=== PATIENT | male | born 1935 | race Caucasian/White ===

== ENCOUNTER → 2018-01-22 14:32 | Outpatient (CLI) | payer MEDICARE, SELFPAY ==
[2018-01-22 16:08] LABS: PSA,Total- Diagnostic 1.51 ng/mL (0.0-4.0)
== END ==
PROVIDERS: Family Provider Family Medicine; PCP Family Medicine; Visit Provider Nurse Practitioner Adult Health
DX: C61 Malignant neoplasm of prostate (principal)
CPT/HCPCS: 36415; 84153

== ENCOUNTER 2018-05-15 13:34 | Emergency (ER) | payer MEDICARE, SELFPAY ==
[2018-05-15 13:34] VITALS: BP 154/84; PULSE 71; RESP 16; TEMP 36.9; O2SAT 97; BMI 26.4
--- NOTE | 2018-05-15 14:04 | EKG12_ITS ---
Test Reason : CP Blood Pressure : / mmHG Vent. Rate : 072 BPM Atrial Rate : 072 BPM P-R Int : 178 ms QRS Dur : 094 ms QT Int : 394 ms P-R-T Axes : 067 037 067 degrees QTc Int : 431 ms Sinus rhythm with Premature supraventricular complexes Otherwise normal ECG Confirmed by OTIS OCCHRAN, SHELBY ([id number]), managing editor MERISSA ARRINGTON ([id number]) on 05/19/2018 5:03:09 PM Referred By: MAGALIS Confirmed By:SHELBY BERG MD
--- NOTE | 2018-05-15 14:15 | RAD_ITS ---
STUDY: X-RAY CHEST REASON FOR EXAM: Male, 83 years old. Chest pain. TECHNIQUE: PA and lateral views of the chest. COMPARISON: None. FINDINGS: EKG electrodes are seen. Hyperinflation. Mild increased markings in the anterior lingular segment of the left upper lobe. This may represent either an area of scarring and/or infiltrate. Follow-up is recommended. There is no demonstrated pleural abnormality. Normal size heart. Normal mediastinum and mackenzie. Normal visualized pulmonary arteries. There is atherosclerotic calcification of the aortic arch with tortuosity. There is demineralization of the osseous structures. Normal visualized ribs, clavicles, and shoulders. There is no demonstrated abnormality of the visualized soft tissue structures of the upper abdomen. RAD/Chest PA and Lateral IMPRESSION: Hyperinflation. Increased density in the anterior aspect of the lingular segment of the left upper lobe as described. This may represent either infiltrate or scarring. Electronically Signed: Greg Bagley MD at 15:03 EST Tel [phone], Service support ,
[2018-05-15 14:20] LABS: Absolute Lymphocyte Count 2.19 X10^3/ul (0.83-4.51); Absolute Neutrophil Count 3.4 X10^3/uL (2.0-7.7); Basophil# 0.04 X10^3/uL; Basophil% 0.6 % (0-1); Eosinophil# 0.13 X10^3/uL; Eosinophils% 2.1 % (0-5); Hematocrit 45.4 % (40-54); Hemoglobin 15.8 g/dl (13.0-16.5); Lymphocyte # 2.19 X10^3/ul (4.0); Mean Corp Hgb Conc 34.8 g/gl (32-36); Mean Corpuscular Hgb 36.1 pg (27.0-32.0); Mean Corpuscular Volume 103.7 fL (80-94); Mean Platelet Vol. 9.6 fl (6.2-12.0); Monocyte# 0.47 X10^3/uL; Monocyte% 7.5 % (0-10); Neutrophil # 3.42 X10^3/uL (2.7-7.7); Neutrophil % 54.6 % (47-70); POSITIVE COUNT NO; POSITIVE DIFFERENTIAL NO; POSITIVE MORPHOLOGY NO; Platelet Count 280 K/mm3 (150-450); RBC Distribution Width CV 12.1 % (11.6-14.6); RBC Distribution Width SD 45.2 fl (35.1-43.9); Red Blood Count 4.38 M/mm3 (4.6-6.2); White Blood Count 6.3 K/mm3 (4.4-11.0)
[2018-05-15 14:31] LABS: AST(SGOT) 8 U/L (15-37); Alanine Aminotransfer ALT/SGPT 17 U/L (16-61); Albumin, Serum 3.6 g/dL (3.2-5.0); Alkaline Phosphatase 82 U/L (45-117); Anion Gap 9 (5-15); BUN 13 mg/dL (7-18); BUN/Creat Ratio 11.3 RATIO (10-20); Calcium,Total 8.7 mg/dL (8.5-10.1); Chloride 99 mmol/L (98-107); Creatinine, Serum 1.15 mg/dL (0.70-1.30); EST Glomerular Filtration Rate 65 mL/min (>60); Est Glom Filt Rate - Afr Amer 78 mL/min (>60); Estimated Creatinine Clearance 50.25 ml/min; Globulin 3.6 g/dL (2.2-4.2); Glucose 171 mg/dL (74-106); Lipase 50 U/L (73-393); Potassium 4.7 mmol/L (3.5-5.1); Protein, Total 7.2 g/dL (6.4-8.2); Sodium Level 136 mmol/L (136-145)
[2018-05-15] MEDS: oxyCODONE 5 MG Tablet PO (16:22)
[2018-05-15 16:23] VITALS: BP 141/85; PULSE 85; RESP 22; O2SAT 95
--- NOTE | 2018-05-15 16:42 | ED.VISSUMM ---
- ER Visit Summary Date of Service: 05/15/18 Chief Complaint: Right-sided chest wall pain. History of Present Illness: The patient is a 83 M with right chest wall pain. Chief complaint is abdominal pain by patient pain towards his right lower ribs and back region. He denies any abdominal pain nausea vomiting or relation to food. No fever chills no recent weight loss. No hemoptysis. Physical Examination: Not appear in acute distress. Moist mucous membranes, no obvious facial deformity No C-spine tenderness supple neck. Regular rate and rhythm without any obvious murmurs Clear lungs bilaterally speaking in full sentences without any obvious respiratory distress. He has right-sided chest wall pain radiating into his back it is quite reproducible on palpation. No rash is seen on the skin. Abdomen soft and nontender no guarding or rebound Moves all extremities without any difficulty or pain. Skin does not show any obvious rashes or lesions, no trauma. Alert oriented ?3 with no gross focal deficit Emergency Department Course and Treatment: X-ray and blood work is unremarkable, his pain is reproducible in the chest wall region. It is nonpleuritic. He has no PE risk factors. He appears well. I will discharge him with reassurance he does not require analgesia at home he has opiate analgesics at home. He will follow-up with PCP. He was told to quit smoking. Disposition: Discharge stable condition Impression: Chest wall pain This note was generated with [employer] dictation software. It may contain incorrect words, spelling, and punctuation that were not noted in review of the chart prior to signing ED Disposition - Plan for ED Patient: Chief Complaint: Abd Pain Referrals: Pradeep Franklin MD [Primary Care Provider] -
--- NOTE | 2018-05-15 16:46 | ED.VISSUMM ---
- ER Visit Summary Date of Service: 05/15/18 Chief Complaint: [] History of Present Illness: The patient is a 83 M [] Physical Examination: [] Test Results: [] Emergency Department Course and Treatment: [] Treatment Plan: [] Disposition: [] Impression: [] This note was generated with [employer] dictation software. It may contain incorrect words, spelling, and punctuation that were not noted in review of the chart prior to signing ED Disposition - Plan for ED Patient: Disposition: Home or Assisted Living Chief Complaint: Abd Pain Instructions: ED Strain Chest Wall Referrals: Pradeep Franklin MD [Primary Care Provider] - 3-5 Days
== END 2018-05-15 16:54 | disposition home or self-care (01) ==
PROVIDERS: Emergency Provider Emergency Medicine; Family Provider Family Medicine; PCP Family Medicine
DX: R07.89 Other chest pain (principal); I10 Essential (primary) hypertension; E78.00 Pure hypercholesterolemia, unspecified; Z72.0 Tobacco use; Z79.4 Long term (current) use of insulin; Z79.82 Long term (current) use of aspirin; Z79.899 Other long term (current) drug therapy
CPT/HCPCS: 71046; 80053; 83690; 85025; 93005; 99284; A4216

== ENCOUNTER 2019-02-27 10:45 | Emergency (ER) | payer MEDICARE, SELFPAY ==
[2019-02-27 10:46] VITALS: BP 143/87; PULSE 80; RESP 18; TEMP 36.9; O2SAT 95; BMI 25.8
--- NOTE | 2019-02-27 11:29 | ED.DCSUM_ITS ---
History of Present Illness Chief Complaint: Abscess Informant: Patient Onset: Weeks - 2-3 Context: Gradual Onset Timing: Continuous Quality: sore Location: left perianal area Current Severity: Moderate Maximum Severity: Moderate Worsened by: sitting, palpation Relieved by: standing Associated Symptoms: no fevers or systemic sx. no discharge/bleeding. Narrative: Patient states for the last couple weeks he has had a tender swollen area in his rectal area, indicating his perianal area. It has not drained anything. He had this about 2 years ago when he saw Dr. Sullivan, who did incision and drainage in the office, and it gradually got better. However, the patient states he has felt something there for the past 2 years ever since, and then start seeing how that doctor never did follow up with him or get it to go away, he made phone calls and never got a call back and feels like he was not treated well and wants to see someone else but since it is Friday and he feels worse this morning presents to the emergency department for evaluation. He denies any discharge, problems with bowel movements which have been normal and not constipated or diarrhea or bloody at all. No fevers or systemic symptoms. He has history of diabetes but no history of inflammatory bowel disease that he knows of Prior similar symptoms: Yes - had drained once - Past Medical History (1) Benign hypertension Status: Chronic (2) Diabetic neuropathy Status: Chronic (3) Diverticulosis of colon without diverticulitis Status: Chronic (4) HLD (hyperlipidemia) Status: Chronic (5) History of GI bleed Status: Chronic (6) Type II diabetes mellitus Status: Chronic Past Medical History - Allergies and Home Meds Allergies/Adverse Reactions: Allergies Iodinated Contrast Media [Iodinated Contrast Media - IV Dye] Allergy (Verified 02/27/19 10:48) Shortness of breath Primary Care Physician: Pradeep Franklin MD [Primary Care Provider] - Smoking Status: Current every day smoker Drugs: None Review of Systems General: Denies: Chills, Fever Gastrointestinal: Reports: - - Perianal discomfort, see HPI. Denies: Abdominal pain, Nausea, Vomiting, Diarrhea, Constipation, Melena, Hematochezia Skin: Reports: Abscess - Possibly, see HPI. Denies: Rash, Wounds Physical Exam Vital Signs/Narrative: Vital Signs Temp Pulse Resp BP Pulse Ox 02/27/19 10:46 98.4 F 80 18 143/87 H 95 Inital Vital Signs reviewed: Yes General: Well nourished, Well developed, No Acute Distress - Well-appearing, conversive, ambulatory Head: Normocephalic, Atraumatic ENT: Moist mucous membranes, No rhinorrhea Neck: Supple, Nontender Abdomen: Soft, Nontender, Nondistended, Normal bowel sounds Rectal: Tenderness - Mild tenderness at 9 o'clock position, with there is a very small nonerythematous swollen area without expressed will discharge. There is no induration, or fluctuance. It is right at the anal verge. On digital rectal exam, I palpate no masses or areas of tenderness further up. There is no palpable mass. Skin: Normal color, No rash, No Trauma Neurological: Alert, Oriented x3, Cranial nerves II-XII grossly intact, Normal Strength, Normal Sensation, Normal Gait Psychological: Normal affect, Normal Mood Diagnostic/Tx/Re-eval - Medical Decision Making At this time I do not think there is any indication for incision and drainage this is a very small area of tenderness. In fact it may not even be an abscess but I am going to treat him as a possible early perianal abscess just in case. He states he wants to be referred to a different colorectal surgeon. Given i nformation for Dr. Dykes and advised to follow-up after the weekend, to take the antibiotic Keflex as I am at a low patient for MRSA given the appearance of this fairly benign area, and given reasons to return. He is comfortable with that plan. ED Disposition - Plan for ED Patient: Disposition: Home or Assisted Living Diagnosis: Perianal abscess Instructions: ABSCESS, Antiobiotic Treatment Only Prescriptions: Cephalexin [Keflex] 500 mg PO Q8H #30 cap Prescription Printed Referrals: Pradeep Franklin MD [Primary Care Provider] - Charissa Dykes MD [STAFF PHYSICIAN] - As soon as possible (call for appt)
[2019-02-27 11:37] VITALS: RESP 18
== END 2019-02-27 11:41 | disposition home or self-care (01) ==
PROVIDERS: Emergency Provider Emergency Medicine; Family Provider Family Medicine; PCP Family Medicine
DX: K61.0 Anal abscess (principal); I10 Essential (primary) hypertension; E11.40 Type 2 diabetes mellitus with diabetic neuropathy, unspecified; F17.200 Nicotine dependence, unspecified, uncomplicated
CPT/HCPCS: 99282

== ENCOUNTER 2019-05-26 16:42 | Emergency (ER) | payer MEDICARE, SELFPAY ==
[2019-05-26 16:43] VITALS: BP 154/75; PULSE 89; RESP 17; TEMP 36.7; O2SAT 95; BMI 25.3
--- NOTE | 2019-05-26 17:47 | ED.DCSUM_ITS ---
- ER Visit Summary Date of Service: 05/26/19 Chief Complaint: Rectal abscess History of Present Illness: The patient is a 84 M with a rectal cyst or abscess. This has been going on intermittently for years. He previously saw Dr. Wang and it was drained. He never followed up for biopsy results. He has been placed on antibiotics by his PCP and by the emergency department. He was referred to surgery for follow-up, but has not followed up with a new surgeon. He continues to have symptoms. This episode has been going on for a couple months, worse over the last 3 days. He reports pain to his rectal area. Denies any other associated symptoms like GI symptoms or fevers. He is not currently on antibiotics. Physical Examination: Afebrile and vital signs unremarkable. He has some induration and swelling to his perineal area. The overlying skin appears normal. Anus otherwise unremarkable. Test Results: None performed Emergency Department Course and Treatment: Patient presents with a chronic abscess or cyst. This has been going on for years. He was referred to surgery. There is no indication for emergent I&D or surgery. He has had this on and off for years and this episode has been going on for several months. He is not septic or toxic. The overlying skin appears normal. This can be managed as an outpatient. He was started on Bactrim and Keflex and will be referred to surgery for follow-up. Treatment Plan: Bactrim and Keflex. Outpatient referral to surgery. Disposition: Discharge Impression: Chronic perineal swelling This note was generated with [employer] dictation software. It may contain incorrect words, spelling, and punctuation that were not noted in review of the chart prior to signing ED Disposition - Plan for ED Patient: Referrals: Pradeep Franklin MD [Primary Care Provider] -
--- NOTE | 2019-05-26 17:51 | ED.DEP ---
ED Disposition - Plan for ED Patient: Instructions: ABSCESS, Antiobiotic Treatment Only Prescriptions: Smz/Tmp Ds [Bactrim Ds] 1 tab PO BID #14 tab Prescription Printed Cephalexin [Keflex] 500 mg PO Q6 #28 cap Prescription Printed Referrals: Maury Alejo MD [STAFF PHYSICIAN] - Charissa Dykes MD [STAFF PHYSICIAN] -
[2019-05-26 18:21] VITALS: BP 138/67; PULSE 52; RESP 16; O2SAT 98
[2019-05-26] MEDS: Smz/Tmp Ds Tablet 1 TABLET PO (18:22)
[2019-05-26] MEDS: Cephalexin 250 MG Capsule 500 MG PO (18:22)
== END 2019-05-26 18:25 | disposition home or self-care (01) ==
PROVIDERS: Emergency Provider Emergency Medicine; PCP Family Medicine
DX: R22.2 Localized swelling, mass and lump, trunk (principal); E11.9 Type 2 diabetes mellitus without complications; I10 Essential (primary) hypertension; Z87.891 Personal history of nicotine dependence; Z79.4 Long term (current) use of insulin; Z79.899 Other long term (current) drug therapy
CPT/HCPCS: 99283

== ENCOUNTER 2019-05-28 08:36 | Day surgery (SDC) | payer MEDICARE, SELFPAY ==
--- NOTE | 2019-05-28 07:41 | HP.PCM_ITS ---
History and Physical Date of Admission: 05/28/19 HISTORY AND PHYSICAL ? Bebeto Staples 1935 ? ? REFERRING PHYSICIAN: MD Kayden ? CHIEF COMPLAINT: No chief complaint on file. ? HPI: The patient is a 84 year old male presents with perineal abscess. He states that he has noted intermittent swelling/tenderness/drainage for the past several years. He underwent incision and drainage of abscess in the same area by Dr. Sullivan October 05, 2013. He states that he has had problems in the area. He has had radiation to the area for prostate cancer. He is a diabetic without optimum control of his disease. 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 He denies fevers. He was seen at [facility] ED on 05/26/2019 for which he was placed on Bactrim and Keflex and told to follow up in this clinic. ? ? PAST MEDICAL HISTORY ? 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 ? Anxiety ? ? 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 Chronic kidney disease (CKD), stage III (moderate) (HCC) ? ? Colon polyp ? ? CVA (cerebral vascular accident) (HCC) 2006 ? Diverticulosis of colon (without mention of hemorrhage) ? ? Hypertension ? ? Involuntary movements ? ? dykinesia 2006 ? Lower GI bleed ? ? 03/2009, transfused 8 units PRBC's ? PMH - PAST MEDICAL HISTORY OF ? ? diabetes ? PMH - PAST MEDICAL HISTORY OF ? ? hypercholesterolemia ? PMH - PAST MEDICAL HISTORY OF ? ? dykinesia ? PMH - PAST MEDICAL HISTORY OF ? ? abnormal blood work on Prostrate ? Prostate cancer (HCC) 2011 ? s/p radiation, previously seeing Dr. Williamson ? Psoriasis ? ? Tobacco use ? ? PAST SURGICAL HISTORY ? COLONOSCOP W/ OR W/O BRSH SPEC ? 10/24/03 ? Colonoscopy ? COLONOSCOP W/ OR W/O BRSH SPEC ? 08/17/2008 ? Colonoscopy ? COLONOSCOP W/ OR W/O BRSH SPEC ? 12-18-12 ? EGD W/O OR W/BRUSH/WASH ? 10/24/03 ? EGD ? LAPAROSCOPIC CHOLEYCYSTECTOMY ? 12-23-12 ? PAST SURGICAL HISTORY OF ? 2003 ? boil and cyst removed from buttock ? PAST SURGICAL HISTORY OF ? 1969 ? hernia ? PAST SURGICAL HISTORY OF ? 1995 ? pelonidal cyst removed ? PAST SURGICAL HISTORY OF ? ? ? bone spur removed frmo nose ? PAST SURGICAL HISTORY OF ? 08/25/2003 ? surgery left hand 3rd and 4th fingers, trigger finger ? REMV CATARACT EXTRACAP,INSERT LENS Bilateral 06/2015 ? Cataract Extraction with PC IOL ? ? Current Outpatient Medications ? blood sugar diagnostic (BLOOD GLUCOSE TEST) test strip Test blood sugar(s) 3-4 times daily. Dx: Type 2 DM - Controlled E11.9 Insulin: Yes ? Omeprazole (PRILOSEC) 40 mg capsule Take 1 capsule by mouth once daily. ? gabapentin (NEURONTIN) 300 mg capsule Take 1 capsule by mouth daily at bedtime for 90 days. As needed for restless leg symptoms ? insulin glargine (LANTUS SOLOSTAR U-100 INSULIN) 100 unit/mL (3 mL) inpn Inject 20 Units subcutaneously daily at bedtime. ? valACYclovir (VALTREX) 1 gram tab Take 1 tablet by mouth once daily. ? insulin lispro (HUMALOG KWIKPEN INSULIN) 100 unit/mL inpn Inject subcutaneously 10-14 units with meals only ? insulin needles, DISPOSABLE, (PEN NEEDLE) 31 gauge x 5/16 ndle Use one needle per dose once daily DM: yes Insulin: Yes DX code:11.65 ? blood sugar diagnostic ([employer] SalesTOUCH ULTRA TEST) test strip Use to test blood sugar 3 to 4 times daily. DM: yes Insulin: yes DX: E11.9 ? triamcinolone acetonide (KENALOG) 0.1 % cream Apply 1 application to affected area twice daily. Apply sparingly to area for rash/itching. Use on back, buttock, and thigh ? hydrocortisone 2.5 % cream Apply 1 application to affected area twice daily. Location: groin ? simvastatin (ZOCOR) 20 mg tablet Take one(1) tablet daily at bedtime. ? lisinopril (ZESTRIL, PRINIVIL) 5 mg tablet TAKE 1 TABLET ONCE DAILY, HOLD IF SYSTOLIC BLOOD PRESSURE IS LESS THAN 100 ? aspirin 81 mg chewable tablet Take 81 mg by mouth once daily. ? ? ALLERGIES: Iodine Dye [Contrast Dye]; Metformin ? PERSONAL HISTORY: ? Smoking status: Current Every Day Smoker ? ? Packs/day: 1.00 ? ? Years: 60.00 ? ? Pack years: 60.00 ? ? Types: Cigarettes ? Smokeless tobacco: Former User ? ? Types: Chew ? ? Quit date: 02/04/1978 Substance Use Topics ? Alcohol use: No ? ? Comment: 15-18 drinks per nite until 2005 ? Drug use: No ? FAMILY HISTORY ? Stroke Mother ? ? Diabetes Mother ? ? Heart Brother ? ? Hypertension Brother 70 ? CABGx3 ? Diabetes Brother ? ? Lipids Brother ? ? Cancer Other ? ? Nephew ? Cancer Brother ? ? Lymph nodes (younger) ? Kidney Disease Sister ? ? ? REVIEW OF SYSTEMS: General - denies fevers, denies anorexia Cardiovascular - denies chest pain Pulmonary - denies coughing up blood Gastrointestinal - denies abdominal pain Neurological - denies seizures Genitourinary - denies blood in urine Hematological - denies spontaneous/prolonged bleeding Skin - see HPI Musculoskeletal - has back and hip pain intermittently Endocrine - has diabetes Psychological ? denies hallucinations ? PHYSICAL EXAMINATION: General: The patient is 84 year old male, well nourished, well hydrated in no acute distress. The patient is oriented to time, place, and person. VITALS: Blood pressure 102/56, pulse 80, temperature 36.6 ?C (97.9 ?F), temperature source Temporal, resp. rate 22, weight 80.7 kg (178 lb), SpO2 92 %. Body mass index is 25.72 kg/m?. Head ? Normocephalic. EOM intact with sclera clear and no icterus noted. Mouth with mucus membranes moist. Neck - supple with no jugular venous distention noted. Trachea is midline. No carotid bruits noted. No thyroid enlargement or thyroid nodules detected. No masses noted. Lungs ? clear to auscultation. Normal breath sounds No rales/rhonchi/wheezing noted. No labored breathing noted, such as retractions. No cough heard. Heart ? normal S1 and S2 auscultated. No rubs/clicks/murmurs noted. Regular rate. Abdomen ? soft and benign. Normal bowel sounds. Extremities ? no calf tenderness noted. No pitting edema noted Rectal ? normal perianal skin, fluctuant swelling of perineum between anus and base of scrotum Skin ? no rashes noted. Normal skin integrity. Neurological ? cranial nerves II-XII intact. Normal motor strength in arms and legs. No localized numbness detected. Psych ? calm and appropriate ? ? IMPRESSION: perineal abscess ? PLAN: I have discussed the above with the patient and a friend who is present with him. I have offered incision and drainage of this lesion, because I do not know its extent, will have to explore the area. This is best achieved in the OR. I have explained the procedure to the patient. I have counseled the patient as to the risks of the procedure, including but not limited to: infection, bleeding, injury to any blood vessels/nerves, scar tissue, continued wound infections, complications of anesthesia, etc. ? the patient understands. The patient wishes to proceed. ? I have answered all questions to the patient?s satisfaction and the patient has no further questions. ? . Diagnoses: (L02.215) Perineal abscess (primary encounter diagnosis) (E11.65) Uncontrolled type 2 diabetes mellitus with hyperglycemia (HCC) (Z72.0) Tobacco use Return to Clinic: The patient is instructed to follow-up with me after the procedure
[2019-05-28 09:19] VITALS: BP 108/69; PULSE 88; RESP 16; TEMP 37.1; O2SAT 94; BMI 25.0
[2019-05-28] MEDS: Lactated Ringers 1,000 ML 75 ML IV (09:37)
[2019-05-28 09:46] LABS: Bedside Glucose 214 mg/dL (70-110)
--- NOTE | 2019-05-28 11:09 | PCM.DC.GS ---
Discharge Diet: No Restrictions Discharge Activity: Return to Normal Activity, May not drive while taking narcotic pain medications. Call your doctor if you observe: Fever of 101 or Higher Additional Dressing/Incision Instructions:: Leave dressings in place. Sponge bathe only Allergies/Adverse Reactions: Allergies Iodinated Contrast Media [Iodinated Contrast Media - IV Dye] Allergy (Verified 05/28/19 09:13) Shortness of breath Medications to take at Discharge Aspirin [Aspirin, Baby] 81 mg PO DAILY 10/05/13 Gabapentin 300 mg PO QHS 10/05/13 Lisinopril [Zestril] 5 mg PO DAILY 10/05/13 Lorazepam 0.5 mg PO QHS PRN 10/05/13 Simvastatin [Zocor] 20 mg PO QHS 10/05/13 Insulin Glargine [Lantus SoloStar Pen] 20 unit SC 1800 05/15/18 Insulin Lispro [Humalog KwikPen] 10 unit SC TID 05/15/18 Cephalexin [Keflex] 500 mg PO Q6 #28 cap 05/26/19 Smz/Tmp Ds [Bactrim Ds] 1 tab PO BID #14 tab 05/26/19 Omeprazole 40 mg PO PRN PRN 05/27/19 Valacyclovir HCl [Valtrex] 1,000 mg PO DAILY 05/27/19 Hydrocodone Bitart/Apap 5-325 [[place] 5MG-325MG] 1 tablet PO Q8H PRN PRN 5 Days #15 tablet 05/28/19 The following prescriptions were given: Hydrocodone Bitart/Apap 5-325 [[place] 5MG-325MG] 1 tablet PO Q8H PRN PRN 5 Days #15 tablet PRN Reason: Pain Transmission Status: Sent to [employer] #30 Primary Care Physician: Pradeep Franklin MD [Primary Care Provider] - Test Results: Test results from this visit will be discussed in further detail at your follow-up appointment, if applicable. Please Follow Up With: Charissa Dykes MD - call for changes When: to be seen on Friday, at 9:30 in the clinic
[2019-05-28] MEDS: Bupiv/Epi 0.5% Mpf 30 ML Vial (11:30)
--- NOTE | 2019-05-28 11:34 | PCM.OPRPT ---
Report of Operation Date of Procedure: 05/28/19 Pre-Operative Diagnosis: perineal abscess Post-Operative Diagnosis: same Surgery/Procedure Performed:: incision and drainage of perineal abscess Description of Surgical Findings:: perineal abscess - 6 x 4 cm with depth of 4 cm Type of Anesthesia:: General Anesthesiologist: Emma Ovalle Specimen's removed: aerobic and anaerobic cultures of perineal abscess Estimated Blood Loss (mL): < 10 ml Fluids Replaced: 300 ml RL Description of Procedure: After informed consent was obtained, patient was brought to the Operating Room. Appropriate time out protocol was followed. He was then placed under anesthesia by the anesthesia providers. The patient was placed in modified lithotomy position. The perineum was prepped with a sterile surgical preparation and appropriate surgical drapes were placed. The pointing aspect of the abscess cavity which was near the anal opening was then incised. Copious amount of foul odored purulent fluid emanated and was completely drained, at least 60 ml was obtained. Samples of the fluid were sent for aerobic and anaerobic cultures. The cavity was then palpated out. There were loculations that were bluntly opened to allow adequate drainage. The cavity was 6 x 4 cm with a depth of 4 cm. The incision was extended along the raphe of the perineum to open the abscess cavity in its entirety - extending from the edge of the anus to the base of the scrotum. Hemostasis was achieved with electrocautery. The cavity was vigorously irrigated with hydrogen peroxide diluted. No further undrained or purulent areas were noted. The cavity was densely packed with gauze and sterile dressing was applied over this. Patient was then extubated and brought to Recovery Room in stable condition. - Complications none noted - Admit VTE Documentation VTE Present on Admission: Yes VTE Mechan Device Prophylaxis: SCD's
[2019-05-28 11:47] VITALS: BP 108/69; BP 120/60; PULSE 90; RESP 20; TEMP 36.7; O2SAT 92
[2019-05-28 12:00] VITALS: BP 107/95; BP 108/69; PULSE 82; RESP 18; O2SAT 95
[2019-05-28 12:15] VITALS: BP 108/69; BP 115/67; PULSE 84; RESP 18; O2SAT 99
[2019-05-28 12:26] VITALS: BP 105/66; BP 108/69; PULSE 76; RESP 16; TEMP 37; O2SAT 98
[2019-05-28 12:26] LABS: Bedside Glucose 227 mg/dL (70-110)
[2019-05-28 13:37] VITALS: BP 102/67; BP 108/69; PULSE 96; RESP 20; TEMP 36.7; O2SAT 96
== END 2019-05-28 13:42 | disposition home or self-care (01) ==
LOC: SDC 08:37 → AC 09:05
PROVIDERS: PCP Family Medicine; Referring Provider Surgery; Visit Provider Surgery
PROC: (CPT 10060; principal; 2019-05-28 10:35)
DX: L02.215 Cutaneous abscess of perineum (principal); E11.22 Type 2 diabetes mellitus with diabetic chronic kidney disease; E11.36 Type 2 diabetes mellitus with diabetic cataract; F41.9 Anxiety disorder, unspecified; N18.3 Chronic kidney disease, stage 3 (moderate); I12.9 Hypertensive chronic kidney disease with stage 1 through stage 4 chronic kidney disease, or unspecified chronic kidney disease; E78.00 Pure hypercholesterolemia, unspecified; K21.9 Gastro-esophageal reflux disease without esophagitis; F17.210 Nicotine dependence, cigarettes, uncomplicated; Z86.73 Personal history of transient ischemic attack (TIA), and cerebral infarction without residual deficits; Z85.46 Personal history of malignant neoplasm of prostate; Z92.3 Personal history of irradiation; Z79.2 Long term (current) use of antibiotics; Z79.4 Long term (current) use of insulin; Z79.82 Long term (current) use of aspirin; Z79.899 Other long term (current) drug therapy
CPT/HCPCS: 00400; 10060; 82962; 87015; 87070; 87075; 87077; 87102; 87116; 87205; 87206; J7050; J7120; J2405

== ENCOUNTER 2019-10-02 16:25 | Emergency (ER) | payer MEDICARE, SELFPAY ==
[2019-10-02 16:26] VITALS: BP 120/59; PULSE 93; RESP 16; TEMP 36.8; O2SAT 94; BMI 27.1
--- NOTE | 2019-10-02 16:45 | ED.DCSUM_ITS ---
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 He cut his thumb in a table saw. He is right-hand dominant. He is unsure of his last tetanus update. - Past Medical History (1) High cholesterol Status: Chronic (2) GERD (gastroesophageal reflux disease) Status: Chronic (3) Prostate cancer Status: Chronic (4) Benign hypertension Status: Chronic (5) Diabetic neuropathy Status: Chronic (6) HLD (hyperlipidemia) Status: Chronic (7) Type II diabetes mellitus Status: Chronic Past Medical History - Allergies and Home Meds Allergies/Adverse Reactions: Allergies Iodinated Contrast Media [Iodinated Contrast Media - IV Dye] Allergy (Verified 10/02/19 16:37) Shortness of breath Primary Care Physician: Pradeep Franklin MD [Primary Care Provider] - Prior records reviewed: Yes Smoking Status: Current every day smoker Review of Systems General: Denies: Chills, Fever Eyes: Denies: Visual changes - bilaterally ENT: Denies: Bilateral ear pain Cardiovascular: Denies: Chest pain Respiratory: Denies: Dyspnea, Cough Gastrointestinal: Denies: Abdominal pain Musculoskeletal: Reports: Extremity Pain Skin: Reports: Wounds Neurological: Denies: Headache Hematologic: Denies: Easy bruising, Easy bleeding Allergy: Denies: Uticaria Physical Exam Vital Signs/Narrative: Vital Signs Temp Pulse Resp BP Pulse Ox 10/02/19 16:26 98.3 F 93 16 120/59 L 94 Inital Vital Signs reviewed: Yes General: Well nourished, Well developed Head: Normocephalic ENT: Moist mucous membranes Neck: Supple Cardiovascular: Regular rate, Regular rhythm Respiratory: No distress Abdomen: Soft, Nontender Extremities: - - Amputation of the distal half of the distal phalanx left thumb. Mild bleeding noted. Neurological: Alert, Oriented x3 Psychological: Normal affect Diagnostic/Tx/Re-eval Impressions Finger X-Ray 10/02/19 16:55 IMPRESSION: 1. The distal tip and surrounding soft tissues of the distal phalanx of the thumb have been completely amputated Electronically Signed: Yrn Saucedo MD at 17:24 EDT , Service support , 10/02/19 16:55 Finger(s) Min 2 Views [RAD] Stat - Medical Decision Making Tetanus update is provided. Patient is given p.o. [place] for pain. Digital block is performed with a 50-50 mix of lidocaine and bupivacaine. 3 cc were used in a digital block. Wound is cleansed. Thumbnail is removed. 4 sutures of 4-0 Vicryl were placed in the deeper tissues. Top layer is closed with 5 sutures of 4-0 nylon. Nail was notably replaced back in the nail bed. Bulky dressing to be placed. Patient be started on Bactrim and Keflex and will follow up with orthopedics. He is referred to Dr. De La Garza, on-call. ED Disposition - Plan for ED Patient: Disposition: Home or Assisted Living Diagnosis: Amputation, thumb, traumatic Instructions: ED Finger Tip Amputation Open Treatment Prescriptions: Smz/Tmp Ds [Bactrim Ds] 1 tab PO BID #20 tab Transmission Status: Pending to [facility] Cephalexin [Keflex] 500 mg PO Q6 #40 cap Transmission Status: Pending to [facility] Hydrocodone Bitart/Apap 5-325 [[place] 5MG-325MG] 1 tablet PO Q6H PRN PRN 3 Days #10 tablet PRN Reason: Pain Transmission Status: Sent to [facility] Referrals: Abimael De La Garza DO [STAFF PHYSICIAN] - Michael Ames MD [STAFF PHYSICIAN] - Additional Instructions: Follow-up with either Dr De La Garza or Dr Ames within one week.
[2019-10-02] MEDS: Bupivacaine Mpf 0.5% 30 ML VIAL INFILT (16:49)
[2019-10-02] MEDS: HYDROcodone Bitartrate/Apap 5/325 Tablet PO (16:50)
[2019-10-02] MEDS: Diphth,Pertuss(Acell),Tet Vac 0.5 ML Vial IM (16:50)
--- NOTE | 2019-10-02 16:55 | RAD_ITS ---
STUDY: X-RAY - LEFT HAND, ATTENTION FIRST FINGER REASON FOR EXAM: Male, 84 years old. TABLE SAW INJURY TECHNIQUE: 3 view(s) of the finger were obtained. COMPARISON: None. FINDINGS: 3 views of the thumb were obtained The distal tip and surrounding soft tissues of the distal phalanx of the thumb have been completely amputated. Multiple tiny bony fragments are present at the site of injury including subcutaneous gas swelling. Mild degenerative changes are seen in the joints of the thumb. RAD/Finger(s) Min 2 Views IMPRESSION: 1. The distal tip and surrounding soft tissues of the distal phalanx of the thumb have been completely amputated Electronically Signed: Yrn Saucedo MD at 17:24 EDT , Service support ,
[2019-10-02] MEDS: Smz/Tmp Ds Tablet 1 TABLET PO (17:58)
[2019-10-02] MEDS: Cephalexin 250 MG Capsule 500 MG PO (17:58)
[2019-10-02 18:00] VITALS: BP 114/71; PULSE 78; RESP 18; O2SAT 99
== END 2019-10-02 18:01 | disposition home or self-care (01) ==
LOC: ED 17:55
PROVIDERS: Emergency Provider Emergency Medicine; PCP Family Medicine
DX: S68.522A Partial traumatic transphalangeal amputation of left thumb, initial encounter (principal); E78.00 Pure hypercholesterolemia, unspecified; K21.9 Gastro-esophageal reflux disease without esophagitis; Z85.46 Personal history of malignant neoplasm of prostate; I10 Essential (primary) hypertension; E11.40 Type 2 diabetes mellitus with diabetic neuropathy, unspecified; F17.200 Nicotine dependence, unspecified, uncomplicated; Z23 Encounter for immunization; Z79.82 Long term (current) use of aspirin; Z79.4 Long term (current) use of insulin; Z79.899 Other long term (current) drug therapy; W29.3XXA Contact with powered garden and outdoor hand tools and machinery, initial encounter; Y93.89 Activity, other specified; Y92.009 Unspecified place in unspecified non-institutional (private) residence as the place of occurrence of the external cause; Y99.8 Other external cause status
CPT/HCPCS: 11760; 12001; 73140; 90471; 90715; 99284

== ENCOUNTER 2019-10-08 10:20 | Day surgery (SDC) | payer MEDICARE, SELFPAY ==
[2019-10-07 15:20] LABS: Probe Check PASS; Specimen Processing Control PASS
--- NOTE | 2019-10-07 17:43 | PCM.HP.BLA ---
History and Physical Date of Admission: 10/07/19 Bebeto Staples 1935 ? ? REFERRING PHYSICIAN: Self ? CHIEF COMPLAINT: Post Op ? HPI: The patient is a 84 year old male presents with draining perineal wound. He had previous I&D of this lesion at [facility] on 05/28/2019. It was difficult for patient to care for the wound by himself. He began noting increased cloudy yellow drainage and tenderness in the area in the past 2-3 weeks. He is a poorly controlled diabetic with consistently elevated HgA1Cs ? ? PAST MEDICAL HISTORY ? 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 ? Anxiety ? ? 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 Chronic kidney disease (CKD), stage III (moderate) (HCC) ? ? Colon polyp ? ? CVA (cerebral vascular accident) (HCC) 2006 ? Diabetes mellitus type II (HCC) ? ? Diverticulosis of colon (without mention of hemorrhage) ? ? Genital herpes ? ? Hyperlipidemia ? ? Hypertension ? ? Involuntary movements ? ? dykinesia 2006 ? Lower GI bleed ? ? 03/2009, transfused 8 units PRBC's ? [facility] - PAST MEDICAL HISTORY OF ? ? dykinesia ? Prostate cancer (HCC) 2011 ? s/p radiation, previously seeing Dr. Williamson ? Psoriasis ? ? Tobacco use ? ? PAST SURGICAL HISTORY ? COLONOSCOP W/ OR W/O BRS SPEC ? 10/24/03 ? Colonoscopy ? COLONOSCOP W/ OR W/O BRSH SPEC ? 08/17/2008 ? Colonoscopy ? COLONOSCOP W/ OR W/O BRS SPEC ? 12-18-12 ? EGD W/O OR W/BRUSH/WASH ? 10/24/03 ? EGD ? LAPAROSCOPIC CHOLEYCYSTECTOMY ? 12-23-12 ? PAST SURGICAL HISTORY OF ? 2003 ? boil and cyst removed from buttock ? PAST SURGICAL HISTORY OF ? 1969 ? hernia ? PAST SURGICAL HISTORY OF ? 1995 ? pelonidal cyst removed ? PAST SURGICAL HISTORY OF ? ? ? bone spur removed frmo nose ? PAST SURGICAL HISTORY OF ? 08/25/2003 ? surgery left hand 3rd and 4th fingers, trigger finger ? PAST SURGICAL HISTORY OF ? 2019 ? perirectal abscess drainage ? REMV CATARACT EXTRACAP,INSERT LENS Bilateral 06/2015 ? Cataract Extraction with PC IOL ? ? Current Outpatient Medications ? insulin lispro (HUMALOG KWIKPEN INSULIN) 100 unit/mL Inject subcutaneously 10-14 units with meals only ? valACYclovir (VALTREX) 1 gram Take 1 tablet by mouth once daily. ? simvastatin (ZOCOR) 20 mg tablet Take one(1) tablet daily at bedtime. ? lisinopril (ZESTRIL, PRINIVIL) 5 mg tablet TAKE 1 TABLET ONCE DAILY, HOLD IF SYSTOLIC BLOOD PRESSURE IS LESS THAN 100 ? gabapentin (NEURONTIN) 300 mg capsule Take 1 capsule by mouth daily at bedtime for 90 days. As needed for restless leg symptoms ? insulin glargine (LANTUS SOLOSTAR U-100 INSULIN) 100 unit/mL (3 mL) inpn Inject 24 Units subcutaneously daily at bedtime. ? triamcinolone acetonide (KENALOG) 0.1 % cream Apply 1 application to affected area twice daily. Apply sparingly to area for rash/itching. Use on back, buttock, and thigh ? blood sugar diagnostic (BLOOD GLUCOSE TEST) test strip Test blood sugar(s) 3-4 times daily. Dx: Type 2 DM - Controlled E11.9 Insulin: Yes ? Omeprazole (PRILOSEC) 40 mg capsule Take 1 capsule by mouth once daily. ? insulin needles, DISPOSABLE, (PEN NEEDLE) 31 gauge x 5/16 ndle Use one needle per dose once daily DM: yes Insulin: Yes DX code:11.65 ? blood sugar diagnostic (NanomixUCH ULTRA TEST) test strip Use to test blood sugar 3 to 4 times daily. DM: yes Insulin: yes DX: E11.9 ? hydrocortisone 2.5 % cream Apply 1 application to affected area twice daily. Location: groin ? aspirin 81 mg chewable tablet Take 81 mg by mouth once daily. ? ? ALLERGIES: Iodine Dye [Contrast Dye]; Metformin ? PERSONAL HISTORY: Tobacco Use ? Smoking status: Current Every Day Smoker ? ? Packs/day: 1.00 ? ? Years: 60.00 ? ? Pack years: 60.00 ? ? Types: Cigarettes ? Smokeless tobacco: Former User ? ? Types: Chew ? ? Quit date: 02/04/1978 Substance Use Topics ? Alcohol use: No ? ? Comment: 15-18 drinks per nite until 2005 ? Drug use: No ? FAMILY HISTORY ? Stroke Mother ? ? Diabetes Mother ? ? Heart Brother ? ? Hypertension Brother 70 ? CABGx3 ? Diabetes Brother ? ? Lipids Brother ? ? Cancer Other ? ? Nephew ? Cancer Brother ? ? Lymph nodes (younger) ? Kidney Disease Sister ? ? ? REVIEW OF SYSTEMS: General - denies fevers Cardiovascular - denies chest pain Pulmonary - denies coughing up blood Gastrointestinal - denies abdominal pain Neurological - denies seizures Genitourinary - denies blood in urine Hematological - denies spontaneous/prolonged bleeding Skin - see HPI Endocrine - poorly controlled diabetes Psychological ? denies hallucinations ? PHYSICAL EXAMINATION: General: The patient is 84 year old male, well nourished, well hydrated in no acute distress. The patient is oriented to time, place, and person. VITALS: Pulse 92, temperature 36.2 ?C (97.2 ?F), temperature source Temporal, resp. rate 20, weight 81.6 kg (180 lb), SpO2 93 %. Body mass index is 26.01 kg/m?. Head ? Normocephalic. EOM intact with sclera clear and no icterus noted. Mouth with mucus membranes moist. Neck - supple with no jugular venous distention noted. Trachea is midline. Lungs ? clear to auscultation. Normal breath sounds. No rales/rhonchi/wheezing noted. No labored breathing noted, such as retractions. No cough heard. Heart ? normal S1 and S2 auscultated. No rubs/clicks/murmurs noted. Regular rate. Abdomen ? soft and benign. Normal bowel sounds. No abdominal bruits noted. Difficult to determine if any masses or organomegaly due to body habitus. Extremities ? no calf tenderness noted. No pitting edema noted. Skin ? normal skin integrity. Neurological ? gait normal, no focal deficits noted. Psych ? calm and appropriate ? ? IMPRESSION: perineal draining wound ? PLAN: I have discussed the above with the patient. I have offered formal incision and drainage of the area. The patient states that he does not want just local anesthesia, will therefore plan for MAC/local. I have explained the procedure to the patient. I have counseled the patient as to the risks of the procedure, including but not limited to: infection, bleeding, injury to any blood vessels/nerves, scar tissue, continued infections, complications of anesthesia, etc. ? the patient understands. The patient wishes to proceed, but wants his surgery at [facility] as he has poor transportation arrangements. He will follow up in the [place] wound healing clinic after the procedure, given his inability to care for the wound himself. ? I have answered all questions to the patient?s satisfaction and the patient has no further questions. The patient was offered a surgery/procedure . The provider and patient have discussed in detail the risk of exposure to and/or potential harm posed by the COVID-19 virus with having a surgery/procedure at this time versus the risk of??delaying the surgery/procedure. It is not possible to know either the risk of delaying the surgery or procedure or chance of getting an infection with perfect accuracy, but a joint decision was made between the patient and the provider ?to proceed at this time with the scheduled surgery/procedure. . Diagnoses: (T14.8XXA) Open wound (primary encounter diagnosis) (E11.65) Poorly controlled diabetes mellitus (HCC) Return to Clinic: The patient is instructed to follow-up with me after the procedure. ? Charissa Dykes MD
[2019-10-08 10:49] VITALS: BP 139/77; PULSE 73; RESP 16; TEMP 37.1; O2SAT 97; BMI 25.7
[2019-10-08] MEDS: Lactated Ringers 1,000 ML 75 ML IV (11:11)
[2019-10-08 11:20] LABS: Bedside Glucose 165 mg/dL (70-110)
--- NOTE | 2019-10-08 12:32 | DCINST_ITS ---
Discharge Diet: No Restrictions Discharge Activity: Return to Normal Activity, May not drive while taking narcotic pain medications. Additional Activity Instructions:: Sponge bathe only until dressing is completely removed - after Friday Call your doctor if your incision/area has: Continuous Slow Oozing, Sudden Increased Bleeding, Foul Smelling Discharge Additional Dressing/Incision Instructions:: Leave dressing in place. Reinforce if necessary. Follow up on Friday in clinic or follow up in [place] [facility] - whichever is first Allergies/Adverse Reactions: Allergies Iodinated Contrast Media [Iodinated Contrast Media - IV Dye] Allergy (Verified 10/05/19 09:33) Shortness of breath Medications to take at Discharge Aspirin [Aspirin, Baby] 81 mg PO DAILY 10/05/13 Gabapentin 300 mg PO QHS 10/05/13 Lisinopril [Zestril] 5 mg PO DAILY 10/05/13 Simvastatin [Zocor] 20 mg PO QHS 10/05/13 Insulin Glargine [Lantus SoloStar Pen] 24 unit SC 1800 05/15/18 Insulin Lispro [Humalog KwikPen] 10 unit SC TID 05/15/18 Omeprazole 40 mg PO PRN PRN 05/27/19 Valacyclovir HCl [Valtrex] 1,000 mg PO DAILY 05/27/19 Cephalexin [Keflex] 500 mg PO Q6 #40 cap 10/02/19 Smz/Tmp Ds [Bactrim Ds] 1 tab PO BID #20 tab 10/02/19 Hydrocodone/Acetaminophen [[place] 5-325 Tablet] 1 ea PO Q6H PRN 10/05/19 Ibuprofen 200 mg PO PRN PRN 10/05/19 Hydrocodone Bitart/Apap 5-325 [[place] 5MG-325MG] 1 tab PO Q12H PRN PRN 2 Days #4 tab 10/08/19 The following prescriptions were given: Hydrocodone Bitart/Apap 5-325 [[place] 5MG-325MG] 1 tab PO Q12H PRN PRN 2 Days #4 tab PRN Reason: Pain Transmission Status: Received by [facility] Primary Care Physician: Pradeep Franklin MD [Primary Care Provider] - Test Results: Test results from this visit will be discussed in further detail at your follow- up appointment, if applicable. Please Follow Up With: Charissa Dykes MD - When: Follow up on Friday in clinic
--- NOTE | 2019-10-08 12:35 | PCM.OPRPT ---
Report of Operation Date of Procedure: 10/08/19 Pre-Operative Diagnosis: open draining perineal wound Post-Operative Diagnosis: same Surgery/Procedure Performed:: incision and drainage and debridement of perineal wound Description of Surgical Findings:: old chronic wound of perineal area with senescent granulation tissue to fascia and skin bridges and loculations that were broken down and opened for adequate drainage Type of Anesthesia:: General Anesthesiologist: Briana Thakur Estimated Blood Loss (mL): < 5 ml Fluids Replaced: see anesthesia noted Description of Procedure: After informed consent was given, the patient was brought to the Operating Room. Appropriate time out protocol was followed. The patient was then placed under anesthesia by the anesthesia provider. He was placed in the modified lithotomy position. The patient's perineum was then prepped with a surgical skin preparation and sterile surgical drapes were placed. The skin and subcutaneous tissues in and around the lesion were then infiltrated with 1% xylocaine with epinephrine. The patient had an old chronic wound in the perineum that was draining, there were two small openings with a cavity deep in the subcutaneous tissues. A skin incision was then made with a 15 blade scalpel to widely open the chronically abscessed area. The incision was carried down through to the subcutaneous tissues. Any hemorrhage was controlled with electrocautery. There was chronic senscent granulation tissue and fibrous scarring in this area that was sharply debrided down to fascia of the perineum. The entire cavity was unroofed at the skin to allow for completely opening of the cavity. Hemostasis was controlled with electrocautery. The wound cavity was densely packed with saline soaked gauze. Sterile gauze and an Opsite was placed to secure the dressing in place. The patient was brought to the Recovery Room in stable condition. - Complications none noted - Admit VTE Documentation VTE Present on Admission: Yes VTE Mechan Device Prophylaxis: SCD's
[2019-10-08] MEDS: Bupivacaine Mpf 0.5% 30 ML VIAL (12:45)
[2019-10-08 13:06] VITALS: BP 115/77; BP 139/77; PULSE 65; RESP 16; TEMP 36.2; O2SAT 97
[2019-10-08 13:16] LABS: Bedside Glucose 165 mg/dL (70-110)
[2019-10-08 13:20] VITALS: BP 122/72; BP 139/77; PULSE 62; RESP 14; O2SAT 93
[2019-10-08 13:34] VITALS: BP 133/69; BP 139/77; PULSE 64; RESP 14; O2SAT 94
[2019-10-08 13:35] VITALS: BP 133/69; BP 139/77; PULSE 74; RESP 16; TEMP 35.8; O2SAT 93
[2019-10-08 14:08] VITALS: BP 139/77
== END 2019-10-08 14:10 | disposition home or self-care (01) ==
LOC: SDC 10:22 → AC 10:23
PROVIDERS: Anesthesiology; PCP Family Medicine; Referring Provider Surgery; Visit Provider Surgery
PROC: (CPT 10061; principal; 2019-10-08 12:20)
DX: S31.501D Unspecified open wound of unspecified external genital organs, male, subsequent encounter (principal); I12.9 Hypertensive chronic kidney disease with stage 1 through stage 4 chronic kidney disease, or unspecified chronic kidney disease; E11.65 Type 2 diabetes mellitus with hyperglycemia; E11.22 Type 2 diabetes mellitus with diabetic chronic kidney disease; E11.36 Type 2 diabetes mellitus with diabetic cataract; N18.3 Chronic kidney disease, stage 3 (moderate); F41.9 Anxiety disorder, unspecified; E78.5 Hyperlipidemia, unspecified; K21.9 Gastro-esophageal reflux disease without esophagitis; F32.9 Major depressive disorder, single episode, unspecified; F17.210 Nicotine dependence, cigarettes, uncomplicated; Z11.59 Encounter for screening for other viral diseases; Z86.73 Personal history of transient ischemic attack (TIA), and cerebral infarction without residual deficits; Z79.4 Long term (current) use of insulin; Z79.82 Long term (current) use of aspirin; Z79.899 Other long term (current) drug therapy; X58.XXXD Exposure to other specified factors, subsequent encounter
CPT/HCPCS: 00400; 10061; 82962; 87635; G2023; J7050; J7120; J2405; U0003

== ENCOUNTER 2019-10-27 11:00 | Outpatient (RCR) | payer MEDICARE, SELFPAY ==
[2019-10-20 10:08] VITALS: BP 160/82; PULSE 83; RESP 16; TEMP 36.6; BMI 25.9
--- NOTE | 2019-10-20 11:10 | PCM.WC.HP ---
(1) S/P paola-rectal abscess repair, follow-up exam Status: Acute Current Visit: Yes Code(s): Z09 - Encounter for follow-up examination after completed treatment for conditions other than malignant neoplasm (2) Diabetic neuropathy Status: Chronic Current Visit: No Code(s): E11.40 - Type 2 diabetes mellitus with diabetic neuropathy, unspecified (3) Type II diabetes mellitus Status: Chronic Current Visit: No Qualifiers: Diabetes mellitus prison insulin use: without prison use Code(s): E11.9 - Type 2 diabetes mellitus without complications (4) Surgical wound, non healing Status: Acute Current Visit: Yes Qualifiers: Encounter type: initial encounter Qualified Code(s): T81.89XA - Other complications of procedures, not elsewhere classified, initial encounter Code(s): T81.89XA - Other complications of procedures, not elsewhere classified, initial encounter (5) Infected wound Status: Acute Current Visit: Yes Code(s): T14.8XXA - Other injury of unspecified body region, initial encounter; L08.9 - Local infection of the skin and subcutaneous tissue, unspecified History of Present Illness Date of Service: 10/20/19 Chief Complaint: Follow-up perirectal abscess surgery follow-up History of Wound: 84-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 Has developed a perirectal abscess that was first incised in May and re-incised in October 07 of this year. Surgeon then referred to the wound center for follow-up. Patient has a rather large incised wound between the rectum and the perineum with a depth of about 0.5. She is reluctant to pack but we discussed that is the only way to get it to heal. Patient does not qualify for home health care because he is not homebound. Past Medical History Past Medical History: Chronic Problems High cholesterol (Chronic) GERD (gastroesophageal reflux disease) (Chronic) Prostate cancer (Chronic) Tobacco abuse (Chronic) History of GI bleed (Chronic) Diabetic neuropathy (Chronic) HLD (hyperlipidemia) (Chronic) Diverticulosis of colon without diverticulitis (Chronic) Type II diabetes mellitus (Chronic) Benign hypertension (Chronic) Past Medical History: Perirectal abscess infection post surgery Allergies/Adverse Reactions: Allergies Iodinated Contrast Media [Iodinated Contrast Media - IV Dye] Allergy (Verified 10/20/19 10:28) Shortness of breath Home Medications: Ambulatory Orders Medication Instructions Recorded Gabapentin 300 mg PO QHS 10/05/13 Insulin Glargine [Lantus SoloStar 24 unit SC 1800 05/15/18 Pen] Insulin Lispro [Humalog KwikPen] 10 unit SC TID 05/15/18 Omeprazole 40 mg PO PRN PRN 05/27/19 Valacyclovir HCl [Valtrex] 1,000 mg PO DAILY 05/27/19 Ibuprofen 200 mg PO PRN PRN 10/05/19 Smoking Status: Current every day smoker Review of Systems Constitutional: Denies: Chills, Fever Eyes: Denies: Blurred vision, Drainage, Pain HEENT: Denies: Difficulty Hearing, Difficulty Swallowing, Sore Throat, Visual Changes Cardiovascular: Denies: Chest Pain, Palpitations, Syncope Respiratory: Reports: - - Postnasal drip. Denies: Cough, Shortness of Breath Gastrointestinal: Denies: Abdominal Pain, Nausea, Vomiting Genitourinary: Denies: Dysuria, Frequency Musculoskeletal: Denies: Joint Pain, Muscle pain Skin: Reports: Wounds - Perirectal wound from surgery. Denies: Jaundice, Rash Neurological: Denies: Balance problems, Change in Speech, Difficulty swallowing, Focal weakness Psychiatric: Denies: Anxiety, Depression Endocrine: Denies: Change in Body Habitus Hematologic/ Lymphatic: Denies: Adenopathy - Physical Exam Vital Signs Temp Pulse Resp BP 97.9 F 83 16 160/82 H 10/20/19 10:08 10/20/19 10:08 10/20/19 10:08 10/20/19 10:08 General: Oriented x3, Cooperative, Well developed HEENT: Atraumatic, PERRLA Oral: Moist Mucosa Neck: Supple, No JVD Lungs: Clear to auscultation, Normal air movement Cardiovascular: Regular rate, Regular Rhythm Abdomen: Bowel Sounds Present, Soft, Non Tender, No Hepato-splenomegaly Extremities: No clubbing, No edema Skin: Ulcer/ Wound - Perirectal wound with depth no sign of infection actually looks clean from a surgical removal October 07 Wound Measurements and Assessment WC - Nurse 1 - General Ulcer Measurement Start: 10/20/19 10:08 Freq: Status: Active Protocol: Activity Type Activity Date Activity User E-Sign Co-Sign Detail Recorded Client Recorded Date Recorded By Document 10/20/19 10:08 [facility] [id number] 10/20/19 10:26 [facility] 10/20/19 10:08 Wound Center Nurse 1 [Ulcer Assessment] #2- PERINEAL WOUND (POST OP) -Combined with other wound No -Current Size (cm) - Length 2.6 -Current Size (cm) - Width 0.4 -Current Size (cm) - Depth 0.5 -Total Square Cm 1.04 -Date of Last Picture (Recall this 10/20/19 field) -Photo Taken Yes -Epithelialization None Present -Tunneling No -Undermining/Tunneling No -Circular Undermining No -Exudate Amt None Present -Wound Margin Distinct, Outline Attached -Granulation Amt Large (67-100%) -Granulation Quality Red -Slough/Fibrin Yes -Necrosis Amt Small (1-33%) -Necrotic Tissue Type Adherent Slough -Texture (Paola-wound Skin Appearance) Assessed -Moisture (Paola-wound Skin Appearance Assessed ) -Color (Paola-wound Skin Appearance) Assessed -Temperature (Paola-wound Skin No Abnormality Appearance) (Pt Warm) -Tenderness on Palpation (Paola-wound No Skin Appearance) -Ulcer Cleansing SOAPY WATER -Foul Odor after Cleansing No -Anesthetic Used 4% Lidocaine Solution #1- L THUMB (TABLE SAW INJURY) -Combined with other wound No -Current Size (cm) - Length 0.5 -Current Size (cm) - Width 2.7 -Current Size (cm) - Depth 0.1 -Total Square Cm 1.35 -Date of Last Picture (Recall this 10/20/19 field) -Photo Taken Yes -Epithelialization None Present -Tunneling No -Undermining/Tunneling No -Circular Undermining No -Exudate Amt None Present -Wound Margin Distinct, Outline Attached -Granulation Amt None Present (0 %) -Slough/Fibrin Yes -Necrosis Amt Large (67-100%) -Necrotic Tissue Type Eschar -Texture (Paola-wound Skin Appearance) Assessed, Scarring -Moisture (Paola-wound Skin Appearance Assessed,Dry/ ) Scaly -Color (Paola-wound Skin Appearance) Assessed -Temperature (Paola-wound Skin No Abnormality Appearance) (Pt Warm) -Tenderness on Palpation (Paola-wound No Skin Appearance) -Ulcer Cleansing SOAPY WATER -Foul Odor after Cleansing No -Anesthetic Used 5% Lidocaine Gel WC - Nurse 2 - General Ulcer CM Notes Start: 10/20/19 10:08 Freq: Status: Active Protocol: Activity Type Activity Date Activity User E-Sign Co-Sign Detail Recorded Client Recorded Date Recorded By Document 10/20/19 10:43 MW [id number] 10/20/19 10:54 MW 10/20/19 10:43 Wound Center Nurse 2 [Procedure/Treatment] #2- PERINEAL WOUND (POST OP) -Time 10:43 -Correct Patient Yes -Correct Side, Site, Position Yes -Correct Procedure Yes -Procedure Performed Yes -Type of Procedure Debridement -Clinical Debridement Subcutaneous -Post Debridement Size (cm) - Length 3.0 -Post Debridement Size (cm) - Width 0.2 -Post Debridement Size (cm) - Depth 0.5 -Total Square Cm 0.60 -Wound/Ulcer Outcome Not Healed -Ulcer Cleansing Rinsed/ Irrigated with Saline -Foul Odor after Cleansing No -Bioengineered Tissue No -Bleeding Controlled with Pressure -Offloading No -Treatment Response Procedure Tolerated Well #1- L THUMB (TABLE SAW INJURY) -Time 10:44 [See Physician Procedure note for Specifics] Pain Scale: 0-10 Numeric [Pain] -Is Patient Pain Free? Yes Musculoskeletal: No Tenderness to Palpation of Joints or Extremities Lymphatic: No Cervical, Supraclavicular, or Inguinal Adenopathy Neurological: Cranial nerves II-XII grossly intact, Neuro grossly intact Psych/Mental Status: Normal Affect, Appropriate Debridement Note Post-Debridement Measurements/Treatment WC - Nurse 2 - General Ulcer CM Notes Start: 10/20/19 10:08 Freq: Status: Active Protocol: Activity Type Activity Date Activity User E-Sign Co-Sign Detail Recorded Client Recorded Date Recorded By Document 10/20/19 10:43 MW [id number] 10/20/19 10:54 MW 10/20/19 10:43 Wound Center Nurse 2 #2- PERINEAL WOUND (POST OP) -Time 10:43 -Correct Patient Yes -Correct Side, Site, Position Yes -Correct Procedure Yes -Procedure Performed Yes -Type of Procedure Debridement -Clinical Debridement Subcutaneous -Post Debridement Size (cm) - Length 3.0 -Post Debridement Size (cm) - Width 0.2 -Post Debridement Size (cm) - Depth 0.5 -Total Square Cm 0.60 -Wound/Ulcer Outcome Not Healed -Ulcer Cleansing Rinsed/ Irrigated with Saline -Foul Odor after Cleansing No -Bioengineered Tissue No -Bleeding Controlled with Pressure -Offloading No -Treatment Response Procedure Tolerated Well #1- L THUMB (TABLE SAW INJURY) -Time 10:44 Pain Scale: 0-10 Numeric Is Patient Pain Free? Yes Wound debrided: Perirectal incision Type of Debridement: Excisional debridement Anesthesia Used: 4% Lidocaine Solution Depth: Down to and including healthy tissue, in the subcutaneous layer Percentage of wound debrided: 100 Instrument Used: 5mm curette Tissue Removed: Fibrin Severity: Limited To Skin Breakdown Amount of bleeding with debridement: Mild Bleeding Controlled with: Compression and gauze Patient tolerated procedure well Assessment/Plan Aerobic and anaerobic cultures obtained Active Problems S/P paola-rectal abscess repair, follow-up exam (Acute) Surgical wound, non healing (Acute) Infected wound (Acute) Assessment: Perirectal wound nonhealing from surgical repair. Smoking abuse. Diabetes not controlled Plan: Wash area with soap and water. Pack with Aquacel cover with 2 x 2 gauze and tape. Follow-up in 1 week. We will call with the results of the cultures
[2019-10-27 10:45] VITALS: BP 163/86; PULSE 72; RESP 16; TEMP 36.7; BMI 25.9
--- NOTE | 2019-10-27 12:22 | PN.PCM_ITS ---
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 Code(s): E11.9 - Type 2 diabetes mellitus without complications (4) Surgical wound, non healing Status: Acute Current Visit: Yes Qualifiers: Encounter type: subsequent encounter Qualified Code(s): T81.89XD - Other complications of procedures, not elsewhere classified, subsequent encounter Code(s): T81.89XA - Other complications of procedures, not elsewhere classified, initial encounter (5) Infected wound Status: Acute Current Visit: Yes Code(s): T14.8XXA - Other injury of unspecified body region, initial encounter; L08.9 - Local infection of the skin and subcutaneous tissue, unspecified Type of Wound Date of Service: 10/27/19 Chief Complaint: Follow-up perirectal abscess surgery follow-up History of Wound: 84-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 Has developed a perirectal abscess that was first incised in May and re-incised in October 07 of this year. Surgeon then referred to the wound center for follow- up. Patient has a rather large incised wound between the rectum and the perineum with a depth of about 0.5. She is reluctant to pack but we discussed that is the only way to get it to heal. Patient does not qualify for home health care because he is not homebound. Progress of Wound: Today the wound is improving the patient is having difficulty getting the packing in. Cultures came back rare - Physical Exam Vital Signs Temp Pulse Resp BP 98.1 F 72 16 163/86 H 10/27/19 10:45 10/27/19 10:45 10/27/19 10:45 10/27/19 10:45 General: Oriented x3, Cooperative, Well developed HEENT: Atraumatic, PERRLA Oral: Moist Mucosa Neck: Supple, No JVD Lungs: Clear to auscultation, Normal air movement Cardiovascular: Regular rate, Regular Rhythm Abdomen: Bowel Sounds Present, Soft, Non Tender, No Hepato-splenomegaly Extremities: No clubbing, No edema Skin: Ulcer/ Wound - Perirectal abscess surgery Wound Measurements and Assessment WC - Nurse 1 - General Ulcer Measurement Start: 10/20/19 10:08 Freq: Status: Active Protocol: Activity Type Activity Date Activity User E-Sign Co-Sign Detail Recorded Client Recorded Date Recorded By Document 10/27/19 10:45 BM [id number] 10/27/19 10:52 BMF 10/27/19 10:45 Wound Center Nurse 1 [Ulcer Assessment] #2- PERINEAL WOUND (POST OP) -Combined with other wound No -Current Size (cm) - Length 2.3 -Current Size (cm) - Width 0.4 -Current Size (cm) - Depth 0.3 -Total Square Cm 0.92 -Photo Taken No -Epithelialization None Present -Tunneling No -Undermining/Tunneling No -Circular Undermining No -Exudate Amt None Present -Wound Margin Distinct, Outline Attached -Granulation Amt Large (67-100%) -Granulation Quality Red -Slough/Fibrin No -Necrosis Amt None Present (0 %) -Texture (Paola-wound Skin Appearance) Assessed, Scarring -Moisture (Paola-wound Skin Appearance Assessed ) -Color (Paola-wound Skin Appearance) Assessed -Temperature (Paola-wound Skin No Abnormality Appearance) (Pt Warm) -Tenderness on Palpation (Paola-wound No Skin Appearance) -Ulcer Cleansing Rinsed/ Irrigated with Saline -Foul Odor after Cleansing No -Anesthetic Used 5% Lidocaine Gel Musculoskeletal: No Tenderness to Palpation of Joints or Extremities Lymphatic: No Cervical, Supraclavicular, or Inguinal Adenopathy Neurological: Cranial nerves II-XII grossly intact, Neuro grossly intact Psych/Mental Status: Normal Affect, Appropriate Debridement Note Post-Debridement Measurements/Treatment WC - Nurse 2 - General Ulcer CM Notes Start: 10/20/19 10:08 Freq: Status: Active Protocol: Activity Type Activity Date Activity User E-Sign Co-Sign Detail Recorded Client Recorded Date Recorded By Document 10/20/19 10:43 MW [id number] 10/20/19 10:54 MW 10/20/19 10:43 Wound Center Nurse 2 #2- PERINEAL WOUND (POST OP) -Time 10:43 -Correct Patient Yes -Correct Side, Site, Position Yes -Correct Procedure Yes -Procedure Performed Yes -Type of Procedure Debridement -Clinical Debridement Subcutaneous -Post Debridement Size (cm) - Length 3.0 -Post Debridement Size (cm) - Width 0.2 -Post Debridement Size (cm) - Depth 0.5 -Total Square Cm 0.60 -Wound/Ulcer Outcome Not Healed -Ulcer Cleansing Rinsed/ Irrigated with Saline -Foul Odor after Cleansing No -Bioengineered Tissue No -Bleeding Controlled with Pressure -Offloading No -Treatment Response Procedure Tolerated Well #1- L THUMB (TABLE SAW INJURY) -Time 10:44 Pain Scale: 0-10 Numeric Is Patient Pain Free? Yes Wound debrided: Perirectal abscess Type of Debridement: Excisional debridement Anesthesia Used: 5% Lidocaine Gel Depth: Down to and including healthy tissue, in the subcutaneous layer Percentage of wound debrided: 100 Instrument Used: 5mm curette Tissue Removed: Fibrin Severity: Limited To Skin Breakdown Amount of bleeding with debridement: Mild Bleeding Controlled with: Compression and gauze Patient tolerated procedure well Assessment/Plan Active Problems S/P paola-rectal abscess repair, follow-up exam (Acute) Surgical wound, non healing (Acute) Infected wound (Acute) Diabetic neuropathy (Chronic) Type II diabetes mellitus (Chronic) Assessment: Perirectal wound nonhealing from surgical repair. Smoking abuse. Diabetes not controlled Plan: Wash area with soap and water. Pack with Aquacel cover with 2 x 2 gauze and tape. Follow-up in 1 week
== END 2019-11-02 23:59 ==
LOC: WC 11:00
PROVIDERS: PCP Family Medicine; Referring Provider Nurse Practitioner; Visit Provider Nurse Practitioner
DX: T81.89XA Other complications of procedures, not elsewhere classified, initial encounter (principal); Y83.8 Other surgical procedures as the cause of abnormal reaction of the patient, or of later complication, without mention of misadventure at the time of the procedure; E11.40 Type 2 diabetes mellitus with diabetic neuropathy, unspecified; K21.9 Gastro-esophageal reflux disease without esophagitis; I10 Essential (primary) hypertension; E78.5 Hyperlipidemia, unspecified; Z79.899 Other long term (current) drug therapy; Z79.4 Long term (current) use of insulin; Z72.0 Tobacco use
CPT/HCPCS: 11042; 87070; 87075; 87077; 87186; 87205; 99213; G0463

== ENCOUNTER 2019-11-03 08:17 | Outpatient (RCR) | payer MEDICARE, SELFPAY ==
[2019-11-03 00:37] VITALS: BP 163/86; PULSE 72; RESP 16; TEMP 36.7
[2019-11-03 10:57] VITALS: BP 166/80; PULSE 77; RESP 18; TEMP 36.2; BMI 25.9
--- NOTE | 2019-11-03 11:19 | PN.PCM_ITS ---
(1) Infected wound Status: Acute Current Visit: No Code(s): T14.8XXA - Other injury of unspecif ied body region, initial encounter; L08.9 - Local infection of the skin and subcutaneous tissue, unspecified (2) S/P paola-rectal abscess repair, follow-up exam Status: Acute Current Visit: Yes Code(s): Z09 - Encounter for follow-up examination after completed treatment for conditions other than malignant neoplasm (3) Surgical wound, non healing Status: Acute Current Visit: Yes Qualifiers: Encounter type: subsequent encounter Code(s): T81.89XA - Other complications of procedures, not elsewhere classified, initial encounter (4) Diabetic neuropathy Status: Chronic Current Visit: Yes Qualifiers: Diabetes mellitus type: type 2 Code(s): E11.40 - Type 2 diabetes mellitus with diabetic neuropathy, unspecified Type of Wound Date of Service: 11/03/19 Chief Complaint: Follow-up perirectal abscess surgery follow-up History of Wound: 84-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 Has developed a perirectal abscess that was first incised in May and re-incised in October 07 of this year. Surgeon then referred to the wound center for follow- up. Patient has a rather large incised wound between the rectum and the perineum with a depth of about 0.5. She is reluctant to pack but we discussed that is the only way to get it to heal. Patient does not qualify for home health care because he is not homebound. Progress of Wound: Today the wound is healed and patient will be discharged from the wound center. - Physical Exam Vital Signs Temp Pulse Resp BP 97.2 F L 77 18 166/80 H 11/03/19 10:57 11/03/19 10:57 11/03/19 10:57 11/03/19 10:57 General: Oriented x3, Cooperative, Well developed HEENT: Atraumatic, PERRLA Oral: Moist Mucosa Neck: Supple, No JVD Lungs: Clear to auscultation, Normal air movement Cardiovascular: Regular rate, Regular Rhythm Abdomen: Bowel Sounds Present, Soft, Non Tender, No Hepato-splenomegaly Extremities: No clubbing, No edema Skin: Ulcer/ Wound - Perirectal surgery nonhealing surgical wound Wound Measurements and Assessment WC - Nurse 1 - General Ulcer Measurement Start: 11/03/19 10:57 Freq: Status: Active Protocol: Activity Type Activity Date Activity User E-Sign Co-Sign Detail Recorded Client Recorded Date Recorded By Document 11/03/19 10:57 PL [id number] 11/03/19 11:06 PL 11/03/19 10:57 Wound Center Nurse 1 [Ulcer Assessment] #2- PERINEAL WOUND (POST OP) -Combined with other wound No -Current Size (cm) - Length 0.3 -Current Size (cm) - Width 0.2 -Current Size (cm) - Depth 0.2 -Total Square Cm 0.06 -Photo Taken No -Epithelialization None Present -Tunneling No -Undermining/Tunneling No -Exudate Amt Small -Exudate Type Serosanguineous -Granulation Amt Medium (34-66%) -Granulation Quality Pale -Slough/Fibrin Yes -Necrosis Amt Small (1-33%) -Texture (Paola-wound Skin Appearance) No Abnormality -Moisture (Paola-wound Skin Appearance No Abnormality ) -Temperature (Paola-wound Skin No Abnormality Appearance) (Pt Warm) -Ulcer Cleansing Rinsed/ Irrigated with Saline -Foul Odor after Cleansing No -Anesthetic Used 4% Lidocaine Solution WC - Nurse 2 - General Ulcer CM Notes Start: 11/03/19 10:57 Freq: Status: Active Protocol: Activity Type Activity Date Activity User E-Sign Co-Sign Detail Recorded Client Recorded Date Recorded By Document 11/03/19 11:15 MW [id number] 11/03/19 11:17 MW 11/03/19 11:15 Wound Center Nurse 2 [Procedure/Treatment] -Time 11:16 -Correct Patient Yes -Correct Side, Site, Position Yes -Correct Procedure Yes -Procedure Performed No -Post Debridement Size (cm) - Length 0 -Post Debridement Size (cm) - Width 0 -Post Debridement Size (cm) - Depth 0 -Total Square Cm 0 -Wound/Ulcer Outcome Healed- Epithelialized [See Physician Procedure note for Specifics] Pain Scale: 0-10 Numeric [Pain] -Is Patient Pain Free? Yes Musculoskeletal: No Tenderness to Palpation of Joints or Extremities Lymphatic: No Cervical, Supraclavicular, or Inguinal Adenopathy Neurological: Cranial nerves II-XII grossly intact, Neuro grossly intact Psych/Mental Status: Normal Affect, Appropriate Debridement Note Post-Debridement Measurements/Treatment WC - Nurse 2 - General Ulcer CM Notes Start: 11/03/19 10:57 Freq: Status: Active Protocol: Activity Type Activity Date Activity User E-Sign Co-Sign Detail Recorded Client Recorded Date Recorded By Document 11/03/19 11:15 MW [id number] 11/03/19 11:17 MW 11/03/19 11:15 Wound Center Nurse 2 #2- PERINEAL WOUND (POST OP) -Time 11:16 -Correct Patient Yes -Correct Side, Site, Position Yes -Correct Procedure Yes -Procedure Performed No -Post Debridement Size (cm) - Length 0 -Post Debridement Size (cm) - Width 0 -Post Debridement Size (cm) - Depth 0 -Total Square Cm 0 -Wound/Ulcer Outcome Healed- Epithelialized Pain Scale: 0-10 Numeric Is Patient Pain Free? Yes No debridement was completed today Assessment/Plan Active Problems S/P paola-rectal abscess repair, follow-up exam (Acute) Surgical wound, non healing (Acute) Diabetic neuropathy (Chronic) Assessment: Perirectal wound nonhealing from surgical repair resolved. Smoking abuse. Diabetes not controlled Plan: Keep area clean and dry discharge from the wound center follow-up as needed wash area with soap and water
== END 2019-12-03 23:59 ==
LOC: WC 08:17
PROVIDERS: PCP Family Medicine; Referring Provider Nurse Practitioner; Visit Provider Nurse Practitioner
DX: T81.89XA Other complications of procedures, not elsewhere classified, initial encounter (principal); L08.9 Local infection of the skin and subcutaneous tissue, unspecified; T14.8XXA Other injury of unspecified body region, initial encounter; E11.40 Type 2 diabetes mellitus with diabetic neuropathy, unspecified
CPT/HCPCS: 99212; G0463

== ENCOUNTER → 2020-11-10 | Outpatient (CLI) | payer MEDICARE, SELFPAY ==
--- NOTE | 2020-11-10 | IMM_PTH ---
PATIENT: LEONOR MIJARES LOC: [facility] U#:[id number] AGE/SX: 85/M ROOM: RE11/10/[address]: Dr. Charissa Dykes MD : [id number] BED: DIS: 11/10/2020 SPEC #: [id number] RECD: 11/14/20 12:13 STATUS: ANA REQ #: [id number] LIZ: 11/10/20 00:[address]: Charissa Dykes DEPT: IMMUNOHISTOCHEMISTRY RECD BY: Audelia Means ENTERED: 11/14/20 12:15 SP TYPE: IMMUNO OTHR DR: Dr. Pradeep Franklin MD Tissues: C - Right colon Procedures: MSH2 (add) MLH-1 (add) MSH6 (add) Anti-PMS2 (add) BANERJEE-2 (add) HER2 BETO (add) KI-67 (add) P53 (add) Pankeratin (initial) PHYSICIAN & INSTITUTION [place] [id number] SPECIMEN INFORMATION: Tissue Source: C ? Right colon mass biopsy Clinical Info: History of polyps, diarrhea Specimen Number: [id number] C CPT code: 53170, 17104 x8 METHODOLOGY: Deparaffinized sections of prefer/formalin-fixed tissue or PAP/DQ stained slides are incubated with monoclonal/polyclonal antibodies/oligonucleotide probes. Localization is made via biotin free immunoperoxidase method. Appropriate controls are performed and reacted as expected. Results on target cell population are indicated in the following table: RESULTS: ANTIBODY / CLONE RESULT Block C Ki-67 (30-9) positive, 80% P53 (DO-7) positive, 2% BANERJEE-2 (SP21) positive MLH-1 (M1) positive MSH2 (25D12) positive MSH6 (44) positive PMS2 (BBF4451) positive Her-2neu (CB11) negative AE1-3 (AE1/AE3/PCK26) positive These tests were developed and their performance characteristics determined by [facility]. They may not have been cleared or approved by the U.S. Food and Drug Administration. The FDA has determined that such clearance or approval is not necessary. The above immunohistochemical/dualISH markers are ordered and reviewed by the Pathologist. INTERPRETATION: C. Right colon mass, biopsy: Invasive adenocarcinoma. Result of Microsatellite Instability Study: Negative (no loss of mismatch protein; no microsatellite instability detected). AM:sharifa 11/15/2020
--- NOTE | 2020-11-10 08:06 | COLBX_PTH ---
PATIENT: LEONOR MIJARES LOC: [facility] U#:[id number] AGE/SX: 85/M ROOM: RE11/10/[address]: Dr. Charissa Dykes MD : [id number] BED: DIS: 11/10/2020 SPEC #: [id number] RECD: 11/10/20 15:03 STATUS: ANA DEANKaylen #: [id number] LIZ: 11/10/20 08:[address]: Charissa Dykes DEPT: SURGICAL PATHOLOGY RECD BY: Jimmy Singh ENTERED: 11/12/20 17:18 SP TYPE: COLON BX MACEY DR: Dr. Pradeep Franklin MD Tissues: A - Sigmoid colon biopsy B - COLON BIOPSY C - Right colon Procedures: Surgery Specimen Level IV HEADER OPERATION: Colonoscopy PRE-OP DIAGNOSIS: History of polyps, diarrhea TISSUE SUBMITTED: A - Sigmoid colon polyp, B - Random colon biopsies, C - Right colon mass biopsy MICROSCOPIC DIAGNOSIS A. Sigmoid colon polyp, biopsy: Tubular adenoma. B. Colon, random biopsy: No pathologic change. C. Right colon mass, biopsy: Invasive moderately differentiated adenocarcinoma. See comment. AM:sharifa 11/14/2020 COMMENT C. Immunohistochemistry ([id number]) supports the above diagnosis. MICROSCOPIC DESCRIPTION Slides are reviewed. GROSS DESCRIPTION A - Received in fixative is one container labeled with the patient's name and designated sigmoid colon polyp. The specimen consists of multiple irregular fragments of light silvestre soft tissue that in aggregate measure 0.4 x 0.4 x 0.1 cm. The specimen is totally submitted in one cassette. B - Received in fixative is one container labeled with the patient's name and designated random colon biopsy. The specimen consists of multiple irregular fragments of light silvestre soft tissue that in aggregate measure 1 x 1 x 0.1 cm. The specimen is totally submitted in one cassette. C - Received in fixative is one container labeled with the patient's name and designated right colon mass biopsy. The specimen consists of multiple irregular fragments of light silvestre soft tissue that in aggregate measure 0.6 x 0.4 x 0.1 cm. The specimen is totally submitted in one cassette. / RADHA:sharifa 11/13/20 TC:0 CPT: 94186 x3
== END | disposition home or self-care (01) ==
LOC: LABSPEC 15:37
PROVIDERS: PCP Family Medicine; Referring Provider Surgery; Visit Provider Surgery
DX: R19.7 Diarrhea, unspecified (principal); Z86.010 Personal history of colon polyps
CPT/HCPCS: 88305; 88341; 88342

== ENCOUNTER 2021-02-06 12:06 | Emergency (ER) | payer MEDICARE, SELFPAY ==
[2021-02-06 12:07] VITALS: BP 92/81; PULSE 63; RESP 14; TEMP 36; O2SAT 97; BMI 25.5
[2021-02-06 12:33] VITALS: BP 92/81; PULSE 63; RESP 14; TEMP 36; O2SAT 97
[2021-02-06] MEDS: 0.9% Normal Saline 1,000 ML 1000 ML IV (12:46)
--- NOTE | 2021-02-06 12:50 | ED.VIS.GI ---
HPI HPI - GI History of Present Illness Chief Complaint: Diarrhea Narrative Narrative: 85-year-old male presenting with diarrhea. He states he has diarrhea about every other day to every 18 hours. He has 1 episode in this timeframe. Patient states that he has been diagnosed with C. difficile over a month ago in hospital when he had a partial colectomy due to what he reports is a malignancy. The surgery went well and he is recovering. The surgery was done by Dr. Smith however he followed up with Dr. Disla because he did not like Dr. Smith. At that point the patient said that he was still having some diarrhea and was low on oral vancomycin which she had been on since his hospitalization. Dr. Disla refilled his prescription and he has been taking this. He still has the diarrhea once every 24 hours or so. He states he is eating and drinking well. He is not vomiting. He is passing flatus. He is not had a fever or chills. He states his surgical site looks good. He has not followed up with a primary care or any other specialty since his discharge besides the surgeon. [facility] Medical History C. difficile diarrhea Home Medications gabapentin 300 mg PO QHS 10/05/13 [History Last Taken 05/14/18] insulin glargine [Lantus Solostar U-100 Insulin] 24 unit SUBCUT 1800 05/15/18 [History Last Taken 05/14/18] insulin lispro [Humalog KwikPen Insulin] 10 unit SUBCUT TID 05/15/18 [History Last Taken 05/15/18] omeprazole 40 mg PO PRN PRN 05/27/19 [History Last Taken Unknown] valacyclovir 1,000 mg PO DAILY 05/27/19 [History Last Taken Unknown] ibuprofen 200 mg PO PRN PRN 10/05/19 [History Last Taken Unknown] Allergy/AdvReac Type Severity Reaction Status Date / Time Iodinated Contrast Media Allergy Shortness Verified 02/06/21 12:07 [Iodinated Contrast Media - of breath IV Dye] Surgical History History of partial colectomy Social History Smoking Status: Current every day smoker tobacco type: cigarettes ROS ROS ED Constitutional Constitutional ED: Denies chills or fever(s) ENT ENT ED: Denies rhinorrhea or sore throat Cardiovascular Cardiovascular: Denies chest pain or palpitations Respiratory/Chest Respiratory/Chest: Denies cough or dyspnea Gastrointestinal Gastrointestinal: Reports diarrhea; Denies abdominal pain, nausea or vomiting Genitourinary Genitourinary ED: Denies dysuria or hematuria Musculoskeletal Musculoskeletal: Denies arthralgias or myalgias Integumentary Denies Abrasions or rash Neurologic Neurologic: Denies headache(s) or paresthesias EXAM Physical Exam Const Vital Signs: 02/06/21 12:07 02/06/21 12:33 02/06/21 13:57 Temperature 96.8 F L 96.8 F L 97.6 F L Temperature Source Temporal Temporal Oral Pulse Rate 63 63 84 Respiratory Rate 14 14 16 Blood Pressure 92/81 H 92/81 H 142/67 H Blood Pressure Mean 84 84 92 Pulse Ox 97 97 95 Oxygen Delivery Method Nasal Cannula Nasal Cannula Nasal Cannula Oxygen Flow Rate (L/min) 3 3 3 Positive well nourished General Appearance ED: NAD; Negative for pallor HEENT Reports moist mucous membranes normocephalic and atraumatic Eyes PERRL and EOMs intact bilaterally General Eye ED: Negative for pale conjunctiva or scleral icterus Resp normal respiratory effort and clear to auscultation bilaterally Cardio regular rate and regular rhythm GI non-tender and non-distended Palpation: soft Neuro CN's II-XII intact bilaterally Sensorium / Orientation: alert, oriented to person, oriented to place and oriented to time Psych mental status grossly normal and thought process normal Skin General Skin Exam: Negative for jaundice or pallor MDM MDM MDM Narrative Medical decision making narrative: Patient presenting with concern for C. difficile. He does not have any abdominal pain, fever, nausea or vomiting. He actually states he is eating and drinking normally. He states he only has one episode of diarrhea daily and this may be 18 hours apart. He has no black or bloody stools. Patient has been on vancomycin for over a month. I did obtain blood work today which shows that his white blood cell count is 9.3. Hemoglobin is 11.0 and this was tested last at outside facility on 01/19/2021 and his hemoglobin was 10.1 so this is actually improving. Hematocrit then was 29.7 and is now 35.5. Again he has no rectal bleeding or black stools. His electrolytes are normal however his creatinine is slightly elevated at 1.4. This was tested previously on 01/19/2021 and at that time it was 0.80. Patient did present slightly hypotensive and was given IV fluids. His blood pressure did improve significantly to 142/67. His other vital signs are normal. LFTs and lipase are normal. I did attempt to obtain a stool sample from him however he is unable to give me a sample in the ED. He will be provided with a home specimen cup and he will return with a sample when he can be provided. I do not believe the patient likely has an active C. difficile infection if he is only having one episode of diarrhea every day or every 18 hours and is not have any systemic signs or symptoms. This could be likely due to his recent surgery or the fact that he has been antibiotics for a month. He is eating and drinking normally and feels otherwise well. He is safe to be discharged home at this time. He is given return precautions. Impression: 1. Diarrhea 2. History of C. difficile 3. Acute kidney injury 4. Anemia improving Lab Data Labs: Laboratory Results - last 24 hr 02/06/21 02/06/21 12:32 12:32 WBC 9.3 RBC 3.10 L Hgb 11.0 L Hct 34.1 L MCV 110.0 H MCH 35.5 H MCHC 32.3 RDW Std Deviation 53.1 H RDW Coeff of Angel 13.2 Plt Count 405 MPV 9.7 Neut % (Auto) Not Reportable Absolute Neuts (auto) Not Reportable Nucleated RBC % 0 Sodium 136 Potassium 4.3 Chloride 99 Carbon Dioxide 29.0 Anion Gap 8 BUN 23 H Creatinine 1.40 H Estim Creat Clear Calc 39.83 Est GFR (MDRD) Af Amer 62 Est GFR (MDRD) Non-Af 51 L BUN/Creatinine Ratio 16.4 Glucose 83 Calcium 9.0 Total Bilirubin 0.30 AST 18 ALT 25 Alkaline Phosphatase 78 Total Protein 7.2 Albumin 2.9 L Globulin 4.3 H Albumin/Globulin Ratio 0.7 L Lipase 36 L Discharge Plan Triage Chief Complaint: Diarrhea ED Provider: Stefano Rios Dx/Rx/DC Orders Instructions: ED Diarrhea, Unknown Cause Prescriptions: No Action gabapentin 300 MG capsule 300 mg PO QHS RF: 0 insulin lispro [Humalog KwikPen Insulin] 100/ML Insuln.Pen 10 unit subcut TID RF: 0 insulin glargine [Lantus Solostar U-100 Insulin] 100/ML Pen 24 unit subcut 1800 RF: 0 valacyclovir 1,000 MG tablet 1,000 mg PO DAILY RF: 0 omeprazole 40 MG capsule,delayed release(DR/EC) 40 mg PO PRN PRN (Reason: GERD) RF: 0 ibuprofen 200 MG capsule 200 mg PO PRN PRN (Reason: Pain Or Fever) RF: 0 Primary Care Provider: Pradeep Franklin Referrals: Pradeep Franklin MD [Primary Care Provider] - Disposition Disposition: Home, Self Care
[2021-02-06 12:51] LABS: Hematocrit 34.1 % (40-54); Mean Corp Hgb Conc 32.3 g/dL (32-36); Mean Corpuscular Hgb 35.5 pg (27.0-32.0); Mean Platelet Vol. 9.7 fl (6.2-12.0); NRBC Flagged by Analyzer 0 % (0-5); Platelet Count 405 K/mm3 (150-450); RBC Distribution Width CV 13.2 % (11.6-14.6); RBC Distribution Width SD 53.1 fl (35.1-43.9); White Blood Count 9.3 K/mm3 (4.4-11.0)
[2021-02-06 13:03] LABS: ALB/GLOB Ratio 0.7 RATIO (0.9-2.4); AST(SGOT) 18 U/L (15-37); Alanine Aminotransfer ALT/SGPT 25 U/L (16-61); Albumin, Serum 2.9 g/dL (3.2-5.0); Alkaline Phosphatase 78 U/L (45-117); Anion Gap 8 (5-15); BUN 23 mg/dL (7-18); BUN/Creat Ratio 16.4 RATIO (10-20); Chloride 99 mmol/L (98-107); EST Glomerular Filtration Rate 51 mL/min (>60); Est Glom Filt Rate - Afr Amer 62 mL/min (>60); Estimated Creatinine Clearance 39.83 ml/min; Globulin 4.3 g/dL (2.2-4.2); Glucose 83 mg/dL (74-106); Lipase 36 U/L (73-393); Potassium 4.3 mmol/L (3.5-5.1); Protein, Total 7.2 g/dL (6.4-8.2); Sodium Level 136 mmol/L (136-145)
[2021-02-06 13:57] VITALS: BP 142/67; PULSE 84; RESP 16; TEMP 36.4; O2SAT 95
[2021-02-06 15:15] VITALS: RESP 16
== END 2021-02-06 16:56 | disposition home or self-care (01) ==
PROVIDERS: Emergency Provider Student in an Organized Health Care Education/Training Program; PCP Family Medicine
DX: R19.7 Diarrhea, unspecified (principal); N17.9 Acute kidney failure, unspecified; D64.9 Anemia, unspecified; F17.210 Nicotine dependence, cigarettes, uncomplicated; Z90.49 Acquired absence of other specified parts of digestive tract
CPT/HCPCS: 80053; 83690; 85025; 99284; J7030; A4216

== ENCOUNTER → 2021-02-07 | Outpatient (CLI) | payer MEDICARE, SELFPAY | END | disposition home or self-care (01) | LOC: LABSPEC 11:19 | PROVIDERS: PCP Family Medicine; Referring Provider Student in an Organized Health Care Education/Training Program; Visit Provider Family Medicine | DX: R19.7 Diarrhea, unspecified (principal) | CPT/HCPCS: 87493; 87506 ==

== ENCOUNTER 2021-09-12 18:56 | Inpatient (IN) | payer MEDICARE, SELFPAY ==
[2021-09-12 18:57] VITALS: BP 118/62; PULSE 76; RESP 18; TEMP 36.1; O2SAT 97; BMI 30.7
--- NOTE | 2021-09-12 19:14 | EDS_ITS ---
HPI History of Present Illness Chief Complaint: GI Bleed Informant: patient Narrative Narrative: 86-year-old male presenting to the emergency room with GI bleed. Patient states that last week he was at [facility] for a open hernia repair. He was hospitalized there until yesterday when he was discharged home. This morning he noted that he had diarrhea with a large bloody clot on it. This happened again this afternoon. He called his doctor at the clinic and they told him to go to emergency. He previously had a partial colon resection due to cancer with Dr. Sullivan in [place]. [facility] Medical History Anxiety Benign hypertension C. difficile diarrhea Personal history of colon cancer Psoriasis Type II diabetes mellitus Home Medications gabapentin 300 mg PO QHS 10/05/13 [History Last Taken 05/14/18] insulin glargine [Lantus Solostar U-100 Insulin] 24 unit SUBCUT 1800 05/15/18 [History Last Taken 05/14/18] insulin lispro [Humalog KwikPen Insulin] 10 unit SUBCUT TID 05/15/18 [History Last Taken 05/15/18] omeprazole 40 mg PO PRN PRN 05/27/19 [History Last Taken Unknown] valacyclovir 1,000 mg PO DAILY 05/27/19 [History Last Taken Unknown] ibuprofen 200 mg PO PRN PRN 10/05/19 [History Last Taken Unknown] Allergy/AdvReac Type Severity Reaction Status Date / Time Iodinated Contrast Media Allergy Shortness Verified 09/12/21 18:59 [Iodinated Contrast Media - of breath IV Dye] Surgical History History of cholecystectomy History of colonoscopy History of hernia repair History of partial colectomy Social History (Updated 09/12/21 @ 19:[address] Rito Ramirez DO) current gender identity: male Smoking Status: Current every day smoker tobacco type: cigarettes ROS ROS ED Constitutional Constitutional ED: Denies chills, fever(s) or weight loss Eyes Eyes: Denies change in vision or diplopia ENT ENT ED: Denies ear pain, rhinorrhea or sore throat Cardiovascular Cardiovascular: Denies chest pain, orthopnea, palpitations or racing heartbeat Respiratory/Chest Respiratory/Chest: Denies cough, dyspnea or orthopnea Gastrointestinal Gastrointestinal: Reports abdominal pain, constipation and melena; Denies diarrhea, nausea or vomiting Genitourinary Genitourinary ED: Denies dysuria, hematuria or urinary frequency Musculoskeletal Musculoskeletal: Denies arthralgias or myalgias Integumentary Denies abscess or rash Neurologic Neurologic: Denies headache(s) or weakness Psychiatric Psychiatric: Denies anxiety, depression, suicidal ideation or suicidal thoughts Endocrine Endocrinology: Denies polydipsia, polyphagia or polyuria Allergic/Immunologic Allergic/Immunologic ED: Denies mouth swelling, tongue swelling or urticaria EXAM Physical Exam Const Vital Signs: 09/12/21 18:57 Temperature 97 F L Temperature Source Temporal Pulse Rate 76 Respiratory Rate 18 Blood Pressure 118/62 Blood Pressure Mean 80 Pulse Ox 97 Oxygen Delivery Method Room Air Positive well nourished and well developed General Appearance ED: well developed HEENT Reports normocephalic, head/scalp atraumatic, TM's clear and moist mucous membranes Negative for trauma Tympanic Membrane ED: Yes TM's clear Eyes PERRL and EOMs intact bilaterally Neck no lymphadenopathy, supple and no JVD Resp normal respiratory effort and clear to auscultation bilaterally Cardio regular rate, regular rhythm and no murmurs GI normal to inspection, nondistended, normoactive bowel sounds and non-tender Palpation: soft Back/Spine no CVA tenderness and normal ROM Extremity normal to inspection General Extremety ED: Negative for edema General Extremity: Negative for edema Neuro oriented x3 and CN's II-XII intact bilaterally Sensorium / Orientation: alert Motor Exam: strength 5/5 throughout Psych mental status grossly normal Mood & Affect: Negative for depressed or tearful Skin no rashes or lesions noted and no wounds MDM MDM MDM Narrative Medical decision making narrative: Patient remains hemodynamically stable here in the department. Current hemoglobin is 10.1. I do not have any recent hemoglobins to compare to. BUN of 28 with a creatinine 1.22. Coags obtained showed an INR 1.2 and a PTT of 39.2. Case was discussed with hospitalist here who agrees that it is in the patient's best interest to be transferred to [place] where his surgeons and his most recent care has been. We will be working towards this goal of transferring him Lab Data Attestation: I reviewed the patient's lab results. Labs: Laboratory Results - last 24 hr 09/12/21 09/12/21 09/12/21 19:23 19:23 19:23 WBC 9.2 RBC 2.85 L Hgb 10.1 L Hct 30.4 L MCV 106.7 H MCH 35.4 H MCHC 33.2 RDW Std Deviation 50.6 H RDW Coeff of Angel 12.9 Plt Count 342 MPV 9.9 Immature Gran % (Auto) 0.800 Neut % (Auto) 63.9 Lymph % (Auto) 24.9 [place] % (Auto) 8.4 Eos % (Auto) 1.5 Baso % (Auto) 0.5 Absolute Neuts (auto) 5.9 Absolute Lymphs (auto) 2.28 Nucleated RBC % 0 PT 15.0 H INR 1.2 APTT 39.2 H Sodium 136 Potassium 3.7 Chloride 100 Carbon Dioxide 28.0 Anion Gap 8 BUN 28 H Creatinine 1.22 Estim Creat Clear Calc 42.05 Est GFR (MDRD) Af Amer 72 Est GFR (MDRD) Non-Af 60 BUN/Creatinine Ratio 23.0 H Glucose 216 H Calcium 8.3 L Total Bilirubin 0.30 AST 11 L ALT 15 L Alkaline Phosphatase 62 Total Protein 6.0 L Albumin 2.7 L Globulin 3.3 Albumin/Globulin Ratio 0.8 L Discharge Plan Triage Chief Complaint: GI Bleed ED Provider: Rito Ramirez Dx/Rx/DC Orders Clinical Impression: Acute GI bleeding Prescriptions: No Action gabapentin 300 MG capsule 300 mg PO QHS RF: 0 insulin lispro [Humalog KwikPen Insulin] 100/ML Insuln.Pen 10 unit subcut TID RF: 0 insulin glargine [Lantus Solostar U-100 Insulin] 100/ML Pen 24 unit subcut 1800 RF: 0 valacyclovir 1,000 MG tablet 1,000 mg PO DAILY RF: 0 omeprazole 40 MG capsule,delayed release(DR/EC) 40 mg PO PRN PRN (Reason: GERD) RF: 0 ibuprofen 200 MG capsule 200 mg PO PRN PRN (Reason: Pain Or Fever) RF: 0 Primary Care Provider: Pradeep Franklin Referrals: Pradeep Franklin MD [Primary Care Provider] - Disposition Disposition: Acute Care Hospital Discharge Location: [facility]
[2021-09-12 19:28] LABS: Absolute Lymphocyte Count 2.28 X10^3/uL (0.83-4.51); Absolute Neutrophil Count 5.9 X10^3/uL (2.0-7.7); Basophil# 0.05 X10^3/uL; Basophil% 0.5 % (0-1); Eosinophil# 0.14 X10^3/uL; Eosinophils% 1.5 % (0-5); Hematocrit 30.4 % (40-54); Hemoglobin 10.1 g/dL (13.0-16.5); Lymphocyte # 2.28 X10^3/ul (0.83-4.51); Lymphocyte % 24.9 % (19-41); Mean Corp Hgb Conc 33.2 g/dL (32-36); Mean Corpuscular Hgb 35.4 pg (27.0-32.0); Mean Corpuscular Volume 106.7 fL (80-94); Mean Platelet Vol. 9.9 fl (6.2-12.0); Monocyte# 0.77 X10^3/uL; Monocyte% 8.4 % (0-10); NRBC Flagged by Analyzer 0 % (0-5); Neutrophil # 5.85 X10^3/uL (2.7-7.7); Neutrophil % 63.9 % (47-70); Platelet Count 342 K/mm3 (150-450); RBC Distribution Width CV 12.9 % (11.6-14.6); RBC Distribution Width SD 50.6 fl (35.1-43.9); Red Blood Count 2.85 M/mm3 (4.6-6.2); White Blood Count 9.2 K/mm3 (4.4-11.0)
[2021-09-12 19:36] LABS: International Normalized Ratio 1.2
[2021-09-12 19:37] LABS: Partial Thromboplast Time 39.2 Seconds (24.1-36.2)
[2021-09-12 19:44] LABS: ALB/GLOB Ratio 0.8 RATIO (0.9-2.4); AST(SGOT) 11 U/L (15-37); Alanine Aminotransfer ALT/SGPT 15 U/L (16-61); Albumin, Serum 2.7 g/dL (3.2-5.0); Alkaline Phosphatase 62 U/L (45-117); Anion Gap 8 (5-15); BUN 28 mg/dL (7-18); Calcium,Total 8.3 mg/dL (8.5-10.1); Chloride 100 mmol/L (98-107); Creatinine, Serum 1.22 mg/dL (0.70-1.30); EST Glomerular Filtration Rate 60 mL/min (>60); Est Glom Filt Rate - Afr Amer 72 mL/min (>60); Estimated Creatinine Clearance 42.05 ml/min; Globulin 3.3 g/dL (2.2-4.2); Glucose 216 mg/dL (74-106); Potassium 3.7 mmol/L (3.5-5.1); Sodium Level 136 mmol/L (136-145)
[2021-09-12 21:19] VITALS: BP 132/69; PULSE 76; RESP 18; O2SAT 99
[2021-09-12 23:12] VITALS: BP 130/77; PULSE 79; RESP 18; O2SAT 98
--- NOTE | 2021-09-12 23:13 | ED.RN ---
Yajaira Friday would like to be notified when/if patient is transferred to [facility].
[2021-09-13] VITALS (15 sets, daily range): BP systolic 124–161; BP diastolic 62–110; PULSE 69–84; RESP 16–20; TEMP 36.4–36.8; O2SAT 88–98; BMI 28.1
--- NOTE | 2021-09-13 04:30 | ED.RN ---
spoke with [facility] at this time for update on bed status.They are not able to give a status on bed. Patient remains on waiting list
--- NOTE | 2021-09-13 07:30 | ED.RN ---
PT UP TO BATHROOM WITH NO ASSIST. HAD LARGE BLOODY STOOL WITH MULTIPLE CLOTS NOTED. PT BACK TO ROOM. THIS RN REORIENTED PT TO [facility] AND REQUESTED PT CALL FOR ASSISTANCE WHEN GETTING UP. PT AGREES. PT GIVEN CUP OF WATER, AWARE CLEAR LIQUID BREAKFAST IS ORDERED. UPDATED VITAL SIGNS OBTAINED
--- NOTE | 2021-09-13 08:19 | NURSING ---
CALLED [facility], TALKED TO LILY. NO BED YET.
--- NOTE | 2021-09-13 09:09 | ED.RN ---
PT AND FAMILY MEMBER FRUSTRATED WITH CURRENT SITUATION. PT STATES WHY CAN'T I JUST GO HOME. THIS RN ENCOURAGES PT TO NOT LEAVE AMA. PT FAMILY MEMBER ALSO FRUSTRATED AND REQUESTING TO TALK TO PHYSICIAN
--- NOTE | 2021-09-13 09:52 | NURSING ---
900 CALLED [facility], TALKED TO RORY, SHE WILL [facility] CLERK SURGEON
--- NOTE | 2021-09-13 09:54 | NURSING ---
CALLED [facility], TALKED TO BERTIN. RORY IS WORKING ON SURGEON
--- NOTE | 2021-09-13 09:54 | NURSING ---
[id number]ENEFITS MANAGER FOR [address] MCKENZIE
[2021-09-13 10:15] LABS: Hematocrit 25.9 % (40-54); Hemoglobin 8.7 g/dL (13.0-16.5)
--- NOTE | 2021-09-13 10:18 | NURSING ---
DR RODRIGUEZ FOR DR MCKENZIE
--- NOTE | 2021-09-13 10:36 | NURSING ---
MED SURG MICHAEL LGIB
--- NOTE | 2021-09-13 10:49 | HP.PCM.HOS_ITS ---
HPI - General General Date of Admission: 09/13/21 Date of Service: 09/13/21 Chief Complaint: black stools HPI Narrative LEONOR MIJARES, is a 86 M who presents with a 1 day history of black tarry stools. Symptoms began yesterday. Associated with some abdominal cramping but no overt abdominal pain. On September 04, patient had an open hernia repair from a hernia sustained after having a partial colectomy back in December. He spoke with his surgeon who advised him come to the emergency room. Patient came to the emergency room here [facility]. Given his recent surgery at [facility], initial plan was for patient to go to [facility] and patient was accepted but did not have any readily available beds. The hospital service was contacted this morning about admission as patient is now open to being admitted here to be evaluated. Patient states that he has had similar events approximately 20 to 30 years ago to different events where he had a similar situation and had been evaluated without definitive explanation according to the patient. Patient has been taking ibuprofen since the surgery he does not know t he quantity or frequency. Patient is unaware of having any prior history of peptic ulcer disease. [facility] Medical History Anxiety Benign hypertension C. difficile diarrhea Personal history of colon cancer Psoriasis Type II diabetes mellitus Home Medications gabapentin 300 mg PO QHS 10/05/13 [History Last Taken 05/14/18] Lantus Solostar U-100 Insulin 24 unit SUBCUT 1800 05/15/18 [History Last Taken 05/14/18] insulin lispro [Humalog KwikPen Insulin] 10 unit SUBCUT TID 05/15/18 [History Last Taken 05/15/18] lisinopril 5 mg PO DAILY 09/12/21 [History Last Taken Unknown] potassium chloride 10 meq PO DAILY 09/12/21 [History Last Taken Unknown] propranolol 80 mg PO DAILY 09/12/21 [History Last Taken Unknown] simvastatin 20 mg PO PCHS 09/12/21 [History Last Taken Unknown] Allergy/AdvReac Type Severity Reaction Status Date / Time Iodinated Contrast Media Allergy Shortness Verified 09/12/21 18:59 [Iodinated Contrast Media - of breath IV Dye] Surgical History History of cholecystectomy History of colonoscopy History of hernia repair History of partial colectomy Social History current gender identity: male Smoking Status: Current every day smoker tobacco type: cigarettes ROS ROS Narrative All review of systems were negative except as mentioned above in the history of present illness and the other review of systems. Vital Signs Vital Signs Vital Signs: 09/12/21 18:57 09/12/21 21:19 09/12/21 23:12 Temperature 36.1 C L Temperature Source Temporal Pulse Rate 76 76 79 Respiratory Rate 18 18 18 Blood Pressure 118/62 132/69 H 130/77 H Blood Pressure Mean 80 90 94 Pulse Ox 97 99 98 Oxygen Delivery Method Room Air Room Air Room Air Oxygen Flow Rate (L/min) 09/13/21 01:11 09/13/21 03:39 09/13/21 04:56 Temperature Temperature Source Pulse Rate 75 Respiratory Rate 16 16 18 Blood Pressure 135/63 H Blood Pressure Mean 87 Pulse Ox 90 Oxygen Delivery Method Room Air Room Air Room Air Oxygen Flow Rate (L/min) 09/13/21 06:06 09/13/21 07:32 09/13/21 07:44 Temperature Temperature Source Pulse Rate 83 84 Respiratory Rate 16 20 H 20 H Blood Pressure 161/110 H 129/64 H Blood Pressure Mean 127 85 Pulse Ox 96 88 Oxygen Delivery Method Room Air Room Air Room Air Oxygen Flow Rate (L/min) 09/13/21 09:12 09/13/21 10:30 Temperature 36.6 C Temperature Source Temporal Pulse Rate 80 80 Respiratory Rate 20 H 18 Blood Pressure 133/62 H 124/64 H Blood Pressure Mean 85 84 Pulse Ox 96 96 Oxygen Delivery Method Nasal Cannula Nasal Cannula Oxygen Flow Rate (L/min) 2.5 Weight Weight: 91.626 kg Body Mass Index (BMI) 30.7 Physical Exam Const alert and no apparent distress General Appearance: cooperative HEENT normocephalic and head/scalp atraumatic Eyes Eyes Narrative: No icterus. Glasses Neck no lymphadenopathy Neck Narrative: No thyromegaly Resp normal respiratory effort, no retractions, no use of accessory muscles and clear to auscultation bilaterally Cardio regular rate, regular rhythm, S1 normal heart sound and S2 normal heart sound GI GI Narrative: Well approximated long midline incision. Does have some slight tenderness to the right of the incision. No evidence of any dehiscence. Extremity full ROM Extremity Narrative: Bilateral 2+ lower extremity edema Skin no rashes or lesions noted and no wounds Neuro Sensorium / Orientation: awake and alert Psych affect normal Mood & Affect: depressed Results Lab / Micro Data Attestation: I reviewed the patient's lab results. Result Diagrams: 09/13/21 10:05 09/12/21 19:23 Labs: Laboratory Results - last 24 hr 09/12/21 19:23: WBC 9.2, RBC 2.85 L, Hgb 10.1 L, Hct 30.4 L, MCV 106.7 H, MCH 35.4 H, MCHC 33.2, RDW Std Deviation 50.6 H, RDW Coeff of Angel 12.9, Plt Count 342, MPV 9.9, Immature Gran % (Auto) 0.800, Neut % (Auto) 63.9, Lymph % (Auto) 24.9, Andrew % (Auto) 8.4, Eos % (Auto) 1.5, Baso % (Auto) 0.5, Absolute Neuts (auto) 5.9, Absolute Lymphs (auto) 2.28, Nucleated RBC % 0 09/12/21 19:23: PT 15.0 H, INR 1.2, APTT 39.2 H 09/12/21 19:23: Sodium 136, Potassium 3.7, Chloride 100, Carbon Dioxide 28.0, A nion Gap 8, BUN 28 H, Creatinine 1.22, Estim Creat Clear Calc 42.05, Est GFR (MDRD) Af Amer 72, Est GFR (MDRD) Non-Af 60, BUN/Creatinine Ratio 23.0 H, Glucose 216 H, Calcium 8.3 L, Total Bilirubin 0.30, AST 11 L, ALT 15 L, Alkaline Phosphatase 62, Total Protein 6.0 L, Albumin 2.7 L, Globulin 3.3, Albumi n/Globulin Ratio 0.8 L 09/13/21 10:05: Hgb 8.7 L, Hct 25.9 L Micro: Microbiology 09/12/21 20:05 Nasal Secretion SARS-CoV-2 Antigen (Rapid) - Final Assessment & Plan Assessment/Plan (1) Acute blood loss anemia: (2) Acute GI bleeding: PLAN: 1. Acute GI bleed * Patient is having melena which is concerning for peptic ulcer disease. Patient stated that he has similar episode 20-30 years ago * Start IV pantoprazole * Consult gastroenterology * N.p.o. 2. Acute blood loss anemia * Hemoglobin went from 10.1-8.7 * Secondary to GI bleed * Monitor * no indication to transfuse at this time 3. Recent open hernia repair * I do not suspect that the patient's bleeding is due to the patient's recent hernia repair least directly. * Patient was initially accepted to the [facility] upon transfer but will hold off on that for now unless it becomes concerning that the hernia repair is directly causing this GI bleed 4. Diabetes mellitus type 2 * Insulin-dependent * Hold Lantus * Sliding scale insulin 5. Vaccinated for COVID-19 * Patient has had his 2 shots and his booster shot. Patient is due for his second booster. Advised patient to hold off on the second booster until this current issue is resolved. * He denies any recent COVID-19 contacts 6. VTE prophylaxis: SCDs. Chemical prophylaxis contraindicated in light of the acute hemorrhage. 7. CODE STATUS: Addressed with the patient. Patient wishes to be full code. Charges/Coding Visit Charges Inpatient E&M: 59124 Init Hosp L3
--- NOTE | 2021-09-13 10:54 | NURSING ---
[facility] [address]
[2021-09-13 13:41] LABS: Bedside Glucose 354 mg/dL (74-106)
[2021-09-13] MEDS: 0.9% Normal Saline 1,000 ML 150 ML IV ×2 (13:48→20:25)
[2021-09-13] MEDS: Insulin Lispro 100 UNIT/ML INSULN.PEN SC ×3 (13:48→23:21)
[2021-09-13 16:39] LABS: Absolute Lymphocyte Count 2.07 X10^3/uL (0.83-4.51); Absolute Neutrophil Count 5.2 X10^3/uL (2.0-7.7); Basophil# 0.05 X10^3/uL; Basophil% 0.6 % (0-1); Eosinophil# 0.27 X10^3/uL; Eosinophils% 3.2 % (0-5); Hematocrit 25.6 % (40-54); Hemoglobin 8.5 g/dL (13.0-16.5); Lymphocyte # 2.07 X10^3/ul (0.83-4.51); Lymphocyte % 24.6 % (19-41); Mean Corp Hgb Conc 33.2 g/dL (32-36); Mean Corpuscular Hgb 35.4 pg (27.0-32.0); Mean Corpuscular Volume 106.7 fL (80-94); Mean Platelet Vol. 10.3 fl (6.2-12.0); Monocyte# 0.68 X10^3/uL; Monocyte% 8.1 % (0-10); NRBC Flagged by Analyzer 0 % (0-5); Neutrophil # 5.22 X10^3/uL (2.7-7.7); Platelet Count 371 K/mm3 (150-450); RBC Distribution Width CV 13.1 % (11.6-14.6); White Blood Count 8.4 K/mm3 (4.4-11.0)
[2021-09-13 18:11] LABS: Bedside Glucose 317 mg/dL (74-106)
[2021-09-13 23:35] LABS: Bedside Glucose 255 mg/dL (74-106)
[2021-09-14] VITALS (17 sets, daily range): BP systolic 114–156; BP diastolic 50–99; PULSE 51–97; RESP 16–20; TEMP 36.4–37.3; O2SAT 92–99; BMI 28.1
--- NOTE | 2021-09-14 | ESO_PTH ---
PATIENT: LEONOR MIJARES LOC: [facility] U#:[id number] AGE/SX: 86/M ROOM: [facility] RE09/13/[address]: Dr. José Luis Walsh DO : 1935 BED: 1 DIS: 09/15/2021 SPEC #: [id number] RECD: 09/14/21 17:24 STATUS: ANA REKaylen #: [id number] LIZ: 09/14/21 00:[address]: Abebe Jarvis DEPT: SURGICAL PATHOLOGY RECD BY: Abundio Milner ENTERED: 09/17/21 08:13 SP TYPE: ESOPH BX OTHR DR: MD Dr. José Luis Foley DO Tissues: Esophagus, NOS Procedures: Special Stain Group II Surgery Specimen Level IV Alcian Blue/PAS (control) Comments: @ Ordering doctor for SUIV edited from to @ janny COREAS at 09/17/21 1352 @ Submitting doctor edited from to @ by LYUDMILA at 09/17/21 1358 HEADER OPERATION: EGD ([facility]) PRE-OP DIAGNOSIS: Acute blood loss anemia, acute GI bleeding TISSUE SUBMITTED: Distal esophagus MICROSCOPIC DIAGNOSIS Distal esophagus, biopsy: Gastroesophageal junctional mucosa with mild chronic inflammation. No evidence of goblet cell metaplasia. See comment. AM:sharifa 09/18/2021 COMMENT Alcian blue/PAS stain with matched control supports the above diagnosis. MICROSCOPIC DESCRIPTION Slides are reviewed. GROSS DESCRIPTION Received in fixative is one container labeled with the patient's name and designated distal esophagus. The specimen consists of multiple irregular fragments of light silvestre soft tissue that in aggregate measure 0.6 x 0.6 x 0.1 cm. The specimen is totally submitted in one cassette. / SJ:sharifa 09/17/2021 TC:3 CPT: 06308, 86896
[2021-09-14] MEDS: 0.9% Normal Saline 1,000 ML 150 ML IV ×3 (03:35→17:48)
[2021-09-14] MEDS: Insulin Lispro 100 UNIT/ML INSULN.PEN SC ×2 (06:24→13:26)
[2021-09-14 06:33] LABS: Absolute Lymphocyte Count 2.72 X10^3/uL (0.83-4.51); Absolute Neutrophil Count 4.8 X10^3/uL (2.0-7.7); Basophil# 0.06 X10^3/uL; Basophil% 0.7 % (0-1); Eosinophil# 0.42 X10^3/uL; Eosinophils% 4.7 % (0-5); Hematocrit 22.8 % (40-54); Hemoglobin 7.6 g/dL (13.0-16.5); Lymphocyte # 2.72 X10^3/ul (0.83-4.51); Lymphocyte % 30.5 % (19-41); Mean Corp Hgb Conc 33.3 g/dL (32-36); Mean Corpuscular Hgb 35.8 pg (27.0-32.0); Mean Corpuscular Volume 107.5 fL (80-94); Mean Platelet Vol. 10.3 fl (6.2-12.0); Monocyte# 0.78 X10^3/uL; Monocyte% 8.7 % (0-10); NRBC Flagged by Analyzer 0 % (0-5); Neutrophil # 4.81 X10^3/uL (2.7-7.7); Neutrophil % 53.9 % (47-70); Platelet Count 382 K/mm3 (150-450); RBC Distribution Width CV 13.3 % (11.6-14.6); RBC Distribution Width SD 51.9 fl (35.1-43.9); Red Blood Count 2.12 M/mm3 (4.6-6.2); White Blood Count 8.9 K/mm3 (4.4-11.0)
[2021-09-14 06:59] LABS: Anion Gap 6 (5-15); BUN 16 mg/dL (7-18); BUN/Creat Ratio 16.8 RATIO (10-20); Calcium,Total 7.7 mg/dL (8.5-10.1); Chloride 103 mmol/L (98-107); Creatinine, Serum 0.96 mg/dL (0.70-1.30); EST Glomerular Filtration Rate 79 mL/min (>60); Est Glom Filt Rate - Afr Amer 96 mL/min (>60); Estimated Creatinine Clearance 57.03 ml/min; Glucose 255 mg/dL (74-106); Potassium 3.8 mmol/L (3.5-5.1); Sodium Level 135 mmol/L (136-145)
[2021-09-14 07:05] LABS: Bedside Glucose 225 mg/dL (74-106)
--- NOTE | 2021-09-14 08:00 | CON.PCM_ITS ---
Assessment & Plan Assessment/Plan (1) Macrocytic anemia: PLAN: Differential diagnosis for macrocytic anemia does include hypothyroidism, hypothyroidism, B12 deficiency, folic acid deficiency, reticulocytosis, alcoholic liver disease. (2) Acute GI bleeding: PLAN: His lower GI bleeding does sound as if it is coming from the colon and not at upper GI bleed with rapid transit. However patient insisted he is having melanotic stools. So he should undergo upper endoscopy and he says that he may consider colonoscopy if the upper endoscopy was normal. He was explained alternatives, risk, benefits including not withstanding bleeding, infection, sepsis, perforation, need for emergent urgent . He will have an ASA of 3. HPI Consult Data Date of Consult: 09/14/21 HPI Narrative HPI Narrative: LEONOR MIJARES, is a 86 M who presents to the ED with lower GI bleeding. it appears that on February 06, 2021 he was seen in the emergency room with a complaint of diarrhea. The patient states that he had C. difficile the prior month when he was hospitalized for partial colectomy due to malignancy. That procedure was performed by Dr. Jose Ramon Sullivan. This included his being on oral vancomycin. A repeat C. difficile obtained through the emergency room was negative. No additional stool pathogens identified at that time. 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 He still continues to have diarrhea since the procedure. He presented here to the hospital ED after having 2 episodes of lower GI bleeding. He had never had low GI last. In the ED his hemoglobin was discovered to be 7.2. The repeat hemoglobin is 7.6. His hemoglobin as of April 2021 was normal at 15.6. He does not take any blood thinners. [facility] Medical History (Updated 09/14/21 @ 17:[address] Lomas Friend, DO) Anxiety Benign hypertension C. difficile diarrhea Depression Diabetes Former smoker GI bleed Hypertension Personal history of colon cancer Psoriasis Sleep apnea Stroke/cerebrovascular accident Type II diabetes mellitus Home Medications gabapentin 300 mg PO QHS 10/05/13 [History Last Taken 05/14/18] Lantus Solostar U-100 Insulin 20 unit SUBCUT 1800 05/15/18 [History Last Taken 05/14/18] insulin lispro [Humalog KwikPen Insulin] 10 unit SUBCUT TID 05/15/18 [History Last Taken 05/15/18] lisinopril 5 mg PO DAILY 09/12/21 [History Last Taken Unknown] potassium chloride 10 meq PO DAILY 09/12/21 [History Last Taken Unknown] propranolol 80 mg PO DAILY 09/12/21 [History Last Taken Unknown] simvastatin 20 mg PO PCHS 09/12/21 [History Last Taken Unknown] aspirin 81 mg PO DAILY 09/13/21 [History Last Taken Unknown] docusate sodium 100 mg PO BID 09/13/21 [History Last Taken Unknown] insulin glargine [Lantus U-100 Insulin] 20 unit SUBCUT QPM 09/13/21 [History Last Taken Unknown] ondansetron 4 mg PO Q8H PRN 09/13/21 [History Last Taken Unknown] sertraline 50 mg PO DAILY 09/13/21 [History Last Taken Unknown] valacyclovir [Valtrex] 1,000 mg PO DAILY 09/13/21 [History Last Taken Unknown] Allergy/AdvReac Type Severity Reaction Status Date / Time Iodinated Contrast Media Allergy Shortness Verified 09/12/21 18:59 [Iodinated Contrast Media - of breath IV Dye] Surgical History History of cholecystectomy History of colonoscopy History of hernia repair History of partial colectomy Social History Smoking Status: Former smoker ROS Gastrointestinal Gastrointestinal: Reports rectal bleeding Physical Exam Const alert General Appearance: cooperative Orientation / Consciousness: oriented to person HEENT hearing grossly normal bilaterally Head and Scalp: normal to inspection Face and Sinus: face symmetric Nose: external nose normal Mouth: oral and palatal mucosa normal Eyes conjunctivae normal General Eye: normal appearance of both eyes Neck full ROM General: normal visual inspection Lymph Lymphatic: no lymphadenopathy noted Chest inspection of chest normal and palpation of chest normal Chest: symmetrical chest wall rise Resp normal respiratory effort Effort and Inspection: able to speak in complete sentences Cardio regular rate GI non-distended Percussion: normal to percussion Rectal Exam: deferred Neuro Speech: speech normal Gait (Neuro): normal gait Lab / Micro Data Result Diagrams: 09/14/21 05:50 09/14/21 05:50 Labs: Laboratory Results - last 24 hr 09/13/21 18:03: POC Glucose 317 H 09/13/21 23:14: POC Glucose 255 H 09/14/21 05:50: WBC 8.9, RBC 2.12 L, Hgb 7.6 L, Hct 22.8 L, MCV 107.5 H, MCH 35.8 H, MCHC 33.3, RDW Std Deviation 51.9 H, RDW Coeff of Angel 13.3, Plt Count 382, MPV 10.3, Immature Gran % (Auto) 1.500 H, Neut % (Auto) 53.9, Lymph % (Auto) 30.5, [place] % (Auto) 8.7, Eos % (Auto) 4.7, Baso % (Auto) 0.7, Absolute Neuts (auto) 4.8, Absolute Lymphs (auto) 2.72, Nucleated RBC % 0 09/14/21 05:50: Sodium 135 L, Potassium 3.8, Chloride 103, Carbon Dioxide 26.0, Anion Gap 6, BUN 16, Creatinine 0.96, Estim Creat Clear Calc 57.03, Est GFR (MDRD) Af Amer 96, Est GFR (MDRD) Non-Af 79, BUN/Creatinine Ratio 16.8, Glucose 255 H, Calcium 7.7 L 09/14/21 06:24: POC Glucose 225 H 09/14/21 13:24: POC Glucose 246 H Charges/Coding Visit Charges Inpatient E&M: 53788 Init Hosp L2
--- NOTE | 2021-09-14 08:04 | PN.HOSP_ITS ---
Subjective Subjective Had further melena last and this AM Objective Data Objective Data Vital Signs: Vital Signs Temp Pulse Resp BP Pulse Ox 37.3 C 77 20 H 156/99 H 98 09/14/21 06:30 09/14/21 07:00 09/14/21 06:30 09/14/21 06:30 09/14/21 06:30 Oxygen Flow Rate (L/min) 2 Oxygen Delivery Method Room Air Weight: 89.1 kg Body Mass Index (BMI) 28.1 Intake & Output: Intake and Output for Last 24 Hours 09/12/21 09/13/21 09/14/21 23:59 23:59 23:59 Intake Total 1332.5 / 1332.5 1240 / 1240 Output Total 250 / 250 300 / 300 Balance 1082.5 / 1082.5 940 / 940 Lab / Micro Data Result Diagrams: 09/14/21 05:50 09/14/21 05:50 Labs: Laboratory Results - last 24 hr 09/13/21 10:05: Hgb 8.7 L, Hct 25.9 L 09/13/21 13:36: POC Glucose 354 H 09/13/21 16:05: WBC 8.4, RBC 2.40 L, Hgb 8.5 L, Hct 25.6 L, MCV 106.7 H, MCH 35.4 H, MCHC 33.2, RDW Std Deviation 51.0 H, RDW Coeff of Angel 13.1, Plt Count 371, MPV 10.3, Immature Gran % (Auto) 1.500 H, Neut % (Auto) 62.0, Lymph % (Auto) 24.6, [place] % (Auto) 8.1, Eos % (Auto) 3.2, Baso % (Auto) 0.6, Absolute Neuts (auto) 5.2, Absolute Lymphs (auto) 2.07, Nucleated RBC % 0 09/13/21 18:03: POC Glucose 317 H 09/13/21 23:14: POC Glucose 255 H 09/14/21 05:50: WBC 8.9, RBC 2.12 L, Hgb 7.6 L, Hct 22.8 L, MCV 107.5 H, MCH 35.8 H, MCHC 33.3, RDW Std Deviation 51.9 H, RDW Coeff of Angel 13.3, Plt Count 382, MPV 10.3, Immature Gran % (Auto) 1.500 H, Neut % (Auto) 53.9, Lymph % (Auto) 30.5, [place] % (Auto) 8.7, Eos % (Auto) 4.7, Baso % (Auto) 0.7, Absolute Neuts (auto) 4.8, Absolute Lymphs (auto) 2.72, Nucleated RBC % 0 09/14/21 05:50: Sodium 135 L, Potassium 3.8, Chloride 103, Carbon Dioxide 26.0, Anion Gap 6, BUN 16, Creatinine 0.96, Estim Creat Clear Calc 57.03, Est GFR (MDRD) Af Amer 96, Est GFR (MDRD) Non-Af 79, BUN/Creatinine Ratio 16.8, Glucose 255 H, Calcium 7.7 L 09/14/21 06:24: POC Glucose 225 H Micro: Microbiology 09/12/21 20:05 Nasal Secretion SARS-CoV-2 Antigen (Rapid) - Final Physical Exam Const alert and no apparent distress Resp normal respiratory effort, no retractions, no use of accessory muscles and clear to auscultation bilaterally Cardio regular rate, regular rhythm, S1 normal heart sound and S2 normal heart sound GI normal to inspection, nondistended, normoactive bowel sounds, soft to palpation, non-tender and non-distended Extremity normal to inspection Neuro Sensorium / Orientation: awake and alert Assessment & Plan Assessment/Plan (1) Acute blood loss anemia: (2) Acute GI bleeding: PLAN: 1. Acute GI bleed * Patient is having melena which is concerning for peptic ulcer disease. Patient stated that he has similar episode 20-30 years ago * Start IV pantoprazole * Consult gastroenterology * N.p.o. 2. Acute blood loss anemia * Hemoglobin went from 10.1-7.6 * Secondary to GI bleed * Monitor * no indication to transfuse at this time 3. Recent open hernia repair * I do not suspect that the patient's bleeding is due to the patient's recent hernia repair least directly. * Patient was initially accepted to the [facility] upon transfer but will hold off on that for now unless it becomes concerning that the hernia repair is directly causing this GI bleed 4. Diabetes mellitus type 2 * Insulin-dependent * Hold Lantus * Sliding scale insulin 5. Vaccinated for COVID-19 * Patient has had his 2 shots and his booster shot. Patient is due for his second booster. Advised patient to hold off on the second booster until this current issue is resolved. * He denies any recent COVID-19 contacts 6. VTE prophylaxis: SCDs. Chemical prophylaxis contraindicated in light of the acute hemorrhage. 7. CODE STATUS: Addressed with the patient. Patient wishes to be full code. Charges/Coding Visit Charges Inpatient E&M: 57635 Subs Hosp L2
[2021-09-14] MEDS: Morphine 2 MG/ML Syringe IV (08:12)
[2021-09-14] MEDS: Ondansetron 4 MG/2 ML Vial IV (08:18)
--- NOTE | 2021-09-14 10:40 | CASEMGMT ---
ALICIA GEORGE assessment: Face to Face with patient for initial transition planning/care coordination assessment. ALICIA GEORGE introduced self and role at [facility], pt voices understanding and consents to assessment. Pt is sitting up in bed in no distress on room air. Pt is A/Ox4 and answers all questions appropriately. Care providers, pharmacy, and demographics verified. Presentation: Pt c/o black stool starting today, d/c'd from [facility] yesterday Admitting dx: GI bleed PCP: Rigoberto Specialists: None Preferred Pharmacy: [facility]Mail order Insurance: [employer] Prescription Benefit: [employer] Living Will/HPOA: Pt has LW/HPOA and is aware that they are on file at [facility]. Pt's friend, Yajaira Friday, is HPOA. LNOK: Yajaira Friday, friend/HPOA Living Arrangements: Pt lives alone in 1 story home with 1-3 steps in and states no concerns at home. Pt is independent with ADL's. Transportation: Pt drives self and states no transportation concerns. DME/HHC: Pt has a cane and walker and state no need for any further DME. Pt states no hx of HHC or SNF in the past. Pt states no concerns with going home at time of discharge. Pt is retired. Pt does not smoke cigarettes or drink ETOH. Pt voices no further concerns/needs. CM to follow for any further discharge planning/needs. Advised pt to ask for CM if any further questions/concerns/needs arise, voices understanding. Pt Goal: Home Plan[place] ALICIA GEORGE
[2021-09-14 13:36] LABS: Bedside Glucose 246 mg/dL (74-106)
--- NOTE | 2021-09-14 17:16 | OP.EGD_ITS ---
Patient Name: Bebeto Staples Procedure Date: 09/14/2021 4:48 PM Date of : 1935 Age: 86 Procedure: Upper GI endoscopy Indications: Active gastrointestinal bleeding Providers: Abebe Jarvis DO Medicines: Monitored Anesthesia Care Patient Profile: This is an 86 year old male. Refer to note in patient chart for documentation of history and physical. Patient has symptoms. Complications: No immediate complications. Procedure: Pre-Anesthesia Assessment: - Prior to the procedure, a History and Physical was performed, and patient medications and allergies were reviewed. The risks and benefits of the procedure and the sedation options and risks were discussed with the patient. All questions were answered and informed consent was obtained. Patient identification and proposed procedure were verified by the physician in the pre-procedure area. Mental Status Examination: alert and oriented. Airway Examination: normal oropharyngeal airway and neck mobility. Respiratory Examination: clear to auscultation. CV Examination: normal. Prophylactic Antibiotics: The patient does not require prophylactic antibiotics. Prior Anticoagulants: The patient has taken no previous anticoagulant or antiplatelet agents. ASA Grade Assessment: II - A patient with mild systemic disease. After reviewing the risks and benefits, the patient was deemed in satisfactory condition to undergo the procedure. The anesthesia plan was to use moderate sedation / analgesia (conscious sedation). Immediately prior to administration of medications, the patient was re-assessed for adequacy to receive sedatives. The heart rate, respiratory rate, oxygen saturations, blood pressure, adequacy of pulmonary ventilation, and response to care were monitored throughout the procedure. The physical status of the patient was re-assessed after the procedure. After obtaining informed consent, the endoscope was passed under direct vision. Throughout the procedure, the patient's blood pressure, pulse, and oxygen saturations were monitored continuously. The gastroscope was introduced through the mouth, and advanced to the second part of duodenum. The upper GI endoscopy was accomplished without difficulty. The patient tolerated the procedure well. Scope In: 4:57:19 PM Scope Out: 5:04:41 PM Total Procedure Duration Time 0 hours 7 minutes 22 seconds Findings: LA Grade C (one or more mucosal breaks continuous between tops of 2 or more mucosal folds, less than 75% circumference) esophagitis with no bleeding was found 37 to 40 cm from the incisors. Biopsies were taken with a cold forceps for histology. Verification of patient identification for the specimen was done. Estimated blood loss was minimal. A mild Schatzki ring was found in the lower third of the esophagus. Patchy mild inflammation characterized by erosions and erythema was found in the gastric body and on the lesser curvature of the stomach. A few erosions without bleeding were found in the first portion of the duodenum. Impression: - LA Grade C reflux esophagitis. Rule out Cowan's esophagus. Biopsied. - Mild Schatzki ring. - Gastritis. - Duodenal erosions without bleeding. Recommendation: - The signs and symptoms of potential delayed complications were discussed with the patient. - Patient has a contact number available for emergencies. - Return to normal activities tomorrow. - Resume previous diet. - Continue present medications. - Await pathology results. Procedure Code(s): --- Professional --- 03376, Esophagogastroduodenoscopy, flexible, transoral; with biopsy, single or multiple CPT copyright 2017 [employer]. All rights reserved. The codes documented in this report are preliminary and upon gas jockey review may be revised to meet current compliance requirements. Abebe Jarvis DO 09/14/2021 5:16:13 PM This report has been signed electronically. Number of Addenda: 1 Note Initiated On: 09/14/2021 4:48 PM Addendum Number: 1 Addendum Date: 02/01/2022 6:22:38 AM MAC was used as sedation for this procedure. Abebe Jarvis DO 02/01/2022 6:22:45 AM This report has been signed electronically.
--- NOTE | 2021-09-14 17:17 | OP.CCLET_ITS ---
02/01/2022 Pradeep Franklin Re : Upper GI endoscopy procedure for Bebeto Byersr Rigoberto This procedure was performed on Tuesday, September 14, 2021. My impressions and recommendations are as follows: Impressions : - LA Grade C reflux esophagitis. Rule out Cowan's esophagus. Biopsied. - Mild Schatzki ring. - Gastritis. - Duodenal erosions without bleeding. Recommendations : - The signs and symptoms of potential delayed complications were discussed with the patient. - Patient has a contact number available for emergencies. - Return to normal activities tomorrow. - Resume previous diet. - Continue present medications. - Await pathology results. My findings are described in the full procedure note, which is enclosed. If I can be of further assistance, please feel free to contact me at . Sincerely, Abebe Jarvis, 09/14/2021 5:16:13 PM This report has been signed electronically.
--- NOTE | 2021-09-14 17:48 | NURSING ---
Pt returned to room from EGD procedure.
[2021-09-14 18:00] LABS: Bedside Glucose 265 mg/dL (74-106)
[2021-09-14] MEDS: Insulin Lispro 100 UNIT/ML INSULN.PEN 10 UNIT SC (18:43)
[2021-09-14] MEDS: Insulin Glargine-YFGN 100 UNIT/ML Pen 20 UNIT SC (21:17)
[2021-09-14 21:41] LABS: Bedside Glucose 354 mg/dL (74-106)
[2021-09-15] VITALS (7 sets, daily range): BP systolic 139–159; BP diastolic 53–80; PULSE 75–82; RESP 16–18; TEMP 36.4–36.7; O2SAT 88–94
[2021-09-15] MEDS: 0.9% Normal Saline 1,000 ML 150 ML IV ×3 (00:16→12:26)
[2021-09-15 05:01] LABS: Absolute Neutrophil Count 5.4 X10^3/uL (2.0-7.7); Basophil# 0.05 X10^3/uL; Basophil% 0.5 % (0-1); Eosinophils% 4.4 % (0-5); Hematocrit 23.4 % (40-54); Hemoglobin 7.4 g/dL (13.0-16.5); Lymphocyte % 25.3 % (19-41); Mean Corp Hgb Conc 31.6 g/dL (32-36); Mean Corpuscular Hgb 34.7 pg (27.0-32.0); Mean Corpuscular Volume 109.9 fL (80-94); Mean Platelet Vol. 9.8 fl (6.2-12.0); Monocyte# 0.78 X10^3/uL; Monocyte% 8.6 % (0-10); NRBC Flagged by Analyzer 0.2 % (0-5); Neutrophil # 5.37 X10^3/uL (2.7-7.7); Platelet Count 452 K/mm3 (150-450); RBC Distribution Width CV 13.4 % (11.6-14.6); RBC Distribution Width SD 53.3 fl (35.1-43.9); Red Blood Count 2.13 M/mm3 (4.6-6.2); White Blood Count 9.1 K/mm3 (4.4-11.0)
[2021-09-15 05:41] LABS: Anion Gap 6 (5-15); BUN 9 mg/dL (7-18); BUN/Creat Ratio 9.8 RATIO (10-20); Calcium,Total 7.6 mg/dL (8.5-10.1); Chloride 103 mmol/L (98-107); Creatinine, Serum 0.92 mg/dL (0.70-1.30); EST Glomerular Filtration Rate 83 mL/min (>60); Est Glom Filt Rate - Afr Amer 100 mL/min (>60); Estimated Creatinine Clearance 59.51 ml/min; Glucose 257 mg/dL (74-106); Potassium 3.8 mmol/L (3.5-5.1); Sodium Level 135 mmol/L (136-145)
[2021-09-15] MEDS: Insulin Lispro 100 UNIT/ML INSULN.PEN 10 UNIT SC ×2 (08:45→12:27)
--- NOTE | 2021-09-15 08:49 | PN.HOSP_ITS ---
Subjective Subjective No further melena. Patient states that he has been having diarrhea for weeks. Objective Data Objective Data Vital Signs: Vital Signs Temp Pulse Resp BP Pulse Ox 36.4 C L 79 18 152/80 H 94 09/15/21 03:28 09/15/21 08:11 09/15/21 03:28 09/15/21 03:28 09/15/21 03:28 Oxygen Flow Rate (L/min) 2 Oxygen Delivery Method Nasal Cannula Weight: 89.1 kg Body Mass Index (BMI) 28.1 Intake & Output: Intake and Output for Last 24 Hours 09/13/21 09/14/21 09/15/21 23:59 23:59 23:59 Intake Total 1332.5 / 1332.5 3425 / 3665 2410 / 2410 Output Total 250 / 250 300 / 300 Balance 1082.5 / 1082.5 3125 / 3365 2410 / 2410 Lab / Micro Data Result Diagrams: 09/15/21 04:35 09/15/21 04:35 Labs: Laboratory Results - last 24 hr 09/14/21 13:24: POC Glucose 246 H 09/14/21 17:55: POC Glucose 265 H 09/14/21 21:16: POC Glucose 354 H 09/15/21 04:35: WBC 9.1, RBC 2.13 L, Hgb 7.4 L, Hct 23.4 L, MCV 109.9 H, MCH 34.7 H, MCHC 31.6 L D, RDW Std Deviation 53.3 H, RDW Coeff of Angel 13.4, Plt Count 452 H, MPV 9.8, Immature Gran % (Auto) 2.200 H, Neut % (Auto) 59.0, Lymph % (Auto) 25.3, [place] % (Auto) 8.6, Eos % (Auto) 4.4, Baso % (Auto) 0.5, Absolute Neuts (auto) 5.4, Absolute Lymphs (auto) 2.30, Nucleated RBC % 0.2 09/15/21 04:35: Sodium 135 L, Potassium 3.8, Chloride 103, Carbon Dioxide 26.0, Anion Gap 6, BUN 9, Creatinine 0.92, Estim Creat Clear Calc 59.51, Est GFR (MDRD) Af Amer 100, Est GFR (MDRD) Non-Af 83, BUN/Creatinine Ratio 9.8 L, Glucose 257 H, Calcium 7.6 L Micro: Microbiology 09/12/21 20:05 Nasal Secretion SARS-CoV-2 Antigen (Rapid) - Final Physical Exam Const alert and no apparent distress Resp normal respiratory effort, no retractions, no use of accessory muscles and clear to auscultation bilaterally Cardio regular rate, regular rhythm, S1 normal heart sound and S2 normal heart sound GI normal to inspection, nondistended, normoactive bowel sounds, soft to palpation and non-tender Extremity normal to inspection Assessment & Plan Assessment/Plan (1) Acute blood loss anemia: (2) Acute GI bleeding: PLAN: 1. Acute GI bleed * Patient is having melena. Patient stated that he has similar episode 20-30 years ago * EGD on the showed Grade C reflux esophagitis with mild Schatzki ring, gastritis, duodenal erosions. Biopsies performed on esophagitis. * Follow up with GI for Bx results. 2. Acute blood loss anemia * Hemoglobin went from 10.1-7.4 * Secondary to GI bleed * Monitor * no indication to transfuse at this time * add FeSO4 QOD 3. Recent open hernia repair * I do not suspect that the patient's bleeding is due to the patient's recent hernia repair least directly. * Patient was initially accepted to the [facility] upon transfer but will hold off on that for now unless it becomes concerning that the hernia repair is directly causing this GI bleed 4. Diabetes mellitus type 2 * Insulin-dependent * Uncontrolled. * continue Basal, pradnial and SSI 5. Diarrhea * Has been going on for weeks if not longer. Patient previously was treated for C. difficile shortly after his colectomy back in December and has been having diarrhea since. Is taking Imodium at home which helps at times but is recurrent if he is not on top of the Imodium. C. difficile has been ordered and is currently pending. 6. Vaccinated for COVID-19 * Patient has had his 2 shots and his booster shot. Patient is due for his second booster. Advised patient to hold off on the second booster until this current issue is resolved. * He denies any recent COVID-19 contacts 7. VTE prophylaxis: SCDs. Chemical prophylaxis contraindicated in light of the acute hemorrhage. 8. CODE STATUS: Addressed with the patient. Patient wishes to be full code. Charges/Coding Visit Charges Inpatient E&M: 87927 Subs Hosp L2
[2021-09-15 09:26] LABS: Bedside Glucose 201 mg/dL (74-106)
[2021-09-15 11:41] LABS: Bedside Glucose 178 mg/dL (74-106)
--- NOTE | 2021-09-15 14:52 | PCM.DC ---
Discharge Instructions Diet Discharge Diet: 2000 Calorie Control Diet Activity Discharge Activity: Return to Normal Activity Dressing / Incision Call your doctor if you observe: - (rectal bleeding. dark tarry stools. ) Follow Up Care Test Results: Test results from this visit will be discussed in further detail at your follow-up appointment, if applicable. Discharge Plan Admission Admit Date/Time: 09/13/21 10:41 Primary Reason for Your Visit: Gi bleed. cdiff Attending Provider: José Luis Walsh Primary Care Provider: Pradeep Franklin Discharge Orders/Prescriptions Prescriptions: New vancomycin 125 mg capsule 125 mg PO Q6H Qty: 40 RF: 0 pantoprazole [Protonix] 40 mg tablet,delayed release (DR/EC) 40 mg PO BID Qty: 60 RF: 0 ferrous sulfate 325 mg (65 mg iron) tablet 325 mg PO QODAY Qty: 30 RF: 0 Continued gabapentin 300 MG capsule 300 mg PO QHS RF: 0 insulin lispro [Humalog KwikPen Insulin] 100/ML insulin pen 10 unit subcut TID RF: 0 Lantus Solostar U-100 Insulin 100/ML insulin pen 20 unit subcut 1800 RF: 0 potassium chloride 10 mEq tablet extended release 10 meq PO DAILY RF: 0 simvastatin 20 mg tablet 20 mg PO PCHS RF: 0 propranolol 80 mg capsule,extended release 24 hr 80 mg PO DAILY RF: 0 lisinopril 5 mg tablet 5 mg PO DAILY RF: 0 aspirin 81 mg Tablet 81 mg PO DAILY RF: 0 ondansetron 4 mg Tablet,Disintegrating 4 mg PO Q8H PRN (Reason: Nausea) RF: 0 sertraline 50 mg Tablet 50 mg PO DAILY RF: 0 Discontinued docusate sodium 100 mg Capsule 100 mg PO BID RF: 0 valacyclovir [Valtrex] 1 gram Tablet 1,000 mg PO DAILY RF: 0 Lantus U-100 Insulin 100 unit/mL Cartridge 20 unit SUBCUT QPM RF: 0 Referrals / Follow Up: Pradeep Franklin MD [Primary Care Provider] - Within 2 Weeks Abebe Jarvis DO [STAFF PHYSICIAN] - Within 2 Weeks Disposition Disposition (needs filled in before D/C Order can be placed): Home, Self Care
--- NOTE | 2021-09-15 14:57 | PCM.DC.SUM ---
Providers Date of Admission: 09/13/21 Primary Care Physician: Dr. Pradeep Franklin MD Consultations 09/13/21 12:28 Consult: Gastroenterology Routine Consulting Provider: Jose Ramon Katz Reason for Consult: GI bleed EMERGENT Consult: No MD Notified: Yes Date Notified: 09/13/21 Time Notified: 10:47 Method of Notification: ED Physician Initiated Reason For Visit: GI BLEED Diagnosis Discharge Diagnosis (1) Acute blood loss anemia: Status: Acute Code(s): D62 - Acute posthemorrhagic anemia (2) Acute GI bleeding: Status: Acute Code(s): K92.2 - Gastrointestinal hemorrhage, unspecified Medications at Discharge Home Medications gabapentin 300 mg PO QHS 10/05/13 Lantus Solostar U-100 Insulin 20 unit SUBCUT 1800 05/15/18 insulin lispro [Humalog KwikPen Insulin] 10 unit SUBCUT TID 05/15/18 lisinopril 5 mg PO DAILY 09/12/21 potassium chloride 10 meq PO DAILY 09/12/21 propranolol 80 mg PO DAILY 09/12/21 simvastatin 20 mg PO PCHS 09/12/21 aspirin 81 mg PO DAILY 09/13/21 ondansetron 4 mg PO Q8H PRN 09/13/21 sertraline 50 mg PO DAILY 09/13/21 ferrous sulfate 325 mg PO QODAY #30 tab 09/15/21 pantoprazole [Protonix] 40 mg PO BID #60 tab 09/15/21 vancomycin 125 mg PO Q6H #40 cap 09/15/21 Hospital Course Operations None Procedures EGD Summary of Care Provided Minutes Spent on Discharge: 40 Hospital Course: This is an 86-year-old male who presents with melena. Patient was found to have a GI bleed with acute blood loss anemia. Patient's hemoglobin dropped down to 7.4 but melena did discontinue. Patient did have an EGD that showed esophagitis, gastritis and duodenal erosions no active bleeding was noted. Patient did have biopsies of his esophagitis to evaluate for Cowan's esophagus. Patient follow-up with gastroenterology in regards to that. Patient complained of diarrhea that he has been dealing with for months. States has been ongoing since his partial colectomy back in December. He brought that up to my attention today and is also noted that the patient had a history of C. difficile that was treated. Patient stated for his diarrhea he was taking Imodium to help with that but it kept on being persistent. By DrYing The patient that we would need to check out and rule out C. difficile given his history. Patient C. difficile came back positive. Patient will be initiated on vancomycin. This was several months after he previously had C. difficile so do not feel that he needs a taper and that would benefit from a 10-day course of 125 mg of oral vancomycin. For the patient's GI bleed, he will continue with pantoprazole 40 mg twice daily as well as taking ferrous sulfate 305 mg every other day for his anemia. 1. Acute GI bleed Patient is having melena. Patient stated that he has similar episode 20-30 years ago EGD on the showed Grade C reflux esophagitis with mild Schatzki ring, gastritis, duodenal erosions. Biopsies performed on esophagitis. Follow up with GI for Bx results. 2. Acute blood loss anemia Hemoglobin went from 10.1-7.4 Secondary to GI bleed Monitor no indication to transfuse at this time add FeSO4 QOD 3. Recent open hernia repair I do not suspect that the patient's bleeding is due to the patient's recent hernia repair least directly. Patient was initially accepted to the [facility] upon transfer but will hold off on that for now unless it becomes concerning that the hernia repair is directly causing this GI bleed 4. Diabetes mellitus type 2 Insulin-dependent Uncontrolled. continue Basal, pradnial and SSI 5. C. difficile 125 mg of oral vancomycin 4 times daily for 10 days. Physical Exam Const alert Resp normal respiratory effort, no retractions, no use of accessory muscles and clear to auscultation bilaterally Cardio regular rate, regular rhythm, S1 normal heart sound and S2 normal heart sound GI normal to inspection, nondistended, normoactive bowel sounds, soft to palpation and non-tender Extremity normal to inspection Weight / BMI Weight Weight: 89.1 kg Body Mass Index (BMI) 28.1 ABG / Lab / Microbiology Data Result Diagrams: 09/15/21 04:35 09/15/21 04:35 Laboratory: Laboratory Results - last 24 hr 09/14/21 17:55: POC Glucose 265 H 09/14/21 21:16: POC Glucose 354 H 09/15/21 04:35: WBC 9.1, RBC 2.13 L, Hgb 7.4 L, Hct 23.4 L, MCV 109.9 H, MCH 34.7 H, MCHC 31.6 L D, RDW Std Deviation 53.3 H, RDW Coeff of Angel 13.4, Plt Count 452 H, MPV 9.8, Immature Gran % (Auto) 2.200 H, Neut % (Auto) 59.0, Lymph % (Auto) 25.3, [place] % (Auto) 8.6, Eos % (Auto) 4.4, Baso % (Auto) 0.5, Absolute Neuts (auto) 5.4, Absolute Lymphs (auto) 2.30, Nucleated RBC % 0.2 09/15/21 04:35: Sodium 135 L, Potassium 3.8, Chloride 103, Carbon Dioxide 26.0, Anion Gap 6, BUN 9, Creatinine 0.92, Estim Creat Clear Calc 59.51, Est GFR (MDRD) Af Amer 100, Est GFR (MDRD) Non-Af 83, BUN/Creatinine Ratio 9.8 L, Glucose 257 H, Calcium 7.6 L 09/15/21 08:41: POC Glucose 201 H 09/15/21 11:25: POC Glucose 178 H Microbiology: Microbiology 09/14/21 05:31 Stool C. difficile GDH Antigen & Toxins - Final Toxigenic C. difficile 09/14/21 05:31 Stool C. difficile DNA Amplification - Final 09/12/21 20:05 Nasal Secretion SARS-CoV-2 Antigen (Rapid) - Final D/C Instructions Discharge Diet: 2000 Calorie Control Diet Call your doctor if you observe: - (rectal bleeding. dark tarry stools. ) Meaningful Use Info Meaningful Use Diagnoses (Choose all that apply): None applicable Discharge Plan Admission Admit Date/Time: 09/13/21 10:41 Primary Reason for Your Visit: Gi bleed. cdiff Attending Provider: José Luis Walsh Primary Care Provider: Pradeep Franklin Discharge Orders/Prescriptions Prescriptions: New vancomycin 125 mg capsule 125 mg PO Q6H Qty: 40 RF: 0 pantoprazole [Protonix] 40 mg tablet,delayed release (DR/EC) 40 mg PO BID Qty: 60 RF: 0 ferrous sulfate 325 mg (65 mg iron) tablet 325 mg PO QODAY Qty: 30 RF: 0 Continued gabapentin 300 MG capsule 300 mg PO QHS RF: 0 insulin lispro [Humalog KwikPen Insulin] 100/ML insulin pen 10 unit subcut TID RF: 0 Lantus Solostar U-100 Insulin 100/ML insulin pen 20 unit subcut 1800 RF: 0 potassium chloride 10 mEq tablet extended release 10 meq PO DAILY RF: 0 simvastatin 20 mg tablet 20 mg PO PCHS RF: 0 propranolol 80 mg capsule,extended release 24 hr 80 mg PO DAILY RF: 0 lisinopril 5 mg tablet 5 mg PO DAILY RF: 0 aspirin 81 mg Tablet 81 mg PO DAILY RF: 0 ondansetron 4 mg Tablet,Disintegrating 4 mg PO Q8H PRN (Reason: Nausea) RF: 0 sertraline 50 mg Tablet 50 mg PO DAILY RF: 0 Discontinued docusate sodium 100 mg Capsule 100 mg PO BID RF: 0 valacyclovir [Valtrex] 1 gram Tablet 1,000 mg PO DAILY RF: 0 Lantus U-100 Insulin 100 unit/mL Cartridge 20 unit SUBCUT QPM RF: 0 Referrals / Follow Up: Pradeep Franklin MD [Primary Care Provider] - Within 2 Weeks Abebe Jarvis DO [STAFF PHYSICIAN] - Within 2 Weeks Disposition Disposition (needs filled in before D/C Order can be placed): Home, Self Care Charges/Coding Visit Charges Inpatient E&M: 32695 Disch Hosp
--- NOTE | 2021-09-15 16:10 | CASEMGMT ---
Patietnt discharging on PO vancomycin. RN ARIEL called [facility] to inquire if PA needed. No PA required, cost is $100. RN ARIEL updated patient and states he can afford medication. Hospitalist updated.
== END 2021-09-15 17:10 | disposition home or self-care (01) | DRG 378 ==
LOC: ED 09-13 10:32 → MS3 09-13 11:06 → PCU 09-13 11:13
PROVIDERS: Emergency Medicine; Internal Medicine Gastroenterology; Emergency Provider Emergency Medicine; PCP Family Medicine
PROC: 0DJ08ZZ Inspection of Upper Intestinal Tract, Via Natural or Artificial Opening Endoscopic (ICD-10-PCS; CPT 43235; principal; 2021-09-14 16:40)
DX: K92.1 Melena (principal); C18.2 Malignant neoplasm of ascending colon; D62 Acute posthemorrhagic anemia; E11.9 Type 2 diabetes mellitus without complications; D53.9 Nutritional anemia, unspecified; F17.210 Nicotine dependence, cigarettes, uncomplicated; Z79.4 Long term (current) use of insulin; I10 Essential (primary) hypertension; K22.70 Barrett's esophagus without dysplasia; R19.7 Diarrhea, unspecified; F41.9 Anxiety disorder, unspecified; G47.30 Sleep apnea, unspecified; K21.00 Gastro-esophageal reflux disease with esophagitis, without bleeding; K29.71 Gastritis, unspecified, with bleeding; Z79.82 Long term (current) use of aspirin; Z79.899 Other long term (current) drug therapy; F32.A Depression, unspecified; Z98.890 Other specified postprocedural states
CPT/HCPCS: 36415; 80048; 80053; 82962; 85014; 85018; 85025; 85610; 85730; 87493; 87811; 88305; 88313; 97802; 99284; J7030; A4216; J2405

== ENCOUNTER 2021-09-16 12:34 | Emergency (ER) | payer MEDICARE, SELFPAY ==
[2021-09-16 12:35] VITALS: BP 116/55; PULSE 78; RESP 18; TEMP 36.1; O2SAT 91; BMI 27.5
--- NOTE | 2021-09-16 12:49 | EKG12_ITS ---
Test Reason : SOB Blood Pressure : / mmHG Vent. Rate : 068 BPM Atrial Rate : 068 BPM P-R Int : 180 ms QRS Dur : 090 ms QT Int : 452 ms P-R-T Axes : 046 -03 052 degrees QTc Int : 480 ms Sinus rhythm with marked sinus arrhythmia Low voltage QRS Prolonged QT Abnormal ECG Confirmed by OTIS COCHRAN, SHELBY ([id number]), videotape editor JONE ELIZABETH ([id number]) on 09/19/2021 11:16:34 AM Referred By: KRISTEL Confirmed By:SHELBY BERG MD
--- NOTE | 2021-09-16 12:49 | RAD_ITS ---
STUDY: X-RAY CHEST REASON FOR EXAM: Male, 86 years old. Shortness of breath TECHNIQUE: Single AP portable view of the chest. COMPARISON: 05/15/2018 FINDINGS: Poor inspiration with some bibasilar atelectasis. Elevated right hemidiaphragm which is unchanged. Normal size heart. Normal mediastinum and mackenzie. Normal visualized pulmonary arteries. Normal visualized aortic arch and descending thoracic aorta. Normal visualized thoracic spine. Normal visualized ribs, clavicles, and shoulders. There is no demonstrated abnormality of the visualized soft tissue structures of the upper abdomen. RAD/Chest 1 View (Portable) IMPRESSION: Poor inspiration with some bibasilar atelectasis per Electronically Signed: Jose Ramon Reddy MD at 13:58 EDT ,
--- NOTE | 2021-09-16 13:10 | EX.ED.DYSGE1 ---
HPI History of Present Illness Chief Complaint: Shortness of Breath Narrative Narrative: Shortness of breath low oxygen at home. The patient and his family report that basically he was discharged in the hospital this facility yesterday, he was doing okay until this morning when his oxygen level home pulse ox read in the 80s persistently he was brought to the hospital by family. He has chronic shortness of breath, related to possible COPD that is not an established diagnosis, he has chronic leg edema that is not new, he has a history in 2020 of requiring surgery for colon cancer he did not require chemo or radiation therapy he separately developed an abdominal hernia that was repaired at [facility] September 2021 subsequent to that repair he developed blood per rectum and he was admitted to the hospital at [facility] for a few days discharged yesterday. He indicates he still has some bloody stool that is baseline and stable unchanged and the daughter indicates he was diagnosed with C. difficile and is taking oral tablet for that Per the family on discharge from almost every hospitalization, colon resection, recent repair of abdominal hernia, recent admission to [facility] it was recommended the patient be discharged with home oxygen but the patient refused stating he did not wish to deal with oxygen tubes and carrying oxygen containers around with him So the patient does not have an established history of COPD IA PE DVT or CHF, however he has chronic shortness of breath leg edema [facility] Medical History (Updated 09/16/21 @ 14:[address] Sahara Faith MD) Anxiety Benign hypertension C. difficile diarrhea Depression Diabetes Former smoker GI bleed Hypertension Personal history of colon cancer Psoriasis Sleep apnea Stroke/cerebrovascular accident Type II diabetes mellitus Home Medications gabapentin 300 mg PO QHS 10/05/13 [History Last Taken 05/14/18] Lantus Solostar U-100 Insulin 20 unit SUBCUT 1800 05/15/18 [History Last Taken 05/14/18] insulin lispro [Humalog KwikPen Insulin] 10 unit SUBCUT TID 05/15/18 [History Last Taken 05/15/18] lisinopril 5 mg PO DAILY 09/12/21 [History Last Taken Unknown] potassium chloride 10 meq PO DAILY 09/12/21 [History Last Taken Unknown] propranolol 80 mg PO DAILY 09/12/21 [History Last Taken Unknown] simvastatin 20 mg PO PCHS 09/12/21 [History Last Taken Unknown] aspirin 81 mg PO DAILY 09/13/21 [History Last Taken Unknown] ondansetron 4 mg PO Q8H PRN 09/13/21 [History Last Taken Unknown] sertraline 50 mg PO DAILY 09/13/21 [History Last Taken Unknown] ferrous sulfate 325 mg PO QODAY #30 tab 09/15/21 [Rx Last Taken Unknown] pantoprazole [Protonix] 40 mg PO BID #60 tab 09/15/21 [Rx Last Taken Unknown] vancomycin 125 mg PO Q6H #40 cap 09/15/21 [Rx Last Taken Unknown] budesonide-formoterol [Symbicort] 2 puff INHALATION BID #10.2 g 09/16/21 [Rx Last Taken Unknown] Allergy/AdvReac Type Severity Reaction Status Date / Time Iodinated Contrast Media Allergy Shortness Verified 09/16/21 12:37 [Iodinated Contrast Media - of breath IV Dye] Surgical History History of cholecystectomy History of colonoscopy History of hernia repair History of partial colectomy Social History Smoking Status: Former smoker ROS ROS ED ROS Narrative The patient's room air pulse ox is 88% not known to require oxygen, on 2 L his pulse ox is 96% he has no specific complaints right now and was a quite reluctant historian Constitutional Constitutional ED: Reports subjective, sweats and other; Denies chills, fever(s) or weight loss Eyes Eyes: Denies blurry vision or change in vision ENT ENT ED: Denies ear pain Cardiovascular Cardiovascular: Denies chest pain or palpitations Respiratory/Chest Respiratory/Chest: Denies dyspnea Gastrointestinal Gastrointestinal: Denies abdominal pain, nausea or vomiting Genitourinary Genitourinary ED: Denies dysuria or hematuria Musculoskeletal Musculoskeletal: Denies arthralgias or myalgias Integumentary Reports rash; Denies abscess Neurologic Neurologic: Denies weakness Psychiatric Psychiatric: Denies anxiety or depression Endocrine Endocrinology: Denies polydipsia or polyuria Allergic/Immunologic Allergic/Immunologic ED: Denies urticaria EXAM Physical Exam Const Vital Signs: 09/16/21 12:35 09/16/21 13:13 Temperature 97 F L 97 F L Temperature Source Temporal Temporal Pulse Rate 78 70 Respiratory Rate 18 19 H Blood Pressure 116/55 L 102/58 L Blood Pressure Mean 75 72 Pulse Ox 91 93 Oxygen Delivery Method Room Air Nasal Cannula Oxygen Flow Rate (L/min) 3 Positive well developed General Appearance ED: well developed HEENT Reports normocephalic Negative for trauma Eyes EOMs intact bilaterally Neck supple Chest Wall inspection of chest normal Resp normal respiratory effort Auscultation: diminished lung sounds Cardio regular rate GI non-tender and non-distended GI Narrative: He has a Velcro hernia belt around his abdomen in the midline incision is intact he has no abdominal pain Back/Spine Back/Spine Narrative: unremarkable Extremity normal to inspection Extremity Narrative: He has 2+ edema bilaterally that he insists is normal and not changed from baseline General Extremety ED: Yes edema General Extremity: edema Neuro oriented x3 and CN's II-XII intact bilaterally Sensorium / Orientation: alert Psych mental status grossly normal Skin no rashes or lesions noted MDM MDM MDM Narrative Medical decision making narrative: Patient is resting comfortably in the bed he indicates that he feels the family overreacted though daughter and son-in-law insists his pulse ox was persistently in the 80s he was discharged yesterday. He has no history of IA PE or DVT recent hospitalizations as documented, ED screening evaluation pursued Patient is resting comfortably in the bed no distress his lab studies are all generally unremarkable his hemoglobin stable at 8 baseline 7, his chest x-ray 1 view to my review shows nothing acute radiology generally concurs reports poor inspiration reevaluation He insists he feels fine did consider the possibility of CTA given his shortness of breath however he has an allergy of some type II iodine contrast media does not wish to pursue that study in addition he confirms as is the family that the chronic shortness of breath is longstanding that discharged from the hospital he was told he would need home oxygen he refused at this time he is willing to use home oxygen and feels back to baseline wants no further work-up from the emergency department and wants to go home family is in room with him they concur We are unable to provide him home oxygen through providers as it is Friday however he reports his daughter has an oxygen portable unit that creates its own oxygen from air that he will be able to use we will provide the tubing, he will be discharged on Symbicort for the possibility of underlying COPD or bronchospasm he will follow-up with his providers tomorrow and return for change in symptoms Home stable Final impression Dyspnea resolved, history of recent colon cancer surgery, abdominal hernia repair, history of C. difficile, COPD unspecified Lab Data Labs: Laboratory Results - last 24 hr 09/16/21 09/16/21 09/16/21 12:54 12:54 12:54 WBC 13.6 H RBC 2.22 L Hgb 8.2 L Hct 24.8 L MCV 111.7 H MCH 36.9 H MCHC 33.1 RDW Std Deviation 56.6 H RDW Coeff of Angel 14.3 Plt Count 549 H MPV 9.8 Immature Gran % (Auto) 1.000 H Neut % (Auto) 69.0 Lymph % (Auto) 16.5 L [place] % (Auto) 8.6 Eos % (Auto) 4.3 Baso % (Auto) 0.6 Absolute Neuts (auto) 9.4 H Absolute Lymphs (auto) 2.25 Nucleated RBC % 0.2 Sodium 138 Potassium 3.3 L Chloride 105 Carbon Dioxide 27.0 Anion Gap 6 BUN 7 Creatinine 1.25 Estim Creat Clear Calc 43.80 Est GFR (MDRD) Af Amer 70 Est GFR (MDRD) Non-Af 58 L BUN/Creatinine Ratio 5.6 L Glucose 56 L Calcium 7.8 L Troponin I High Sens 17 B-Natriuretic Peptide 292.1 H Radiography Diagnostic Testing: Clinical Impression(s) from Imaging Studies Chest X-Ray 09/16/21 12:49 IMPRESSION: Poor inspiration with some bibasilar atelectasis per Electronically Signed: Jose Ramon Reddy MD at 13:58 EDT , Discharge Plan Triage Chief Complaint: Shortness of Breath ED Provider: Sahara Faith Dx/Rx/DC Orders Clinical Impression: Chronic shortness of breath, History of GI bleed, C. difficile colitis Instructions: ED Bronchitis with Wheezing (Adult), ED COPD Flare Prescriptions: New budesonide-formoterol [Symbicort] 160-4.5 mcg/actuation HFA aerosol inhaler 2 puff inhalation BID Qty: 10.2 RF: 0 No Action gabapentin 300 MG capsule 300 mg PO QHS RF: 0 insulin lispro [Humalog KwikPen Insulin] 100/ML insulin pen 10 unit subcut TID RF: 0 Lantus Solostar U-100 Insulin 100/ML insulin pen 20 unit subcut 1800 RF: 0 potassium chloride 10 mEq tablet extended release 10 meq PO DAILY RF: 0 simvastatin 20 mg tablet 20 mg PO PCHS RF: 0 propranolol 80 mg capsule,extended release 24 hr 80 mg PO DAILY RF: 0 lisinopril 5 mg tablet 5 mg PO DAILY RF: 0 aspirin 81 mg Tablet 81 mg PO DAILY RF: 0 ondansetron 4 mg Tablet,Disintegrating 4 mg PO Q8H PRN (Reason: Nausea) RF: 0 sertraline 50 mg Tablet 50 mg PO DAILY RF: 0 vancomycin 125 mg capsule 125 mg PO Q6H Qty: 40 RF: 0 pantoprazole [Protonix] 40 mg tablet,delayed release (DR/EC) 40 mg PO BID Qty: 60 RF: 0 ferrous sulfate 325 mg (65 mg iron) tablet 325 mg PO QODAY Qty: 30 RF: 0 Primary Care Provider: Pradeep Franklin Referrals: Pradeep Franklin MD [Primary Care Provider] - Activity Restrictions/Additional Instructions: Use your daughter's oxygen machine until your primary care physician can arrange for you to have home oxygen, follow-up with your doctors tomorrow, return for change in symptoms
[2021-09-16 13:13] VITALS: BP 102/58; PULSE 70; RESP 19; TEMP 36.1; O2SAT 93
[2021-09-16 13:13] LABS: Absolute Lymphocyte Count 2.25 X10^3/uL (0.83-4.51); Absolute Neutrophil Count 9.4 X10^3/uL (2.0-7.7); Basophil# 0.08 X10^3/uL; Basophil% 0.6 % (0-1); Eosinophil# 0.58 X10^3/uL; Eosinophils% 4.3 % (0-5); Hematocrit 24.8 % (40-54); Hemoglobin 8.2 g/dL (13.0-16.5); Lymphocyte # 2.25 X10^3/ul (0.83-4.51); Lymphocyte % 16.5 % (19-41); Mean Corp Hgb Conc 33.1 g/dL (32-36); Mean Corpuscular Hgb 36.9 pg (27.0-32.0); Mean Corpuscular Volume 111.7 fL (80-94); Mean Platelet Vol. 9.8 fl (6.2-12.0); Monocyte# 1.17 X10^3/uL; Monocyte% 8.6 % (0-10); NRBC Flagged by Analyzer 0.2 % (0-5); Neutrophil # 9.41 X10^3/uL (2.7-7.7); Platelet Count 549 K/mm3 (150-450); RBC Distribution Width CV 14.3 % (11.6-14.6); RBC Distribution Width SD 56.6 fl (35.1-43.9); Red Blood Count 2.22 M/mm3 (4.6-6.2); White Blood Count 13.6 K/mm3 (4.4-11.0)
[2021-09-16 13:32] LABS: BNP,B-Type NATRIURETIC PEPTIDE 292.1 pg/mL (0-100)
[2021-09-16 13:39] LABS: BUN 7 mg/dL (7-18); Creatinine, Serum 1.25 mg/dL (0.70-1.30); EST Glomerular Filtration Rate 58 mL/min (>60); Glucose 56 mg/dL (74-106)
[2021-09-16 13:40] LABS: Anion Gap 6 (5-15); BUN/Creat Ratio 5.6 RATIO (10-20); Calcium,Total 7.8 mg/dL (8.5-10.1); Chloride 105 mmol/L (98-107); Est Glom Filt Rate - Afr Amer 70 mL/min (>60); Potassium 3.3 mmol/L (3.5-5.1); Sodium Level 138 mmol/L (136-145); Troponin-I HS 17 pg/mL (3.0-78.0)
[2021-09-16 14:24] VITALS: BP 144/79; PULSE 72; RESP 19; O2SAT 93
== END 2021-09-16 14:26 | disposition home or self-care (01) ==
LOC: ED 13:18
PROVIDERS: Emergency Provider Emergency Medicine; PCP Family Medicine; Visit Provider Emergency Medicine
DX: R06.02 Shortness of breath (principal); J44.9 Chronic obstructive pulmonary disease, unspecified; E11.9 Type 2 diabetes mellitus without complications; Z79.4 Long term (current) use of insulin; A04.71 Enterocolitis due to Clostridium difficile, recurrent; I10 Essential (primary) hypertension; Z87.891 Personal history of nicotine dependence; Z79.899 Other long term (current) drug therapy; Z79.82 Long term (current) use of aspirin; G47.30 Sleep apnea, unspecified; Z79.51 Long term (current) use of inhaled steroids
CPT/HCPCS: 71045; 80048; 83880; 84484; 85025; 93005; 99285

== ENCOUNTER → 2021-09-18 | Outpatient (CLI) | payer MEDICARE, SELFPAY ==
[2021-09-18 17:47] LABS: BNP,B-Type NATRIURETIC PEPTIDE 624.7 pg/mL (0-100)
== END | disposition home or self-care (01) ==
PROVIDERS: PCP Family Medicine; Referring Provider Family Medicine; Visit Provider Family Medicine
DX: R60.0 Localized edema (principal)
CPT/HCPCS: 83880

== ENCOUNTER 2021-09-20 21:18 | Emergency (ER) | payer MEDICARE, SELFPAY ==
[2021-09-20 21:19] VITALS: BP 144/60; PULSE 70; RESP 16; TEMP 36.7; O2SAT 98; BMI 30.1
--- NOTE | 2021-09-20 22:08 | EKG12_ITS ---
Test Reason : DYSRHYTHMIA Blood Pressure : / mmHG Vent. Rate : 069 BPM Atrial Rate : 069 BPM P-R Int : 174 ms QRS Dur : 090 ms QT Int : 450 ms P-R-T Axes : 051 013 042 degrees QTc Int : 482 ms Sinus rhythm with Premature atrial complexes Otherwise normal ECG Confirmed by BRINA COCHRAN, LATRELL ([id number]), web editor JONE ELIZABETH ([id number]) on 09/24/2021 9:54:52 AM Referred By: BEVERLY Confirmed By:KYLER GONSALVES MD
--- NOTE | 2021-09-20 22:08 | US_ITS ---
EXAM: US SCROTUM CLINICAL INDICATION: scrotal swelling TECHNIQUE: Realtime ultrasound of the testicles was performed with grayscale and Color Doppler analysis. This report was created using [employer] report generation technology. COMPARISON: None. FINDINGS: RIGHT TESTICLE: Right testicle echotexture is mildly heterogeneous. No focal lesion. Normal blood flow is present. The right testicle measures 3.7 x 2.6 x 2.3 cm. LEFT TESTICLE: Left testicle echotexture is mildly heterogeneous. No focal lesion. Normal blood flow is present. The left testicle measures 3.9 x 2.8 x 1.6 cm. EPIDIDYMIDES: Right epididymal head is mildly enlarged. Normal color Doppler flow pattern in the epididymis. SCROTUM: Moderate right hydrocele. Diffuse scrotal wall edema. No varicocele. US/Testicular with Arterial Flow IMPRESSION: 1. Mildly heterogeneous echotexture of the testicles with normal vascularity. 2. Mildly enlarged right epididymal head. Normal right epididymal vascularity. 3. Moderate right hydrocele. 4. Diffuse scrotal wall edema. Electronically Signed: Abimael Lyons MD at 23:25 EDT ,
--- NOTE | 2021-09-20 22:09 | EDS_ITS ---
HPI History of Present Illness Chief Complaint: Edema Informant: patient Onset/Context/Timing Onset: Days Context: Gradual Onset Current Severity: Moderate Maximum Severity: Moderate Narrative Narrative: Patient presents secondary to swelling in his legs and scrotum. He reports symptoms for the past 3 days. He was seen by his PCP 2 days ago and mention the swelling in his legs at that time but did not tell his doctor about the scrotal swelling. He was started on Lasix. Patient states he has not noted any difference in the swelling. He denies history of CHF. He was recently in the hospital for a GI bleed. He states his last stool was black in color. Does appear that he is on iron supplements. [facility] Medical History Anxiety Benign hypertension C. difficile diarrhea Depression Diabetes Former smoker GI bleed Hypertension Personal history of colon cancer Psoriasis Sleep apnea Stroke/cerebrovascular accident Type II diabetes mellitus Home Medications gabapentin 300 mg PO QHS 10/05/13 [History Last Taken 05/14/18] Lantus Solostar U-100 Insulin 20 unit SUBCUT 1800 05/15/18 [History Last Taken 05/14/18] insulin lispro [Humalog KwikPen Insulin] 10 unit SUBCUT TID 05/15/18 [History Last Taken 05/15/18] lisinopril 5 mg PO DAILY 09/12/21 [History Last Taken Unknown] potassium chloride 10 meq PO DAILY 09/12/21 [History Last Taken Unknown] propranolol 80 mg PO DAILY 09/12/21 [History Last Taken Unknown] simvastatin 20 mg PO PCHS 09/12/21 [History Last Taken Unknown] aspirin 81 mg PO DAILY 09/13/21 [History Last Taken Unknown] ondansetron 4 mg PO Q8H PRN 09/13/21 [History Last Taken Unknown] sertraline 50 mg PO DAILY 09/13/21 [History Last Taken Unknown] ferrous sulfate 325 mg PO QODAY #30 tab 09/15/21 [Rx Last Taken Unknown] pantoprazole [Protonix] 40 mg PO BID #60 tab 09/15/21 [Rx Last Taken Unknown] vancomycin 125 mg PO Q6H #40 cap 09/15/21 [Rx Last Taken Unknown] budesonide-formoterol [Symbicort] 2 puff INHALATION BID #10.2 g 09/16/21 [Rx Last Taken Unknown] Allergy/AdvReac Type Severity Reaction Status Date / Time Iodinated Contrast Media Allergy Shortness Verified 09/20/21 21:21 [Iodinated Contrast Media - of breath IV Dye] Surgical History History of cholecystectomy History of colonoscopy History of hernia repair History of partial colectomy Social History Smoking Status: Former smoker ROS ROS ED Constitutional Constitutional ED: Denies chills or fever(s) Eyes Eyes: Denies change in vision ENT ENT ED: Denies sore throat Cardiovascular Cardiovascular: Denies chest pain Respiratory/Chest Respiratory/Chest: Reports dyspnea; Denies cough Gastrointestinal Gastrointestinal: Denies abdominal pain, nausea or vomiting Genitourinary Genitourinary ED: Denies dysuria Musculoskeletal Musculoskeletal: Denies back pain Integumentary Denies rash Neurologic Neurologic: Denies headache(s) or weakness Psychiatric Psychiatric: Denies anxiety or depression Allergic/Immunologic Allergic/Immunologic ED: Denies urticaria EXAM Physical Exam Const Vital Signs: 09/20/21 21:19 09/20/21 23:19 Temperature 98.0 F Temperature Source Temporal Pulse Rate 70 65 Respiratory Rate 16 18 Blood Pressure 144/60 H Blood Pressure Mean 88 Pulse Ox 98 96 Oxygen Delivery Method Room Air Nasal Cannula Oxygen Flow Rate (L/min) 3 Positive well nourished and well developed General Appearance ED: well developed HEENT Reports moist mucous membranes Eyes PERRL and EOMs intact bilaterally Neck supple Chest Wall inspection of chest normal and palpation of chest normal Resp normal respiratory effort and clear to auscultation bilaterally Cardio regular rate and regular rhythm GI non-tender Palpation: soft Extremity Extremity Narrative: 3-4+ pitting edema in the bilateral lower extremities. Neuro oriented x3 Sensorium / Orientation: alert Psych mental status grossly normal Skin no rashes or lesions noted MDM MDM MDM Narrative Medical decision making narrative: EKG, chest x-ray, lab work obtained. Testicular ultrasound performed. Lab Data Attestation: I reviewed the patient's lab results. Labs: Laboratory Results - last 24 hr 09/20/21 09/20/21 09/20/21 22:19 22:19 22:19 WBC 8.9 RBC 2.20 L Hgb 7.7 L Hct 23.9 L MCV 108.6 H MCH 35.0 H MCHC 32.2 RDW Std Deviation 57.7 H RDW Coeff of Angel 14.5 Plt Count 525 H MPV 9.5 Immature Gran % (Auto) 0.300 Neut % (Auto) 61.4 Lymph % (Auto) 24.6 [place] % (Auto) 9.0 Eos % (Auto) 3.9 Baso % (Auto) 0.8 Absolute Neuts (auto) 5.5 Absolute Lymphs (auto) 2.19 Nucleated RBC % 0 Sodium 135 L Potassium 4.0 Chloride 100 Carbon Dioxide 29.0 Anion Gap 6 BUN 14 Creatinine 1.35 H Estim Creat Clear Calc 40.56 Est GFR (MDRD) Af Amer 64 Est GFR (MDRD) Non-Af 53 L BUN/Creatinine Ratio 10.4 Glucose 264 H Calcium 7.9 L Troponin I High Sens 7 B-Natriuretic Peptide 414.9 H Radiography Chest X-Ray - ED: 1 View, Read by ED Physician and Chronic Changes Diagnostic Testing: Clinical Impression(s) from Imaging Studies Testicular Ultrasound 09/20/21 22:08 IMPRESSION: 1. Mildly heterogeneous echotexture of the testicles with normal vascularity. 2. Mildly enlarged right epididymal head. Normal right epididymal vascularity. 3. Moderate right hydrocele. 4. Diffuse scrotal wall edema. Electronically Signed: Abimael Lyons MD at 23:25 EDT , Chest X-Ray 09/20/21 22:45 IMPRESSION: Atelectasis in the bases. Possible consolidation/pneumonia left lung base. Electronically Signed: Abimael Lyons MD at 23:11 EDT , EKG Initial EKG: Attestation: I personally reviewed and interpreted this EKG as follows: Interpretation: Sinus Rhythm (Sinus at 69 with PACs. No acute ischemia.) Treatment and Re-Evaluation Narrative: On repeat evaluation patient resting comfortably. Lab work reveals stable hemoglobin from recent admission. I believe his dark stools are likely secondary to the iron supplements he is taking. Renal function is stable. Troponin is normal at 7. BNP is 414. 2 days ago when he was started on Lasix it was 624. Chest x-ray per my interpretation shows chronic changes with mild cephalization. Radiologist interpretation is reviewed. EKG reveals no ischemia. I discussed with the patient that I do believe his Lasix is working. He is currently taking 40 mg once a day. I did ask him to take 2 doses tomorrow to help get some extra fluid off and then resume once a day dosing. He is supposed to update his PCP on Friday with his results. I did encourage him to get up and walk as I believe the lower extremity and scrotal edema is from more sedentary activity since discharge. Return instructions are provided. Discharge Plan Triage Chief Complaint: Edema ED Provider: Teresa Crandall Dx/Rx/DC Orders Clinical Impression: Edema, CHF (congestive heart failure) Instructions: ED Heart Failure, Congestive (CHF), ED Peripheral Edema, Bilateral Prescriptions: No Action gabapentin 300 MG capsule 300 mg PO QHS RF: 0 insulin lispro [Humalog KwikPen Insulin] 100/ML insulin pen 10 unit subcut TID RF: 0 Lantus Solostar U-100 Insulin 100/ML insulin pen 20 unit subcut 1800 RF: 0 potassium chloride 10 mEq tablet extended release 10 meq PO DAILY RF: 0 simvastatin 20 mg tablet 20 mg PO PCHS RF: 0 propranolol 80 mg capsule,extended release 24 hr 80 mg PO DAILY RF: 0 lisinopril 5 mg tablet 5 mg PO DAILY RF: 0 aspirin 81 mg Tablet 81 mg PO DAILY RF: 0 ondansetron 4 mg Tablet,Disintegrating 4 mg PO Q8H PRN (Reason: Nausea) RF: 0 sertraline 50 mg Tablet 50 mg PO DAILY RF: 0 vancomycin 125 mg capsule 125 mg PO Q6H Qty: 40 RF: 0 pantoprazole [Protonix] 40 mg tablet,delayed release (DR/EC) 40 mg PO BID Qty: 60 RF: 0 ferrous sulfate 325 mg (65 mg iron) tablet 325 mg PO QODAY Qty: 30 RF: 0 budesonide-formoterol [Symbicort] 160-4.5 mcg/actuation HFA aerosol inhaler 2 puff inhalation BID Qty: 10.2 RF: 0 Primary Care Provider: Pradeep Franklin Referrals: Pradeep Franklin MD [Primary Care Provider] - 3-5 Days Disposition Disposition: Home, Self Care
[2021-09-20 22:34] LABS: Absolute Lymphocyte Count 2.19 X10^3/uL (0.83-4.51); Absolute Neutrophil Count 5.5 X10^3/uL (2.0-7.7); Basophil# 0.07 X10^3/uL; Basophil% 0.8 % (0-1); Eosinophil# 0.35 X10^3/uL; Eosinophils% 3.9 % (0-5); Hematocrit 23.9 % (40-54); Hemoglobin 7.7 g/dL (13.0-16.5); Lymphocyte # 2.19 X10^3/ul (0.83-4.51); Lymphocyte % 24.6 % (19-41); Mean Corp Hgb Conc 32.2 g/dL (32-36); Mean Corpuscular Volume 108.6 fL (80-94); Mean Platelet Vol. 9.5 fl (6.2-12.0); NRBC Flagged by Analyzer 0 % (0-5); Neutrophil # 5.46 X10^3/uL (2.7-7.7); Neutrophil % 61.4 % (47-70); Platelet Count 525 K/mm3 (150-450); RBC Distribution Width CV 14.5 % (11.6-14.6); RBC Distribution Width SD 57.7 fl (35.1-43.9); White Blood Count 8.9 K/mm3 (4.4-11.0)
--- NOTE | 2021-09-20 22:45 | RAD_ITS ---
EXAM: XR CHEST, 1 VIEW CLINICAL INDICATION: sob TECHNIQUE: Frontal view of the chest. This report was created using [employer] report generation technology. COMPARISON: 09/16/2021. FINDINGS: LUNGS AND PLEURAL SPACES: Opacities in the lung bases bilaterally likely represent atelectasis. It has increased on the left and I cannot exclude consolidation in the left base. No pneumothorax. No effusion. HEART: Unremarkable. Cardiac silhouette not enlarged. MEDIASTINUM: Central airways and mediastinal contour are unremarkable. BONES/JOINTS: Unremarkable. SOFT TISSUES: Unremarkable. RAD/Chest 1 View (Portable) IMPRESSION: Atelectasis in the bases. Possible consolidation/pneumonia left lung base. Electronically Signed: Abimael Lyons MD at 23:11 EDT ,
[2021-09-20 22:52] LABS: Anion Gap 6 (5-15); BUN 14 mg/dL (7-18); BUN/Creat Ratio 10.4 RATIO (10-20); Calcium,Total 7.9 mg/dL (8.5-10.1); Chloride 100 mmol/L (98-107); Creatinine, Serum 1.35 mg/dL (0.70-1.30); EST Glomerular Filtration Rate 53 mL/min (>60); Est Glom Filt Rate - Afr Amer 64 mL/min (>60); Estimated Creatinine Clearance 40.56 ml/min; Glucose 264 mg/dL (74-106); Sodium Level 135 mmol/L (136-145); Troponin-I HS 7 pg/mL (3.0-78.0)
[2021-09-20 23:02] LABS: BNP,B-Type NATRIURETIC PEPTIDE 414.9 pg/mL (0-100)
[2021-09-20 23:19] VITALS: PULSE 65; RESP 18; O2SAT 96
== END 2021-09-21 00:19 | disposition home or self-care (01) ==
PROVIDERS: Emergency Provider Emergency Medicine; PCP Family Medicine; Visit Provider Emergency Medicine
DX: N50.89 Other specified disorders of the male genital organs (principal); I11.0 Hypertensive heart disease with heart failure; I50.9 Heart failure, unspecified; E11.9 Type 2 diabetes mellitus without complications; Z79.4 Long term (current) use of insulin; Z87.891 Personal history of nicotine dependence; F41.9 Anxiety disorder, unspecified; Z87.19 Personal history of other diseases of the digestive system; F32.A Depression, unspecified; Z85.038 Personal history of other malignant neoplasm of large intestine; Z86.73 Personal history of transient ischemic attack (TIA), and cerebral infarction without residual deficits; G47.30 Sleep apnea, unspecified; L40.9 Psoriasis, unspecified; Z79.899 Other long term (current) drug therapy; Z90.49 Acquired absence of other specified parts of digestive tract; I49.1 Atrial premature depolarization; Z79.82 Long term (current) use of aspirin
CPT/HCPCS: 71045; 76870; 80048; 83880; 84484; 85025; 93005; 93976; 99284; A4216

== ENCOUNTER → 2021-10-30 | Outpatient (CLI) | payer MEDICARE, SELFPAY ==
[2021-10-30 15:44] LABS: Absolute Lymphocyte Count 2.18 X10^3/uL (0.83-4.51); Absolute Neutrophil Count 6.4 X10^3/uL (2.0-7.7); Basophil# 0.07 X10^3/uL; Basophil% 0.7 % (0-1); Eosinophil# 0.26 X10^3/uL; Eosinophils% 2.7 % (0-5); Hematocrit 36.7 % (40-54); Lymphocyte # 2.18 X10^3/ul (0.83-4.51); Lymphocyte % 22.5 % (19-41); Mean Corp Hgb Conc 32.7 g/dL (32-36); Mean Corpuscular Hgb 32.6 pg (27.0-32.0); Mean Corpuscular Volume 99.7 fL (80-94); Mean Platelet Vol. 10.4 fl (6.2-12.0); Monocyte# 0.74 X10^3/uL; Monocyte% 7.7 % (0-10); NRBC Flagged by Analyzer 0 % (0-5); Neutrophil # 6.39 X10^3/uL (2.7-7.7); Neutrophil % 66.1 % (47-70); Platelet Count 333 K/mm3 (150-450); RBC Distribution Width CV 13.6 % (11.6-14.6); RBC Distribution Width SD 50.4 fl (35.1-43.9); Red Blood Count 3.68 M/mm3 (4.6-6.2); White Blood Count 9.7 K/mm3 (4.4-11.0)
[2021-10-30 15:59] LABS: Erythrocyte Sedimentation Rate 14 mm/hr (0-20)
[2021-10-30 16:16] LABS: CRP < 2.90 mg/L (0.0-3.0); Ferritin 20 ng/mL (26-388); Iron 48 ug/dL (65-175); Iron Binding Capacity,Total 388 ug/dL (250-450)
== END | disposition home or self-care (01) ==
LOC: LAB 14:52
PROVIDERS: PCP Family Medicine; Visit Provider Nurse Practitioner Adult Health
DX: D53.9 Nutritional anemia, unspecified (principal); K52.9 Noninfective gastroenteritis and colitis, unspecified
CPT/HCPCS: 36415; 82728; 83540; 83550; 85025; 85652; 86140

== ENCOUNTER → 2021-11-02 | Outpatient (CLI) | payer MEDICARE, SELFPAY ==
[2021-11-13 13:53] LABS: Calprotectin, Stool 32 ug/g (0-120)
== END | disposition home or self-care (01) ==
LOC: LAB 15:44
PROVIDERS: PCP Family Medicine; Visit Provider Nurse Practitioner Adult Health
DX: A04.72 Enterocolitis due to Clostridium difficile, not specified as recurrent (principal); K52.9 Noninfective gastroenteritis and colitis, unspecified
CPT/HCPCS: 83630; 83993; 87493

== ENCOUNTER → 2021-11-30 | Outpatient (CLI) | payer MEDICARE, SELFPAY ==
--- NOTE | 2021-11-30 08:05 | US_ITS ---
STUDY: ABDOMINAL ULTRASOUND - RIGHT UPPER QUADRANT REASON FOR VISIT: Male, 86 years old RUQ Pain x 1 year since having colon surgery -- hx of cholecystectomy 2014 TECHNIQUE: Ultrasound evaluation of the right upper quadrant was performed with real-time and static sandhu-scale imaging. TECHNICAL QUALITY: Adequate. COMPARISON: Comparison is made with prior study dated 12/13/2012. FINDINGS: Liver: The liver measures 16.9 cm. There is increased echogenicity consistent with fatty infiltration. The bile ducts are within normal limits. There is hepatic color flow. The direction of portal flow is hepatopetal. There is no demonstrated mass lesion. Gallbladder: The patient is status post cholecystectomy. Common Bile Duct (C.B.D.): The common bile duct measures 4.5 mm. Pancreas: Normal size of the head, body and tail of the pancreas. There is normal echogenicity of the pancreas. There is no demonstrated pancreatic mass or cyst. Right Kidney: Normal size of the right kidney. The right kidney measures 10.8 cm x 4.8 cm x 5.8 cm. Normal renal cortex. The right cortex measures 1.6 cm. There is no demonstrated renal mass or cyst. There is no right hydronephrosis. US/Abdomen Limited IMPRESSION: Fatty infiltration of the liver. Status post cholecystectomy. Electronically Signed: Greg Bagley MD at 9:46 EDT ,
== END | disposition home or self-care (01) ==
LOC: US 08:03
PROVIDERS: PCP Family Medicine; Referring Provider Nurse Practitioner Adult Health; Visit Provider Nurse Practitioner Adult Health
DX: R10.11 Right upper quadrant pain (principal); K76.0 Fatty (change of) liver, not elsewhere classified; Z90.49 Acquired absence of other specified parts of digestive tract
CPT/HCPCS: 76705

== ENCOUNTER → 2021-12-12 | Outpatient (CLI) | payer MEDICARE, SELFPAY ==
[2021-12-12 15:36] LABS: Absolute Lymphocyte Count 2.45 X10^3/uL (0.83-4.51); Absolute Neutrophil Count 4.1 X10^3/uL (2.0-7.7); Basophil# 0.06 X10^3/uL; Basophil% 0.8 % (0-1); Eosinophil# 0.28 X10^3/uL; Eosinophils% 3.7 % (0-5); Hematocrit 34.8 % (40-54); Hemoglobin 11.2 g/dL (13.0-16.5); Lymphocyte # 2.45 X10^3/ul (0.83-4.51); Lymphocyte % 32.7 % (19-41); Mean Corp Hgb Conc 32.2 g/dL (32-36); Mean Corpuscular Hgb 32.3 pg (27.0-32.0); Mean Corpuscular Volume 100.3 fL (80-94); Mean Platelet Vol. 9.6 fl (6.2-12.0); Monocyte# 0.62 X10^3/uL; Monocyte% 8.3 % (0-10); NRBC Flagged by Analyzer 0 % (0-5); Neutrophil # 4.05 X10^3/uL (2.7-7.7); Platelet Count 329 K/mm3 (150-450); RBC Distribution Width CV 13.5 % (11.6-14.6); RBC Distribution Width SD 49.6 fl (35.1-43.9); Red Blood Count 3.47 M/mm3 (4.6-6.2); White Blood Count 7.5 K/mm3 (4.4-11.0)
[2021-12-12 16:06] LABS: ALB/GLOB Ratio 0.8 RATIO (0.9-2.4); AST(SGOT) 20 U/L (15-37); Alanine Aminotransfer ALT/SGPT 25 U/L (16-61); Albumin, Serum 3.3 g/dL (3.2-5.0); Alkaline Phosphatase 89 U/L (45-117); Amylase 19 U/L (25-115); Anion Gap 4 (5-15); BUN 24 mg/dL (7-18); BUN/Creat Ratio 15.6 RATIO (10-20); Calcium,Total 8.8 mg/dL (8.5-10.1); Chloride 100 mmol/L (98-107); Creatinine, Serum 1.54 mg/dL (0.70-1.30); EST Glomerular Filtration Rate 46 mL/min (>60); Est Glom Filt Rate - Afr Amer 55 mL/min (>60); Globulin 3.9 g/dL (2.2-4.2); Glucose 243 mg/dL (74-106); Lipase 28 U/L (73-393); Protein, Total 7.2 g/dL (6.4-8.2); Sodium Level 132 mmol/L (136-145)
== END | disposition home or self-care (01) ==
LOC: LAB 15:07
PROVIDERS: PCP Family Medicine; Visit Provider Nurse Practitioner Adult Health
DX: R10.13 Epigastric pain (principal); A04.72 Enterocolitis due to Clostridium difficile, not specified as recurrent
CPT/HCPCS: 36415; 80053; 82150; 83690; 85025

== ENCOUNTER → 2021-12-17 | Outpatient (CLI) | payer MEDICARE, SELFPAY ==
[2021-12-22 14:22] LABS: Pancreatic Elastase, Fecal 63 (>200)
[2021-12-23 15:25] LABS: Fats, Neutral Normal (.); Fats, Total Normal (.)
== END | disposition home or self-care (01) ==
LOC: LABSPEC 12:31
PROVIDERS: PCP Family Medicine; Referring Provider Nurse Practitioner Adult Health; Visit Provider Nurse Practitioner Adult Health
DX: R10.13 Epigastric pain (principal)
CPT/HCPCS: 82653; 82705

== ENCOUNTER 2022-03-26 11:21 | Day surgery (SDC) | payer MEDICARE, SELFPAY ==
[2022-03-26] VITALS (7 sets, daily range): BP systolic 93–137; BP diastolic 55–88; PULSE 57–81; RESP 16; TEMP 36.3–36.7; O2SAT 93–97; BMI 27.7
--- NOTE | 2022-03-26 11:50 | HP.PCM_ITS ---
History and Physical Date of Admission: 03/26/22 LEONOR MIJARES, is a 86 M who presents to the office today for 2 month f/u diarrhea. He thinks colestipol worked better than Imodium and Lomotil. He recently declined capsule endoscopy.? He declined colonoscopy was when he was hospitalized in spring 2021 for anemia, he did allow EGD at that time. Today he requests colonoscopy. 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 PERT is too expensive, we tried to help him with application to [employer] for pt assistance, he thinks his ex- has the form. He has started a daily probiotic because of hx of c diff. We considered budesonide but too expensive. No nocturnal diarrhea. No accidents. No nausea or vomiting. No c/o today of the intermittent epigastric pain that radiated to the back. He had partial colectomy in 12/[address] Sullivan at [facility] for colon cancer.? 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 It was complicated by ileus and C. difficile colitis.? He did test negative for C. difficile after that, but then had a new infection when hospitalized earlier this year.? Most recent CT abdomen pelvis without contrast was 07/16/2021: Fat-containing right paramedian supraumbilical ventral abdominal wall hernia. He was admitted 09/13/2021 to 09/15/2021 for GI bleed; he presented with melena and had acute blood loss anemia.? Hemoglobin dropped to 7.4.? He had EGD that showed esophagitis, gastritis and duodenal erosions but no active bleeding.? Biopsy negative for Cowan's esophagus. C diff positive, so treated with 10-day course of vancomycin. Comorbidities include insulin-dependent diabetes, anxiety, hypertension, depression, diverticulosis, hyperlipidemia, prostate cancer history, psoriasis, sleep apnea, stroke history Past surgical history includes cholecystectomy, hernia repair, partial colectomy, perirectal abscess repair . ROS Const Constitutional: No fatigue ENT ENT: No difficulty swallowing Cardio Cardiology: Positive for leg pain with exertion Gastro GI: Positive for change in bowel habits and diarrhea; No abdominal pain, belching, bloating, change in stool character, coffee ground emesis, constipation, cramping, heartburn, difficulty swallowing, feeling full early, excessive flatus, incontinent of stools, Vomiting blood/hematemesis, Blood in stool, loose stools, Black,tarry stools, nausea/dyspepsia, pain with swallowing, vomiting or other Musc Musculoskeletal: Positive for stiffness, restless legs and leg pain with e xertion; No joint pain Skin Skin: No yellowing of the eye or itchy eyes Neuro Neurology: Positive for restless legs Psych Psychiatric: Positive for anxiety and Positive for depression Endo Endocrine: No fatigue Aller/Imm Allergy/Immunologic: No itchy eyes David/Lymp Hematologic/Lymphatic: No easy bleeding or easy bruising Exam Const General: cooperative, comfortable and no acute distress Orientation: alert, awake and oriented x3 Resp Effort & Inspection: normal respiratory effort GI Inspection: obesity Palpation: soft, no masses and nontender Quality Reporting Tobacco Screening ([facility] 138) Smoking Status: Former smoker Assessment and Plan Assessment and Plan (1) Chronic diarrhea: ?Status:?Chronic ?Plan: Rx cholestyramine light bid Samples Zencorrigan, start with 1 capsule per snack and 2 capsules per meal, we may need to increase that dose. Can continue Imodium and Lomotil prn He will be scheduled for colonoscopy to further evaluate the chronic diarrhea in the setting of history of colon cancer status post partial colectomy ? ? ? Medications: New cholestyramine-aspartame 4 gram ?? administer w/meal; avoid other meds within 1hr before or 4-6hr after dose 4 grams? PO BID 60 ea 2RF ? ? I have examined the patient and the H&P has been reviewed. There are no clinical changes since date of exam.
[2022-03-26] MEDS: Lactated Ringers 1,000 ML 15 ML IV (12:19)
--- NOTE | 2022-03-26 12:30 | COLBX_PTH ---
PATIENT: LEONOR MIJARES LOC: EN U#:[id number] AGE/SX: 87/M ROOM: RE03/26/[address]: Dr. Abebe Jarvis DO : 1935 BED: DIS: 03/26/2022 SPEC #: [id number] RECD: 03/26/22 15:47 STATUS: ANA REQ #: [id number] LIZ: 03/26/22 12:[address]: Abebe Jarvis DEPT: SURGICAL PATHOLOGY RECD BY: Mckenna Mendez ENTERED: 03/27/22 08:59 SP TYPE: COLON BX MACEY DR: Dr. Pradeep Franklin MD Tissues: A - Ileum, NOS B - COLON BIOPSY C - COLON BIOPSY D - Transverse colon Procedures: Surgery Specimen Level IV HEADER OPERATION: Colonoscopy with biopsy and hot snare (MAC) PRE-OP DIAGNOSIS: Chronic diarrhea TISSUE SUBMITTED: A - Terminal ileum biopsy, B - Anastomotic ulcer biopsy, C - Random colon biopsy, D - Transverse colon polyp biopsy MICROSCOPIC DIAGNOSIS A. Terminal ileum, biopsy: Fragments of small intestinal mucosa, no pathologic diagnosis. B. Anastomotic ulcer, biopsy: Fragments of colonic mucosa with mild nonspecific chronic inflammation. C. Colon, random biopsy: Fragments of colonic mucosa, no pathologic diagnosis. D. Transverse colon polyp, biopsy: Hyperplastic polyp. SJ:sharifa 03/29/2022 MICROSCOPIC DESCRIPTION Slides are reviewed. GROSS DESCRIPTION A - Received in fixative is one container labeled with the patient's name and designated terminal ileum biopsy. The specimen consists of two irregular fragments of light silvestre soft tissue that in aggregate measure 0.6 x 0.3 x 0.1 cm. The specimen is totally submitted in one cassette. B - Received in fixative is one container labeled with the patient's name and designated anastomotic ulcer biopsy. The specimen consists of two irregular fragments of light silvestre soft tissue that in aggregate measure 0.5 x 0.3 x 0.1 cm. The specimen is totally submitted in one cassette. C - Received in fixative is one container labeled with the patient's name and designated random colon biopsy. The specimen consists of multiple irregular fragments of light silvestre soft tissue that in aggregate measure 1 x 0.3 x 0.1 cm. The specimen is totally submitted in one cassette. D - Received in fixative is one container labeled with the patient's name and designated transverse colon polyp biopsy. The specimen consists of one irregular fragment of light silvestre soft tissue that measures 0.4 x 0.3 x 0.1 cm. The specimen is totally submitted in one cassette. / RADHA:sharifa 03/27/2022 TC:3 CPT: 71145 x4
[2022-03-26 12:35] LABS: Bedside Glucose 125 mg/dL (74-106)
--- NOTE | 2022-03-26 13:06 | OP.CCLET_ITS ---
03/26/2022 Pradeep Franklin Re : Colonoscopy procedure for Bebeto Byersr Rigoberto This procedure was performed on Saturday, March 26, 2022. My impressions and recommendations are as follows: Impressions : - Preparation of the colon was fair. - One 5 mm polyp in the transverse colon, removed with a hot snare. Resected and retrieved. - Diverticulosis in the entire examined colon. - Congested mucosa in the recto-sigmoid colon, in the descending colon, at the splenic flexure, in the transverse colon and at the hepatic flexure. Biopsied. - Congested mucosa in the distal ileum. Biopsied. - Patent end-to-side ileo-colonic anastomosis, characterized by congestion. Dilated. Biopsied. Recommendations : - Discharge patient to home. - Resume previous diet. - Continue present medications. - Await pathology results. - Repeat colonoscopy for surveillance based on pathology results. - Return to GI office. - Use Questran at 1 packet (4 grams) PO BID for 8 weeks. My findings are described in the full procedure note, which is enclosed. If I can be of further assistance, please feel free to contact me at . Sincerely, Abebe Jarvis, 03/26/2022 1:05:50 PM This report has been signed electronically.
--- NOTE | 2022-03-26 13:06 | OP.COLON_ITS ---
Patient Name: Bebeto Staples Procedure Date: 03/26/2022 12:27 PM Date of : 1935 Age: 87 Procedure: Colonoscopy Indications: Clinically significant diarrhea of unexplained origin Providers: Abebe Jarvis DO Referring MD: Pradeep Franklin Medicines: Monitored Anesthesia Care Patient Profile: This is an 87 year old male. Refer to note in patient chart for documentation of history and physical. Last Colonoscopy: date unknown. Unable to locate last colonoscopy report. Complications: No immediate complications. Procedure: Pre-Anesthesia Assessment: - Prior to the procedure, a History and Physical was performed, and patient medications and allergies were reviewed. The patient is competent. The risks and benefits of the procedure and the sedation options and risks were discussed with the patient. All questions were answered and informed consent was obtained. Patient identification and proposed procedure were verified by the physician in the pre-procedure area. Mental Status Examination: alert and oriented. Airway Examination: normal oropharyngeal airway and neck mobility. Respiratory Examination: clear to auscultation. CV Examination: normal. Prophylactic Antibiotics: The patient does not require prophylactic antibiotics. Prior Anticoagulants: The patient has taken no previous anticoagulant or antiplatelet agents. ASA Grade Assessment: II - A patient with mild systemic disease. After reviewing the risks and benefits, the patient was deemed in satisfactory condition to undergo the procedure. The anesthesia plan was to use moderate sedation / analgesia (conscious sedation). Immediately prior to administration of medications, the patient was re-assessed for adequacy to receive sedatives. The heart rate, respiratory rate, oxygen saturations, blood pressure, adequacy of pulmonary ventilation, and response to care were monitored throughout the procedure. The physical status of the patient was re-assessed after the procedure. After I obtained informed consent, the scope was passed under direct vision. Throughout the procedure, the patient's blood pressure, pulse, and oxygen saturations were monitored continuously. The pediatric colonoscope was introduced through the anus and advanced to the cecum, identified by appendiceal orifice and ileocecal valve. The colonoscopy was performed without difficulty. The patient tolerated the procedure well. The quality of the bowel preparation was fair. Scope In: 12:37:10 PM Scope Withdrawal Time 0 hours 14 minutes 17 seconds Scope Out: 12:55:48 PM Total Procedure Duration Time 0 hours 18 minutes 38 seconds Findings: The perianal and digital rectal examinations were normal. A 5 mm polyp was found in the transverse colon. The polyp was sessile. The polyp was removed with a hot snare. Resection and retrieval were complete. Verification of patient identification for the specimen was done. Estimated blood loss was minimal. Multiple small and large-mouthed diverticula were found in the entire colon. An area of mildly congested mucosa was found in the recto-sigmoid colon, in the descending colon, at the splenic flexure, in the transverse colon and at the hepatic flexure. Biopsies were taken with a cold forceps for histology. Verification of patient identification for the specimen was done. Estimated blood loss was minimal. A patchy area of the distal ileum was congested. Biopsies were taken with a cold forceps for histology. Verification of patient identification for the specimen was done. Estimated blood loss was minimal. There was evidence of a prior end-to-side ileo-colonic anastomosis in the ascending colon. This was patent and was characterized by congestion. The anastomosis was traversed after dilation. A TTS dilator was passed through the scope. Dilation with a 15 mm colonic balloon dilator was performed. The dilation site was examined and showed moderate improvement in luminal narrowing. Estimated blood loss was minimal. Biopsies were taken with a cold forceps for histology. Verification of patient identification for the specimen was done. Estimated blood loss was minimal. Impression: - Preparation of the colon was fair. - One 5 mm polyp in the transverse colon, removed with a hot snare. Resected and retrieved. - Diverticulosis in the entire examined colon. - Congested mucosa in the recto-sigmoid colon, in the descending colon, at the splenic flexure, in the transverse colon and at the hepatic flexure. Biopsied. - Congested mucosa in the distal ileum. Biopsied. - Patent end-to-side ileo-colonic anastomosis, characterized by congestion. Dilated. Biopsied. Recommendation: - Discharge patient to home. - Resume previous diet. - Continue present medications. - Await pathology results. - Repeat colonoscopy for surveillance based on pathology results. - Return to GI office. - Use Questran at 1 packet (4 grams) PO BID for 8 weeks. Procedure Code(s): --- Professional --- 68514, Colonoscopy, flexible; with removal of tumor(s), polyp(s), or other lesion(s) by snare technique 69910, Colonoscopy, flexible; with transendoscopic balloon dilation 34386, 59, Colonoscopy, flexible; with biopsy, single or multiple CPT copyright 2017 [employer]. All rights reserved. The codes documented in this report are preliminary and upon household appliance installer review may be revised to meet current compliance requirements. Abebe Jarvis DO 03/26/2022 1:05:50 PM This report has been signed electronically. Number of Addenda: 0 Note Initiated On: 03/26/2022 12:27 PM
== END 2022-03-26 13:54 | disposition home or self-care (01) ==
LOC: EN 11:31 → AC 11:32
PROVIDERS: PCP Family Medicine; Referring Provider Family Medicine; Visit Provider Internal Medicine Gastroenterology
PROC: 0DJD8ZZ Inspection of Lower Intestinal Tract, Via Natural or Artificial Opening Endoscopic (ICD-10-PCS; CPT 45378; principal; 2022-03-26 12:25)
DX: K63.3 Ulcer of intestine (principal); E11.40 Type 2 diabetes mellitus with diabetic neuropathy, unspecified; Z79.4 Long term (current) use of insulin; K57.30 Diverticulosis of large intestine without perforation or abscess without bleeding; K63.5 Polyp of colon; G47.30 Sleep apnea, unspecified; F32.A Depression, unspecified; F41.9 Anxiety disorder, unspecified; I10 Essential (primary) hypertension; E78.00 Pure hypercholesterolemia, unspecified; Z86.73 Personal history of transient ischemic attack (TIA), and cerebral infarction without residual deficits; Z79.82 Long term (current) use of aspirin; Z79.899 Other long term (current) drug therapy; Z87.891 Personal history of nicotine dependence
CPT/HCPCS: 45385; 45380; 45386; 82962; 88305; J7120; J2405

== ENCOUNTER 2023-01-05 20:39 | Inpatient (IN) | payer MEDICARE, SELFPAY ==
[2023-01-05] VITALS (8 sets, daily range): BP systolic 130–183; BP diastolic 84–94; PULSE 84–98; RESP 16–18; TEMP 36.6–36.8; O2SAT 92–96; BMI 26.5; BMI 27.1
--- NOTE | 2023-01-05 20:43 | EKG12_ITS ---
Test Reason : CONFUSED Blood Pressure : / mmHG Vent. Rate : 091 BPM Atrial Rate : 091 BPM P-R Int : 184 ms QRS Dur : 082 ms QT Int : 386 ms P-R-T Axes : 035 -35 056 degrees QTc Int : 474 ms Undetermined rhythm Left axis deviation Low voltage QRS Cannot rule out Inferior infarct , age undetermined Cannot rule out Anterior infarct , age undetermined Abnormal ECG Normal sinus rhythm Confirmed by OTIS COCHRAN, SHELBY ([id number]), sound editor ZAIRE BOWLES ([id number]) on 01/08/2023 10:51:46 AM Referred By: Confirmed By:SHELBY BERG MD
--- NOTE | 2023-01-05 20:43 | CT_ITS ---
We are attempting to reach an attending provider to discuss findings. An addendum with communication details will be sent when the communication is complete. EXAM: CT HEAD WITHOUT INTRAVENOUS CONTRAST CLINICAL INDICATION: Neuro deficit, acute, stroke suspected TECHNIQUE: Multiple axial images were obtained of the head without intravenous contrast. CTDIvol = ( 45 ) mGy, DLP = ( 796 ) mGycm This CT exam was performed using one or more of the following dose reduction techniques: automated exposure control, adjustment of the mA and/or kV according to patient size, and/or use of iterative reconstruction technique. COMPARISON: No relevant prior studies available. FINDINGS: BRAIN AND EXTRA-AXIAL SPACES: Hypodensity at the right parieto-occipital region is concerning for acute or subacute infarct. Diffuse parenchymal atrophy. Chronic ischemic small vessel matter disease. No intra- or extra-axial hemorrhage. Posterior fossa structures are unremarkable. Basal cisterns are patent. No midline shift or hydrocephalus. BONES/JOINTS: Unremarkable. No discrete lytic or blastic abnormalities. VASCULATURE: Carotid siphon and vertebrobasilar atherosclerotic calcifications. SINUSES: Unremarkable as visualized. Clear. MASTOID AIR CELLS: Unremarkable. Clear. ORBITS: Visualized globes, extraocular muscles, optic nerves and retrobulbar fat appear unremarkable. CT/STROKE Brain/Head without Cont IMPRESSION: 1. Hypodensity at the right parieto-occipital region is concerning for acute or subacute infarct. Stroke ASPECTS score 9. AIDOC was utilized to assist in identifying pertinent positive findings. Electronically Signed: Shahzad Kwok MD at 21:13 EDT ,
--- NOTE | 2023-01-05 20:45 | EX.ED.DYSGE1 ---
HPI History of Present Illness Chief Complaint: Neuro S/Sx Narrative Narrative: 87-year-old male presents with his family because of confusion, and reported strokelike symptoms. They state that his symptoms began yesterday where he was more confused. Today, he had gone to the grocery store, and at 2:00 found that he left his groceries in the car and is not taking them into the house. Additionally, they noticed that his speech was slurred. They checked his blood sugar and it was in the 120's. They thought maybe he had a right-sided facial droop as well. Patient denies any symptoms, no fevers or chills, no nausea or vomiting, no headache. They are unsure when his last known well time was, but did state that his symptoms started yesterday. [facility] Medical History Anxiety Back pain Benign hypertension C. difficile diarrhea Cancer Chest pain Chronic diarrhea Depression Diabetes Diabetic neuropathy Diverticulosis of colon without diverticulitis Former smoker GERD (gastroesophageal reflux disease) GI bleed High cholesterol History of echocardiogram History of edema History of GI bleed History of irregular heartbeat History of stress test HLD (hyperlipidemia) Hypertension Insulin dependent diabetes mellitus Leg cramps Parkinson's disease Personal history of colon cancer Prostate cancer Psoriasis Sleep apnea Stroke/cerebrovascular accident Tobacco abuse Type II diabetes mellitus Wears dentures Wears glasses Home Medications gabapentin 300 mg capsule 300 mg PO QHS nerve pain 10/05/13 [History Last Taken 05/14/18] insulin glargine 100 unit/mL (3 mL) subcutaneous pen (Lantus Solostar U-100 Insulin) 30 unit subcut 1800 diabetes 05/15/18 [History Last Taken 05/14/18] insulin lispro 100 unit/mL subcutaneous pen (Humalog KwikPen (U-100) Insulin) 12 unit subcut TID 05/15/18 [History Last Taken 05/15/18] lisinopril 5 mg tablet 5 mg PO DAILY 09/12/21 [History Last Taken Unknown] potassium chloride 10 mEq tablet,extended release 10 meq PO DAILY supplement 09/12/21 [History Last Taken Unknown] propranolol 80 mg capsule,24 hr,extended release 80 mg PO DAILY blood pressure 09/12/21 [History Last Taken Unknown] simvastatin 20 mg tablet 20 mg PO QHS cholesterol 09/12/21 [History Last Taken Unknown] aspirin 81 mg tablet 81 mg PO DAILY heart health 09/13/21 [History Last Taken Unknown] ondansetron 4 mg disintegrating tablet 4 mg PO Q8H PRN Nausea 09/13/21 [History Last Taken Unknown] sertraline 50 mg tablet 50 mg PO DAILY mental health 09/13/21 [History Last Taken Unknown] diphenoxylate-atropine 2.5 mg-0.025 mg tablet (Lomotil) 1 tab PO BID PRN diarrhea #60 tabs 03/11/22 [Rx Last Taken Unknown] Lactobacillus acidophilus 10 billion cell capsule (Probiotic) 10,000 mmu cells PO DAILY 03/22/22 [History Last Taken Unknown] ferrous sulfate 325 mg (65 mg iron) tablet 325 mg PO DAILY 03/22/22 [History Last Taken Unknown] primidone 50 mg tablet 25 mg PO DAILY TREMORS 03/22/22 [History Last Taken Unknown] valacyclovir 1 gram tablet 1,000 mg PO DAILY 03/22/22 [History Last Taken Unknown] cholestyramine-aspartame 4 gram oral powder for susp in a packet 4 g PO BID #60 ea 07/19/22 [Rx Last Taken Unknown] Allergy/AdvReac Type Severity Reaction Status Date / Time Iodinated Contrast Media Allergy Shortness Verified 07/19/22 13:51 [Iodinated Contrast Media - of breath IV Dye] Surgical History History of cholecystectomy History of colonoscopy History of hernia repair History of partial colectomy Hx of hernia repair S/P paola-rectal abscess repair, follow-up exam Social History Smoking Status: Former smoker ROS ROS ED ROS Narrative Constitutional: No fever, no chills. Confusion that began yesterday. HEENT: No sore throat. No neck pain. No loss of vision. No rhinorrhea. Cardiovascular: No chest pain. No palpitations. No pedal edema. Respiratory: No cough, no shortness of breath. Abdominal: No abdominal pain. No nausea. No vomiting. Genitourinary: No dysuria. No hematuria. Musculoskeletal: No myalgias. No arthralgias. Neurologic: No headaches. No dizziness. No lightheadedness. Slurring of speech noticed today. Confusion noted yesterday. Skin: No rash. No change in color. Psychiatric: No depression. No anxiety. EXAM Physical Exam Narrative Exam Narrative: Afebrile. Vital signs noted. HEENT: Normocephalic. Atraumatic. PERRL, EOMI. Neck soft and supple. No point tenderness or step off. Cardiovascular: Regular rate and rhythm. No murmurs, rubs, or gallops appreciated. Respiratory: No tachypnea. Lungs clear to auscultation bilaterally. Gastrointestinal: Abdomen soft, nontender, with normoactive bowel sounds. No rebound or guarding. Neurological: Awake. Alert. Oriented to person and place as well as time. Nonfocal, nonlateralizing. NIH stroke scale is 2 for mild dysarthria and expressive aphasia. He could not name the watch and has slight slurring of his speech. No appreciable facial droop. Skin: No rash. Normal color. No pallor. Musculoskeletal: No pedal edema. Full range of motion extremities. Const Vital Signs: 01/05/23 20:41 01/05/23 20:52 01/05/23 20:57 Temperature 98.3 F 98.3 F Temperature Source Temporal Temporal Pulse Rate 98 Respiratory Rate 18 Blood Pressure 130/84 H Blood Pressure Mean 99 Pulse Ox 94 Oxygen Delivery Method Room Air MDM MDM MDM Narrative Medical decision making narrative: Although stroke order set was used, patient is outside the tPA window and his last known well time was yesterday. They are unsure of his slurring of his speech, but it may have been sometime yesterday as well. Patient has an allergy to iodine so CTA was not performed immediately. This is not a stroke team because he is outside the window. EKG was obtained and interpreted by myself which appears to be normal sinus rhythm with PVCs at 91 bpm without ectopy or acute ST changes. No STEMI. I reviewed his laboratory work and he has normal white count of 10.6, hemoglobin normal at 15.2, hematocrit 45.1, platelet count normal at 317. Coagulation studies are normal with an INR of 1.2 and a PTT of 14.9, APTT slightly elevated at 38.3. Sodium is slightly low at 134 with potassium 3.3. While his BUN is normal at 14 he has a creatinine of 1.58, but this appears to be a chronic kidney injury. Glucose appropriately elevated at 150 with a normal anion gap of 8. High-sensitivity troponin normal at 12. Chest x-ray interpreted by myself shows no acute process. I do not feel antibiotics are indicated. In review of the radiology report of the chest x-ray in 1 view, they state that there is bibasilar atelectasis versus infiltrate. Patient has not been coughing or have an elevated white count or fever so I do not feel antibiotics are indicated for pneumonia. CT of the brain was obtained per stroke protocol, and I received a call from the radiologist and discussed this with him directly regarding the results. He states that there is a right parieto-occipital area that appears to be either acute or subacute. I do not feel that this area necessarily fits with his slurred speech or aphasia, and he does not have any left-sided weakness, but given the acute to subacute nature of this, I do feel that he requires observation for further work-up. His urinalysis is currently pending. Patient was discussed with the hospitalist, Dr. Corebtt for observation on the PCU. Patient is in stable condition. History & Record Review Discussion w/independent historian: Patient and Family Additional record(s) reviewed:: Prior ED visit and Prior labs Lab Data Attestation: I reviewed the patient's lab results. Labs: Laboratory Results - last 24 hr 01/05/23 20:43 WBC 10.6 RBC 4.32 L Hgb 15.2 Hct 45.1 MCV 104.4 H MCH 35.2 H MCHC 33.7 RDW Std Deviation 45.9 H RDW Coeff of Angel 11.8 Plt Count 317 MPV 10.1 Immature Gran % (Auto) 0.300 Neut % (Auto) 57.5 Lymph % (Auto) 29.7 Nash % (Auto) 9.8 Eos % (Auto) 1.8 Baso % (Auto) 0.9 Absolute Neuts (auto) 6.1 Absolute Lymphs (auto) 3.16 Nucleated RBC % 0 PT 14.9 INR 1.2 APTT 38.3 H Sodium 134 L Potassium 3.3 L Chloride 98 Carbon Dioxide 28.0 Anion Gap 8 BUN 14 Creatinine 1.58 H Estim Creat Clear Calc 34.01 Est GFR (MDRD) Af Amer 54 L Est GFR (MDRD) Non-Af 44 L BUN/Creatinine Ratio 8.9 L Glucose 150 H Calcium 9.1 Troponin I High Sens 12 Radiography Diagnostic Testing: Clinical Impression(s) from Imaging Studies Brain CT 01/05/23 20:43 IMPRESSION: 1. Hypodensity at the right parieto-occipital region is concerning for acute or subacute infarct. Stroke ASPECTS score 9. AIDOC was utilized to assist in identifying pertinent positive findings. Electronically Signed: Shahzad Kwok MD at 21:13 EDT , ADDENDUM: 01/05/232120 IMPRESSION: 1. Hypodensity at the right parieto-occipital region is concerning for acute or subacute infarct. Stroke ASPECTS score 9. AIDOC was utilized to assist in identifying pertinent positive findings. N.B. : The above Results were Read Back by Shahzad Kwok MD to Sd Soriano MD, and understanding confirmed on 01/05/2023 21:14:40 (ET). Electronically Signed: Shahzad Kwok MD at 21:13 EDT , ADDENDUM: 01/05/232122 IMPRESSION: undefined Chest X-Ray 01/05/23 20:55 IMPRESSION: Heterogeneous airspace disease at the left greater than right lower lobe. Consider atelectasis versus infiltrate. Electronically Signed: Shahzad Kwok MD at 21:32 EDT , Discharge Plan Triage Chief Complaint: Neuro S/Sx ED Provider: Sd Soriano Dx/Rx/DC Orders Prescriptions: No Action cholestyramine-aspartame 4 gram powder in packet 4 g PO BID Qty: 60 2RF Rx Instructions: administer w/meal; avoid other meds within 1hr before or 4-6hr after dose gabapentin 300 MG capsule 300 mg PO QHS insulin lispro [Humalog KwikPen Insulin] 100/ML insulin pen 12 unit subcut TID Rx Instructions: sliding scale insulin glargine [Lantus Solostar U-100 Insulin] 100/ML insulin pen 30 unit subcut 1800 potassium chloride 10 mEq tablet extended release 10 meq PO DAILY simvastatin 20 mg tablet 20 mg PO QHS propranolol 80 mg capsule,extended release 24 hr 80 mg PO DAILY lisinopril 5 mg tablet 5 mg PO DAILY aspirin 81 mg Tablet 81 mg PO DAILY Hold Instructions: not taking ondansetron 4 mg Tablet,Disintegrating 4 mg PO Q8H PRN (Reason: Nausea) sertraline 50 mg Tablet 50 mg PO DAILY primidone 50 mg tablet 25 mg PO DAILY Patient Comments: TAKE 1/2 (ONE-HALF) OF A TABLET BY MOUTH DAILY AT BEDTIME valacyclovir 1 gram tablet 1,000 mg PO DAILY Probiotic 10 billion cell Capsule 10,000 mmu cells PO DAILY ferrous sulfate 325 mg (65 mg iron) tablet 325 mg PO DAILY diphenoxylate-atropine [Lomotil] 2.5-0.025 mg tablet 1 tab PO BID PRN (Reason: diarrhea) Qty: 60 2RF Primary Care Provider: Pradeep Franklin Referrals: Pradeep Franklin MD [Primary Care Provider] -
[2023-01-05 20:55] LABS: Absolute Lymphocyte Count 3.16 X10^3/uL (0.83-4.51); Absolute Neutrophil Count 6.1 X10^3/uL (2.0-7.7); Basophil% 0.9 % (0-1); Eosinophil# 0.19 X10^3/uL; Eosinophils% 1.8 % (0-5); Hematocrit 45.1 % (40-54); Hemoglobin 15.2 g/dL (13.0-16.5); Lymphocyte # 3.16 X10^3/ul (0.83-4.51); Lymphocyte % 29.7 % (19-41); Mean Corp Hgb Conc 33.7 g/dL (32-36); Mean Corpuscular Hgb 35.2 pg (27.0-32.0); Mean Corpuscular Volume 104.4 fL (80-94); Mean Platelet Vol. 10.1 fl (6.2-12.0); Monocyte# 1.04 X10^3/uL; Monocyte% 9.8 % (0-10); NRBC Flagged by Analyzer 0 % (0-5); Neutrophil # 6.11 X10^3/uL (2.7-7.7); Neutrophil % 57.5 % (47-70); Platelet Count 317 K/mm3 (150-450); RBC Distribution Width CV 11.8 % (11.6-14.6); RBC Distribution Width SD 45.9 fl (35.1-43.9); Red Blood Count 4.32 M/mm3 (4.6-6.2); White Blood Count 10.6 K/mm3 (4.4-11.0)
--- NOTE | 2023-01-05 20:55 | RAD_ITS ---
EXAM: XR CHEST, 1 VIEW CLINICAL INDICATION: Neuro deficit, acute, stroke suspected TECHNIQUE: Frontal view of the chest. COMPARISON: September 20, 2021 FINDINGS: LUNGS AND PLEURAL SPACES: Heterogeneous airspace disease at the left greater than right lower lobe. Consider atelectasis versus infiltrate. Low lung volumes. No pneumothorax. No effusion. HEART: Unremarkable. Cardiac silhouette not enlarged. MEDIASTINUM: Central airways and mediastinal contour are unremarkable. BONES/JOINTS: Degenerative changes of the acromioclavicular joints and spine. SOFT TISSUES: Unremarkable. VASCULATURE: Atherosclerotic calcifications of the nonenlarged thoracic aorta. RAD/Chest 1 View IMPRESSION: Heterogeneous airspace disease at the left greater than right lower lobe. Consider atelectasis versus infiltrate. Electronically Signed: Shahzad Kwok MD at 21:32 EDT ,
[2023-01-05 21:02] LABS: International Normalized Ratio 1.2; Prothrombin Time (Protime)PT. 14.9 SECONDS (11.7-14.9)
[2023-01-05 21:03] LABS: Partial Thromboplast Time 38.3 Seconds (24.1-36.2)
[2023-01-05 21:09] LABS: Anion Gap 8 (5-15); BUN 14 mg/dL (7-18); BUN/Creat Ratio 8.9 RATIO (10-20); Calcium,Total 9.1 mg/dL (8.5-10.1); Chloride 98 mmol/L (98-107); Creatinine, Serum 1.58 mg/dL (0.70-1.30); EST Glomerular Filtration Rate 44 mL/min (>60); Est Glom Filt Rate - Afr Amer 54 mL/min (>60); Estimated Creatinine Clearance 34.01 ml/min; Glucose 150 mg/dL (74-106); Potassium 3.3 mmol/L (3.5-5.1); Sodium Level 134 mmol/L (136-145); Troponin-I HS 12 pg/mL (3.0-78.0)
--- NOTE | 2023-01-05 22:04 | PCM.HP.STD ---
HPI - General General Date of Admission: 01/05/23 Date of Service: 01/05/23 Chief Complaint: Confusion HPI Narrative LEONOR MIJARES, is a 87 M with a significant history of prostate cancer; colon cancer status post colectomy; hypertension and diabetes who presents to the emergency department with progressive worsening confusion that began the day before presentation. Associated with symptoms is dysarthria, and expressive aphasia. Also patient has been agitated. Of note patient went to grocery shopping and left the things in the car without offloading them. Also reportedly he has had some facial droop. Patient reported in the past 2 years and just after his colectomy colon cancer he has had off-and-on on right-sided chest pain that last about 2 to 3 minutes. At the emergency department he was complaining of this same chest pain. When patient got to the floor and stroke alert was called because patient's NIH had moved from 2 to a 7. [facility] Medical History Anxiety Back pain Benign hypertension C. difficile diarrhea Cancer Chest pain Chronic diarrhea Depression Diabetes Diabetic neuropathy Diverticulosis of colon without diverticulitis Former smoker GERD (gastroesophageal reflux disease) GI bleed High cholesterol History of echocardiogram History of edema History of GI bleed History of irregular heartbeat History of stress test HLD (hyperlipidemia) Hypertension Insulin dependent diabetes mellitus Leg cramps Parkinson's disease Personal history of colon cancer Prostate cancer Psoriasis Sleep apnea Stroke/cerebrovascular accident Tobacco abuse Type II diabetes mellitus Wears dentures Wears glasses Home Medications gabapentin 300 mg capsule 300 mg PO QHS nerve pain 10/05/13 [History Last Taken 05/14/18] insulin glargine 100 unit/mL (3 mL) subcutaneous pen (Lantus Solostar U-100 Insulin) 30 unit subcut 1800 diabetes 05/15/18 [History Last Taken 05/14/18] insulin lispro 100 unit/mL subcutaneous pen (Humalog KwikPen (U-100) Insulin) 12 unit subcut TID 05/15/18 [History Last Taken 05/15/18] lisinopril 5 mg tablet 5 mg PO DAILY 09/12/21 [History Last Taken Unknown] potassium chloride 10 mEq tablet,extended release 10 meq PO DAILY supplement 09/12/21 [History Last Taken Unknown] propranolol 80 mg capsule,24 hr,extended release 80 mg PO DAILY blood pressure 09/12/21 [History Last Taken Unknown] simvastatin 20 mg tablet 20 mg PO QHS cholesterol 09/12/21 [History Last Taken Unknown] aspirin 81 mg tablet 81 mg PO DAILY heart health 09/13/21 [History Last Taken Unknown] ondansetron 4 mg disintegrating tablet 4 mg PO Q8H PRN Nausea 09/13/21 [History Last Taken Unknown] sertraline 50 mg tablet 50 mg PO DAILY mental health 09/13/21 [History Last Taken Unknown] diphenoxylate-atropine 2.5 mg-0.025 mg tablet (Lomotil) 1 tab PO BID PRN diarrhea #60 tabs 03/11/22 [Rx Last Taken Unknown] Lactobacillus acidophilus 10 billion cell capsule (Probiotic) 10,000 mmu cells PO DAILY 03/22/22 [History Last Taken Unknown] ferrous sulfate 325 mg (65 mg iron) tablet 325 mg PO DAILY 03/22/22 [History Last Taken Unknown] primidone 50 mg tablet 25 mg PO DAILY TREMORS 03/22/22 [History Last Taken Unknown] valacyclovir 1 gram tablet 1,000 mg PO DAILY 03/22/22 [History Last Taken Unknown] cholestyramine-aspartame 4 gram oral powder for susp in a packet 4 g PO BID #60 ea 07/19/22 [Rx Last Taken Unknown] Allergy/AdvReac Type Severity Reaction Status Date / Time Iodinated Contrast Media Allergy Shortness Verified 07/19/22 13:51 [Iodinated Contrast Media - of breath IV Dye] Surgical History History of cholecystectomy History of colonoscopy History of hernia repair History of partial colectomy Hx of hernia repair S/P paola-rectal abscess repair, follow-up exam Social History Smoking Status: Former smoker ROS ROS Narrative Pertinent positives and pertinent negatives as noted in HPI. All other systems were reviewed and are negative Vital Signs Vital Signs Vital Signs: 01/05/23 20:41 01/05/23 20:52 01/05/23 20:57 Temperature 98.3 F 98.3 F Temperature Source Temporal Temporal Pulse Rate 98 Respiratory Rate 18 Blood Pressure 130/84 H Blood Pressure Mean 99 Pulse Ox 94 Oxygen Delivery Method Room Air Weight Weight: 85.9 kg Body Mass Index (BMI) 27.1 Physical Exam Narrative Physical exam: General: Well-nourished, well-developed. Head: Normocephalic, atraumatic, no tenderness Eyes: Vision is grossly intact. EOMI ENT, no trauma, moist mucous membranes, no rhinorrhea Neck: Nontender, No thyromegaly. CVS: Regular rate and rhythm. S1-S2 present. No murmur, gallop or rub. Respiratory : clear to auscultation bilaterally, chest wall nontender Abdomen: Soft, nontender, nondistended, normal bowel sounds, no masses : Deferred Back: Nontender, no CVA tenderness. Extremities: Nontender full range of motion, no trauma Skin: Normal color, no trauma, abrasions Neuro: Alert, oriented, mild facial droop. Can do [id number] test and [id number] test. Strength 5 out of 5 throughout. With mild expressive aphasia. Psychiatry: Normal mood. Normal affect. Not depressed. Not anxious. Results Lab / Micro Data 01/05/23 20:43 01/05/23 20:43 Labs: Laboratory Results - last 24 hr 01/05/23 20:43: WBC 10.6, RBC 4.32 L, Hgb 15.2, Hct 45.1, MCV 104.4 H, MCH 35.2 H, MCHC 33.7, RDW Std Deviation 45.9 H, RDW Coeff of Angel 11.8, Plt Count 317, MPV 10.1, Immature Gran % (Auto) 0.300, Neut % (Auto) 57.5, Lymph % (Auto) 29.7, Nye % (Auto) 9.8, Eos % (Auto) 1.8, Baso % (Auto) 0.9, Absolute Neuts (auto) 6.1, Absolute Lymphs (auto) 3.16, Nucleated RBC % 0, PT 14.9, INR 1.2, APTT 38.3 H, Sodium 134 L, Potassium 3.3 L, Chloride 98, Carbon Dioxide 28.0, Anion Gap 8, BUN 14, Creatinine 1.58 H, Estim Creat Clear Calc 34.01, Est GFR (MDRD) Af Amer 54 L, Est GFR (MDRD) Non-Af 44 L, BUN/Creatinine Ratio 8.9 L, Glucose 150 H, Calcium 9.1, Troponin I High Sens [address] 01/05/23 20:43 IMPRESSION: 1. Hypodensity at the right parieto-occipital region is concerning for acute or subacute infarct. Stroke ASPECTS score 9. AIDOC was utilized to assist in identifying pertinent positive findings. Electronically Signed: Shahzad Kwok MD at 21:13 EDT , ADDENDUM: 01/05/232120 IMPRESSION: 1. Hypodensity at the right parieto-occipital region is concerning for acute or subacute infarct. Stroke ASPECTS score 9. AIDOC was utilized to assist in identifying pertinent positive findings. N.B. : The above Results were Read Back by Shahzad Kwok MD to Sd Soriano MD, and understanding confirmed on 01/05/2023 21:14:40 (ET). Electronically Signed: Shahzad Kwok MD at 21:13 EDT , ADDENDUM: 01/05/232122 IMPRESSION: undefined Chest X-Ray 01/05/23 20:55 IMPRESSION: Heterogeneous airspace disease at the left greater than right lower lobe. Consider atelectasis versus infiltrate. Electronically Signed: Shahzad Kwok MD at 21:32 EDT , Assessment & Plan Assessment/Plan (1) Acute CVA (cerebrovascular accident): PLAN: Plan Serial NINDS NIH Scale ordered Impression of head CT by radiology: Hypodensity at the right parieto-occipital region is concerning for acute or subacute infarct. Upon my personal head CT independent interpretation: I agree with radiologist interpretation Lipid profile and A1c ordered. Physical therapy, occupational therapy and speech therapy to work with patient. N.p.o. until bedside swallow eval. Daily aspirin. High intensity statin Permissive hypertension. Control blood pressure with labetalol for systolic blood pressure of more than 220 or diastolic blood pressure of more than 120. MRI/MRAM of head; brain; and neck. Echocardiogram ordered. Alert was called because patient NIH from 2-7. Repeat CT head was ordered. Neurology discussed case with hospitalist and the consensus was that neurologist did not see patient at this time since patient's symptoms has been going on for about 3 days. Diabetes mellitus Patient with hyperglycemia on presentation Home basal insulin was adjusted. Prandial insulin held. Monitor Accu-Cheks Correction scale insulin ordered. Hypertension Blood pressure is not within goal Blood pressure medication held secondary permissive hypertension. Trend blood pressure. DVT prophylaxis SCD ordered. Time spent in the patient's overall evaluation,decision-making process, review of diagnostic data, adjustment of management, discussion with other providers, nursing nursing and ancillary staff involved in patient's care documentation, 70 minutes. Charges/Coding Visit Charges Inpatient E&M: 71568 Init Hosp L3
[2023-01-05 22:06] LABS: Bacteria 0 SEEN /hpf (None Seen); Mucous, Urine 0 SEEN /hpf (<or=2+); Squamous Epithelial Cells - UA 0 SEEN /hpf (0-5)
[2023-01-05 22:09] LABS: Color, Urine Yellow (Yellow); Glucose, Dipstick 100 mg/dl (Normal); Ketone-Dipstick 15 mg/dl (Negative); Leukocyte Esterase-Dipstick 25 /ul (Negative); Nitrite-Dipstick Negative (Negative); Occult Blood-Urine 10 /ul (Negative); Protein-Dipstick 100 mg/dl (Negative); Urine Clarity Clear (Clear); Urine Urobilinogen 1 mg/dl (Normal)
[2023-01-05 22:20] LABS: Urine Bilirubin Dipstick 1 mg/dL (Negative)
[2023-01-05 22:21] LABS: Hyaline Cast 25-50 SEEN /lpf (0-5); White Blood Cells 0-5 SEEN /hpf (0-5)
[2023-01-05 22:22] LABS: Red Blood Cells-Urine 0-5 SEEN /hpf (0-5)
--- NOTE | 2023-01-05 23:24 | ECHOD_ITS ---
Reason For Study: TIA/CVA Procedure This was a 2D Doppler, Color Flow transthoracic echocardiogram. Exam performed portable in patient room. Left Ventricle Normal left ventricle. The estimated ejection fraction is 55-60 %. Right Ventricle Normal right ventricle. Normal systolic function. Atria Normal left atrium. Normal right atrium. Bubble contrast study is negative for PFO/ASD. Mitral Valve The mitral valve is structurally normal. No prolapse or stenosis seen. Trivial mitral valve insufficiency. Tricuspid Valve Normal tricuspid valve. No tricuspid valve insufficiency. Aortic Valve The aortic valve is not well visualized. There is no aortic stenosis. No aortic valve insufficiency. Pulmonic Valve The pulmonic valve is not well visualized. Great Vessels Normal aortic root. Pericardium/Pleural No pericardial effusion. Medication Performed a rapid injection of agitated mix of 9 cc saline and 1cc air to assess for atrial septal defect. MMode/2D Measurements & Calculations LVIDd: 3.9 cm IVSd: 1.4 cm Ao root diam: 3.4 cm LVIDs: 2.1 cm LVPWd: 1.3 cm RVDd: 2.3 cm FS: 45.3 % LAV(MOD-bp): 16.6 ml LVAd ap4: 19.9 cm2 SV(MOD-sp4): 30.5 ml LAV(MOD-bp) Indexed: 8.2 ml/m2 LVLd ap4: 7.0 cm LAV(MOD-sp2): 20.2 ml EDV(MOD-sp4): 47.9 ml LAV(MOD-sp4): 12.7 ml EDV(sp4-el): 48.2 ml LVAs ap4: 11.2 cm2 LVLs ap4: 6.1 cm ESV(MOD-sp4): 17.4 ml ESV(sp4-el): 17.6 ml EF(MOD-sp4): 63.7 % EF(sp4-el): 63.5 % SV(sp4-el): 30.6 ml LA A4 area: 7.7 cm2 LA dimension(2D): 2.9 cm RA A4 area: 5.7 cm2 Time Measurements MV dec time: 0.33 sec Doppler Measurements & Calculations MV E max lebron: 57.8 cm/sec Lat Peak E' Lebron: 4.2 cm/sec Med Peak E' Lebron: 3.8 cm/sec MV A max lebron: 108.7 cm/sec E/E' lat: 13.9 E/E' med: 15.3 MV E/A: 0.53 MV dec slope: 174.9 cm/sec2 Ao V2 max: 111.4 cm/sec LV V1 max: 102.9 cm/sec Ao max P.0 mmHg LV V1 max P.2 mmHg Ao V2 mean: 86.4 cm/sec Ao mean P.2 mmHg Ao V2 VTI: 23.3 cm PA V2 max: 78.9 cm/sec TR max lebron: 240.8 cm/sec TR max P.2 mmHg ECHO/Echo Complete Interpretation Summary The estimated ejection fraction is 55-60 %. No significant valvular abnormality No prior echocardiogram to compare Ordering Physician: Catracho Corbett Referring Physician: Ruben Franklin Performed By: Jennifer Burnham RDCS, RVT
[2023-01-06] VITALS (11 sets, daily range): BP systolic 119–179; BP diastolic 69–144; PULSE 74–106; RESP 15–18; TEMP 36.3–37.1; O2SAT 91–96; BMI 26.5
--- NOTE | 2023-01-06 00:45 | CT_ITS ---
EXAM: CT HEAD WITHOUT INTRAVENOUS CONTRAST CLINICAL INDICATION: stroke alert TECHNIQUE: Multiple axial images were obtained of the head without intravenous contrast. CTDIvol = ( 44.99 ) mGy, DLP = ( 812.98 ) mGycm This CT exam was performed using one or more of the following dose reduction techniques: automated exposure control, adjustment of the mA and/or kV according to patient size, and/or use of iterative reconstruction technique. COMPARISON: No relevant prior studies available. FINDINGS: Parenchyma: Unchanged hypodensity involving the right parieto-occipital region. No new acute infarct. No acute intracranial hemorrhage in the interval. Chronic ischemic small vessel matter disease and diffuse parenchymal atrophy. Ventricles: No midline shift or hydrocephalus. Sinuses: Sinuses and mastoids are clear. Bones: No focal calvarial abnormalities. CT/STROKE Brain/Head without Cont IMPRESSION: No significant short interval change with no new hemorrhage or new or worsening infarct. Unchanged infarct-related hypodensity involving the right parieto-occipital region. Electronically Signed: Shahzad Kwok MD at 1:10 EDT ,
[2023-01-06] MEDS: Ondansetron 4 MG/2 ML Vial IV (00:50)
[2023-01-06 01:12] LABS: Bedside Glucose 211 mg/dL (74-106)
[2023-01-06] MEDS: proCHLORPERazine 10 MG/2 ML Vial IV (02:36)
[2023-01-06 02:37] LABS: Troponin-I HS 12 pg/mL (3.0-78.0)
[2023-01-06 05:04] LABS: Troponin-I HS 16 pg/mL (3.0-78.0)
[2023-01-06] MEDS: Insulin Lispro 100 UNIT/ML INSULN.PEN SC ×4 (06:31→21:13)
[2023-01-06 06:49] LABS: Bedside Glucose 252 mg/dL (74-106)
[2023-01-06 08:29] LABS: Absolute Lymphocyte Count 2.71 X10^3/uL (0.83-4.51); Absolute Neutrophil Count 5.4 X10^3/uL (2.0-7.7); Basophil# 0.07 X10^3/uL; Basophil% 0.8 % (0-1); Eosinophil# 0.12 X10^3/uL; Eosinophils% 1.3 % (0-5); Hematocrit 39.1 % (40-54); Hemoglobin 13.1 g/dL (13.0-16.5); Lymphocyte # 2.71 X10^3/ul (0.83-4.51); Mean Corp Hgb Conc 33.5 g/dL (32-36); Mean Corpuscular Hgb 35.4 pg (27.0-32.0); Mean Corpuscular Volume 105.7 fL (80-94); Mean Platelet Vol. 9.9 fl (6.2-12.0); Monocyte# 0.75 X10^3/uL; Monocyte% 8.3 % (0-10); NRBC Flagged by Analyzer 0 % (0-5); Neutrophil # 5.35 X10^3/uL (2.7-7.7); Neutrophil % 59.3 % (47-70); Platelet Count 270 K/mm3 (150-450); RBC Distribution Width CV 11.8 % (11.6-14.6); RBC Distribution Width SD 46.5 fl (35.1-43.9)
[2023-01-06 08:55] LABS: Anion Gap 8 (5-15); BUN 13 mg/dL (7-18); BUN/Creat Ratio 10.5 RATIO (10-20); Calcium,Total 7.9 mg/dL (8.5-10.1); Chloride 100 mmol/L (98-107); Cholesterol 145 mg/dL (200); Creatinine, Serum 1.24 mg/dL (0.70-1.30); EST Glomerular Filtration Rate 59 mL/min (>60); Est Glom Filt Rate - Afr Amer 71 mL/min (>60); Estimated Creatinine Clearance 43.34 ml/min; Glucose 220 mg/dL (74-106); High Density Lipoprotein 34 mg/dL; Potassium 3.3 mmol/L (3.5-5.1); Sodium Level 135 mmol/L (136-145); Triglycerides 125 mg/dL; Troponin-I HS 14 pg/mL (3.0-78.0); Very Low Density Lipoprotein 25 mg/dL (5-40)
[2023-01-06] MEDS: Primidone 50 MG Tablet 25 MG PO (09:22)
[2023-01-06] MEDS: Ferrous Sulfate 325 MG Tablet PO (09:22)
[2023-01-06] MEDS: Sertraline 50 MG Tablet PO (09:22)
[2023-01-06] MEDS: Acetaminophen 325 MG Tablet 650 MG PO (09:22)
[2023-01-06] MEDS: Aspirin 81 MG TAB.CHEW PO (09:22)
[2023-01-06] MEDS: Potassium Chloride Oral Tablet 10 MEQ PO (09:22)
[2023-01-06 10:26] LABS: Hemoglobin A1c 10.1 % (3.8-5.6)
--- NOTE | 2023-01-06 10:26 | MRI_ITS ---
EXAM: MR HEAD WITHOUT INTRAVENOUS CONTRAST CLINICAL INDICATION: CVA, confusion, slurred speech and right facial droop. TECHNIQUE: Multiplanar and multisequence MR images of the brain were obtained without intravenous contrast. COMPARISON: CT head without contrast 01/05/2023 and 01/06/2023. 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 No intra- or extra-axial hemorrhage. No intracranial mass or mass effect. Posterior fossa structures are unremarkable. No hydrocephalus. Basal cisterns are patent. No diffusion restriction to suspect acute or subacute ischemic infarct. SELLA: Unremarkable. Normal sella turcica, pituitary gland, infundibular stalk, optic chiasm and hypothalamus. AUDITORY SYSTEM: Unremarkable. The internal auditory canals are patent. BONES/JOINTS: Unremarkable. No discrete lytic or blastic abnormalities. SINUSES: Unremarkable as visualized. Clear. MASTOID AIR CELLS: Unremarkable as visualized. Clear. ORBITS: Unremarkable as visualized. Both globes, extraocular muscles, optic nerves and retrobulbar fat appear unremarkable. VASCULATURE: Unremarkable as visualized. Normal flow voids in the major intracranial circulation. MRI/Brain without Contrast IMPRESSION: 1. No MRI evidence of acute or subacute ischemic infarct. 2. Old cortical-based ischemic infarct with cystic encephalomalacia and atrophy involving the right angular gyrus but unchanged when compared to CT head without contrast of 01/06/2023 Electronically Signed: Sd Garner MD at 12:40 EDT ,
--- NOTE | 2023-01-06 10:26 | MRI_ITS ---
INDICATION: CVA, confusion, slurred speech and right facial droop EXAMINATION: MRA - MRA Head W/O Contrast TECHNIQUE: Routine [place]/brain 3D time of flight MR angiogram protocol was performed without gadolinium. 3D reconstructions were reviewed. IV Contrast Dosage and Agent: None. COMPARISON: None. FINDINGS: --Anterior Circulation: ICAs: Occluded petrous segments and cavernous segments of the right internal carotid artery. Patent right supraclinoid internal carotid artery and bifurcation due to collateral flow coming from the left carotid across patent anterior communicating artery and a patent right posterior communicating artery. Normal left internal carotid artery and left supraclinoid ICA bifurcation. ACAs: No significant stenosis at the visualized segments. ACOM: Present. MCAs: No significant stenosis at the visualized segments. --Posterior Circulation: PCOMs: Patent bilateral posterior communicating arteries. 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 BASILAR ARTERY: No significant stenosis. VERTEBRAL ARTERIES: No significant stenosis at the intradural/visualized segments. The right is dominant. No evidence of intracranial aneurysm or vascular malformation. MRI/MRA Head ONLY without Contrast IMPRESSION: 1. 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 2. No other suspicious vaso-occlusive disease of the anterior and posterior intracranial circulation. Electronically Signed: Sd Garner MD at 12:37 EDT ,
--- NOTE | 2023-01-06 10:27 | MRI_ITS ---
INDICATION: cva, confusion, slurred speech, r facial droop EXAMINATION: MRA - MRA Neck W/O Contrast TECHNIQUE: Routine non-contrast [id number] Carotid MR angiogram protocol was performed without gadolinium. 3D reconstructions were reviewed. Nascet criteria using the distal ICAs for comparison were used for evaluation of stenoses. IV Contrast Dosage and Agent: None. COMPARISON: None. FINDINGS: AORTIC ARCH AND BRANCHES: Cannot be evaluated since this was not performed. RIGHT CCA: High-grade stenosis distally. RIGHT ICA: Complete occlusion. LEFT CCA: No occlusion or significant stenosis. LEFT ICA: No occlusion or significant stenosis. RIGHT VERTEBRAL ARTERY: No occlusion or significant stenosis. LEFT VERTEBRAL ARTERY: No occlusion or significant stenosis. No evidence of acute injury of the major arterial system of the neck. MRI/MRA Neck without Contrast IMPRESSION: 1. 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 2. Normal left cervical carotid artery. 3. Normal bilateral vertebral arteries, right is more dominant. Electronically Signed: Sd Garner MD at 12:20 EDT ,
[2023-01-06 13:17] LABS: Bedside Glucose 335 mg/dL (74-106)
[2023-01-06] MEDS: Insulin Glargine-YFGN 100 UNIT/ML Pen 22 UNIT SC (16:45)
[2023-01-06 17:05] LABS: Bedside Glucose 213 mg/dL (74-106)
--- NOTE | 2023-01-06 18:32 | PCM.PN.HOSP ---
Reason for Visit Reason for Visit: Diagnoses Cerebral infarction, unspecified (01/05/23) Subjective Subjective Patient seen at bedside this morning. Patient seen shortly after his MRI. He was sleeping on my arrival to the room. He woke up for my interview but appeared quite fatigued during our conversation. He denied any acute pain or discomfort. Denied any fevers or chills. No other acute concerns. Objective Data Objective Data Vital Signs: Vital Signs Temp Pulse Resp BP Pulse Ox O2 Del Method O2 Flow Rate 97.9 F 76 18 125/69 H 94 Nasal Cannula 2 01/06/23 17:00 01/06/23 17:00 01/06/23 17:00 01/06/23 17:00 01/06/23 17:00 01/06/23 17:00 01/06/23 17:00 Oxygen Flow Rate (L/min) 2 Oxygen Delivery Method Nasal Cannula Weight: 84 kg Body Mass Index (BMI) 26.5 Intake & Output: Intake and Output for Last 24 Hours 01/04/23 01/05/23 01/06/23 23:59 23:59 23:59 Intake Total 800 / 800 Output Total 800 / 800 Balance 0 / 0 Lab / Micro Data 01/06/23 08:10 01/06/23 08:10 Labs: Laboratory Results - last 24 hr 01/05/23 20:43: WBC 10.6, RBC 4.32 L, Hgb 15.2, Hct 45.1, MCV 104.4 H, MCH 35.2 H, MCHC 33.7, RDW Std Deviation 45.9 H, RDW Coeff of Angel 11.8, Plt Count 317, MPV 10.1, Immature Gran % (Auto) 0.300, Neut % (Auto) 57.5, Lymph % (Auto) 29.7, [place] % (Auto) 9.8, Eos % (Auto) 1.8, Baso % (Auto) 0.9, Absolute Neuts (auto) 6.1, Absolute Lymphs (auto) 3.16, Nucleated RBC % 0, PT 14.9, INR 1.2, APTT 38.3 H, Sodium 134 L, Potassium 3.3 L, Chloride 98, Carbon Dioxide 28.0, Anion Gap 8, BUN 14, Creatinine 1.58 H, Estim Creat Clear Calc 34.01, Est GFR (MDRD) Af Amer 54 L, Est GFR (MDRD) Non-Af 44 L, BUN/Creatinine Ratio 8.9 L, Glucose 150 H, Calcium 9.1, Troponin I High Sens 12 01/05/23 22:00: Urine Color Yellow, Urine Clarity Clear, Urine pH 5.0, Ur Specific [place] 1.020, Urine Protein 100 H, Urine Glucose (UA) 100 H, Urine Ketones 15 H, Urine Occult Blood 10 H, Urine Nitrite Negative, Urine Bilirubin 1 H, Urine Urobilinogen 1 H, Ur Leukocyte Esterase 25 H, Urine RBC 0-5 SEEN, Urine WBC 0-5 SEEN, Ur Squamous Epith Cells 0 SEEN, Urine Bacteria 0 SEEN, Hyaline Casts 25-50 SEEN, Urine Mucus 0 SEEN 01/06/23 00:39: POC Glucose 211 H 01/06/23 02:00: Troponin I High Sens 12 01/06/23 04:00: Troponin I High Sens 16 01/06/23 06:29: POC Glucose 252 H 01/06/23 08:10: WBC 9.0, RBC 3.70 L, Hgb 13.1, Hct 39.1 L, MCV 105.7 H, MCH 35.4 H, MCHC 33.5, RDW Std Deviation 46.5 H, RDW Coeff of Angel 11.8, Plt Count 270, MPV 9.9, Immature Gran % (Auto) 0.300, Neut % (Auto) 59.3, Lymph % (Auto) 30.0, [place] % (Auto) 8.3, Eos % (Auto) 1.3, Baso % (Auto) 0.8, Absolute Neuts (auto) 5.4, Absolute Lymphs (auto) 2.71, Nucleated RBC % 0, Sodium 135 L, Potassium 3.3 L, Chloride 100, Carbon Dioxide 27.0, Anion Gap 8, BUN 13, Creatinine 1.24, Estim Creat Clear Calc 43.34, Est GFR (MDRD) Af Amer 71, Est GFR (MDRD) Non-Af 59 L, BUN/Creatinine Ratio 10.5, Glucose 220 H, Hemoglobin A1c 10.1 H, Calcium 7.9 L, Troponin I High Sens 14, Triglycerides 125, Cholesterol 145, LDL Cholesterol 86, VLDL Cholesterol 25, HDL Cholesterol 34 L 01/06/23 12:57: POC Glucose 335 H 01/06/23 16:44: POC Glucose 213 H Radiography Diagnostic Testing: Radiology Impression Brain CT 01/05/23 20:43 IMPRESSION: 1. Hypodensity at the right parieto-occipital region is concerning for acute or subacute infarct. Stroke ASPECTS score 9. AIDOC was utilized to assist in identifying pertinent positive findings. Electronically Signed: Shahzad Kwok MD at 21:13 EDT , ADDENDUM: 01/05/232120 IMPRESSION: 1. Hypodensity at the right parieto-occipital region is concerning for acute or subacute infarct. Stroke ASPECTS score 9. AIDOC was utilized to assist in identifying pertinent positive findings. N.B. : The above Results were Read Back by Shahzad Kwok MD to Sd Soriano MD, and understanding confirmed on 01/05/2023 21:14:40 (ET). Electronically Signed: Shahzad Kwok MD at 21:13 EDT , ADDENDUM: 01/05/232122 IMPRESSION: undefined ADDENDUM: 01/06/23124 IMPRESSION: undefined Chest X-Ray 01/05/23 20:55 IMPRESSION: Heterogeneous airspace disease at the left greater than right lower lobe. Consider atelectasis versus infiltrate. Electronically Signed: Shahzad Kwok MD at 21:32 EDT , Echocardiogram 01/05/23 23:24 Interpretation Summary The estimated ejection fraction is 55-60 %. No significant valvular abnormality No prior echocardiogram to compare Ordering Physician: Catracho Corbett Referring Physician: Ruben Franklin Performed By: Jennifer Burnham, LACY, T Brain CT 01/06/23 00:45 IMPRESSION: No significant short interval change with no new hemorrhage or new or worsening infarct. Unchanged infarct-related hypodensity involving the right parieto-occipital region. Electronically Signed: Shahzad Kwok MD at 1:10 EDT , ADDENDUM: 01/06/23 0124 IMPRESSION: undefined Brain MRI 01/06/23 10:26 IMPRESSION: 1. No MRI evidence of acute or subacute ischemic infarct. 2. Old cortical-based ischemic infarct with cystic encephalomalacia and atrophy involving the right angular gyrus but unchanged when compared to CT head without contrast of 01/06/2023 Electronically Signed: Sd Garner MD at 12:40 EDT , Head MRA 01/06/23 10:26 IMPRESSION: 1. 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 2. No other suspicious vaso-occlusive disease of the anterior and posterior intracranial circulation. Electronically Signed: Sd Garner MD at 12:37 EDT , Neck MRA 01/06/23 10:27 IMPRESSION: 1. 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 2. Normal left cervical carotid artery. 3. Normal bilateral vertebral arteries, right is more dominant. Electronically Signed: Sd Garner MD at 12:20 EDT , Physical Exam Const alert, no apparent distress and average body habitus Constitutional Narrative: Elderly, chronically ill-appearing, appears very fatigued, lying comfortably in bed, no acute distress. General Appearance: cooperative and comfortable HEENT normocephalic, head/scalp atraumatic, hearing grossly normal bilaterally, nasal mucous membranes and turbinates normal and moist oral mucous membranes Eyes PERRL, EOMs intact bilaterally and conjunctivae normal Neck full ROM and supple Chest inspection of chest normal Resp normal respiratory effort, normal air movement, no use of accessory muscles and clear to auscultation bilaterally Cardio regular rate, regular rhythm, no murmurs and peripheral pulses 2+ throughout GI normal to inspection, nondistended, normoactive bowel sounds, soft to palpation, non-tender and non-distended Back/Spine normal ROM Extremity normal to inspection and no pedal edema Skin no rashes or lesions noted Assessment & Plan Assessment/Plan (1) Acute CVA (cerebrovascular accident): PLAN: Plan Patient is an 87-year-old male with history of colon cancer s/p colectomy, prostate cancer, hypertension and type 2 diabetes who presented to [facility] on 01/05 with worsening confusion, dysarthria and expressive aphasia. 1. Concern for acute CVA CT head on admit showed a hypodensity at the right parieto-occipital region concerning for acute or subacute infarct. NIH score of 7 in ED. However, MRI brain shows no evidence of acute or subacute ischemic infarct, does show chronic changes. MRA head/neck shows complete occlusion of multiple segments of the right internal carotid artery but with good collateral flow. TTE shows an EF of 55 to 60%, no valve abnormalities, no atrial dilation. Lipid panel fairly benign. Hemoglobin A1c 10.1%. 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 ? Continue aspirin, statin. PT/OT/case management following. Will monitor for improvement in patient's symptoms. No further work-up at this time. 2. Uncontrolled type 2 diabetes ? Hemoglobin A1c of 10.1% on admission. Reported home regimen of Lantus 30 units at night, Humalog 12 units 3 times daily AC; unclear if patient has been taking this as prescribed, but suspect that he has not. Has been hyperglycemic since admission. Continue dose reduced basal insulin with sliding scale insulin at high dosing, adjust as needed. Will need outpatient follow-up with PCP and/or endocrinology. Chronic medical conditions: ? Hypertension: Held home propanolol and lisinopril on admission, resume as able. ? Depression: Continue home sertraline. DVT prophylaxis: Lovenox CODE STATUS: Full code, unverified Expected disposition: TBD Total clinical time spent by myself addressing the patient's medical issues, reviewing all the data, and collaborating with patient's care team: 35 minutes. Charges/Coding Visit Charges Inpatient E&M: 24812 Subs Hosp L2
[2023-01-06] MEDS: Atorvastatin Calcium 40 MG Tablet PO (21:13)
[2023-01-06] MEDS: MELATONIN 3 MG TABLET PO (21:13)
[2023-01-06 23:08] LABS: Bedside Glucose 308 mg/dL (74-106)
[2023-01-07 02:57] VITALS: BP 141/99; PULSE 70; RESP 16; TEMP 36.6; O2SAT 93
[2023-01-07] MEDS: Acetaminophen 325 MG Tablet 650 MG PO (03:04)
[2023-01-07] MEDS: Insulin Lispro 100 UNIT/ML INSULN.PEN SC ×3 (06:37→16:23)
[2023-01-07 07:01] LABS: Bedside Glucose 266 mg/dL (74-106)
[2023-01-07 07:52] VITALS: O2SAT 97
[2023-01-07] MEDS: Ferrous Sulfate 325 MG Tablet PO (08:13)
[2023-01-07] MEDS: Aspirin 81 MG TAB.CHEW PO (08:13)
[2023-01-07] MEDS: Potassium Chloride Oral Tablet 10 MEQ PO (08:13)
[2023-01-07] MEDS: Primidone 50 MG Tablet 25 MG PO (08:13)
[2023-01-07] MEDS: Sertraline 50 MG Tablet PO (08:13)
[2023-01-07] MEDS: Enoxaparin 40 MG/0.4 ML Syringe SC (08:15)
[2023-01-07 08:58] VITALS: BP 158/75; PULSE 68; RESP 16; TEMP 36.3; O2SAT 96
[2023-01-07 10:12] LABS: Anion Gap 6 (5-15); BUN 12 mg/dL (7-18); BUN/Creat Ratio 11.2 RATIO (10-20); Chloride 98 mmol/L (98-107); Creatinine, Serum 1.07 mg/dL (0.70-1.30); EST Glomerular Filtration Rate 69 mL/min (>60); Est Glom Filt Rate - Afr Amer 84 mL/min (>60); Estimated Creatinine Clearance 50.22 ml/min; Glucose 253 mg/dL (74-106); Potassium 3.5 mmol/L (3.5-5.1); Sodium Level 134 mmol/L (136-145)
[2023-01-07 11:53] VITALS: O2SAT 91
[2023-01-07 11:56] LABS: Bedside Glucose 283 mg/dL (74-106)
[2023-01-07 13:15] LABS: Magnesium 1.6 mg/dL (1.6-2.6)
[2023-01-07 15:23] VITALS: BMI 26.5
--- NOTE | 2023-01-07 15:30 | CASEMGMT ---
RN ARIEL CISCO UNIFIED COMMUNICATIONS ENGINEER CM to room to meet with patient for initial transition planning/care coordination assessment. ALICIA GEORGE introduced self and role at [facility].? Pt voices understanding and consents to assessment at this time.? Pt resting in bed in no distress at this time.? Pt is A/O at this time and answers all questions appropriately.?? Care providers, pharmacy, and demographics verified/updated at this time. PCP: Dr Franklin Specialists: none Preferred Pharmacy: [facility] Insurance: [place] [employer] Prescription Benefit:?Yes Living Will/HPOA:?Has both LW and HCPOA, who is his dtr, Viki LNOK: Dtr/POAViki. Pt also has another daughter and 4 sons. Living Arrangements: Lives alone in one story home w/one step to kitchen area and 3 steps to living room area. Pt states he is independent w/ADL's and gets his own groceries. Dtr sets up his weekly medication containers for him. Transportation: Pt states drives self and states no transportation concerns at this time.? Dtr will take him home @ discharge. DME: States has the following DME:?functioning glucometer w/supplies. Pt states he has all meds and insulin needed. Pt also has 2 canes and a walker available, if needed, but does not use any AD to ambulate @ home. Noted pt has been using a walker while @ [facility], but he states he does not feel he needs it and he does not plan on using it @ home, stating, I'll be alright @ home. Pt denies having O2 or PAP @ home. Pt states no need for further DME at this time.? HHC/SNF: No hx of SNF or HHC. Discussed options @ discharge. Pt wishes to discharge home. He states he is not homebound nor does he feel he will be homebound once he returns home. He declines wanting HHC or OP therapy. Pt made aware, if he changes his mind once he returns home, to discuss this w/his PCP. He voices understanding. Pt wishes to return home and states has no concerns with going home at time of discharge.? CM to follow for any further discharge planning/needs.? Pt voices no further concerns/needs at this time.? Advised pt to ask for CM if any further questions/concerns/needs arise.? Voices understanding. PLAN: ?Home Mirella RENDONN RN CM
[2023-01-07 16:49] LABS: Bedside Glucose 410 mg/dL (74-106)
[2023-01-07 16:51] VITALS: BP 173/94; PULSE 81; RESP 18; TEMP 37.2; O2SAT 94
--- NOTE | 2023-01-07 17:00 | PCM.PN.HOSP ---
Reason for Visit Reason for Visit: Diagnoses Cerebral infarction, unspecified (01/06/23) Subjective Subjective No acute events overnight. Patient seen at bedside this morning. Laying comfortably in bed, no acute distress. Patient's speech is somewhat slow, but suspect this is his baseline. Patient is alert and oriented x3, was able to tell me the correct date and knew the current president and previous president. Patient tells me he did fine moving around with physical therapy to help yesterday. He would like to go home soon as he can. He denies any fevers or chills. Denies any weakness or sensory changes. No other acute concerns. Objective Data Objective Data Vital Signs: Vital Signs Temp Pulse Resp BP Pulse Ox O2 Del Method O2 Flow Rate 98.9 F 81 18 173/94 H 94 Room Air 2 01/07/23 16:51 01/07/23 16:51 01/07/23 16:51 01/07/23 16:51 01/07/23 16:51 01/07/23 16:51 01/07/23 08:58 Oxygen Flow Rate (L/min) 2 Oxygen Delivery Method Room Air Weight: 84 kg Body Mass Index (BMI) 26.5 Intake & Output: Intake and Output for Last 24 Hours 01/05/23 01/06/23 01/07/23 23:59 23:59 23:59 Intake Total 800 / 800 360 / 360 Output Total 1000 / 1000 675 / 675 Balance -200 / -200 -315 / -315 Lab / Micro Data 01/06/23 08:10 01/07/23 09:34 Labs: Laboratory Results - last 24 hr 01/06/23 16:44: POC Glucose 213 H 01/06/23 21:11: POC Glucose 308 H 01/07/23 06:34: POC Glucose 266 H 01/07/23 09:34: Sodium 134 L, Potassium 3.5, Chloride 98, Carbon Dioxide 30.0, Anion Gap 6, BUN 12, Creatinine 1.07, Estim Creat Clear Calc 50.22, Est GFR (MDRD) Af Amer 84, Est GFR (MDRD) Non-Af 69, BUN/Creatinine Ratio 11.2, Glucose 253 H, Calcium 8.0 L, Magnesium 1.6 01/07/23 11:28: POC Glucose 283 H 01/07/23 16:21: POC Glucose 410 H Radiography Diagnostic Testing: Radiology Impression Echocardiogram 01/05/23 23:24 Interpretation Summary The estimated ejection fraction is 55-60 %. No significant valvular abnormality No prior echocardiogram to compare Ordering Physician: Catracho Corbett Referring Physician: Ruben Franklin Performed By: Jennifer Burnham, LACY, RVT Physical Exam Const alert, oriented x3, no apparent distress and average body habitus Constitutional Narrative: Elderly, chronically ill-appearing, lying comfortably in bed, no acute distress. More alert today than previous, alert and oriented x3. General Appearance: cooperative and comfortable HEENT normocephalic, head/scalp atraumatic, hearing grossly normal bilaterally, nasal mucous membranes and turbinates normal and moist oral mucous membranes Eyes PERRL, EOMs intact bilaterally and conjunctivae normal Neck full ROM and supple Chest inspection of chest normal Resp normal respiratory effort, normal air movement, no use of accessory muscles and clear to auscultation bilaterally Cardio regular rate, regular rhythm, no murmurs and peripheral pulses 2+ throughout GI normal to inspection, nondistended, normoactive bowel sounds, soft to palpation, non-tender and non-distended Back/Spine normal ROM Extremity normal to inspection and no pedal edema Skin no rashes or lesions noted Assessment & Plan Assessment/Plan (1) Acute CVA (cerebrovascular accident): PLAN: Plan Patient is an 87-year-old male with history of colon cancer s/p colectomy, prostate cancer, hypertension and type 2 diabetes who presented to [facility] on 01/05 with worsening confusion, dysarthria and expressive aphasia. 1. Concern for acute CVA CT head on admit showed a hypodensity at the right parieto-occipital region concerning for acute or subacute infarct. NIH score of 7 in ED. However, MRI brain shows no evidence of acute or subacute ischemic infarct, does show chronic changes. MRA head/neck shows complete occlusion of multiple segments of the right internal carotid artery but with good collateral flow. TTE shows an EF of 55 to 60%, no valve abnormalities, no atrial dilation. Lipid panel fairly benign. Hemoglobin A1c 10.1%. 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 ? Continue aspirin, statin. PT/OT/case management following, discharge planning as noted below. No further work-up needed at this time. 2. Uncontrolled type 2 diabetes ? Hemoglobin A1c of 10.1% on admission. Reported home regimen of Lantus 30 units at night, Humalog 12 units 3 times daily AC; unclear if patient has been taking this as prescribed, but suspect that he has not. Has been hyperglycemic since admission. Continue dose reduced basal insulin with sliding scale insulin at high dosing, adjust as needed. Will need outpatient follow-up with PCP and/or endocrinology. 3. Suspected cognitive impairment with chronic debility Had extensive discussion with patient's daughter Viki over the phone on 01/07. Patient lives at home alone, but Viki goes over to his house at least 2-3 times per week to help him with daily activities. She states that the patient does still drive, which makes her quite fearful. At home, he primarily goes from bed to his chair and otherwise does not do much around the house for himself. Is able to complete most ADLs for himself, albeit at a slow pace. She notes the patient has seem to be getting progressively worse over time. ? PT/OT/case management following. Patient adamantly declines SNF placement and does have capacity at this time. Unfortunately, patient is still driving and not homebound, and thus does not qualify for home health care. We will plan for likely discharge home tomorrow. Recommend outpatient evaluation by geriatric medicine. Chronic medical conditions: ? Hypertension: Held home propanolol and lisinopril on admission, restarted on 01/07. ? Depression: Continue home sertraline. DVT prophylaxis: Lovenox CODE STATUS: Full code, unverified Expected disposition: Home, likely tomorrow Total clinical time spent by myself addressing the patient's medical issues, reviewing all the data, and collaborating with patient's care team: 35 minutes. Charges/Coding Visit Charges Inpatient E&M: 78040 Subs Hosp L2
[2023-01-07] MEDS: Propranolol LA 80 MG Capsule PO (17:37)
[2023-01-07] MEDS: Insulin Glargine-YFGN 100 UNIT/ML Pen 27 UNIT SC (17:37)
[2023-01-07] MEDS: Lisinopril 5 MG Tablet PO (17:37)
[2023-01-07] MEDS: Atorvastatin Calcium 40 MG Tablet PO (20:57)
[2023-01-07] MEDS: MELATONIN 3 MG TABLET PO (20:57)
[2023-01-07] MEDS: 0.9% Saline Lock 10 ML Syringe IV (20:57)
[2023-01-07 22:00] VITALS: BP 142/68; PULSE 86; RESP 18; TEMP 36.8; O2SAT 93
[2023-01-07 23:27] VITALS: BMI 26.5
[2023-01-07 23:30] LABS: Bedside Glucose 121 mg/dL (74-106)
[2023-01-08] VITALS (7 sets, daily range): BP systolic 85–122; BP diastolic 42–58; PULSE 57–63; RESP 15–16; TEMP 36.5–36.8; O2SAT 91–98
[2023-01-08 08:43] LABS: Bedside Glucose 145 mg/dL (74-106)
[2023-01-08] MEDS: Enoxaparin 40 MG/0.4 ML Syringe SC (09:34)
[2023-01-08] MEDS: Sertraline 50 MG Tablet PO (09:35)
[2023-01-08] MEDS: Lisinopril 5 MG Tablet PO (09:35)
[2023-01-08] MEDS: Propranolol LA 80 MG Capsule PO (09:35)
[2023-01-08] MEDS: Primidone 50 MG Tablet 25 MG PO (09:36)
[2023-01-08] MEDS: Potassium Chloride Oral Tablet 10 MEQ PO (09:36)
[2023-01-08] MEDS: Aspirin 81 MG TAB.CHEW PO (09:37)
[2023-01-08] MEDS: Ferrous Sulfate 325 MG Tablet PO (09:37)
--- NOTE | 2023-01-08 09:57 | CASEMGMT ---
Addendum entered by Ofelia Headley 01/08/23 12:12: 1000: ALICIA GEORGE to room. Pt resting in bed. Dtr. Viki, @ bedside. Discussed HHC with pt and dtr again at this time. Pt insistent that he will still be getting out in the community and going to the store @ discharge and does not plan on using any AD. Pt would not qualify for HHC. Also discussed OP therapy and pt not agreeable at this time, stating, I don't want to mess with that. Discussed CCN w/pt and questions answered. Pt agreeable to referral. Original Note: ALICIA GEORGE NOTE: ALICIA GEORGE spoke w/pt's dtrViki. She was made aware ALICIA GEORGE spoke w/pt yesterday and that he states he does not feel he will need to use [facility] once he is at home and that he does not feel he will be homebound, as he likes to go out and go to the grocery store. Viki made aware of [facility]'s criteria of being homebound for HHC and that pt would not qualify at this time. Viki voices understanding. She states Yeah, he's thick-headed. Viki made aware, if once pt returns home, if he is more weak than expected and is homebound, then she can f/u with pt's PCP re: HHC. Also discussed CCN w/Viki. She states she usually goes to pt's home 2-3 x's/week to help w/his bills and some housecleaning and usually sets up his med containers, although she states she had not been doing his meds the past couple of weeks d/t pt telling her he was taking care of it. Viki states she does not think he'll be agreeable to CCN and she states she can start managing his meds for him again. She did state ALICIA GEORGE could inquire about HHC again and CCN to see if he would be agreeable, but she doesn't think he will be. She voices no other discharge concerns at this time. Mirella MONTALVO RN, CM
--- NOTE | 2023-01-08 10:28 | CASEMGMT ---
SW completed a PHQ9 with patient as he had a TIA. Patient scored a 0 which indicates no depression. Patient denies any need for counseling resources. Pilar PEDERSEN
[2023-01-08] MEDS: Insulin Lispro 100 UNIT/ML INSULN.PEN SC (11:40)
[2023-01-08 12:05] LABS: Bedside Glucose 328 mg/dL (74-106)
--- NOTE | 2023-01-08 12:15 | CASEMGMT ---
RN CM in to discuss needs at discharge. Patient was agreeable to CCN. RN CM also discussed outpatient therapy. Patient would like to think about it. Script provided with [facility] information. Patient and daughter had no further questions or concerns at this time.
--- NOTE | 2023-01-08 13:27 | DCINST_ITS ---
Discharge Instructions Diet Discharge Diet: No restrictions Activity Discharge Activity: Return to Normal Activity Weight Bearing Status: Full weight bearing Follow Up Care Please Follow Up With: Pradeep Franklin MD When: 1 to 2 weeks Test Results: Test results from this visit will be discussed in further detail at your follow- up appointment, if applicable. Pending Tests Upon Discharge: None Discharge Plan Admission Admit Date/Time: 01/06/23 13:57 Primary Reason for Your Visit: Confusion, CVA rule out Attending Provider: Lewis Philip Primary Care Provider: Pradeep Franklin Consulting Providers: Catracho Corbett Instructions Additional Instructions / Restrictions: Continue home medications as you have been taking. Recommend following up with your primary care doctor in the office in the next 1 to 2 weeks. Your diabetes unfortunately seems to be uncontrolled at this point given your hemoglobin A1c of 10.1% on admission here. Recommend discussing with your doctor on changes you can make to your insulin regimen going forward. Also recommend considering a geriatric medicine evaluation in the near future. Discharge Orders/Prescriptions Prescriptions: Continued cholestyramine-aspartame 4 gram powder in packet 4 g PO BID Qty: 60 2RF Rx Instructions: administer w/meal; avoid other meds within 1hr before or 4-6hr after dose gabapentin 300 MG capsule 300 mg PO QHS insulin lispro [Humalog KwikPen Insulin] 100/ML insulin pen 12 unit subcut TID Rx Instructions: sliding scale insulin glargine [Lantus Solostar U-100 Insulin] 100/ML insulin pen 30 unit subcut 1800 simvastatin 20 mg tablet 20 mg PO QHS propranolol 80 mg capsule,extended release 24 hr 80 mg PO DAILY lisinopril 5 mg tablet 5 mg PO DAILY aspirin 81 mg Tablet 81 mg PO DAILY Hold Instructions: not taking ondansetron 4 mg Tablet,Disintegrating 4 mg PO Q8H PRN (Reason: Nausea) sertraline 50 mg Tablet 50 mg PO DAILY primidone 50 mg tablet 25 mg PO DAILY Patient Comments: TAKE 1/2 (ONE-HALF) OF A TABLET BY MOUTH DAILY AT BEDTIME valacyclovir 1 gram tablet 1,000 mg PO DAILY Probiotic 10 billion cell Capsule 10,000 mmu cells PO DAILY ferrous sulfate 325 mg (65 mg iron) tablet 325 mg PO DAILY diphenoxylate-atropine [Lomotil] 2.5-0.025 mg tablet 1 tab PO BID PRN (Reason: diarrhea) Qty: 60 2RF Discontinued potassium chloride 10 mEq tablet extended release 10 meq PO DAILY Referrals / Follow Up: Pradeep Franklin MD [Primary Care Provider] - Disposition Disposition (needs filled in before D/C Order can be placed): Home, Self Care
--- NOTE | 2023-01-08 13:32 | PCM.DC.SUM ---
Providers Date of Admission: 01/06/23 Date of Discharge: 01/08/23 Primary Care Physician: Dr. Pradeep Franklin MD Reason For Visit: ACUTE CVA Diagnosis Discharge Diagnosis (1) Acute CVA (cerebrovascular accident): Status: Acute Code(s): I63.9 - Cerebral infarction, unspecified Medications at Discharge Home Medications gabapentin 300 mg capsule 300 mg PO QHS nerve pain 10/05/13 insulin glargine 100 unit/mL (3 mL) subcutaneous pen (Lantus Solostar U-100 Insulin) 30 unit subcut 1800 diabetes 05/15/18 insulin lispro 100 unit/mL subcutaneous pen (Humalog KwikPen (U-100) Insulin) 12 unit subcut TID 05/15/18 lisinopril 5 mg tablet 5 mg PO DAILY 09/12/21 propranolol 80 mg capsule,24 hr,extended release 80 mg PO DAILY blood pressure 09/12/21 simvastatin 20 mg tablet 20 mg PO QHS cholesterol 09/12/21 aspirin 81 mg tablet 81 mg PO DAILY heart health 09/13/21 ondansetron 4 mg disintegrating tablet 4 mg PO Q8H PRN Nausea 09/13/21 sertraline 50 mg tablet 50 mg PO DAILY mental health 09/13/21 diphenoxylate-atropine 2.5 mg-0.025 mg tablet (Lomotil) 1 tab PO BID PRN diarrhea #60 tabs 03/11/22 Lactobacillus acidophilus 10 billion cell capsule (Probiotic) 10,000 mmu cells PO DAILY 03/22/22 ferrous sulfate 325 mg (65 mg iron) tablet 325 mg PO DAILY 03/22/22 primidone 50 mg tablet 25 mg PO DAILY TREMORS 03/22/22 valacyclovir 1 gram tablet 1,000 mg PO DAILY 03/22/22 cholestyramine-aspartame 4 gram oral powder for susp in a packet 4 g PO BID #60 ea 07/19/22 Hospital Course Operations None Procedures EKG, Transthoracic echo and - (CT brain without contrast, MRI brain without contrast, MRA head/neck, chest x-ray) Summary of Care Provided Minutes Spent on Discharge: 38 Hospital Course: Patient is an 87-year-old male with history of colon cancer s/p colectomy, prostate cancer, hypertension and type 2 diabetes who presented to [facility] on 01/05 with worsening confusion, dysarthria and expressive aphasia. CT head without contrast on admit showed a hypodensity at the right parieto-occipital region concerning for an acute or subacute infarct. NIH score of 7 in the ED. However, MRI brain without contrast showed no evidence of acute or subacute ischemic infarct, only showed chronic changes. 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 TTE showed an EF of 55 to 60%, no valve abnormalities, no atrial dilation. Lipid panel is fairly benign. Hemoglobin A1c was elevated at 10.1%. Given patient's labs and imaging findings as noted above, suspected that patient may have had a TIA. No evidence of acute stroke. Patient had no residual deficits of note, no motor or sensory changes in upper or lower extremities, no changes in the face. Suspected that patient's uncontrolled type 2 diabetes could be causing chronic microvascular ischemia leading to patient's symptoms. PT/OT followed during the admission, noted the patient was able to ambulate with assistance but was fairly weak. Had extensive discussions with patient's daughter Viki and case management regarding best disposition for patient. Currently lives home alone, and daughter states that she has been going to see him at least 2-3 times per week. States that he is able to get up and move around slowly on his own, but she has noticed that his activity level is decreased progressively over time. Patient notably is still driving, albeit against friend's wishes. Unfortunately since patient was not considered homebound, we were unable to set patient up for home health care on discharge. I did recommend to patient and daughter that they follow-up closely with their PCP and consider an outpatient evaluation with geriatric medicine. Patient was discharged home in stable condition Discharge diagnoses: ? Suspected TIA ? Poorly controlled type 2 diabetes ? Chronic debility ? Hypertension ? Depression PCP follow-up: Recommend close follow-up to assist with changes to patient's insulin regimen as necessary, given his poorly controlled type 2 diabetes. Also can consider geriatric medicine evaluation as needed. Total clinical time spent by myself addressing the patient's discharge needs: 38 minutes. Physical Exam Const alert, oriented x3, no apparent distress and average body habitus Constitutional Narrative: Elderly, chronically ill-appearing, lying comfortably in bed, no acute distress. More alert today than previous, alert and oriented x3. General Appearance: cooperative and comfortable HEENT normocephalic, head/scalp atraumatic, hearing grossly normal bilaterally, nasal mucous membranes and turbinates normal and moist oral mucous membranes Eyes PERRL, EOMs intact bilaterally and conjunctivae normal Neck full ROM and supple Chest inspection of chest normal Resp normal respiratory effort, normal air movement, no use of accessory muscles and clear to auscultation bilaterally Cardio regular rate, regular rhythm, no murmurs and peripheral pulses 2+ throughout GI normal to inspection, nondistended, normoactive bowel sounds, soft to palpation, non-tender and non-distended Back/Spine normal ROM Extremity normal to inspection and no pedal edema Skin no rashes or lesions noted Weight / BMI Weight Weight: 84 kg Body Mass Index (BMI) 26.5 ABG / Lab / Microbiology Data 01/06/23 08:10 01/07/23 09:34 Laboratory: Laboratory Results - last 24 hr 01/07/23 16:21: POC Glucose 410 H 01/07/23 21:00: POC Glucose 121 H 01/08/23 06:10: POC Glucose 145 H 01/08/23 11:39: POC Glucose 328 H D/C Instructions Discharge Diet: No restrictions Weight Bearing Status: Full weight bearing Pending Tests Upon Discharge: None Please Follow Up With: Pradeep Franklin MD When: 1 to 2 weeks Meaningful Use Info Meaningful Use Diagnoses (Choose all that apply): None applicable Discharge Plan Admission Admit Date/Time: 01/06/23 13:57 Primary Reason for Your Visit: Confusion, CVA rule out Attending Provider: Lewis Philip Primary Care Provider: Pradeep Franklin Consulting Providers: Catracho Corbett Instructions Additional Instructions / Restrictions: Continue home medications as you have been taking. Recommend following up with your primary care doctor in the office in the next 1 to 2 weeks. Your diabetes unfortunately seems to be uncontrolled at this point given your hemoglobin A1c of 10.1% on admission here. Recommend discussing with your doctor on changes you can make to your insulin regimen going forward. Also recommend considering a geriatric medicine evaluation in the near future. Discharge Orders/Prescriptions Prescriptions: Continued cholestyramine-aspartame 4 gram powder in packet 4 g PO BID Qty: 60 2RF Rx Instructions: administer w/meal; avoid other meds within 1hr before or 4-6hr after dose gabapentin 300 MG capsule 300 mg PO QHS insulin lispro [Humalog KwikPen Insulin] 100/ML insulin pen 12 unit subcut TID Rx Instructions: sliding scale insulin glargine [Lantus Solostar U-100 Insulin] 100/ML insulin pen 30 unit subcut 1800 simvastatin 20 mg tablet 20 mg PO QHS propranolol 80 mg capsule,extended release 24 hr 80 mg PO DAILY lisinopril 5 mg tablet 5 mg PO DAILY aspirin 81 mg Tablet 81 mg PO DAILY Hold Instructions: not taking ondansetron 4 mg Tablet,Disintegrating 4 mg PO Q8H PRN (Reason: Nausea) sertraline 50 mg Tablet 50 mg PO DAILY primidone 50 mg tablet 25 mg PO DAILY Patient Comments: TAKE 1/2 (ONE-HALF) OF A TABLET BY MOUTH DAILY AT BEDTIME valacyclovir 1 gram tablet 1,000 mg PO DAILY Probiotic 10 billion cell Capsule 10,000 mmu cells PO DAILY ferrous sulfate 325 mg (65 mg iron) tablet 325 mg PO DAILY diphenoxylate-atropine [Lomotil] 2.5-0.025 mg tablet 1 tab PO BID PRN (Reason: diarrhea) Qty: 60 2RF Discontinued potassium chloride 10 mEq tablet extended release 10 meq PO DAILY Referrals / Follow Up: Pradeep Franklin MD [Primary Care Provider] - Disposition Disposition (needs filled in before D/C Order can be placed): Home, Self Care Charges/Coding Visit Charges Inpatient E&M: 92173 Disch Hosp >30min
--- NOTE | 2023-01-08 15:53 | CCN.REFER ---
PATIENT AGREEABLE TO CCN SERVICES.
[2023-01-09 12:55] LABS: Bedside Glucose 451 mg/dL (74-106)
== END 2023-01-08 15:01 | disposition home or self-care (01) | DRG 69 ==
LOC: ED 22:05 → PCU 22:30
PROVIDERS: Admitting Provider Hospitalist; Emergency Provider Emergency Medicine; PCP Family Medicine; Visit Provider Hospitalist
DX: I67.82 Cerebral ischemia (principal); R47.01 Aphasia; E11.40 Type 2 diabetes mellitus with diabetic neuropathy, unspecified; G20 Parkinson's disease; E11.65 Type 2 diabetes mellitus with hyperglycemia; Z79.4 Long term (current) use of insulin; I10 Essential (primary) hypertension; F32.A Depression, unspecified; I65.21 Occlusion and stenosis of right carotid artery; E78.00 Pure hypercholesterolemia, unspecified; R47.1 Dysarthria and anarthria; R29.810 Facial weakness; I49.3 Ventricular premature depolarization; Z88.8 Allergy status to other drugs, medicaments and biological substances; Z79.82 Long term (current) use of aspirin; Z79.899 Other long term (current) drug therapy; Z87.891 Personal history of nicotine dependence; R53.81 Other malaise
CPT/HCPCS: 36415; 70450; 70544; 70547; 70551; 71045; 80048; 80061; 81001; 82962; 83036; 83735; 84484; 85025; 85610; 85730; 92526; 92610; 93005; 93306; 94762; 97161; 97165; 97530; 97535; 99285; J7030; A4216; J2405

== ENCOUNTER 2023-06-13 10:35 | Emergency (ER) | payer MEDICARE, SELFPAY ==
[2023-06-13 10:36] VITALS: BP 87/51; PULSE 60; RESP 15; TEMP 36.1; O2SAT 92; BMI 27.7
--- NOTE | 2023-06-13 11:29 | EDS_ITS ---
HPI HPI - Fall History of Present Illness Chief Complaint: Fall Informant: patient Occured/Mechanism Occurred: Days (2 days ago) Mechanism/Context: Yes same level fall and Yes trip Pain/Injury Pain Location: neck Quality of Pain: Aching Worsened by: Movement Relieved by: Nothing Associated Symptoms Associated Symptoms: Negative for Parasthesias, Weakness, Loss of function, Inability to ambulate, Loss of consciousness or Amnesia Narrative Narrative: Patient presents after a fall that occurred 2 days ago. Patient states he was going to the bathroom when he fell. Patient states he was in a hurry and lost his balance. Patient hit his head. Patient states he was able to get up after the fall. Patient denies any loss of consciousness. Patient states that he was walking back to his bedroom and fell again. Patient states he hit his forehead again in the same spot. Patient denies any loss of consciousness without fall as well. Patient complains of pain in his neck. Patient states it is worse with movement. Patient denies any paresthesias or weakness. Patient denies any other injuries. PFSH COUNT INCLUDES THE [facility] Medical History Anxiety Back pain Benign hypertension C. difficile diarrhea Cancer Chest pain Chronic diarrhea Depression Diabetes Diabetic neuropathy Diverticulosis of colon without diverticulitis Former smoker GERD (gastroesophageal reflux disease) GI bleed High cholesterol History of echocardiogram History of edema History of GI bleed History of irregular heartbeat History of stress test HLD (hyperlipidemia) Hypertension Insulin dependent diabetes mellitus Leg cramps Parkinson's disease Personal history of colon cancer Prostate cancer Psoriasis Sleep apnea Stroke/cerebrovascular accident Tobacco abuse Type II diabetes mellitus Wears dentures Wears glasses Home Medications gabapentin 300 mg capsule 300 mg PO QHS nerve pain 10/05/13 [History Last Taken 05/14/18] insulin glargine 100 unit/mL (3 mL) subcutaneous pen (Lantus Solostar U-100 Insulin) 30 unit subcut 1800 diabetes 05/15/18 [History Last Taken 05/14/18] insulin lispro 100 unit/mL subcutaneous pen (Humalog KwikPen (U-100) Insulin) 12 unit subcut TID 05/15/18 [History Last Taken 05/15/18] lisinopril 5 mg tablet 5 mg PO DAILY 09/12/21 [History Last Taken Unknown] propranolol 80 mg capsule,24 hr,extended release 80 mg PO DAILY blood pressure 09/12/21 [History Last Taken Unknown] simvastatin 20 mg tablet 20 mg PO QHS cholesterol 09/12/21 [History Last Taken Unknown] aspirin 81 mg tablet 81 mg PO DAILY heart health 09/13/21 [History Last Taken Unknown] ondansetron 4 mg disintegrating tablet 4 mg PO Q8H PRN Nausea 09/13/21 [History Last Taken Unknown] sertraline 50 mg tablet 50 mg PO DAILY mental health 09/13/21 [History Last Taken Unknown] diphenoxylate-atropine 2.5 mg-0.025 mg tablet (Lomotil) 1 tab PO BID PRN eleno rrhea #60 tabs 03/11/22 [Rx Last Taken Unknown] Lactobacillus acidophilus 10 billion cell capsule (Probiotic) 10,000 mmu cells PO DAILY 03/22/22 [History Last Taken Unknown] ferrous sulfate 325 mg (65 mg iron) tablet 325 mg PO DAILY 03/22/22 [History Last Taken Unknown] primidone 50 mg tablet 25 mg PO DAILY TREMORS 03/22/22 [History Last Taken Unknown] valacyclovir 1 gram tablet 1,000 mg PO DAILY 03/22/22 [History Last Taken Unknown] cholestyramine-aspartame 4 gram oral powder for susp in a packet 4 g PO BID #60 ea 07/19/22 [Rx Last Taken Unknown] Allergy/AdvReac Type Severity Reaction Status Date / Time Iodinated Contrast Media Allergy Shortness Verified 06/13/23 10:39 [Iodinated Contrast Media - of breath IV Dye] Surgical History History of cholecystectomy History of colonoscopy History of hernia repair History of partial colectomy Hx of hernia repair S/P paola-rectal abscess repair, follow-up exam Social History Smoking Status: Former smoker ROS ROS ED Constitutional Constitutional ED: Denies chills or fever(s) Eyes Eyes: Denies blurry vision or change in vision ENT ENT ED: Denies rhinorrhea or sore throat Cardiovascular Cardiovascular: Denies chest pain or palpitations Respiratory/Chest Respiratory/Chest: Denies cough or dyspnea Gastrointestinal Gastrointestinal: Denies nausea or vomiting Genitourinary Genitourinary ED: Denies dysuria or hematuria Musculoskeletal Musculoskeletal: Reports neck pain; Denies back pain Integumentary Reports Abrasions; Denies abscess or rash Neurologic Neurologic: Denies headache(s) or weakness Allergic/Immunologic Allergic/Immunologic ED: Denies mouth swelling or urticaria EXAM Physical Exam Const Vital Signs: 06/13/23 10:36 06/13/23 11:31 Temperature 97 F L Temperature Source Temporal Pulse Rate 60 Respiratory Rate 15 Respiratory Effort Normal Respiratory Depth Normal Respiratory Pattern Normal Blood Pressure 87/51 L Blood Pressure Mean 63 Pulse Ox 92 Oxygen Delivery Method Room Air Room Air Positive well nourished and well developed General Appearance ED: well developed and NAD HEENT HEENT Narrative: There is an abrasion over the forehead. There is no active bleeding noted. There is no bony crepitus or step-off noted. There is tenderness over the cervical spine and paraspinal muscles. There is no obvious deformity noted. Range of motion was limited in all motions of the cervical spine secondary to pain. trauma Neck no lymphadenopathy General: tenderness Resp normal respiratory effort and clear to auscultation bilaterally Cardio regular rate and regular rhythm GI non-tender and non-distended Palpation: soft Neuro oriented x3, CN's II-XII intact bilaterally, moves all extremities, no focal motor deficits and no sensory deficits noted [place] Coma Scale: document GCS findings Spontaneous Obeys Commands Oriented 15 Sensorium / Orientation: alert Motor Exam: strength 5/5 throughout Psych mental status grossly normal Skin Skin Narrative: There is an abrasion across the forehead. There is no bleeding. MDM MDM MDM Narrative Medical decision making narrative: Differential diagnosis includes cervical spine fracture, degenerative arthritis, muscle strain, intracranial bleeding, and closed head injury. CT scan of the brain will be obtained to assess for intracranial bleeding. CT scan of the cervical spine will be obtained to assess for cervical spine fracture. Radiography Diagnostic Testing: Clinical Impression(s) from Imaging Studies Brain CT 06/13/23 11:37 IMPRESSION: Chronic involutional changes of the brain. Encephalomalacia in the right posterior parieto-occipital lobes. Air-fluid levels in both maxillary sinuses. Electronically Signed: Greg aBgley MD at 12:35 EST , Cervical Spine CT 06/13/23 11:37 IMPRESSION: Multilevel degenerative changes, as described above. Electronically Signed: Greg Bagley MD at 12:39 EST , CT scan of the brain was obtained. There is no acute intracranial abnormality. There are chronic changes noted. This was interpreted by the radiologist and was also independently reviewed by myself. CT scan of the cervical spine was obtained. There are multilevel degenerative changes. There is no acute fracture or spondylolisthesis. This was interpreted by the radiologist and was also independently reviewed by myself. Treatment and Re-Evaluation Narrative: Patient was advised of his findings. Patient was instructed to take Tylenol or ibuprofen as needed for pain. Patient requested a cervical collar. This was ordered. Patient will be instructed to follow-up with his primary care physician in 5 to 7 days. Patient understood and was agreeable with the plan. All questions were answered. Discharge Plan Triage Chief Complaint: Fall ED Provider: José Luis Lema Dx/Rx/DC Orders Clinical Impression: Acute cervical myofascial strain, Closed head injury, Fall Instructions: ED Head Injury (Adult), ED Neck Sprain or Strain Prescriptions: No Action cholestyramine-aspartame 4 gram powder in packet 4 g PO BID Qty: 60 2RF Rx Instructions: administer w/meal; avoid other meds within 1hr before or 4-6hr after dose gabapentin 300 MG capsule 300 mg PO QHS insulin lispro [Humalog KwikPen Insulin] 100/ML insulin pen 12 unit subcut TID Rx Instructions: sliding scale insulin glargine [Lantus Solostar U-100 Insulin] 100/ML insulin pen 30 unit subcut 1800 simvastatin 20 mg tablet 20 mg PO QHS propranolol 80 mg capsule,extended release 24 hr 80 mg PO DAILY lisinopril 5 mg tablet 5 mg PO DAILY aspirin 81 mg Tablet 81 mg PO DAILY Hold Instructions: not taking ondansetron 4 mg Tablet,Disintegrating 4 mg PO Q8H PRN (Reason: Nausea) sertraline 50 mg Tablet 50 mg PO DAILY primidone 50 mg tablet 25 mg PO DAILY Patient Comments: TAKE 1/2 (ONE-HALF) OF A TABLET BY MOUTH DAILY AT BEDTIME valacyclovir 1 gram tablet 1,000 mg PO DAILY Probiotic 10 billion cell Capsule 10,000 mmu cells PO DAILY ferrous sulfate 325 mg (65 mg iron) tablet 325 mg PO DAILY diphenoxylate-atropine [Lomotil] 2.5-0.025 mg tablet 1 tab PO BID PRN (Reason: diarrhea) Qty: 60 2RF Primary Care Provider: Pradeep Franklin Referrals: Pradeep Franklin MD [Primary Care Provider] - 5-7 Days Disposition Disposition: Home, Self Care
--- NOTE | 2023-06-13 11:37 | CT_ITS ---
STUDY: CT CERVICAL SPINE WITHOUT CONTRAST REASON FOR EXAM: Male, 88 years old. Trauma. Neck injury. RADIATION DOSAGE (If Supplied By Facility): CTDIvol = ( 26.36 ) mGy, DLP = ( 554.64 ) mGycm TECHNIQUE: High resolution transaxial imaging was performed without contrast material. Sagittal and coronal images were reconstructed. Individualized dose optimization techniques were used for this CT. COMPARISON: None FINDINGS: Normal craniovertebral junction. There are degenerative changes of the anterior atlantoaxial articulation. Normal odontoid process. Normal cervical lordosis. Normal vertebral bodies and posterior osseous elements. C2-3: Facet joint osteoarthritis and hypertrophy worse on the right side. Uncovertebral arthrosis. Mild degree of bilateral neural foraminal stenosis. C3-4: Facet joint osteoarthritis and hypertrophy. Uncovertebral arthrosis. Bilateral neural foraminal stenosis worse on the right side. C4-5: Marked degree of disc space narrowing. Spondylosis. Uncovertebral arthrosis. Mild degree of left neural foraminal stenosis. C5-6: Marked degree of disc space narrowing. Spondylosis. Uncovertebral arthrosis. Moderate degree of right neural foraminal stenosis. C6-7: Marked degree of disc space narrowing and spondylosis. No significant stenosis seen. C7-T1: Normal endplates. Normal disc height and morphology. Normal central canal and intervertebral neuroforamina. Atherosclerotic plaque formation of the carotid bifurcations bilaterally. CT/Spine Cervical without Contras IMPRESSION: Multilevel degenerative changes, as described above. Electronically Signed: Greg Bagley MD at 12:39 EST ,
--- NOTE | 2023-06-13 11:37 | CT_ITS ---
STUDY: CT BRAIN WITHOUT CONTRAST REASON FOR EXAM: Male, 88 years old. History of recent fall. Headaches and neck pain. RADIATION DOSAGE (If Supplied By Facility): CTDIvol = ( 44.99 ) mGy, DLP = ( 796.11 ) mGycm TECHNIQUE: Transaxial CT imaging of the brain was performed without administration of intravenous contrast material. Individualized dose optimization techniques were used for this CT. COMPARISON: Comparison is made with prior study dated January 06, 2023. FINDINGS: Normal soft tissue structures. Normal calvarium. There is mild cerebral atrophy with widening of the extra-axial spaces and ventricular dilatation. There are areas of decreased attenuation within the white matter tracts of the supratentorial brain, consistent with microvascular disease changes. Stable encephalomalacia in the posterior right parietal occipital lobe. Normal basal ganglia and thalami. Normal brainstem. Normal cerebellum. There is no intracranial hemorrhage. There are no findings of an acute ischemic infarction. Atherosclerotic calcification of the vertebral arteries and cavernous portions of the internal carotid arteries bilaterally. There are air-fluid levels in both maxillary sinuses. CT/Brain/Head without Contrast IMPRESSION: Chronic involutional changes of the brain. Encephalomalacia in the right posterior parieto-occipital lobes. Air-fluid levels in both maxillary sinuses. Electronically Signed: Greg Bagley MD at 12:35 EST ,
== END 2023-06-13 13:38 | disposition home or self-care (01) ==
PROVIDERS: Emergency Provider Emergency Medicine; PCP Family Medicine; Visit Provider Emergency Medicine
DX: S16.1XXA Strain of muscle, fascia and tendon at neck level, initial encounter (principal); E78.00 Pure hypercholesterolemia, unspecified; K21.9 Gastro-esophageal reflux disease without esophagitis; S09.90XA Unspecified injury of head, initial encounter; Z87.891 Personal history of nicotine dependence; W01.0XXA Fall on same level from slipping, tripping and stumbling without subsequent striking against object, initial encounter
CPT/HCPCS: 70450; 72125; 99282

== ENCOUNTER 2023-11-28 18:11 | Inpatient (IN) | payer MEDICARE, SELFPAY ==
[2023-11-28 18:14] VITALS: BP 119/70; PULSE 93; RESP 16; TEMP 35.8; O2SAT 95
[2023-11-28 18:15] VITALS: BMI 28.3
[2023-11-28 18:34] LABS: Absolute Lymphocyte Count 4.01 X10^3/uL (0.83-4.51); Absolute Neutrophil Count 4.9 X10^3/uL (2.0-7.7); Eosinophil# 0.43 X10^3/uL; Eosinophils% 4.1 % (0-5); Hematocrit 41.5 % (40-54); Lymphocyte # 4.01 X10^3/ul (0.83-4.51); Lymphocyte % 38.6 % (19-41); Mean Corp Hgb Conc 33.7 g/dL (32-36); Mean Corpuscular Hgb 34.8 pg (27.0-32.0); Mean Corpuscular Volume 103.2 fL (80-94); Mean Platelet Vol. 9.6 fl (6.2-12.0); Monocyte# 0.94 X10^3/uL; Monocyte% 9.1 % (0-10); NRBC Flagged by Analyzer 0 % (0-5); Neutrophil # 4.86 X10^3/uL (2.7-7.7); Neutrophil % 46.8 % (47-70); Platelet Count 269 K/mm3 (150-450); RBC Distribution Width CV 12.1 % (11.6-14.6); Red Blood Count 4.02 M/mm3 (4.6-6.2); White Blood Count 10.4 K/mm3 (4.4-11.0)
[2023-11-28 18:55] LABS: ALB/GLOB Ratio 0.9 RATIO (0.9-2.4); AST(SGOT) 17 U/L (15-37); Alanine Aminotransfer ALT/SGPT 28 U/L (16-61); Albumin, Serum 3.4 g/dL (3.2-5.0); Alkaline Phosphatase 93 U/L (45-117); Anion Gap 5 (5-15); BUN 30 mg/dL (7-18); BUN/Creat Ratio 19.4 RATIO (10-20); Calcium,Total 8.7 mg/dL (8.5-10.1); Chloride 100 mmol/L (98-107); Creatinine, Serum 1.55 mg/dL (0.70-1.30); EST Glomerular Filtration Rate 45 mL/min (>60); Est Glom Filt Rate - Afr Amer 55 mL/min (>60); Globulin 3.7 g/dL (2.2-4.2); Glucose 205 mg/dL (74-106); Potassium 4.4 mmol/L (3.5-5.1); Protein, Total 7.1 g/dL (6.4-8.2); Sodium Level 133 mmol/L (136-145)
--- NOTE | 2023-11-28 19:01 | EDS_ITS ---
HPI History of Present Illness Chief Complaint: GI Bleed Informant: patient and family Narrative Narrative: 88-year-old male presenting to the emergency room with bright red blood rectum. Patient states that he had 3 bowel movements at home which she states were small formed brown stool with bright red blood. He states this has happened twice in his life 1 time requiring admission with blood transfusion. He notes a history of colon cancer with partial resection. Patient denies any pain. No syncope. He takes aspirin but no blood thinners. Patient notes also history of C. difficile infections and does not been having diarrhea of that nature. He rafael duvall gets his care at the [facility]. [facility] Medical History Wears dentures Wears glasses Cancer Insulin dependent diabetes mellitus Back pain Parkinson's disease Leg cramps History of edema History of irregular heartbeat History of echocardiogram History of stress test Chest pain Chronic diarrhea Depression Diabetes GI bleed Former smoker Sleep apnea Hypertension Stroke/cerebrovascular accident Personal history of colon cancer Psoriasis Anxiety C. difficile diarrhea Prostate cancer GERD (gastroesophageal reflux disease) High cholesterol Tobacco abuse History of GI bleed Diabetic neuropathy HLD (hyperlipidemia) Diverticulosis of colon without diverticulitis Type II diabetes mellitus Benign hypertension Home Medications ?Medication ?Instructions ?Recorded ?Last Taken ?Type gabapentin 300 mg capsule 300 mg PO QHS nerve pain 10/05/13 05/14/18 History insulin glargine 100 unit/mL (3 30 unit subcut 1800 diabetes 05/15/18 05/14/18 History mL) subcutaneous pen (Lantus Solostar U-100 Insulin) insulin lispro 100 unit/mL 12 unit subcut TID 05/15/18 05/15/18 History subcutaneous pen (Humalog KwikPen (U-100) Insulin) lisinopril 5 mg tablet 5 mg PO DAILY 09/12/21 Unknown History propranolol 80 mg capsule,24 80 mg PO DAILY blood pressure 09/12/21 Unknown History hr,extended release simvastatin 20 mg tablet 20 mg PO QHS cholesterol 09/12/21 Unknown History aspirin 81 mg tablet 81 mg PO DAILY heart health 09/13/21 Unknown History ondansetron 4 mg disintegrating 4 mg PO Q8H PRN Nausea 09/13/21 Unknown History tablet sertraline 50 mg tablet 50 mg PO DAILY mental health 09/13/21 Unknown History diphenoxylate-atropine 2.5 1 tab PO BID PRN diarrhea #60 tabs 03/11/22 Unknown Rx mg-0.025 mg tablet (Lomotil) Lactobacillus acidophilus 10 10,000 mmu cells PO DAILY 03/22/22 Unknown History billion cell capsule (Probiotic) ferrous sulfate 325 mg (65 mg 325 mg PO DAILY 03/22/22 Unknown History iron) tablet primidone 50 mg tablet 25 mg PO DAILY TREMORS 03/22/22 Unknown History valacyclovir 1 gram tablet 1,000 mg PO DAILY 03/22/22 Unknown History cholestyramine-aspartame 4 gram 4 g PO BID #60 ea 07/19/22 Unknown Rx oral powder for susp in a packet Allergy/AdvReac Type Severity Reaction Status Date / Time Iodinated Contrast Media Allergy Shortness Verified 11/28/23 18:13 (Iodinated Contrast Media - of breath IV Dye) labetalol AdvReac Intermediate hypotension Verified 11/28/23 18:13 metformin AdvReac Diarrhea Verified 11/28/23 18:13 Surgical History Hx of hernia repair History of cholecystectomy History of colonoscopy History of hernia repair History of partial colectomy S/P paola-rectal abscess repair, follow-up exam Social History Smoking Status: Former smoker ROS ROS ED Constitutional Constitutional ED: Denies chills, fever(s) or weight loss Eyes Eyes: Denies change in vision or diplopia ENT ENT ED: Denies ear pain, rhinorrhea or sore throat Cardiovascular Cardiovascular: Denies chest pain, orthopnea, palpitations or racing heartbeat Respiratory/Chest Respiratory/Chest: Denies cough, dyspnea or orthopnea Gastrointestinal Gastrointestinal: Reports other Details: Bright red blood per rectum ; Denies abdominal pain, diarrhea, nausea or vomiting Genitourinary Genitourinary ED: Denies dysuria, hematuria or urinary frequency Musculoskeletal Musculoskeletal: Denies arthralgias or myalgias Integumentary Denies abscess or rash Neurologic Neurologic: Denies headache(s) or weakness Psychiatric Psychiatric: Denies anxiety, depression, suicidal ideation or suicidal thoughts Endocrine Endocrinology: Denies polydipsia, polyphagia or polyuria Allergic/Immunologic Allergic/Immunologic ED: Denies mouth swelling, tongue swelling or urticaria EXAM Physical Exam Const Vital Signs: 11/28/23 18:14 11/28/23 20:12 Temperature 96.5 F L Temperature Source Temporal Pulse Rate 93 87 Respiratory Rate 16 17 Blood Pressure 119/70 118/91 H Blood Pressure Mean 86 100 Pulse Ox 95 96 Oxygen Delivery Method Room Air Room Air Positive well nourished and well developed General Appearance ED: well developed HEENT Reports normocephalic, head/scalp atraumatic and moist mucous membranes Eyes PERRL and EOMs intact bilaterally Neck no lymphadenopathy, supple and no JVD Resp normal respiratory effort and clear to auscultation bilaterally Cardio regular rate, regular rhythm and no murmurs GI normal to inspection, nondistended, normoactive bowel sounds and non-tender Palpation: soft Back/Spine no CVA tenderness and normal ROM Extremity normal to inspection General Extremety ED: Negative for edema General Extremity: Negative for edema Neuro oriented x3 and CN's II-XII intact bilaterally Sensorium / Orientation: alert Motor Exam: strength 5/5 throughout Psych mental status grossly normal Mood & Affect: Negative for depressed or tearful Skin no rashes or lesions noted and no wounds MDM MDM MDM Narrative Medical decision making narrative: Differential diagnosis includes but not limited to colitis diverticular bleed a feeding malformation internal/external hemorrhoidal bleeding anal fissure anemia Patient's initial hemoglobin of 14 decreased to 12.8. He has had another bowel movement here with a large amount of blood per nursing. He has remained hemodynamically stable however. This is about his fourth or fifth bowel movement since it began late today. He again has had this 2 times in his life 1 time requiring transfusion of significant mount of blood in both times with no definitive etiology. Is also had a history of colon cancer with partial bowel resection at [facility]. Plan will be to admit the patient to the [facility] for further monitoring History & Record Review Discussion w/independent historian: Patient Lab Data Labs: Laboratory Results - last 24 hr 11/28/23 11/28/23 18:23 20:58 WBC 10.4 RBC 4.02 L Hgb 14.0 12.8 L Hct 41.5 38.0 L MCV 103.2 H MCH 34.8 H MCHC 33.7 RDW Std Deviation 46.0 H RDW Coeff of Angel 12.1 Plt Count 269 MPV 9.6 Immature Gran % (Auto) 0.400 Neut % (Auto) 46.8 L Lymph % (Auto) 38.6 [place] % (Auto) 9.1 Eos % (Auto) 4.1 Baso % (Auto) 1.0 Absolute Neuts (auto) 4.9 Absolute Lymphs (auto) 4.01 Nucleated RBC % 0 PT 14.4 INR 1.1 APTT 35.3 Sodium 133 L Potassium 4.4 Chloride 100 Carbon Dioxide 28.0 Anion Gap 5 BUN 30 H Creatinine 1.55 H Estim Creat Clear Calc 36.00 Est GFR (MDRD) Af Amer 55 L Est GFR (MDRD) Non-Af 45 L BUN/Creatinine Ratio 19.4 Glucose 205 H Calcium 8.7 Total Bilirubin 0.20 AST 17 ALT 28 Alkaline Phosphatase 93 Total Protein 7.1 Albumin 3.4 Globulin 3.7 Albumin/Globulin Ratio 0.9 Urine Color Yellow Urine Clarity Clear Urine pH 6.0 Ur Specific [place] 1.015 Urine Protein 15 H Urine Glucose (UA) Normal Urine Ketones Negative Urine Occult Blood Negative Urine Nitrite Negative Urine Bilirubin Negative Urine Urobilinogen Normal Ur Leukocyte Esterase Negative Urine RBC 0 SEEN Urine WBC 0 SEEN Ur Squamous Epith Cells 0 SEEN Urine Bacteria 0 SEEN Urine Mucus 0 SEEN Discharge Plan Dx/Rx/DC Orders Clinical Impression: Acute lower GI bleeding, Acute blood loss anemia, Diabetes [facility]position [facility]
[2023-11-28 19:17] LABS: International Normalized Ratio 1.1; Prothrombin Time (Protime)PT. 14.4 SECONDS (11.7-14.9)
[2023-11-28 19:18] LABS: Partial Thromboplast Time 35.3 Seconds (24.1-36.2)
[2023-11-28 19:25] LABS: Bacteria 0 SEEN /hpf (None Seen); Mucous, Urine 0 SEEN /hpf (<or=2+); Red Blood Cells-Urine 0 SEEN /hpf (0-5); Squamous Epithelial Cells - UA 0 SEEN /hpf (0-5); White Blood Cells 0 SEEN /hpf (0-5)
[2023-11-28 20:12] VITALS: BP 118/91; PULSE 87; RESP 17; O2SAT 96
[2023-11-28 21:13] LABS: Hemoglobin 12.8 g/dL (13.0-16.5)
[2023-11-28 21:14] LABS: Color, Urine Yellow (Yellow); Glucose, Dipstick Normal (Normal); Ketone-Dipstick Negative (Negative); Leukocyte Esterase-Dipstick Negative /ul (Negative); Nitrite-Dipstick Negative (Negative); Occult Blood-Urine Negative /ul (Negative); Protein-Dipstick 15 mg/dl (Negative); Specific Gravity, Urine 1.015 (1.002-1.030); Urine Bilirubin Dipstick Negative (Negative); Urine Clarity Clear (Clear); Urine Urobilinogen Normal (Normal)
--- NOTE | 2023-11-28 21:45 | PCM.HP.STD ---
HPI - General General Date of Admission: 11/28/23 Date of Service: 11/28/23 Chief Complaint: Suspected lower GI bleed HPI Narrative LEONOR MIJARES, is a 88 M who presented to [facility] ED on 11/28/2023 with concern for lower GI bleed. Saw patient at bedside in the ED, present. Patient was sitting up comfortably in bed, conversing normally, in no acute distress. Patient had 3 bowel movements at home earlier today with small formed brown stool with bright red blood in the stool. Has history of 2 prior GI bleeds with 1 severe enough to require transfusion. Also has history of colon cancer with partial resection. Patient denies any pain with these bloody bowel movements. Denies any lightheadedness or dizziness. Denies any fevers or chills. In the ED, patient had 2 more bloody bowel movements with the second being quite large, and his hemoglobin was noted to drop from 14.0 to 12.8 in only a few hours, so hospitalist was contacted for admission. Vitals in the ED were unremarkable. Aside from the mild hemoglobin drop, labs were otherwise notable for sodium 133, BUN 30, creatinine 1.55 (baseline 1.0-1.3), glucose 205, otherwise unremarkable. No imaging was obtained in the ED. [facility] Medical History Wears dentures Wears glasses Cancer Insulin dependent diabetes mellitus Back pain Parkinson's disease Leg cramps History of edema History of irregular heartbeat History of echocardiogram History of stress test Chest pain Chronic diarrhea Depression Diabetes GI bleed Former smoker Sleep apnea Hypertension Stroke/cerebrovascular accident Personal history of colon cancer Psoriasis Anxiety C. difficile diarrhea Prostate cancer GERD (gastroesophageal reflux disease) High cholesterol Tobacco abuse History of GI bleed Diabetic neuropathy HLD (hyperlipidemia) Diverticulosis of colon without diverticulitis Type II diabetes mellitus Benign hypertension Home Medications ?Medication ?Instructions ?Recorded ?Last Taken ?Type gabapentin 300 mg capsule 300 mg PO QHS nerve pain 10/05/13 05/14/18 History insulin glargine 100 unit/mL (3 32 unit subcut QHS diabetes 05/15/18 05/14/18 History mL) subcutaneous pen (Lantus Solostar U-100 Insulin) insulin lispro 100 unit/mL 14 unit subcut TID 05/15/18 05/15/18 History subcutaneous pen (Humalog KwikPen (U-100) Insulin) lisinopril 5 mg tablet 5 mg PO DAILY 09/12/21 Unknown History simvastatin 20 mg tablet 20 mg PO QHS cholesterol 09/12/21 Unknown History aspirin 81 mg tablet 81 mg PO DAILY heart health 09/13/21 Unknown History Lactobacillus acidophilus 10 10,000 mmu cells PO DAILY 03/22/22 Unknown History billion cell capsule (Probiotic) ferrous sulfate 325 mg (65 mg 325 mg PO DAILY 03/22/22 Unknown History iron) tablet primidone 50 mg tablet 25 mg PO QHS TREMORS 03/22/22 Unknown History valacyclovir 1 gram tablet 1,000 mg PO DAILY 03/22/22 Unknown History albuterol sulfate 90 mcg/actuation 2 inh inhalation Q4H PRN shortness 11/28/23 Unknown History aerosol inhaler of breath or wheezing metolazone 5 mg tablet 2.5 mg PO DAILY 11/28/23 Unknown History sertraline 100 mg tablet 200 mg PO DAILY 11/28/23 Unknown History Allergy/AdvReac Type Severity Reaction Status Date / Time Iodinated Contrast Media Allergy Shortness Verified 11/28/23 18:13 (Iodinated Contrast Media - of breath IV Dye) labetalol AdvReac Intermediate hypotension Verified 11/28/23 18:13 metformin AdvReac Diarrhea Verified 11/28/23 18:13 Surgical History Hx of hernia repair History of cholecystectomy History of colonoscopy History of hernia repair History of partial colectomy S/P paola-rectal abscess repair, follow-up exam Social History Smoking Status: Former smoker ROS Constitutional Constitutional: Denies chills, fatigue or fever(s) Eyes Eyes: Denies change in vision Cardiovascular Cardiovascular: Denies chest pain Respiratory/Chest Respiratory/Chest: Denies shortness of breath at rest Gastrointestinal Gastrointestinal: Reports hematochezia; Denies abdominal pain, coffee ground emesis, constipation, diarrhea, melena, nausea or vomiting Neurologic Neurologic: Denies dizziness, focal weakness or headache(s) Vital Signs Vital Signs Vital Signs: 11/28/23 18:14 11/28/23 20:12 Temperature 96.5 F L Temperature Source Temporal Pulse Rate 93 87 Respiratory Rate 16 17 Blood Pressure 119/70 118/91 H Blood Pressure Mean 86 100 Pulse Ox 95 96 Oxygen Delivery Method Room Air Room Air Weight Weight: 87.1 kg Body Mass Index (BMI) 28.3 Physical Exam Const alert, oriented x3, no apparent distress and average body habitus Constitutional Narrative: Elderly male, mildly fatigued appearing, otherwise sitting up comfortably in bed, conversing normally, no acute distress. General Appearance: cooperative and comfortable HEENT normocephalic, head/scalp atraumatic, hearing grossly normal bilaterally and nasal mucous membranes and turbinates normal HEENT Narrative: Dry mucous membranes. Eyes PERRL, EOMs intact bilaterally and conjunctivae normal Neck full ROM Chest inspection of chest normal Resp normal respiratory effort, normal air movement, no use of accessory muscles and clear to auscultation bilaterally Cardio regular rate, regular rhythm, no murmurs and peripheral pulses 2+ throughout GI normal to inspection, nondistended, normoactive bowel sounds, soft to palpation, non-tender and non-distended Back/Spine normal ROM Extremity normal to inspection, full ROM and no pedal edema Skin no rashes or lesions noted Neuro moves all extremities and no focal motor deficits Speech: speech normal Psych mental status grossly normal Results Lab / Micro Data 11/28/23 20:58 11/28/23 18:23 Labs: Laboratory Results - last 24 hr 11/28/23 18:23: WBC 10.4, RBC 4.02 L, Hgb 14.0, Hct 41.5, MCV 103.2 H, MCH 34.8 H, MCHC 33.7, RDW Std Deviation 46.0 H, RDW Coeff of Angel 12.1, Plt Count 269, MPV 9.6, Immature Gran % (Auto) 0.400, Neut % (Auto) 46.8 L, Lymph % (Auto) 38.6, [place] % (Auto) 9.1, Eos % (Auto) 4.1, Baso % (Auto) 1.0, Absolute Neuts (auto) 4.9, Absolute Lymphs (auto) 4.01, Nucleated RBC % 0, PT 14.4, INR 1.1, APTT 35.3, Sodium 133 L, Potassium 4.4, Chloride 100, Carbon Dioxide 28.0, Anion Gap 5, BUN 30 H, Creatinine 1.55 H, Estim Creat Clear Calc 36.00, Est GFR (MDRD) Af Amer 55 L, Est GFR (MDRD) Non-Af 45 L, BUN/Creatinine Ratio 19.4, Glucose 205 H, Calcium 8.7, Total Bilirubin 0.20, AST 17, ALT 28, Alkaline Phosphatase 93, Total Protein 7.1, Albumin 3.4, Globulin 3.7, Albumin/Globulin Ratio 0.9 11/28/23 20:58: Hgb 12.8 L, Hct 38.0 L, Urine Color Yellow, Urine Clarity Clear, Urine pH 6.0, Ur Specific [place] 1.015, Urine Protein 15 H, Urine Glucose (UA) Normal, Urine Ketones Negative, Urine Occult Blood Negative, Urine Nitrite Negative, Urine Bilirubin Negative, Urine Urobilinogen Normal, Ur Leukocyte Esterase Negative, Urine RBC 0 SEEN, Urine WBC 0 SEEN, Ur Squamous Epith Cells 0 SEEN, Urine Bacteria 0 SEEN, Urine Mucus 0 SEEN Assessment & Plan Assessment/Plan (1) Acute lower GI bleeding: (2) Acute blood loss anemia: PLAN: Plan Patient is an 88-year-old male who presented [facility] ED on 11/28/2023 with suspected lower GI bleed. 1. Bright red blood per rectum suspected due to lower GI bleed, mild acute blood loss anemia ? Admit under observation status to PCU. GI consulted. On chart review, patient had colonoscopy with Dr. Jarvis in March 2022 that showed multiple small and large mouth diverticula found throughout the entire colon. Given painless bleed with known significant diverticula, diverticular bleed seems most likely at this time. Hemoglobin dropped from 14.0 to 12.8 on ~2 hour recheck in the ED; patient remained hemodynamically stable and nontachycardic. Will follow-up a.m. CBC and monitor overnight for further bloody bowel movements. N.p.o. status for now. 2. Mild creatinine elevation with mild hyponatremia ? Creatinine 1.55 on admit, baseline appears to be around 1.0-1.3. Sodium 133. Suspect due to mild dehydration secondary to GI bleed and mild decreased p.o. intake. Given IV fluid resuscitation in the ED, follow-up a.m. BMP and monitor urine output. Chronic medical conditions: ? Type 2 diabetes mellitus with neuropathy: Home regimen of Lantus 32 units at night and Humalog 14 units with meals. Blood glucose 205 on admit. With patient n.p.o. as noted above, will start Lantus 16 units at night with sliding scale insulin as needed with serial Accu-Cheks, can adjust as needed. Continue home gabapentin. ? Hypertension, hyperlipidemia, tremors: Will hold home lisinopril and metolazone given mild creatinine elevation as noted above. Continue home simvastatin and primidone. ? Mood disorder: Stable. Continue home sertraline. DVT prophylaxis: SCDs CODE STATUS: Full code, verified Expected disposition: Home, 1 to 2 days Total clinical time spent by myself addressing the patient's medical issues, reviewing all the data, and collaborating with patient's care team: 55 minutes. Charges/Coding Visit Charges Inpatient E&M: 32748 Init Hosp L2
[2023-11-28 22:00] VITALS: BP 125/79; PULSE 92; RESP 29; TEMP 36.6; O2SAT 95
[2023-11-28] MEDS: 0.9% Normal Saline (1000mL) 1,000 ML 500 ML IV (22:09)
[2023-11-28 22:24] VITALS: BMI 27.9
[2023-11-28 22:24] LABS: Bedside Glucose 163 mg/dL (74-106)
[2023-11-28 22:30] VITALS: BP 130/81; PULSE 82; RESP 16; TEMP 36.7; O2SAT 96
[2023-11-28 22:31] VITALS: BP 130/81; PULSE 82; RESP 17; TEMP 36.7; O2SAT 96
[2023-11-28] MEDS: Atorvastatin Calcium 10 MG Tablet PO (22:56)
[2023-11-28] MEDS: Gabapentin 300 MG Capsule PO (22:56)
[2023-11-28 23:07] VITALS: PULSE 82; RESP 16; O2SAT 96
[2023-11-29 04:24] VITALS: PULSE 80
[2023-11-29 05:10] VITALS: BP 121/68; PULSE 61; RESP 17; TEMP 36.5; O2SAT 93
[2023-11-29 07:00] VITALS: PULSE 74
[2023-11-29 07:48] LABS: Hematocrit 35.6 % (40-54); Mean Corp Hgb Conc 33.7 g/dL (32-36); Mean Corpuscular Hgb 34.9 pg (27.0-32.0); Mean Corpuscular Volume 103.5 fL (80-94); Mean Platelet Vol. 9.4 fl (6.2-12.0); Platelet Count 235 K/mm3 (150-450); RBC Distribution Width CV 12.2 % (11.6-14.6); RBC Distribution Width SD 46.5 fl (35.1-43.9); Red Blood Count 3.44 M/mm3 (4.6-6.2); White Blood Count 8.3 K/mm3 (4.4-11.0)
[2023-11-29 08:01] VITALS: BP 126/79; PULSE 82; RESP 20; TEMP 36.6; O2SAT 95
[2023-11-29 08:12] LABS: Anion Gap 1 (5-15); BUN 29 mg/dL (7-18); BUN/Creat Ratio 23.2 RATIO (10-20); Chloride 102 mmol/L (98-107); Creatinine, Serum 1.25 mg/dL (0.70-1.30); EST Glomerular Filtration Rate 58 mL/min (>60); Est Glom Filt Rate - Afr Amer 70 mL/min (>60); Estimated Creatinine Clearance 44.36 ml/min; Glucose 280 mg/dL (74-106); Sodium Level 132 mmol/L (136-145)
--- NOTE | 2023-11-29 09:32 | CASEMGMT ---
Met with pt to complete BARRERA form. BARRERA form explained to pt at this time who voiced understanding and signed form. Original form placed in pt?s chart and copy provided to the pt. This ALICIA GEORGE also discussed DC planning with the pt. Pt states that he lives alone but rents out part of his home to a Home Health Professional. Pt also states that he is active with [facility]. [employer] is 18. Pt states that his daughter provides him with transportation. Pt denies further needs and states that he feels safe returning home with the continuation of these services once he is medically ready. Francisco Javier Mccoy RN CM
[2023-11-29] MEDS: Primidone 50 MG Tablet 25 MG PO (10:04)
[2023-11-29] MEDS: Acyclovir 200 MG Capsule 400 MG PO ×2 (10:05→21:35)
[2023-11-29] MEDS: Lactobacillis Acidophilus 1 CAP PO (10:06)
[2023-11-29] MEDS: Insulin Lispro 100 UNIT/ML INSULN.PEN SC ×3 (10:13→21:37)
[2023-11-29] MEDS: Sertraline 100 MG Tablet 200 MG PO (10:13)
[2023-11-29 10:24] LABS: Bedside Glucose 254 mg/dL (74-106)
--- NOTE | 2023-11-29 11:00 | PN_ITS ---
Subjective Subjective Patient seen and examined. He had no active complaints. He was admitted with a complaint of rectal bleeding. He has not had any bloody bowel movements since admission. Review of systems otherwise negative. He has remained hemodynamically stable. Hemoglobin today is 12. Objective Data Objective Data Vital Signs: Vital Signs Temp Pulse Resp BP Pulse Ox O2 Del Method 97.8 F 82 20 H 126/79 H 95 Room Air 11/29/23 08:01 11/29/23 08:01 11/29/23 08:01 11/29/23 08:01 11/29/23 08:01 11/29/23 08:01 Oxygen Delivery Method Room Air Weight: 189 lb 6.033 oz Body Mass Index (BMI) 27.9 Intake & Output: Intake and Output for Last 24 Hours 11/27/23 11/28/23 11/29/23 23:59 23:59 23:59 Intake Total 0 / 0 1000 / 1000 Output Total 0 / 0 0 / 0 Balance 0 / 0 1000 / 1000 Lab / Micro Data 11/29/23 07:40 11/29/23 07:40 Labs: Laboratory Results - last 24 hr 11/28/23 18:23: WBC 10.4, RBC 4.02 L, Hgb 14.0, Hct 41.5, MCV 103.2 H, MCH 34.8 H, MCHC 33.7, RDW Std Deviation 46.0 H, RDW Coeff of Angel 12.1, Plt Count 269, MPV 9.6, Immature Gran % (Auto) 0.400, Neut % (Auto) 46.8 L, Lymph % (Auto) 38.6, [place] % (Auto) 9.1, Eos % (Auto) 4.1, Baso % (Auto) 1.0, Absolute Neuts (auto) 4.9, Absolute Lymphs (auto) 4.01, Nucleated RBC % 0, PT 14.4, INR 1.1, APTT 35.3, Sodium 133 L, Potassium 4.4, Chloride 100, Carbon Dioxide 28.0, Anion Gap 5, BUN 30 H, Creatinine 1.55 H, Estim Creat Clear Calc 36.00, Est GFR (MDRD) Af Amer 55 L, Est GFR (MDRD) Non-Af 45 L, BUN/Creatinine Ratio 19.4, Glucose 205 H, Calcium 8.7, Total Bilirubin 0.20, AST 17, ALT 28, Alkaline Phosphatase 93, Total Protein 7.1, Albumin 3.4, Globulin 3.7, Albumin/Globulin Ratio 0.9 11/28/23 20:58: Hgb 12.8 L, Hct 38.0 L, Urine Color Yellow, Urine Clarity Clear, Urine pH 6.0, Ur Specific [place] 1.015, Urine Protein 15 H, Urine Glucose (UA) Normal, Urine Ketones Negative, Urine Occult Blood Negative, Urine Nitrite Negative, Urine Bilirubin Negative, Urine Urobilinogen Normal, Ur Leukocyte Esterase Negative, Urine RBC 0 SEEN, Urine WBC 0 SEEN, Ur Squamous Epith Cells 0 SEEN, Urine Bacteria 0 SEEN, Urine Mucus 0 SEEN 11/28/23 22:05: POC Glucose 163 H 11/29/23 07:40: WBC 8.3, RBC 3.44 L, Hgb 12.0 L, Hct 35.6 L, MCV 103.5 H, MCH 34.9 H, MCHC 33.7, RDW Std Deviation 46.5 H, RDW Coeff of Angel 12.2, Plt Count 235, MPV 9.4, Sodium 132 L, Potassium 5.0, Chloride 102, Carbon Dioxide 29.0, A nion Gap 1 L, BUN 29 H, Creatinine 1.25, Estim Creat Clear Calc 44.36, Est GFR (MDRD) Af Amer 70, Est GFR (MDRD) Non-Af 58 L, BUN/Creatinine Ratio 23.2 H, G lucose 280 H, Calcium 8.0 L 11/29/23 10:02: POC Glucose 254 H Physical Exam Const alert, oriented x3, no apparent distress and well nourished General Appearance: cooperative and well developed HEENT normocephalic, head/scalp atraumatic, moist oral mucous membranes and oropharynx normal Eyes PERRL and EOMs intact bilaterally Neck no lymphadenopathy and supple Lymph Lymphatic: no lymphadenopathy noted and no lymphedema noted Resp normal respiratory effort, normal air movement and clear to auscultation bilaterally Cardio regular rate, regular rhythm, S1 normal heart sound, S2 normal heart sound and no murmurs GI normal to inspection, nondistended, normoactive bowel sounds, soft to palpation, non-tender and non-distended Extremity normal capillary refill, no clubbing, cyanosis or edema and no calf tenderness General Extremity: no tenderness to palpation of joints or extremities Skin General Skin Exam: no breakdown and turgor normal Neuro CN's II-XII intact bilaterally, no focal motor deficits, no sensory deficits noted and deep tendon reflexes 2+ bilaterally Motor Exam: strength 5/5 throughout and general weakness Psych thought process normal and cooperative Appearance: appropriate Assessment & Plan Assessment/Plan (1) Acute blood loss anemia: (2) Acute lower GI bleeding: PLAN: Plan #Acute lower GI bleed * Admitted with a complaint of rectal bleeding. He has not had any more since admission. * has a history of diverticulosis, with colonoscopy done in March 2022 which showed multiple large nad small mouth diverticulae * Hb was 14 on admission, now 12. * also has a remote history of colon cancer s/p surgery. * gastroenterology on board * continue hydration with IVF * keep NPO * #Elevated Cr: Cr was 1.55 on admission. Likely due to volume depletion from GI bleed.Cr is 1.25 now. Continue gentle hydration with IVF. #Type 2 diabetes mellitus: Lantus cut down from home dose of 32 units to 16 units as he is NPO. Will hold Lantus for now. Insulin sliding scale. Accu- Cheks ACHS. On gabapentin for neuropathy. #Hypertension: Lisinopril and metolazone held due to elevated creatinine on admission. IV hydralazine as needed #Depression: On sertraline #Hyperlipidemia: On statin DVT prophylaxis: SCDs. Charges/Coding Visit Charges Inpatient E&M: 69770 Subs Hosp L2
[2023-11-29 16:00] VITALS: BP 128/76; PULSE 88; RESP 16; TEMP 37.1; O2SAT 93
[2023-11-29 20:49] LABS: Bedside Glucose 219 mg/dL (74-106)
[2023-11-29] MEDS: Gabapentin 300 MG Capsule PO (21:35)
[2023-11-29] MEDS: Atorvastatin Calcium 10 MG Tablet PO (21:35)
[2023-11-29] MEDS: Acetaminophen 325 MG Tablet 650 MG PO (21:36)
[2023-11-29] MEDS: Insulin Glargine-YFGN 100 UNIT/ML Pen 16 UNIT SC (21:36)
[2023-11-29 21:42] LABS: Bedside Glucose 190 mg/dL (74-106)
[2023-11-29] MEDS: 0.9% Saline Lock 10 ML Syringe IV (21:43)
[2023-11-29 21:48] VITALS: BP 114/62; PULSE 85; RESP 16; TEMP 36.3; O2SAT 94
[2023-11-30 04:01] VITALS: BP 136/60; PULSE 83; RESP 16; TEMP 36.5; O2SAT 92
[2023-11-30] MEDS: Acetaminophen 325 MG Tablet 650 MG PO (05:03)
[2023-11-30 05:32] LABS: Absolute Lymphocyte Count 2.45 X10^3/uL (0.83-4.51); Absolute Neutrophil Count 4.7 X10^3/uL (2.0-7.7); Basophil# 0.07 X10^3/uL; Basophil% 0.8 % (0-1); Eosinophil# 0.41 X10^3/uL; Eosinophils% 4.9 % (0-5); Hematocrit 37.2 % (40-54); Hemoglobin 12.6 g/dL (13.0-16.5); Lymphocyte # 2.45 X10^3/ul (0.83-4.51); Lymphocyte % 29.2 % (19-41); Mean Corp Hgb Conc 33.9 g/dL (32-36); Mean Corpuscular Hgb 35.6 pg (27.0-32.0); Mean Corpuscular Volume 105.1 fL (80-94); Mean Platelet Vol. 9.5 fl (6.2-12.0); Monocyte# 0.72 X10^3/uL; Monocyte% 8.6 % (0-10); NRBC Flagged by Analyzer 0 % (0-5); Neutrophil # 4.71 X10^3/uL (2.7-7.7); Neutrophil % 56.1 % (47-70); Platelet Count 234 K/mm3 (150-450); RBC Distribution Width CV 12.3 % (11.6-14.6); RBC Distribution Width SD 47.8 fl (35.1-43.9); Red Blood Count 3.54 M/mm3 (4.6-6.2); White Blood Count 8.4 K/mm3 (4.4-11.0)
[2023-11-30 05:52] LABS: Anion Gap 6 (5-15); BUN 26 mg/dL (7-18); BUN/Creat Ratio 19.8 RATIO (10-20); Calcium,Total 8.4 mg/dL (8.5-10.1); Chloride 102 mmol/L (98-107); Creatinine, Serum 1.31 mg/dL (0.70-1.30); EST Glomerular Filtration Rate 55 mL/min (>60); Est Glom Filt Rate - Afr Amer 66 mL/min (>60); Estimated Creatinine Clearance 42.33 ml/min; Glucose 240 mg/dL (74-106); Sodium Level 135 mmol/L (136-145)
[2023-11-30] MEDS: Insulin Lispro 100 UNIT/ML INSULN.PEN SC ×3 (06:09→17:46)
[2023-11-30 06:29] LABS: Bedside Glucose 205 mg/dL (74-106)
[2023-11-30 07:00] VITALS: PULSE 80
[2023-11-30 09:30] VITALS: BP 119/64; PULSE 81; RESP 16; TEMP 36.1; O2SAT 98
[2023-11-30] MEDS: Sertraline 100 MG Tablet 200 MG PO (09:41)
[2023-11-30] MEDS: Lactobacillis Acidophilus 1 CAP PO (09:42)
[2023-11-30] MEDS: Acyclovir 200 MG Capsule 400 MG PO ×2 (09:42→21:22)
[2023-11-30] MEDS: Ferrous Sulfate 325 MG Tablet PO (09:42)
[2023-11-30] MEDS: Primidone 50 MG Tablet 25 MG PO (09:42)
[2023-11-30] MEDS: 0.9% Normal Saline (1000mL) 1,000 ML 100 ML IV ×2 (09:43→18:51)
--- NOTE | 2023-11-30 10:32 | PN_ITS ---
Subjective Subjective Patient seen and examined. He had no complaints. He did have some bloody bowel movements overnight. He denied any dizziness, lightheadedness, nausea or palpitations review of symptoms otherwise negative. He has remained hemodynamically stable. Hb is 12.6. Objective Data Objective Data Vital Signs: Vital Signs Temp Pulse Resp BP Pulse Ox O2 Del Method O2 Flow Rate 97.0 F L 81 16 119/64 98 Nasal Cannula 2 11/30/23 09:30 11/30/23 09:30 11/30/23 09:30 11/30/23 09:30 11/30/23 09:30 11/30/23 09:30 11/30/23 09:30 Oxygen Flow Rate (L/min) 2 Oxygen Delivery Method Nasal Cannula Weight: 189 lb 6.033 oz Body Mass Index (BMI) 27.9 Intake & Output: Intake and Output for Last 24 Hours 11/28/23 11/29/23 11/30/23 23:59 23:59 23:59 Intake Total 0 / 0 1000 / 1000 Output Total 0 / 0 0 / 0 Balance 0 / 0 1000 / 1000 Lab / Micro Data 11/30/23 05:20 11/30/23 05:20 Labs: Laboratory Results - last 24 hr 11/29/23 16:42: POC Glucose 219 H 11/29/23 21:24: POC Glucose 190 H 11/30/23 05:20: WBC 8.4, RBC 3.54 L, Hgb 12.6 L, Hct 37.2 L, MCV 105.1 H, MCH 35.6 H, MCHC 33.9, RDW Std Deviation 47.8 H, RDW Coeff of Angel 12.3, Plt Count 234, MPV 9.5, Immature Gran % (Auto) 0.400, Neut % (Auto) 56.1, Lymph % (Auto) 29.2, [place] % (Auto) 8.6, Eos % (Auto) 4.9, Baso % (Auto) 0.8, Absolute Neuts (auto) 4.7, Absolute Lymphs (auto) 2.45, Nucleated RBC % 0, Sodium 135 L, Potassium 4.0, Chloride 102, Carbon Dioxide 27.0, Anion Gap 6, BUN 26 H, C reatinine 1.31 H, Estim Creat Clear Calc 42.33, Est GFR (MDRD) Af Amer 66, Est GFR (MDRD) Non-Af 55 L, BUN/Creatinine Ratio 19.8, Glucose 240 H, Calcium 8.4 L 11/30/23 06:08: POC Glucose 205 H Physical Exam Const alert, oriented x3 and no apparent distress Constitutional Narrative: Elderly male, mildly fatigued appearing General Appearance: cooperative and comfortable HEENT normocephalic, head/scalp atraumatic, hearing grossly normal bilaterally, nasal mucous membranes and turbinates normal, moist oral mucous membranes and oropharynx normal Eyes PERRL, EOMs intact bilaterally and conjunctivae normal Neck full ROM, no lymphadenopathy and supple Lymph Lymphatic: no lymphadenopathy noted and no lymphedema noted Chest inspection of chest normal Resp normal respiratory effort, normal air movement, no use of accessory muscles and clear to auscultation bilaterally Cardio regular rate, regular rhythm, S1 normal heart sound, S2 normal heart sound, no murmurs and peripheral pulses 2+ throughout GI normal to inspection, nondistended, normoactive bowel sounds, soft to palpation, non-tender and non-distended Back/Spine normal ROM Extremity normal to inspection, full ROM, normal capillary refill, no clubbing, cyanosis or edema, no calf tenderness and no pedal edema General Extremity: no tenderness to palpation of joints or extremities Skin no rashes or lesions noted General Skin Exam: no breakdown and turgor normal Neuro CN's II-XII intact bilaterally, moves all extremities, no focal motor deficits, no sensory deficits noted and deep tendon reflexes 2+ bilaterally Speech: speech normal Motor Exam: strength 5/5 throughout and general weakness Psych mental status grossly normal, thought process normal and cooperative Appearance: appropriate Assessment & Plan Assessment/Plan (1) Acute blood loss anemia: (2) Acute lower GI bleeding: PLAN: Plan #Acute lower GI bleed * Admitted with a complaint of rectal bleeding. He has not had any more since admission. * has a history of diverticulosis, with colonoscopy done in March 2022 which showed multiple large nad small mouth diverticulae * Hb was 14 on admission, now 12.6. * also has a remote history of colon cancer s/p surgery. * gastroenterology on board; awaiting GI evaluation * continue hydration with IVF * keep NPO * #Elevated Cr: Cr has trended down to 1.31 from 1.55 on admission. Likely due to volume depletion from GI bleed.Cr is 1.25 now. Continue gentle hydration with IVF. #Type 2 diabetes mellitus: Lantus cut down from home dose of 32 units to 16 units as he is NPO. Will hold Lantus for now. Insulin sliding scale. Accu- Cheks ACHS. On gabapentin for neuropathy. #Hypertension: Lisinopril and metolazone held due to elevated creatinine on admission. IV hydralazine as needed #Depression: On sertraline #Hyperlipidemia: On statin DVT prophylaxis: SCDs. Charges/Coding Visit Charges Inpatient E&M: 49369 Subs Hosp L2
[2023-11-30 12:48] LABS: Bedside Glucose 197 mg/dL (74-106)
[2023-11-30 15:00] VITALS: PULSE 87
[2023-11-30 15:01] VITALS: BP 109/72; PULSE 89; RESP 16; TEMP 36.5; O2SAT 94
[2023-11-30 19:15] LABS: Bedside Glucose 267 mg/dL (74-106)
--- NOTE | 2023-11-30 19:50 | EX.PCM.CON.G ---
HPI Consult Data Date of Consult: 11/30/23 HPI Narrative Reason for Consultation: GI bleeding HPI Narrative: LEONOR MIJARES, is a88 M who presented to [facility] ED on 11/28/2023 with concern for lower GI bleed. Patient was sitting up comfortably in bed, conversing normally, in no acute distress. Patient had 3 bowel movements at home earlier today with small formed brown stool with bright red blood in the stool. Has history of 2 prior GI bleeds with 1 severe enough to require transfusion. Also has history of colon cancer with partial resection. He has not had a colonoscopy since his colon cancer surgery. He had 2 more bloody bowel movements with the second being quite large, and his hemoglobin was noted to drop from 14.0 to 12.8. Vitals are stable. Aside from the mild hemoglobin drop, labs were otherwise notable for sodium 133, BUN 30, creatinine 1.55 (baseline 1.0-1.3), glucose 205, otherwise unremarkable. [facility] Medical History Wears dentures Wears glasses Cancer Insulin dependent diabetes mellitus Back pain Parkinson's disease Leg cramps History of edema History of irregular heartbeat History of echocardiogram History of stress test Chest pain Chronic diarrhea Depression Diabetes GI bleed Former smoker Sleep apnea Hypertension Stroke/cerebrovascular accident Personal history of colon cancer Psoriasis Anxiety C. difficile diarrhea Prostate cancer GERD (gastroesophageal reflux disease) High cholesterol Tobacco abuse History of GI bleed Diabetic neuropathy HLD (hyperlipidemia) Diverticulosis of colon without diverticulitis Type II diabetes mellitus Benign hypertension Home Medications ?Medication ?Instructions ?Recorded ?Last Taken ?Type gabapentin 300 mg capsule 300 mg PO QHS nerve pain 10/05/13 05/14/18 History insulin glargine 100 unit/mL (3 32 unit subcut QHS diabetes 05/15/18 05/14/18 History mL) subcutaneous pen (Lantus Solostar U-100 Insulin) insulin lispro 100 unit/mL 14 unit subcut TID 05/15/18 05/15/18 History subcutaneous pen (Humalog KwikPen (U-100) Insulin) lisinopril 5 mg tablet 5 mg PO DAILY 09/12/21 Unknown History simvastatin 20 mg tablet 20 mg PO QHS cholesterol 09/12/21 Unknown History aspirin 81 mg tablet 81 mg PO DAILY heart health 09/13/21 Unknown History Lactobacillus acidophilus 10 10,000 mmu cells PO DAILY 03/22/22 Unknown History billion cell capsule (Probiotic) ferrous sulfate 325 mg (65 mg 325 mg PO DAILY 03/22/22 Unknown History iron) tablet primidone 50 mg tablet 25 mg PO QHS TREMORS 03/22/22 Unknown History valacyclovir 1 gram tablet 1,000 mg PO DAILY 03/22/22 Unknown History albuterol sulfate 90 mcg/actuation 2 inh inhalation Q4H PRN shortness 11/28/23 Unknown History aerosol inhaler of breath or wheezing metolazone 5 mg tablet 2.5 mg PO DAILY 11/28/23 Unknown History sertraline 100 mg tablet 200 mg PO DAILY 11/28/23 Unknown History Allergy/AdvReac Type Severity Reaction Status Date / Time Iodinated Contrast Media Allergy Shortness Verified 11/28/23 18:13 (Iodinated Contrast Media - of breath IV Dye) labetalol AdvReac Intermediate hypotension Verified 11/28/23 18:13 metformin AdvReac Diarrhea Verified 11/28/23 18:13 Surgical History Hx of hernia repair History of cholecystectomy History of colonoscopy History of hernia repair History of partial colectomy S/P paola-rectal abscess repair, follow-up exam Social History Smoking Status: Former smoker ROS Constitutional Constitutional: Denies chills, fatigue or fever(s) Eyes Eyes: Denies change in vision Cardiovascular Cardiovascular: Denies chest pain Respiratory/Chest Respiratory/Chest: Denies shortness of breath at rest Gastrointestinal Gastrointestinal: Reports hematochezia; Denies abdominal pain, coffee ground emesis, constipation, diarrhea, melena, nausea or vomiting Neurologic Neurologic: Denies dizziness, focal weakness or headache(s) Physical Exam Const alert, oriented x3, no apparent distress and average body habitus Constitutional Narrative: Elderly male, mildly fatigued appearing, otherwise sitting up comfortably in bed, conversing normally, no acute distress. General Appearance: cooperative and comfortable HEENT normocephalic, head/scalp atraumatic, hearing grossly normal bilaterally and nasal mucous membranes and turbinates normal HEENT Narrative: Dry mucous membranes. Eyes PERRL, EOMs intact bilaterally and conjunctivae normal Neck full ROM Chest inspection of chest normal Resp normal respiratory effort, normal air movement, no use of accessory muscles and clear to auscultation bilaterally Cardio regular rate, regular rhythm, no murmurs and peripheral pulses 2+ throughout GI normal to inspection, nondistended, normoactive bowel sounds, soft to palpation, non-tender and non-distended Back/Spine normal ROM Extremity normal to inspection, full ROM and no pedal edema Skin no rashes or lesions noted Neuro moves all extremities and no focal motor deficits Speech: speech normal Psych mental status grossly normal Lab / Micro Data 11/30/23 05:20 11/30/23 05:20 Labs: Laboratory Results - last 24 hr 11/29/23 16:42: POC Glucose 219 H 11/29/23 21:24: POC Glucose 190 H 11/30/23 05:20: WBC 8.4, RBC 3.54 L, Hgb 12.6 L, Hct 37.2 L, MCV 105.1 H, MCH 35.6 H, MCHC 33.9, RDW Std Deviation 47.8 H, RDW Coeff of Angel 12.3, Plt Count 234, MPV 9.5, Immature Gran % (Auto) 0.400, Neut % (Auto) 56.1, Lymph % (Auto) 29.2, [place] % (Auto) 8.6, Eos % (Auto) 4.9, Baso % (Auto) 0.8, Absolute Neuts (auto) 4.7, Absolute Lymphs (auto) 2.45, Nucleated RBC % 0, Sodium 135 L, Potassium 4.0, Chloride 102, Carbon Dioxide 27.0, Anion Gap 6, BUN 26 H, Creatinine 1.31 H, Estim Creat Clear Calc 42.33, Est GFR (MDRD) Af Amer 66, Est GFR (MDRD) Non-Af 55 L, BUN/Creatinine Ratio 19.8, Glucose 240 H, Calcium 8.4 L 11/30/23 06:08: POC Glucose 205 H 11/30/23 12:27: POC Glucose 197 H 11/30/23 17:45: POC Glucose 267 H Assessment & Plan Assessment/Plan (1) Macrocytic anemia: PLAN: Differential diagnosis for macrocytic anemia in the setting of an acute GI bleed does include hypothyroidism, hypothyroidism, B12 deficiency, folic acid deficiency, reticulocytosis, alcoholic liver disease, upper GI bleed with rapid transit , small bowel bleeding and diverticular bleeding. (2) Acute GI bleeding: PLAN: His lower GI bleeding does sound as if it is coming from the colon and possibly upper GI bleed with rapid transit. However patient insisted he is having melanotic stools. So he should undergo upper endoscopy and colonoscopy. He was explained alternatives, risk, benefits including not withstanding bleeding, infection, sepsis, perforation, need for emergent urgent . He will have an ASA of 3. Charges/Coding Visit Charges Inpatient E&M: 44157 Init Hosp L3
[2023-11-30] MEDS: Electrolyte Solution/Peg's 4000 ML PO (20:30)
[2023-11-30 20:35] VITALS: BMI 28.0
[2023-11-30 21:00] VITALS: BP 111/67; PULSE 71; RESP 18; TEMP 36.1; O2SAT 96
[2023-11-30] MEDS: Gabapentin 300 MG Capsule PO (21:22)
[2023-11-30] MEDS: Atorvastatin Calcium 10 MG Tablet PO (21:22)
[2023-12-01] VITALS (11 sets, daily range): BP systolic 80–138; BP diastolic 45–76; PULSE 54–70; RESP 14–18; TEMP 36.1–37.2; O2SAT 92–98; BMI 28.0
--- NOTE | 2023-12-01 | COLBX_PTH ---
PATIENT: LEONOR MIJARES LOC: [facility] U#:[id number] AGE/SX: 88/M ROOM: [facility] RE12/01/[address]: Dr. Lakia Valdes MD : [id number] BED: 1 DIS: 12/02/2023 SPEC #: [id number] RECD: 12/01/23 18:08 STATUS: ANA NATHAN #: [id number] LIZ: 12/01/23 00:[address]: Abebe Jarvis DEPT: SURGICAL PATHOLOGY RECD BY: Abundio Milner ENTERED: 12/02/23 07:28 SP TYPE: COLON BX OTHR DR: DO Dr. Pradeep Noel MD Dr. Nana Yaa Koram, MD Tissues: A - Duodenum, NOS B - Ileum, NOS C - COLON BIOPSY Procedures: Surgery Specimen Level IV Comments: @ Ordering doctor for SUIV edited from to @ by BALWINDER at 12/02/23817 @ Submitting doctor edited from to @ by BALWINDER at 12/02/23817 HEADER OPERATION: Colonoscopy with biopsy, EGD with biopsy PRE-OP DIAGNOSIS: Acute lower GI bleeding, acute blood loss anemia TISSUE SUBMITTED: A- Duodenal ulcer biopsy, B- Terminal ileum biopsy, C- Anastomosis biopsy MICROSCOPIC DIAGNOSIS A. Duodenal ulcer, biopsy: A fragment of duodenal mucosa with ulceration and acute inflammation. B. Terminal ileum, biopsy: Fragments of small intestinal mucosa with focal ulceration, acute inflammation. See comment. C. Anastomosis, biopsy: Fragments of small intestinal and colonic mucosa with mild architectural distortion and non-specific chronic inflammation. Fragments of fecal material. See comment. RADHA/ 12/03/2023 COMMENT B. Mild cryptitis and glandular distortion are noted. Granulomas are not seen. Correlation with clinical, endoscopic findings and appropriate follow up are necessary. MICROSCOPIC DESCRIPTION Slides are reviewed. GROSS DESCRIPTION A. Received in fixative is one container labeled with the patient's name and designated Duodenal ulcer biopsy. The specimen consists of one irregular fragment of light silvestre soft tissue that measures 0.3 x 0.3 x 0.1 cm. The specimen is totally submitted in one cassette. B. Received in fixative is one container labeled with the patient's name and designated Terminal ileum biopsy. The specimen consists of multiple irregular fragments of light silvestre soft tissue that in aggregate measure 1.0 x 0.3 x 0.1 cm. The specimen is totally submitted in one cassette. C. Received in fixative is one container labeled with the patient's name and designated Anastomosis biopsy. The specimen consists of multiple irregular fragments of light silvestre soft tissue that in aggregate measure 0.6 x 0.2 x 0.1 cm. The specimen is totally submitted in one cassette. Lior 12/02/2023 TC:2 CPT:45622r9
[2023-12-01] MEDS: Metoclopramide 10 MG/2 ML Vial 5 MG IV ×4 (00:11→18:11)
[2023-12-01 00:42] LABS: Bedside Glucose 114 mg/dL (74-106)
[2023-12-01] MEDS: 0.9% Normal Saline (1000mL) 1,000 ML 100 ML IV ×2 (04:15→13:20)
[2023-12-01 04:21] LABS: Absolute Lymphocyte Count 2.78 X10^3/uL (0.83-4.51); Absolute Neutrophil Count 5.3 X10^3/uL (2.0-7.7); Basophil# 0.05 X10^3/uL; Basophil% 0.5 % (0-1); Eosinophil# 0.52 X10^3/uL; Eosinophils% 5.5 % (0-5); Hematocrit 31.8 % (40-54); Hemoglobin 10.7 g/dL (13.0-16.5); Lymphocyte # 2.78 X10^3/ul (0.83-4.51); Lymphocyte % 29.4 % (19-41); Mean Corp Hgb Conc 33.6 g/dL (32-36); Mean Corpuscular Hgb 35.3 pg (27.0-32.0); Mean Platelet Vol. 9.4 fl (6.2-12.0); Monocyte# 0.81 X10^3/uL; Monocyte% 8.6 % (0-10); NRBC Flagged by Analyzer 0 % (0-5); Neutrophil # 5.27 X10^3/uL (2.7-7.7); Neutrophil % 55.7 % (47-70); Platelet Count 207 K/mm3 (150-450); RBC Distribution Width CV 12.3 % (11.6-14.6); Red Blood Count 3.03 M/mm3 (4.6-6.2); White Blood Count 9.5 K/mm3 (4.4-11.0)
[2023-12-01 04:33] LABS: International Normalized Ratio 1.3; Prothrombin Time (Protime)PT. 15.7 SECONDS (11.7-14.9)
[2023-12-01 04:41] LABS: Anion Gap 5 (5-15); BUN 17 mg/dL (7-18); BUN/Creat Ratio 14.9 RATIO (10-20); Calcium,Total 7.8 mg/dL (8.5-10.1); Chloride 104 mmol/L (98-107); Creatinine, Serum 1.14 mg/dL (0.70-1.30); EST Glomerular Filtration Rate 64 mL/min (>60); Est Glom Filt Rate - Afr Amer 78 mL/min (>60); Estimated Creatinine Clearance 48.74 ml/min; Glucose 176 mg/dL (74-106); Potassium 3.7 mmol/L (3.5-5.1); Sodium Level 136 mmol/L (136-145)
[2023-12-01 04:45] LABS: AST(SGOT) 14 U/L (15-37); Alanine Aminotransfer ALT/SGPT 16 U/L (16-61); Albumin, Serum 2.9 g/dL (3.2-5.0); Alkaline Phosphatase 78 U/L (45-117); Bilirubin, Direct 0.12 mg/dL (0.00-0.30); Globulin 2.8 g/dL (2.2-4.2); Protein, Total 5.7 g/dL (6.4-8.2)
--- NOTE | 2023-12-01 05:55 | EKG12_ITS ---
Test Reason : AM EKG Blood Pressure : / mmHG Vent. Rate : 064 BPM Atrial Rate : 064 BPM P-R Int : 208 ms QRS Dur : 098 ms QT Int : 470 ms P-R-T Axes : 041 -02 041 degrees QTc Int : 484 ms Normal sinus rhythm Low voltage QRS Prolonged QT Abnormal ECG When compared with ECG of 05-JAN-2023 20:55, QRS duration has increased Minimal criteria for Anterior infarct are no longer Present Confirmed by BRINA COCHRAN, LATRELL ([id number]), technical editor ZAIRE BOWLES ([id number]) on 12/05/2023 9:46:56 AM Referred By: STU Confirmed By:KYLER GONSALVES MD
[2023-12-01 06:39] LABS: Bedside Glucose 188 mg/dL (74-106)
[2023-12-01 12:11] LABS: Bedside Glucose 177 mg/dL (74-106)
--- NOTE | 2023-12-01 13:11 | PCM.PROGNOTE ---
Subjective Subjective Patient seen and examined. She had no active complaints. He is awaiting colonoscopy today. Review of systems otherwise negative. He has remained hemodynamically stable. Hemoglobin is 10.7 today. Objective Data Objective Data Vital Signs: Vital Signs Temp Pulse Resp BP Pulse Ox O2 Del Method O2 Flow Rate 98.4 F 70 15 112/64 94 Nasal Cannula 2 12/01/23 09:00 12/01/23 09:00 12/01/23 09:00 12/01/23 09:00 12/01/23 09:00 12/01/23 09:06 12/01/23 09:06 Oxygen Flow Rate (L/min) 2 Oxygen Delivery Method Nasal Cannula Weight: 190 lb 4.143 oz Body Mass Index (BMI) 28.0 Intake & Output: Intake and Output for Last 24 Hours 11/29/23 11/30/23 12/01/23 23:59 23:59 23:59 Intake Total 1000 / 1000 1463.33 / 5463.33 4940 / 4940 Output Total 0 / 0 Balance 1000 / 1000 1463.33 / 5463.33 4940 / 4940 Lab / Micro Data 12/01/23 04:05 12/01/23 04:05 Labs: Laboratory Results - last 24 hr 11/30/23 17:45: POC Glucose 267 H 12/01/23 00:07: POC Glucose 114 H 12/01/23 04:05: WBC 9.5, RBC 3.03 L, Hgb 10.7 L, Hct 31.8 L, MCV 105.0 H, MCH 35.3 H, MCHC 33.6, RDW Std Deviation 47.0 H, RDW Coeff of Angel 12.3, Plt Count 207, MPV 9.4, Immature Gran % (Auto) 0.300, Neut % (Auto) 55.7, Lymph % (Auto) 29.4, [place] % (Auto) 8.6, Eos % (Auto) 5.5 H, Baso % (Auto) 0.5, Absolute Neuts (auto) 5.3, Absolute Lymphs (auto) 2.78, Nucleated RBC % 0, PT 15.7 H, INR 1.3, APTT 39.0 H, Sodium 136, Potassium 3.7, Chloride 104, Carbon Dioxide 27.0, Anion Gap 5, BUN 17, Creatinine 1.14, Estim Creat Clear Calc 48.74, Est GFR (MDRD) Af Amer 78, Est GFR (MDRD) Non-Af 64, BUN/Creatinine Ratio 14.9, Glucose 176 H, Calcium 7.8 L, Total Bilirubin 0.50, Direct Bilirubin 0.12, AST 14 L, ALT 16, Alkaline Phosphatase 78, Total Protein 5.7 L, Albumin 2.9 L, Globulin 2.8 12/01/23 05:52: POC Glucose 188 H 12/01/23 11:53: POC Glucose 177 H Physical Exam Const alert, oriented x3, no apparent distress, average body habitus and well nourished General Appearance: cooperative, comfortable and well developed HEENT normocephalic, head/scalp atraumatic, hearing grossly normal bilaterally, nasal mucous membranes and turbinates normal, moist oral mucous membranes and oropharynx normal Eyes PERRL, EOMs intact bilaterally and conjunctivae normal Neck full ROM, no lymphadenopathy and supple Lymph Lymphatic: no lymphadenopathy noted and no lymphedema noted Chest inspection of chest normal Resp normal respiratory effort, normal air movement, no use of accessory muscles and clear to auscultation bilaterally Cardio regular rate, regular rhythm, S1 normal heart sound, S2 normal heart sound, no murmurs and peripheral pulses 2+ throughout GI normal to inspection, nondistended, normoactive bowel sounds, soft to palpation, non-tender and non-distended Back/Spine normal ROM Extremity normal to inspection, full ROM, normal capillary refill, no clubbing, cyanosis or edema, no calf tenderness and no pedal edema General Extremity: no tenderness to palpation of joints or extremities Skin no rashes or lesions noted General Skin Exam: no breakdown and turgor normal Neuro CN's II-XII intact bilaterally, moves all extremities, no focal motor deficits, no sensory deficits noted and deep tendon reflexes 2+ bilaterally Speech: speech normal Motor Exam: strength 5/5 throughout and general weakness Psych mental status grossly normal, thought process normal and cooperative Appearance: appropriate Assessment & Plan Assessment/Plan (1) Acute blood loss anemia: (2) Acute lower GI bleeding: PLAN: Plan #Acute lower GI bleed Admitted with a complaint of rectal bleeding. He has not had any more since admission. has a history of diverticulosis, with colonoscopy done in March 2022 which showed multiple large nad small mouth diverticulae Hb was 14 on admission, now 9.5 also has a remote history of colon cancer s/p surgery. gastroenterology on board; awaiting GI evaluation continue hydration with IVF keep NPO #Elevated Cr: Cr has trended down to 1.14 from 1.55 on admission. Likely due to volume depletion from GI bleed. resolved. #Type 2 diabetes mellitus: Lantus cut down from home dose of 32 units to 16 units as he is NPO. Will hold Lantus for now. Insulin sliding scale. Accu-Cheks ACHS. On gabapentin for neuropathy. #Hypertension: Lisinopril and metolazone held due to elevated creatinine on admission. IV hydralazine as needed #Depression: On sertraline #Hyperlipidemia: On statin DVT prophylaxis: SCDs. Disposition: For DC home after EGD. Charges/Coding Visit Charges Inpatient E&M: 97419 Subs Hosp L2
--- NOTE | 2023-12-01 15:24 | PCM.PRE.AN2 ---
ASA Classification* ASA Classification ASA Classification: 3 Assessment & Plan Anesthesia* Anesthesia Assessment Anesthesia Assessment: Discussed sedation and/or anesthesia options, risks, benefits, and alternatives with patient/parents/legal guardian/POA. Questions invited. The patient/parents/legal guardian/POA seems to understand and agrees to proceed with anesthesia plan. Reviewed the physical assessment, medical history, allergy history and patient home medications list prior to surgery/procedure/anesthetic and documented any changes. Performed airway and anesthesia risk assessments. Anesthesia Type Anesthesia Type: MAC History Source History Obtained from:: Patient and Chart Anesthesia Focused Assessment* Temperature: 97.9 F Pulse Rate: 55 Blood Pressure: 128/56 Respiratory Rate: 14 Pulse Ox: 96 Oxygen Delivery Method: Nasal Cannula (Patient is on 2 L nasal cannula in the hospital.) Airway Assessment Mouth opens: >3 cm Mallampati Score: IV Teeth Condition: Dentures (Dentures are out.) and Full Neck Range of motion (ROM): Full ROM Pertinent Findings EKG Pertinent Findings:: December 01, 2023. Normal sinus rhythm. Prolonged QT. Focused Labs Anesthesia Preop lab: CBC WBC 9.5 K/mm3 (4.4-11.0) 12/01/23 04:05 RBC 3.03 M/mm3 (4.6-6.2) L 12/01/23 04:05 Hgb 10.7 g/dL (13.0-16.5) L 12/01/23 04:05 Hct 31.8 % (40-54) L 12/01/23 04:05 Plt Count 207 K/mm3 (150-450) 12/01/23 04:05 CHEMISTRY Potassium 3.7 mmol/L (3.5-5.1) 12/01/23 04:05 Sodium 136 mmol/L (136-145) 12/01/23 04:05 Magnesium 1.6 mg/dL (1.6-2.6) 01/07/23 09:34 BUN 17 mg/dL (7-18) 12/01/23 04:05 Creatinine 1.14 mg/dL (0.70-1.30) 12/01/23 04:05 Glucose 176 mg/dL (74-106) H 12/01/23 04:05 POC Glucose 177 mg/dL (74-106) H 12/01/23 11:53 COAG PT 15.7 SECONDS (11.7-14.9) H 12/01/23 04:05 Pre-Assessment Diagnosis/Proposed Procedure Planned Operative Procedure(s): Esophagogastroduodenoscopy and colonoscopy with cautery and/or biopsy and polypectomy. Anesthesia History Anesthesia History - sales promotion director: Anesthesia History - sales promotion director Hx Hospitalization Yes: COLON RESECTION 12/2020, 03/22/22 10:57 HERNIA REPAIR 2020, EGD Any Problems With Anesthesia No 11/30/23 20:35 Cholinesterase deficiency No 11/30/23 20:35 You/Your Family Experience No 11/30/23 20:35 fever (hyperthermia) with Relationship Recent Exposure to Contagious No 11/30/23 20:35 Disease Does patient have nerve No 11/30/23 20:35 stimulator Patient instructed to have device shut off --Does patient have Pacemaker No 11/30/23 20:35 or ICD? When Was Last Pacemaker Check QUESTION #4 FULL TEXT: You/Your Family Experience fever (hyperthermia) with Anesthesia Last Oral Intake Last Oral intake: Last Oral Intake NPO since 00:00 11/30/23 20:35 Meds taken in AM with sips of Yes 11/30/23 20:35 water? Meds patient instructed to reglan 11/30/23 20:35 take am of surgery PONV PONV - sales promotion director: PONV - sales promotion director Female HX of Motion Sickness HX of N/V After Surgery Non-Smoker Duration of Surgery greater than 60 minutes Number of Risk Factors PONV Score Height & Weight Height & Weight: Anesthesia: Height & Weight Height 5 ft 9 in 11/30/23 20:35 Weight: 86.3 kg 11/30/23 20:35 Body Mass Index (BMI) 28.0 12/01/23 06:36 Respiratory Assessment Respiratory Assessment - sales promotion director: Respiratory Tract Infection Hx - sales promotion director Hx Respiratory Tract Infection No 11/30/23 20:35 STOP Sleep Apnea STOP Sleep Apnea - sales promotion director: STOP Sleep Apnea - sales promotion director Hx Hypertension Yes 11/28/23 22:24 Hx Sleep Apnea No 11/28/23 22:24 CPAP No 01/05/23 23:26 BIPAP No 01/05/23 23:26 Do you snore loudly (louder Yes 11/28/23 22:24 than talking or can be heard Do you often feel tired/ No 11/28/23 22:24 fatigued/ sleepy during daytime? Has anyone observed you stop No 11/28/23 22:24 breathing during sleep? STOP Results Positive 11/28/23 22:24 QUESTION #5 FULL TEXT : Do you snore loudly (louder than talking or can be heard through closed doors)? Tobacco Use History Tobacco Use History - sales promotion director: Tobacco Use History - sales promotion director Tobacco Use Cigars 01/08/23 09:25 Smoking Status Former smoker 11/29/23 07:10 Hx Tobacco Use Yes 11/28/23 22:24 Years Smoking Packs Smoked per Day Smoking Cessation Date was Yes - quit smoking within 15 11/28/23 22:24 within the last 15 years years Hx Smoking Cessation Date 09/02/20 11/28/23 22:24 Hx Smoking Cessation No 11/28/23 22:24 Counseling Hematologic Medial History Hematologic Hx - sales promotion director: Hematologic Medical Hx - documentation engineer Hx of Blood Transfusion Yes 11/28/23 22:24 Hx of Transfusion in last 3 No 11/28/23 22:24 Months Date of Last Transfusion (if within last 3 months) Ever experience any problems No 11/28/23 22:24 with transfusion(s)? Specify any problems Hx of Preganancy in last 3 N/A 11/28/23 22:24 Months Nurse Filling Out Transfusion [id number] 11/28/23 22:24 & Questions: Date: 11/28/23 11/28/23 22:24 Time: 22:11/28/23 22:24 Patient unable to answer at this time (ie. confused, unrespo /Reproduction History /Reproductive History - sales promotion director: /Reproductive Hx- sales promotion director Hx Now No 11/30/23 20:35 Gestational Age (in weeks): EDC: Hx Hx Para Hx Section SAB No 11/30/23 20:35 Active Medications Active Medications: Current Medications Generic Name Dose Route Start Last Admin Trade Name Freq PRN Reason Stop Dose Admin Acetaminophen 650 mg 11/28/23 22:24 11/30/23 05:03 Acetaminophen 325 Mg Tablet PO 650 mg Q6H PRN PRN Administration Pain 1-10 Or Fever>100.7 Acyclovir 400 mg 11/29/23 10:00 11/30/23 21:22 Acyclovir 200 Mg Capsule PO 400 mg BID ODALIS Administration Albuterol Sulfate 2.5 mg 11/28/23 22:28 Albuterol 2.5 Mg/3 Ml Vial.Neb. INHALATION Q4H PRN PRN shortness of breath or wheezing Atorvastatin Calcium 10 mg 11/28/23 22:30 11/30/23 21:22 Atorvastatin Calcium 10 Mg Tablet PO 10 mg QHS ODALIS Administration Ferrous Sulfate 325 mg 11/30/23 08:00 11/30/23 09:42 Ferrous Sulfate 325 Mg Tablet PO 325 mg Q48H ODALIS Administration Gabapentin 300 mg 11/28/23 22:24 11/30/23 21:22 Gabapentin 300 Mg Capsule PO 300 mg QHS ODALIS Administration Glucagon 1 mg 11/28/23 22:24 Glucagon 1 Mg/Ml Syringe IM X1 PRN Hypoglycemia Protocol Dextrose 250 mls @ 0 mls/hr 11/28/23 22:24 Dextrose 10%-Water IV .Q0M PRN HYPOGLYCEMIA Protocol As Directed Sodium Chloride 250 mls @ 15 mls/hr 11/28/23 22:25 IV .[id number] PRN Additional IVPB Infusion Sodium Chloride 250 mls @ 15 mls/hr 11/28/23 22:25 IV .[id number] PRN Saline Flush Sodium Chloride 1,000 mls @ 100 mls/hr 11/30/23 09:15 12/01/23 13:20 IV 100 mls/hr .Q10H ODALIS Administration Insulin Glargine 16 unit 11/29/23 22:00 11/29/23 21:36 Insulin Glargine-Yfgn 100 Unit/Ml Pen SC 16 unit QHS ODALIS Administration Protocol Insulin Human Lispro 0 unit 11/30/23 12:00 12/01/23 11:57 Insulin Lispro 100 Unit/Ml Insuln.Pen SC Not Given Q6 [facility] Protocol Melatonin 3 mg 11/28/23 22:24 Melatonin 3 Mg Tablet PO QHS PRN PRN INSOMNIA Metoclopramide HCl 5 mg 12/01/23 00:00 12/01/23 11:58 Metoclopramide 10 Mg/2 Ml Vial IV 5 mg Q6 ODALIS Administration Ondansetron HCl 4 mg 07/26/24 22:24 Ondansetron 4 Mg/2 Ml Vial IV Q8H PRN PRN NAUSEA/VOMITING Primidone 25 mg 11/29/23 10:00 11/30/23 09:42 Primidone 50 Mg Tablet PO 25 mg DAILY ODALIS Administration Sertraline HCl 200 mg 11/29/23 10:00 11/30/23 09:41 Sertraline 100 Mg Tablet PO 200 mg DAILY ODALIS Administration Sodium Chloride 10 - 40 ml 11/28/23 22:25 11/29/23 21:43 0.9% Saline Lock 10 Ml Syringe IV 10 ml UD PRN Administration SALINE FLUSH PFSH Medical History Wears dentures Wears glasses Cancer Insulin dependent diabetes mellitus Back pain Parkinson's disease Leg cramps History of edema History of irregular heartbeat History of echocardiogram History of stress test Chest pain Chronic diarrhea Depression Diabetes GI bleed Former smoker Sleep apnea Hypertension Stroke/cerebrovascular accident Personal history of colon cancer Psoriasis Anxiety C. difficile diarrhea Prostate cancer GERD (gastroesophageal reflux disease) High cholesterol Tobacco abuse History of GI bleed Diabetic neuropathy HLD (hyperlipidemia) Diverticulosis of colon without diverticulitis Type II diabetes mellitus Benign hypertension Home Medications ?Medication ?Instructions ?Recorded ?Last Taken ?Type gabapentin 300 mg capsule 300 mg PO QHS nerve pain 10/05/13 05/14/18 History insulin glargine 100 unit/mL (3 32 unit subcut QHS diabetes 05/15/18 05/14/18 History mL) subcutaneous pen (Lantus Solostar U-100 Insulin) insulin lispro 100 unit/mL 14 unit subcut TID 05/15/18 05/15/18 History subcutaneous pen (Humalog KwikPen (U-100) Insulin) lisinopril 5 mg tablet 5 mg PO DAILY 09/12/21 Unknown History simvastatin 20 mg tablet 20 mg PO QHS cholesterol 09/12/21 Unknown History aspirin 81 mg tablet 81 mg PO DAILY heart health 09/13/21 Unknown History Lactobacillus acidophilus 10 10,000 mmu cells PO DAILY 03/22/22 Unknown History billion cell capsule (Probiotic) ferrous sulfate 325 mg (65 mg 325 mg PO DAILY 03/22/22 Unknown History iron) tablet primidone 50 mg tablet 25 mg PO QHS TREMORS 03/22/22 Unknown History valacyclovir 1 gram tablet 1,000 mg PO DAILY 03/22/22 Unknown History albuterol sulfate 90 mcg/actuation 2 inh inhalation Q4H PRN shortness 11/28/23 Unknown History aerosol inhaler of breath or wheezing metolazone 5 mg tablet 2.5 mg PO DAILY 11/28/23 Unknown History sertraline 100 mg tablet 200 mg PO DAILY 11/28/23 Unknown History Allergy/AdvReac Type Severity Reaction Status Date / Time Iodinated Contrast Media Allergy Shortness Verified 11/28/23 18:13 (Iodinated Contrast Media - of breath IV Dye) labetalol AdvReac Intermediate hypotension Verified 11/28/23 18:13 metformin AdvReac Diarrhea Verified 11/28/23 18:13 Surgical History Hx of hernia repair History of cholecystectomy History of colonoscopy History of hernia repair History of partial colectomy S/P paola-rectal abscess repair, follow-up exam Social History Smoking Status: Former smoker Review of Systems (Anesthesia) ROS Narrative System reviewed and no additional complaints, except as documented.
--- NOTE | 2023-12-01 17:02 | POSTOPAN2_ITS ---
Anesthesia Postop Eval I Sum Postop Eval Completion status Anesthesia document: Postop Eval 1 completed: Yes Anesthesia Postop Eval I Summary Anesthesia Postop Eval I Summary: Anesthesia Postop Eval I: Assessment Summary Airway patent Yes 12/01/23 17:02 ARCHITECTURAL WOOD MODEL MAKER.MDJEROMY Spontaneous unlabored Yes 12/01/23 17:02 ARCHITECTURAL WOOD MODEL MAKER.OT respirations Mental status Awake,Calm 12/01/23 17:02 ARCHITECTURAL WOOD MODEL MAKER.MDOT nausea No 12/01/23 17:02 ARCHITECTURAL WOOD MODEL MAKER.MDOT Vomiting No 12/01/23 17:02 ARCHITECTURAL WOOD MODEL MAKER.MDOT Anesthesia Postop Eval I: Fluid Summary Crystalloid volume administer 200 12/01/23 17:02 ARCHITECTURAL WOOD MODEL MAKER.MDOT (ml) Colloids volume administered ( ml) Blood Product volume administered (ml) Total IV fluid infused 200 12/01/23 17:02 ARCHITECTURAL WOOD MODEL MAKER.ANHTONY Anesthesia Postop Eval I: Summary Notes Anesthesia Complication No 12/01/23 17:02 ARCHITECTURAL WOOD MODEL MAKER.ANTHONY Anesthesia Complication Comment: Post-operative progress note Anesthesia: Postop Eval II Evaluation Mental status: Awake and Calm Pain Level: 0 nausea: No Vomiting: No Complications Anesthesia Complication: No
--- NOTE | 2023-12-01 17:02 | PCM.POST.ANE ---
Anesthesia: Postop Eval I Current Vital Signs Temperature: 97 F Pulse Rate: 54 Blood Pressure: 80/45 Respiratory Rate: 16 Pulse Ox: 92 Oxygen Delivery Method: Nasal Cannula Oxygen Flow Rate (L/min): 2 Assessment Airway patent: Yes Spontaneous unlabored respirations: Yes Mental status: Awake and Calm nausea: No Vomiting: No Anesthesia Complication: No Fluid Hydration Crystalloid volume administer (ml): 200 Total IV fluid infused: 200 Progress Note Anesthesia document: Postop Eval 1 completed: Yes
--- NOTE | 2023-12-01 17:02 | PCM.POSTANE2 ---
Anesthesia Postop Eval I Sum Postop Eval Completion status Anesthesia document: Postop Eval 1 completed: Yes Anesthesia Postop Eval I Summary Anesthesia Postop Eval I Summary: Anesthesia Postop Eval I: Assessment Summary Airway patent Yes 12/01/23 17:02 WEB EDITOR.MDJEROMY Spontaneous unlabored Yes 12/01/23 17:02 WEB EDITOR.OT respirations Mental status Awake,Calm 12/01/23 17:02 WEB EDITOR.MDOT nausea No 12/01/23 17:02 WEB EDITOR.MDOT Vomiting No 12/01/23 17:02 WEB EDITOR.MDOT Anesthesia Postop Eval I: Fluid Summary Crystalloid volume administer 200 12/01/23 17:02 WEB EDITOR.MDOT (ml) Colloids volume administered ( ml) Blood Product volume administered (ml) Total IV fluid infused 200 12/01/23 17:02 WEB EDITOR.ANTHONY Anesthesia Postop Eval I: Summary Notes Anesthesia Complication No 12/01/23 17:02 WEB EDITOR.ANTHONY Anesthesia Complication Comment: Post-operative progress note Anesthesia: Postop Eval II Evaluation Mental status: Awake and Calm Pain Level: 0 nausea: No Vomiting: No Complications Anesthesia Complication: No
--- NOTE | 2023-12-01 17:03 | OP.CCLET_ITS ---
12/01/2023 Pradeep Franklin Re : Upper GI endoscopy procedure for Bebeto Byersr Rigoberto This procedure was performed on Friday, December 01, 2023. My impressions and recommendations are as follows: Impressions : - Normal esophagus. - Non-bleeding gastric ulcer with no stigmata of bleeding. - Non-bleeding duodenal ulcers with no stigmata of bleeding. Biopsied. Recommendations : - Return patient to hospital [facility]. - Resume regular diet. - Continue present medications. - Await pathology results. My findings are described in the full procedure note, which is enclosed. If I can be of further assistance, please feel free to contact me at . Sincerely, Abebe Jarvis, 12/01/2023 5:03:10 PM This report has been signed electronically.
--- NOTE | 2023-12-01 17:03 | OP.EGD_ITS ---
Patient Name: Bebeto Staples Procedure Date: 12/01/2023 3:48 PM Date of : 1935 Age: 88 Procedure: Upper GI endoscopy Indications: Iron deficiency anemia, Melena Providers: Abebe Jarvis DO Medicines: Monitored Anesthesia Care Patient Profile: This is an 88 year old male. Refer to note in patient chart for documentation of history and physical. Patient has symptoms. Complications: No immediate complications. Procedure: Pre-Anesthesia Assessment: - Prior to the procedure, a History and Physical was performed, and patient medications and allergies were reviewed. The patient is competent. The risks and benefits of the procedure and the sedation options and risks were discussed with the patient. All questions were answered and informed consent was obtained. Patient identification and proposed procedure were verified by the physician in the pre-procedure area. Mental Status Examination: alert and oriented. Airway Examination: normal oropharyngeal airway and neck mobility. Respiratory Examination: clear to auscultation. CV Examination: normal. Prophylactic Antibiotics: The patient does not require prophylactic antibiotics. Prior Anticoagulants: The patient has taken no anticoagulant or antiplatelet agents. ASA Grade Assessment: III - A patient with severe systemic disease. After reviewing the risks and benefits, the patient was deemed in satisfactory condition to undergo the procedure. The anesthesia plan was to use monitored anesthesia care (MAC). Immediately prior to administration of medications, the patient was re-assessed for adequacy to receive sedatives. The heart rate, respiratory rate, oxygen saturations, blood pressure, adequacy of pulmonary ventilation, and response to care were monitored throughout the procedure. The physical status of the patient was re-assessed after the procedure. After obtaining informed consent, the endoscope was passed under direct vision. Throughout the procedure, the patient's blood pressure, pulse, and oxygen saturations were monitored continuously. The Colonoscope was introduced through the mouth, and advanced to the second part of duodenum. The upper GI endoscopy was accomplished without difficulty. The patient tolerated the procedure well. Scope In: 4:32:42 PM Scope Out: 4:35:59 PM Total Procedure Duration Time 0 hours 3 minutes 17 seconds Findings: One non-bleeding linear gastric ulcer with no stigmata of bleeding was found in the stomach. The lesion was 5 mm in largest dimension. Three non-bleeding cratered duodenal ulcers with no stigmata of bleeding were found in the duodenal bulb. The largest lesion was 4 mm in largest dimension. Biopsies were taken with a cold forceps for histology. Verification of patient identification for the specimen was done. Estimated blood loss was minimal. LA Grade C (one or more mucosal breaks continuous between tops of 2 or more mucosal folds, less than 75% circumference) esophagitis with no bleeding was found 36 to 39 cm from the incisors. Impression: - Normal esophagus. - Non-bleeding gastric ulcer with no stigmata of bleeding. - Non-bleeding duodenal ulcers with no stigmata of bleeding. Biopsied. Recommendation: - Return patient to hospital [facility]. - Resume regular diet. - Continue present medications. - Await pathology results. Procedure Code(s): --- Professional --- 69523, Esophagogastroduodenoscopy, flexible, transoral; with biopsy, single or multiple CPT copyright 2021 [employer]. All rights reserved. The codes documented in this report are preliminary and upon jowl trimmer review may be revised to meet current compliance requirements. Abebe Jarvis DO 12/01/2023 5:03:10 PM This report has been signed electronically. Number of Addenda: 0 Note Initiated On: 12/01/2023 3:48 PM
--- NOTE | 2023-12-01 17:09 | OP.COLON_ITS ---
Patient Name: Bebeto Staples Procedure Date: 12/01/2023 3:10 PM Date of : 1935 Age: 88 Procedure: Colonoscopy Indications: Hematochezia Providers: Abebe Jarvis DO Medicines: Monitored Anesthesia Care Patient Profile: This is an 88 year old male. Refer to note in patient chart for documentation of history and physical. Last Colonoscopy: 1 year ago. Complications: No immediate complications. Procedure: Pre-Anesthesia Assessment: - Prior to the procedure, a History and Physical was performed, and patient medications and allergies were reviewed. The patient is competent. The risks and benefits of the procedure and the sedation options and risks were discussed with the patient. All questions were answered and informed consent was obtained. Patient identification and proposed procedure were verified by the physician in the pre-procedure area. Mental Status Examination: alert and oriented. Airway Examination: normal oropharyngeal airway and neck mobility. Respiratory Examination: clear to auscultation. CV Examination: normal. Prophylactic Antibiotics: The patient does not require prophylactic antibiotics. Prior Anticoagulants: The patient has taken Eliquis (apixaban), last dose was 4 days prior to procedure. ASA Grade Assessment: III - A patient with severe systemic disease. After reviewing the risks and benefits, the patient was deemed in satisfactory condition to undergo the procedure. The anesthesia plan was to use monitored anesthesia care (MAC). Immediately prior to administration of medications, the patient was re-assessed for adequacy to receive sedatives. The heart rate, respiratory rate, oxygen saturations, blood pressure, adequacy of pulmonary ventilation, and response to care were monitored throughout the procedure. The physical status of the patient was re-assessed after the procedure. After I obtained informed consent, the scope was passed under direct vision. Throughout the procedure, the patient's blood pressure, pulse, and oxygen saturations were monitored continuously. The Colonoscope was introduced through the anus and advanced to the terminal ileum. The colonoscopy was performed without difficulty. The patient tolerated the procedure well. The quality of the bowel preparation was adequate. The terminal ileum was photographed. Scope In: 4:38:58 PM Scope Out: 4:51:18 PM Total Procedure Duration Time 0 hours 12 minutes 20 seconds Findings: The perianal and digital rectal examinations were normal. Non-bleeding internal hemorrhoids were found during retroflexion. The hemorrhoids were medium-sized and Grade II (internal hemorrhoids that prolapse but reduce spontaneously). Multiple small and large-mouthed diverticula were found in the recto-sigmoid colon, sigmoid colon and descending colon. There was evidence of a prior end-to-side ileo-colonic anastomosis in the ascending colon. This was patent and was characterized by ulceration. The anastomosis was traversed. A few seven mm ulcers were found at the anastomosis. No bleeding was present. Biopsies were taken with a cold forceps for histology. Verification of patient identification for the specimen was done. Estimated blood loss was minimal. Impression: - Non-bleeding internal hemorrhoids. - Diverticulosis in the recto-sigmoid colon, in the sigmoid colon and in the descending colon. - Patent end-to-side ileo-colonic anastomosis, characterized by ulceration. - A few ulcers at the colonic anastomosis. Biopsied. Recommendation: - Return patient to hospital [facility] for ongoing care. - Resume previous diet. - Continue present medications. - Await pathology results. - No repeat colonoscopy due to age. Procedure Code(s): --- Professional --- 96209, Colonoscopy, flexible; with biopsy, single or multiple CPT copyright 2021 [employer]. All rights reserved. The codes documented in this report are preliminary and upon slip injector and applicator review may be revised to meet current compliance requirements. Abebe Jarvis DO 12/01/2023 5:09:37 PM This report has been signed electronically. Number of Addenda: 0 Note Initiated On: 12/01/2023 3:10 PM
--- NOTE | 2023-12-01 17:10 | OP.CCLET_ITS ---
12/01/2023 Pradeep Franklin Re : Colonoscopy procedure for Bebeto Byersr Rigoberto This procedure was performed on Friday, December 01, 2023. My impressions and recommendations are as follows: Impressions : - Non-bleeding internal hemorrhoids. - Diverticulosis in the recto-sigmoid colon, in the sigmoid colon and in the descending colon. - Patent end-to-side ileo-colonic anastomosis, characterized by ulceration. - A few ulcers at the colonic anastomosis. Biopsied. Recommendations : - Return patient to hospital [facility] for ongoing care. - Resume previous diet. - Continue present medications. - Await pathology results. - No repeat colonoscopy due to age. My findings are described in the full procedure note, which is enclosed. If I can be of further assistance, please feel free to contact me at . Sincerely, Abebe Jarvis, 12/01/2023 5:09:37 PM This report has been signed electronically.
[2023-12-01] MEDS: Lactobacillis Acidophilus 1 CAP PO (18:10)
[2023-12-01] MEDS: Primidone 50 MG Tablet 25 MG PO (18:10)
[2023-12-01] MEDS: Acyclovir 200 MG Capsule 400 MG PO ×2 (18:10→22:12)
[2023-12-01] MEDS: Sertraline 100 MG Tablet 200 MG PO (18:10)
[2023-12-01] MEDS: Insulin Lispro 100 UNIT/ML INSULN.PEN SC ×2 (18:20→22:15)
[2023-12-01 18:44] LABS: Bedside Glucose 174 mg/dL (74-106)
[2023-12-01] MEDS: Atorvastatin Calcium 10 MG Tablet PO (22:12)
[2023-12-01] MEDS: Gabapentin 300 MG Capsule PO (22:12)
[2023-12-01 23:00] LABS: Bedside Glucose 196 mg/dL (74-106)
[2023-12-02] MEDS: Metoclopramide 10 MG/2 ML Vial 5 MG IV ×2 (00:36→05:37)
[2023-12-02] MEDS: 0.9% Normal Saline (1000mL) 1,000 ML 100 ML IV ×2 (00:39→11:10)
[2023-12-02 04:05] VITALS: BP 106/61; PULSE 62; RESP 14; TEMP 37.1; O2SAT 93
[2023-12-02] MEDS: Insulin Lispro 100 UNIT/ML INSULN.PEN SC ×2 (05:37→11:11)
[2023-12-02 06:50] LABS: Bedside Glucose 170 mg/dL (74-106)
[2023-12-02 06:55] LABS: Absolute Lymphocyte Count 2.11 X10^3/uL (0.83-4.51); Absolute Neutrophil Count 5.8 X10^3/uL (2.0-7.7); Basophil# 0.05 X10^3/uL; Basophil% 0.5 % (0-1); Eosinophil# 0.63 X10^3/uL; Eosinophils% 6.8 % (0-5); Hematocrit 32.1 % (40-54); Hemoglobin 10.9 g/dL (13.0-16.5); Lymphocyte # 2.11 X10^3/ul (0.83-4.51); Lymphocyte % 22.7 % (19-41); Mean Corpuscular Hgb 35.5 pg (27.0-32.0); Mean Corpuscular Volume 104.6 fL (80-94); Mean Platelet Vol. 9.6 fl (6.2-12.0); Monocyte# 0.68 X10^3/uL; Monocyte% 7.3 % (0-10); NRBC Flagged by Analyzer 0 % (0-5); Neutrophil % 62.4 % (47-70); Platelet Count 220 K/mm3 (150-450); RBC Distribution Width CV 12.3 % (11.6-14.6); RBC Distribution Width SD 47.4 fl (35.1-43.9); Red Blood Count 3.07 M/mm3 (4.6-6.2); White Blood Count 9.3 K/mm3 (4.4-11.0)
[2023-12-02 07:28] LABS: Anion Gap 7 (5-15); BUN 8 mg/dL (7-18); BUN/Creat Ratio 8.4 RATIO (10-20); Calcium,Total 7.6 mg/dL (8.5-10.1); Chloride 106 mmol/L (98-107); Creatinine, Serum 0.95 mg/dL (0.70-1.30); EST Glomerular Filtration Rate 80 mL/min (>60); Est Glom Filt Rate - Afr Amer 96 mL/min (>60); Estimated Creatinine Clearance 58.49 ml/min; Glucose 167 mg/dL (74-106); Potassium 3.7 mmol/L (3.5-5.1); Sodium Level 138 mmol/L (136-145)
[2023-12-02 08:01] VITALS: BP 151/72; PULSE 85; RESP 16; TEMP 36.7; O2SAT 92
[2023-12-02] MEDS: Sertraline 100 MG Tablet 200 MG PO (08:06)
[2023-12-02] MEDS: Ferrous Sulfate 325 MG Tablet PO (08:06)
[2023-12-02] MEDS: Acyclovir 200 MG Capsule 400 MG PO (08:20)
[2023-12-02] MEDS: Primidone 50 MG Tablet 25 MG PO (08:20)
[2023-12-02] MEDS: Lactobacillis Acidophilus 1 CAP PO (08:20)
--- NOTE | 2023-12-02 10:30 | CASEMGMT ---
ALICIA GEORGE Face to Face with patient for initial transition planning/care coordination assessment. RN CM introduced self and role at [facility]. Patient lying in bed, alert and oriented. Patient willing to participate in assessment and is able to answer all questions appropriately. Care providers, pharmacy, and demographics verified. PCP: Rigoberto Specialists: none Preferred Pharmacy: [facility] Insurance: [employer] [facility] Prescription Benefit: yes Living Will/HPOA: yes, daughter Viki Satples LNOK: daughter Living Arrangements: Patient lives alone in a single story home with 3 steps and railing to enter the home. Patient states he is independent at home. Patient rents apartment in home and neighbor is healthcare professional and helps with machinery erector and able to assist patient if needed Transportation: self, daughter DME/HHC: Patient states he has cane, walker, and glucometer with supplies. No previous HHC or SNF. Patient wishes to discharge home, denies need for home health at this time. Patient states he has no further needs or concerns at this time. CM to follow for discharge planning needs that may arise. Disposition Plan: Patient to discharge home with family support and follow-up plans in place. Yvonne MONTALVO, RN, CM
[2023-12-02 11:39] LABS: Bedside Glucose 215 mg/dL (74-106)
--- NOTE | 2023-12-02 12:23 | DS.PCM_ITS ---
Providers Date of Admission: 12/01/23 Date of Discharge: 12/02/23 Primary Care Physician: Dr. Pradeep Franklin MD Consultations 11/28/23 22:24 Consult: Gastroenterology Routine Consulting Provider: [facility] Reason for Consult: suspected lower GIB, possibly diverticular EMERGENT Consult: No MD Notified: Yes Date Notified: 11/29/23 Time Notified: 06:41 Method of Notification: Text Reason For Visit: SUSPECTED LOWER GIB Diagnosis Discharge Diagnosis (1) Acute blood loss anemia: Status: Acute Code(s): D62 - Acute posthemorrhagic anemia (2) Acute lower GI bleeding: Status: Acute Code(s): K92.2 - Gastrointestinal hemorrhage, unspecified Plan #Acute lower GI bleed * Admitted with a complaint of rectal bleeding. He has not had any more since admission. * has a history of diverticulosis, with colonoscopy done in March 2022 which showed multiple large nad small mouth diverticulae * Hb was 14 on admission, now 9.5 * also has a remote history of colon cancer s/p surgery. * gastroenterology on board; awaiting GI evaluation * continue hydration with IVF * keep NPO * #Elevated Cr: Cr has trended down to 1.14 from 1.55 on admission. Likely due to volume depletion from GI bleed. resolved. #Type 2 diabetes mellitus: Lantus cut down from home dose of 32 units to 16 units as he is NPO. Will hold Lantus for now. Insulin sliding scale. Accu- Cheks ACHS. On gabapentin for neuropathy. #Hypertension: Lisinopril and metolazone held due to elevated creatinine on admission. IV hydralazine as needed #Depression: On sertraline #Hyperlipidemia: On statin DVT prophylaxis: SCDs. Disposition: For [place] home after EGD. Medications at Discharge Home Medications gabapentin 300 mg capsule 300 mg PO QHS nerve pain 10/05/13 insulin glargine 100 unit/mL (3 mL) subcutaneous pen (Lantus Solostar U-100 Insulin) 32 unit subcut QHS diabetes 05/15/18 insulin lispro 100 unit/mL subcutaneous pen (Humalog KwikPen (U-100) Insulin) 14 unit subcut TID 05/15/18 lisinopril 5 mg tablet 5 mg PO DAILY 09/12/21 simvastatin 20 mg tablet 20 mg PO QHS cholesterol 09/12/21 aspirin 81 mg tablet 81 mg PO DAILY heart health 09/13/21 Lactobacillus acidophilus 10 billion cell capsule (Probiotic) 10,000 mmu cells PO DAILY 03/22/22 ferrous sulfate 325 mg (65 mg iron) tablet 325 mg PO DAILY 03/22/22 primidone 50 mg tablet 25 mg PO QHS TREMORS 03/22/22 valacyclovir 1 gram tablet 1,000 mg PO DAILY 03/22/22 albuterol sulfate 90 mcg/actuation aerosol inhaler 2 inh inhalation Q4H PRN shortness of breath or wheezing 11/28/23 metolazone 5 mg tablet 2.5 mg PO DAILY 11/28/23 sertraline 100 mg tablet 200 mg PO DAILY 11/28/23 pantoprazole 40 mg tablet,delayed release 40 mg PO DAILY #30 tabs 12/02/23 Hospital Course Operations None Procedures Colonoscopy and EGD Summary of Care Provided Minutes Spent on Discharge: 55 Hospital Course: Patient is an 88-year-old male with a past medical history as outlined was admitted through the ED on 11/28/2023 with a concern for lower GI bleed. He had had 3 bowel movements a day at home and the day of admission and he had noticed bright red blood in the stool. He had had a history of severe GI bleeds on 2 previous occasions with 1 being severe enough to require transfusion. Has had a history of colon cancer and was s/p partial resection. He denied any lightheadedness or dizziness, fever or chills or any other symptoms. In the ED he had 2 more episodes of bloody bowel movements. His hemoglobin dropped from 14-12.8 in a few hours the patient was admitted to be managed for acute rectal bleeding. He was kept n.p.o. and hydrated with IV fluids. Gastroenterology was consulted. He had EGD which showed a nonbleeding gastric ulcer with no stigmata of bleeding and nonbleeding duodenal ulcers with no stigmata of bleeding which were biopsied. Colonoscopy also showed nonbleeding internal hemorrhoids and diverticulosis in the rectosigmoid colon, sigmoid colon and descending colon and patent end-to-side ileocolonic colonic anastomosis characterized by ulceration and a few ulcers at the colonic anastomosis which were biopsied. Patient did not have any recurrence of the bleeding. His hemoglobin remained stable and was 10.9 on day of discharge. He was discharged home on 12/02/2023. He is follow-up with his primary care doctor with gastroenterology within 1 to 2 weeks. Patient seen and examined prior to discharge. He felt well and had no complaints. He had an uneventful night. Review of systems otherwise negative. Labs and vitals reviewed. Home medication reviewed and reconciled. Physical Exam Const alert, oriented x3, no apparent distress, average body habitus and well nourished General Appearance: cooperative, comfortable and well developed HEENT normocephalic, head/scalp atraumatic, hearing grossly normal bilaterally, nasal mucous membranes and turbinates normal, moist oral mucous membranes and oropharynx normal Mouth: oral and palatal mucosa normal Eyes PERRL, EOMs intact bilaterally and conjunctivae normal Neck full ROM, no lymphadenopathy and supple Lymph Lymphatic: no lymphadenopathy noted and no lymphedema noted Chest inspection of chest normal Resp normal respiratory effort, normal air movement, no use of accessory muscles and clear to auscultation bilaterally Cardio regular rate, regular rhythm, S1 normal heart sound, S2 normal heart sound, no murmurs and peripheral pulses 2+ throughout GI normal to inspection, nondistended, normoactive bowel sounds, soft to palpation, non-tender and non-distended Back/Spine normal ROM Extremity normal to inspection, full ROM, normal capillary refill, no clubbing, cyanosis or edema, no calf tenderness and no pedal edema General Extremity: no tenderness to palpation of joints or extremities Skin no rashes or lesions noted General Skin Exam: no breakdown and turgor normal Neuro oriented x3, CN's II-XII intact bilaterally, moves all extremities, no focal motor deficits, no sensory deficits noted and deep tendon reflexes 2+ bilaterally Sensorium / Orientation: awake Speech: speech normal Motor Exam: strength 5/5 throughout and general weakness Psych mental status grossly normal, thought process normal and cooperative Appearance: appropriate Weight / BMI Weight Weight: 190 lb 4.143 oz Body Mass Index (BMI) 28.0 ABG / Lab / Microbiology Data 12/02/23 06:32 12/02/23 06:32 Laboratory: Laboratory Results - last 24 hr 12/01/23 18:19: POC Glucose 174 H 12/01/23 22:14: POC Glucose 196 H 12/02/23 05:36: POC Glucose 170 H 12/02/23 06:32: WBC 9.3, RBC 3.07 L, Hgb 10.9 L, Hct 32.1 L, MCV 104.6 H, MCH 35.5 H, MCHC 34.0, RDW Std Deviation 47.4 H, RDW Coeff of Angel 12.3, Plt Count 220, MPV 9.6, Immature Gran % (Auto) 0.300, Neut % (Auto) 62.4, Lymph % (Auto) 22.7, Jessamine % (Auto) 7.3, Eos % (Auto) 6.8 H, Baso % (Auto) 0.5, Absolute Neuts (auto) 5.8, Absolute Lymphs (auto) 2.11, Nucleated RBC % 0, Sodium 138, Potassium 3.7, Chloride 106, Carbon Dioxide 25.0, Anion Gap 7, BUN 8, Creatinine 0.95, Estim Creat Clear Calc 58.49, Est GFR (MDRD) Af Amer 96, Est GFR (MDRD) Non-Af 80, BUN/Creatinine Ratio 8.4 L, Glucose 167 H, Calcium 7.6 L 12/02/23 11:09: POC Glucose 215 H D/C Instructions Discharge Diet: Low fat / Low cholesterol Discharge Activity: Return to Normal Activity Weight Bearing Status: Weight bearing as tolerated Call your doctor if you observe: Fever of 101 or Higher, Shortness of breath, Dizziness, Swelling in the ankles and Chest pain Meaningful Use Info Meaningful Use Meaningful Use Diagnoses (Choose all that apply): None applicable Ischemic Stroke Statin Dosing Therapy Reference: STATIN DOSE THERAPY REFERENCE: * Patients > 75 years receive moderate or high dose statin therapy. * Patients 75 years or YOUNGER should receive HIGH intensity statin dose unless contraindicated. You will be required to document reason for non-treatment if statin daily dose does not meet guidelines. HIGH DOSE STATIN THERAPY DAILY Atorvastatin > than or = to 40 mg Rosuvastatin > than or = to 20 mg Amlodipine + Atorvastatin > than or = to 2.5/40 mg Ezetimibe + Simvastatin 10/80 mg Simvastatin 80mg Discharge Plan Admission Admit Date/Time: 12/01/23 17:23 Primary Reason for Your Visit: GI bleed Attending Provider: Lakia Valdes Primary Care Provider: Pradeep Franklin Consulting Providers: Lewis Philip Instructions Patient Instructions: ED Lower GI Bleeding (Stable) Discharge Orders/Prescriptions Prescriptions: New pantoprazole 40 mg tablet,delayed release (DR/EC) 40 mg PO DAILY Qty: 30 2RF Continued gabapentin 300 MG capsule 300 mg PO QHS insulin lispro [Humalog KwikPen Insulin] 100/ML insulin pen 14 unit subcut TID Patient Comments: 14 UNITS WITH BREAKFAST, 16 UNITS WITH LUNCH AND DINNER PLUS SLIDING SCALE Rx Instructions: sliding scale insulin glargine [Lantus Solostar U-100 Insulin] 100/ML insulin pen 32 unit subcut QHS simvastatin 20 mg tablet 20 mg PO QHS lisinopril 5 mg tablet 5 mg PO DAILY aspirin 81 mg Tablet 81 mg PO DAILY primidone 50 mg tablet 25 mg PO QHS Patient Comments: TAKE 1/2 (ONE-HALF) OF A TABLET BY MOUTH DAILY AT BEDTIME valacyclovir 1 gram tablet 1,000 mg PO DAILY Probiotic 10 billion cell Capsule 10,000 mmu cells PO DAILY ferrous sulfate 325 mg (65 mg iron) tablet 325 mg PO DAILY albuterol sulfate 90 mcg/actuation HFA aerosol inhaler 2 inh inhalation Q4H PRN (Reason: shortness of breath or wheezing) metolazone 5 mg tablet 2.5 mg PO DAILY sertraline 100 mg tablet 200 mg PO DAILY Referrals / Follow Up: Pradeep Franklin MD [Primary Care Provider] - Within 2 Weeks Disposition Disposition (needs filled in before D/C Order can be placed): Home, Self Care Charges/Coding Visit Charges Inpatient E&M: 24756 Disch Hosp >30min
--- NOTE | 2023-12-02 13:44 | PHA.DC_ITS ---
Pharmacy [facility] Pharmacy Service has performed discharge medication reconciliation and counseling for this patient. 1. PANTOPRAZOLE 40MG PO DAILY The patient's discharge medication list was reviewed for discrepancies and discrepancies were resolved. The patient was counseled on the following discharge medications and changes in medications for homegoing were reviewed. The Reason for Use, instructions for use, and potential side effects were reviewed for all new medications. The patient's questions regarding all of their medications were answered. The patient was able to verbally demonstrate an understanding of their discharge medications. Patient counseled by pharmacy tech customer serviceJim. Medications at Discharge Home Medications gabapentin 300 mg capsule 300 mg PO QHS nerve pain 10/05/13 insulin glargine 100 unit/mL (3 mL) subcutaneous pen (Lantus Solostar U-100 Ins ulin) 32 unit subcut QHS diabetes 05/15/18 insulin lispro 100 unit/mL subcutaneous pen (Humalog KwikPen (U-100) Insulin) 14 unit subcut TID 05/15/18 lisinopril 5 mg tablet 5 mg PO DAILY 09/12/21 simvastatin 20 mg tablet 20 mg PO QHS cholesterol 09/12/21 aspirin 81 mg tablet 81 mg PO DAILY heart health 09/13/21 Lactobacillus acidophilus 10 billion cell capsule (Probiotic) 10,000 mmu cells PO DAILY 03/22/22 ferrous sulfate 325 mg (65 mg iron) tablet 325 mg PO DAILY 03/22/22 primidone 50 mg tablet 25 mg PO QHS TREMORS 03/22/22 valacyclovir 1 gram tablet 1,000 mg PO DAILY 03/22/22 albuterol sulfate 90 mcg/actuation aerosol inhaler 2 inh inhalation Q4H PRN shortness of breath or wheezing 11/28/23 metolazone 5 mg tablet 2.5 mg PO DAILY 11/28/23 sertraline 100 mg tablet 200 mg PO DAILY 11/28/23 pantoprazole 40 mg tablet,delayed release 40 mg PO DAILY #30 tabs 12/02/23
[2023-12-02 13:50] VITALS: BP 138/84; PULSE 84; RESP 16; O2SAT 92
== END 2023-12-02 13:54 | disposition home or self-care (01) | DRG 378 ==
LOC: ED 21:41 → PCU 22:06
PROVIDERS: Anesthesiology; Internal Medicine Gastroenterology; Admitting Provider Hospitalist; Emergency Provider Emergency Medicine; PCP Family Medicine; Visit Provider Student in an Organized Health Care Education/Training Program
PROC: 0DJD8ZZ Inspection of Lower Intestinal Tract, Via Natural or Artificial Opening Endoscopic (ICD-10-PCS; CPT 45378; principal; 2023-12-01 15:55)
DX: K57.31 Diverticulosis of large intestine without perforation or abscess with bleeding (principal); D62 Acute posthemorrhagic anemia; K28.4 Chronic or unspecified gastrojejunal ulcer with hemorrhage; E11.40 Type 2 diabetes mellitus with diabetic neuropathy, unspecified; F32.A Depression, unspecified; I10 Essential (primary) hypertension; E78.00 Pure hypercholesterolemia, unspecified; Z79.4 Long term (current) use of insulin; K64.1 Second degree hemorrhoids; E86.0 Dehydration; K26.9 Duodenal ulcer, unspecified as acute or chronic, without hemorrhage or perforation; K25.9 Gastric ulcer, unspecified as acute or chronic, without hemorrhage or perforation; Z98.0 Intestinal bypass and anastomosis status; Z90.49 Acquired absence of other specified parts of digestive tract; Z79.82 Long term (current) use of aspirin; Z79.899 Other long term (current) drug therapy; Z87.891 Personal history of nicotine dependence; Z85.038 Personal history of other malignant neoplasm of large intestine; Z87.19 Personal history of other diseases of the digestive system
CPT/HCPCS: 36415; 80048; 80053; 80076; 81001; 82962; 85014; 85018; 85025; 85027; 85610; 85730; 88305; 93005; 94668; 97161; 97802; 99284; 99406; J7030; J7120; A4216

== ENCOUNTER 2023-12-18 12:45 | Inpatient (IN) | payer MEDICARE, SELFPAY ==
[2023-12-18] VITALS (10 sets, daily range): BP systolic 84–151; BP diastolic 45–72; PULSE 61–119; RESP 14–20; TEMP 36.3–36.6; O2SAT 94–100; BMI 29.0
--- NOTE | 2023-12-18 13:02 | EKG12_ITS ---
Test Reason : SYNCOPE Blood Pressure : / mmHG Vent. Rate : 057 BPM Atrial Rate : 057 BPM P-R Int : 196 ms QRS Dur : 088 ms QT Int : 452 ms P-R-T Axes : 030 008 061 degrees QTc Int : 439 ms Sinus bradycardia Low voltage QRS Borderline ECG Confirmed by Abimael Vila ([id number]), photo editor JONE ELIZABETH ([id number]) on 12/22/2023 8:55:24 AM Referred By: MIGUELITO Confirmed By:Abimael Vila
[2023-12-18 13:16] LABS: Absolute Lymphocyte Count 2.81 X10^3/uL (0.83-4.51); Absolute Neutrophil Count 3.4 X10^3/uL (2.0-7.7); Basophil# 0.07 X10^3/uL; Basophil% 0.9 % (0-1); Eosinophil# 0.48 X10^3/uL; Eosinophils% 6.5 % (0-5); Hematocrit 37.3 % (40-54); Hemoglobin 12.5 g/dL (13.0-16.5); Lymphocyte # 2.81 X10^3/ul (0.83-4.51); Lymphocyte % 37.9 % (19-41); Mean Corp Hgb Conc 33.5 g/dL (32-36); Mean Corpuscular Hgb 35.7 pg (27.0-32.0); Mean Corpuscular Volume 106.6 fL (80-94); Monocyte# 0.59 X10^3/uL; NRBC Flagged by Analyzer 0 % (0-5); Neutrophil # 3.43 X10^3/uL (2.7-7.7); Neutrophil % 46.3 % (47-70); Platelet Count 294 K/mm3 (150-450); RBC Distribution Width CV 12.7 % (11.6-14.6); RBC Distribution Width SD 49.9 fl (35.1-43.9); White Blood Count 7.4 K/mm3 (4.4-11.0)
[2023-12-18] MEDS: 0.9% Normal Saline (500mL Bag) 500 ML 1000 ML IV (13:18)
--- NOTE | 2023-12-18 13:18 | RAD_ITS ---
INDICATION: NG Insertion -- Assess for blood. EXAMINATION/TECHNIQUE: X-RAY - XR Abdomen 1 View COMPARISON: No relevant prior comparison study available FINDINGS: BOWEL GAS PATTERN: Nasogastric tube with its tip in the region of the gastroesophageal junction. The sidehole in the distal esophagus. No bowel or stomach distention. FREE AIR: Not assessed on a single supine view. ORGANOMEGALY: Not seen. CALCIFICATIONS: Vascular calcifications. Pelvic calcifications likely due to phleboliths. LOWER CHEST: No acute pathology. BONES AND SOFT TISSUES: No acute pathology. RAD/Abdomen Single View (Portable) IMPRESSION: Nasogastric tube with the tip in the gastroesophageal junction and should be advanced. Nonobstructive gas pattern. Electronically Signed: Kunal Hummel MD at 14:22 EDT ,
--- NOTE | 2023-12-18 13:18 | ED.RN ---
Patient became dizzy and had near syncopal episode on standing for orthostat VS, became tachycardic. Patient lowered back to bed and placed supine following event. Patient was w/o symptoms approx 2 minutes following, Dr. Hamilton made aware of positiv findings.
--- NOTE | 2023-12-18 13:19 | CT_ITS ---
INDICATION: Closed head injury EXAMINATION: CT BRAIN - CT Head or Brain W/O Contrast Injection TECHNIQUE: Multiple axial images were obtained of the head without intravenous contrast. The protocol utilizes one or more of the following dose reduction techniques: automated exposure control, adjustment of mA and/or kV according to patient size,and/or use of iterative reconstruction technique. IV Contrast dosage and agent: None. RADIATION DOSAGE (If Supplied By Facility): CTDIvol = ( 44.99 ) mGy, DLP = ( 779.24 ) mGycm COMPARISON: Prior study dated: 06/13/2023 FINDINGS: BRAIN PARENCHYMA: No intra- or extra-axial hemorrhage. No evidence of acute infarct. Right posterior parietal encephalomalacia unchanged. Periventricular deep white matter changes likely due to chronic microvascular disease. There is otherwise preservation of the sandhu/white matter interface. Posterior fossa structures are unremarkable. Atherosclerotic calcifications of the cavernous internal carotid arteries. CSF SPACES: Mild diffuse atrophy appropriate for patient''s age. No hydrocephalus. Basal cisterns are patent. CALVARIUM, SKULL BASE, PARANASAL SINUSES AND MASTOID AIR CELLS: Clear. No discrete lytic or blastic abnormalities. ORBITS: Both globes, extraocular muscles, optic nerves and retrobulbar fat appear unremarkable. CT/Brain/Head without Contrast IMPRESSION: 1. No acute intracranial process. 2. Right posterior parietal encephalomalacia unchanged. 3. Chronic involutional changes of the brain. Electronically Signed: Kunal Hummel MD at 14:28 EDT ,
--- NOTE | 2023-12-18 13:24 | EDS_ITS ---
HPI History of Present Illness Chief Complaint: Syncope [facility] Medical History Wears dentures Wears glasses Cancer Insulin dependent diabetes mellitus Back pain Parkinson's disease Leg cramps History of edema History of irregular heartbeat History of echocardiogram History of stress test Chest pain Chronic diarrhea Depression Diabetes GI bleed Former smoker Sleep apnea Hypertension Stroke/cerebrovascular accident Personal history of colon cancer Psoriasis Anxiety C. difficile diarrhea Prostate cancer GERD (gastroesophageal reflux disease) High cholesterol Tobacco abuse History of GI bleed Diabetic neuropathy HLD (hyperlipidemia) Diverticulosis of colon without diverticulitis Type II diabetes mellitus Benign hypertension Home Medications ?Medication ?Instructions ?Recorded ?Last Taken ?Type gabapentin 300 mg capsule 300 mg PO QHS nerve pain 10/05/13 05/14/18 History insulin glargine 100 unit/mL (3 32 unit subcut QHS diabetes 05/15/18 05/14/18 History mL) subcutaneous pen (Lantus Solostar U-100 Insulin) insulin lispro 100 unit/mL 14 unit subcut TID 05/15/18 05/15/18 History subcutaneous pen (Humalog KwikPen (U-100) Insulin) lisinopril 5 mg tablet 5 mg PO DAILY 09/12/21 Unknown History simvastatin 20 mg tablet 20 mg PO QHS cholesterol 09/12/21 Unknown History aspirin 81 mg tablet 81 mg PO DAILY heart health 09/13/21 Unknown History Lactobacillus acidophilus 10 10,000 mmu cells PO DAILY 03/22/22 Unknown History billion cell capsule (Probiotic) ferrous sulfate 325 mg (65 mg 325 mg PO DAILY 03/22/22 Unknown History iron) tablet primidone 50 mg tablet 25 mg PO QHS TREMORS 03/22/22 Unknown History valacyclovir 1 gram tablet 1,000 mg PO DAILY 03/22/22 Unknown History albuterol sulfate 90 mcg/actuation 2 inh inhalation Q4H PRN shortness 11/28/23 Unknown History aerosol inhaler of breath or wheezing metolazone 5 mg tablet 2.5 mg PO DAILY 11/28/23 Unknown History sertraline 100 mg tablet 200 mg PO DAILY 11/28/23 Unknown History pantoprazole 40 mg tablet,delayed 40 mg PO DAILY #30 tabs 12/02/23 Unknown Rx release Allergy/AdvReac Type Severity Reaction Status Date / Time Iodinated Contrast Media Allergy Shortness Verified 12/18/23 12:46 (Iodinated Contrast Media - of breath IV Dye) labetalol AdvReac Intermediate hypotension Verified 12/18/23 12:46 metformin AdvReac Diarrhea Verified 12/18/23 12:46 Surgical History Hx of hernia repair History of cholecystectomy History of colonoscopy History of hernia repair History of partial colectomy S/P paola-rectal abscess repair, follow-up exam Social History Smoking Status: Former smoker EXAM Physical Exam Const Vital Signs: 12/18/23 12:46 12/18/23 12:46 12/18/23 13:01 Temperature 98 F Temperature Source Temporal Pulse Rate 71 78 61 Pulse Rate [Lying] Pulse Rate [Sitting (for 1 minute prior to obtaining)] Pulse Rate [Standing (for 1 minute prior to obtaining)] Respiratory Rate 14 14 Respiratory Effort Blood Pressure 90/46 L 84/45 L 97/57 L Blood Pressure [Lying] Blood Pressure [Sitting (for 1 minute prior to obtaining)] Blood Pressure Mean 60 58 70 Blood Pressure Mean [Lying] Blood Pressure Mean [Sitting (for 1 minute prior to obtaining)] Pulse Ox 96 98 Oxygen Delivery Method Room Air Room Air 12/18/23 13:04 12/18/23 13:30 12/18/23 13:35 Temperature Temperature Source Pulse Rate 65 Pulse Rate [Lying] 64 Pulse Rate [Sitting (for 1 minute prior to obtaining)] 67 Pulse Rate [Standing (for 1 minute prior to obtaining)] 119 H Respiratory Rate 20 H Respiratory Effort Normal Non-Labored Blood Pressure 107/55 L Blood Pressure [Lying] 94/56 L Blood Pressure [Sitting (for 1 minute prior to obtaining)] 90/53 L Blood Pressure Mean 72 Blood Pressure Mean [Lying] 68 Blood Pressure Mean [Sitting (for 1 minute prior to obtaining)] 65 Pulse Ox Oxygen Delivery Method [facility] Lab Data Attestation: I reviewed the patient's lab results. Lab results narrative: Hemoglobin is higher than it was December 01. Competence of metabolic panel is remarkable for an elevated BUN and creatinine 26 and 1.42. BUN and creatinine o n December 01 was 8 and 0.95. Labs: Laboratory Results - last 24 hr 12/18/23 13:05 WBC 7.4 RBC 3.50 L Hgb 12.5 L Hct 37.3 L MCV 106.6 H MCH 35.7 H MCHC 33.5 RDW Std Deviation 49.9 H RDW Coeff of Nagel 12.7 Plt Count 294 MPV 9.0 Immature Gran % (Auto) 0.400 Neut % (Auto) 46.3 L Lymph % (Auto) 37.9 Adams % (Auto) 8.0 Eos % (Auto) 6.5 H Baso % (Auto) 0.9 Absolute Neuts (auto) 3.4 Absolute Lymphs (auto) 2.81 Nucleated RBC % 0 Sodium 136 Potassium 4.0 Chloride 101 Carbon Dioxide 26.0 Anion Gap 9 BUN 26 H Creatinine 1.42 H Est GFR (MDRD) Af Amer 60 Est GFR (MDRD) Non-Af 50 L BUN/Creatinine Ratio 18.3 Glucose 68 L Calcium 8.3 L Total Bilirubin 0.30 AST 17 ALT 22 Alkaline Phosphatase 78 Total Protein 6.6 Albumin 3.2 Globulin 3.4 Albumin/Globulin Ratio 0.9 Stool was positive for blood. Radiography Chest X-Ray - ED: 1 View (Independent reviewed interpreted by me. NG needs to be inserted another 5 to 10 cm. Otherwise there is no acute abnormality noted.) Diagnostic Testing: Clinical Impression(s) from Imaging Studies KUB X-Ray 12/18/23 13:18 IMPRESSION: Nasogastric tube with the tip in the gastroesophageal junction and should be advanced. Nonobstructive gas pattern. Electronically Signed: Kunal Hummel MD at 14:22 EDT Reading Location ID and State: [facility] / [place] Tel , Service support , Brain CT 12/18/23 13:19 IMPRESSION: 1. No acute intracranial process. 2. Right posterior parietal encephalomalacia unchanged. 3. Chronic involutional changes of the brain. Electronically Signed: Kunal Hummel MD at 14:28 EDT , CT of the head reveals prior stroke on the right. There is no evidence of epidural hematoma, subdural hematoma, traumatic subarachnoid hemorrhage or intraparenchymal contusion. Awaiting formal read by radiologist. Treatment and Re-Evaluation :: Patient is markedly orthostatic positive. He was very symptomatic. Since patient has brown stool and based on EGD performed with Dr. Jarvis he was noted to have a gastric and duodenal ulcer that was not bleeding. Will have nurse place an NG to assess for acute bleed. Discharge Plan Triage Chief Complaint: Syncope ED Provider: Odin Hamilton Dx/Rx/DC Orders Clinical Impression: Acute hypotension, Syncope and collapse, Occult blood in stools, Closed head injury Prescriptions: No Action gabapentin 300 MG capsule 300 mg PO QHS insulin lispro [Humalog KwikPen Insulin] 100/ML insulin pen 14 unit subcut TID Patient Comments: 14 UNITS WITH BREAKFAST, 16 UNITS WITH LUNCH AND DINNER PLUS SLIDING SCALE Rx Instructions: sliding scale insulin glargine [Lantus Solostar U-100 Insulin] 100/ML insulin pen 32 unit subcut QHS simvastatin 20 mg tablet 20 mg PO QHS lisinopril 5 mg tablet 5 mg PO DAILY aspirin 81 mg Tablet 81 mg PO DAILY primidone 50 mg tablet 25 mg PO QHS Patient Comments: TAKE 1/2 (ONE-HALF) OF A TABLET BY MOUTH DAILY AT BEDTIME valacyclovir 1 gram tablet 1,000 mg PO DAILY Probiotic 10 billion cell Capsule 10,000 mmu cells PO DAILY ferrous sulfate 325 mg (65 mg iron) tablet 325 mg PO DAILY albuterol sulfate 90 mcg/actuation HFA aerosol inhaler 2 inh inhalation Q4H PRN (Reason: shortness of breath or wheezing) metolazone 5 mg tablet 2.5 mg PO DAILY sertraline 100 mg tablet 200 mg PO DAILY pantoprazole 40 mg tablet,delayed release (DR/EC) 40 mg PO DAILY Qty: 30 2RF Primary Care Provider: Pradeep Franklin Referrals: Pradeep Franklin MD [Primary Care Provider] - Print Language: Malagasy
[2023-12-18] MEDS: Oxymetazoline 0.05% 1 SPRAY SPRAY.BTL 2 SPRAY NASAL (13:27)
[2023-12-18 13:35] LABS: ALB/GLOB Ratio 0.9 RATIO (0.9-2.4); AST(SGOT) 17 U/L (15-37); Alanine Aminotransfer ALT/SGPT 22 U/L (16-61); Albumin, Serum 3.2 g/dL (3.2-5.0); Alkaline Phosphatase 78 U/L (45-117); Anion Gap 9 (5-15); BUN 26 mg/dL (7-18); BUN/Creat Ratio 18.3 RATIO (10-20); Calcium,Total 8.3 mg/dL (8.5-10.1); Chloride 101 mmol/L (98-107); Creatinine, Serum 1.42 mg/dL (0.70-1.30); EST Glomerular Filtration Rate 50 mL/min (>60); Est Glom Filt Rate - Afr Amer 60 mL/min (>60); Globulin 3.4 g/dL (2.2-4.2); Glucose 68 mg/dL (74-106); Protein, Total 6.6 g/dL (6.4-8.2); Sodium Level 136 mmol/L (136-145)
[2023-12-18] MEDS: 0.9% Normal Saline (1000mL) 1,000 ML 1000 ML IV (14:54)
--- NOTE | 2023-12-18 15:26 | EDS_ITS ---
HPI History of Present Illness Chief Complaint: Syncope Detail of Chief Complaint: Syncope and collapse with head trauma Informant: patient, spouse/S.O. and family Onset/Context/Timing Onset: Hours Context: Sudden Onset Timing: Intermittent Quality: Lightheadedness not vertigo Location: Walking Current Severity: Mild Maximum Severity: Severe Worsened by: Upright position Relieved by: Better supine position Associated Symptoms Associated Symptoms: Headache, head trauma on aspirin Narrative Narrative: Patient is a 88-year-old male. He was admitted end of November for GI bleed. Patient was found to have a gastric ulcer and duodenal ulcer on EGD by Dr. Jarvis. Dr. Jarvis noted no stigmata of recent bleed. Guarding the gastric and duodenal ulcer. Patient also underwent colonoscopy with removal of polyp. Patient states his stool is dark. Is not maroon in color. He denies abdominal pain. [place] back pain. He does complain of head pain. [place] double vision blurred vision loss of vision. No dreams ears. No trouble speech or swallowing. He has chronic neck pain. His neck pain is no different. He denies chest pain, shortness of breath, orthopnea, dyspnea on exertion. Patient denies bruising easily, hematuria, bleeding of his gums. Patient states he is compliant with his pantoprazole. Prior similar symptoms: Yes Recent Illness/Hospitalization: Yes PFSH [facility] Medical History Diabetes Acute blood loss anemia Acute lower GI bleeding Macrocytic anemia Wears dentures Wears glasses Cancer Insulin dependent diabetes mellitus Back pain Parkinson's disease Leg cramps History of edema History of irregular heartbeat History of echocardiogram History of stress test Chest pain Chronic diarrhea Depression Diabetes GI bleed Former smoker Sleep apnea Hypertension Stroke/cerebrovascular accident Personal history of colon cancer Psoriasis Anxiety C. difficile diarrhea Prostate cancer GERD (gastroesophageal reflux disease) High cholesterol Tobacco abuse History of GI bleed Diabetic neuropathy HLD (hyperlipidemia) Diverticulosis of colon without diverticulitis Type II diabetes mellitus Benign hypertension Home Medications ?Medication ?Instructions ?Recorded ?Last Taken ?Type gabapentin 300 mg capsule 300 mg PO QHS nerve pain /07/1605/14/18 History insulin glargine 100 unit/mL (3 32 unit subcut QHS diabetes 05/15/18 05/14/18 History mL) subcutaneous pen (Lantus Solostar U-100 Insulin) insulin lispro 100 unit/mL 14 unit subcut TID 05/15/18 05/15/18 History subcutaneous pen (Humalog KwikPen (U-100) Insulin) lisinopril 5 mg tablet 5 mg PO DAILY 09/12/21 Unknown History simvastatin 20 mg tablet 20 mg PO QHS cholesterol 09/12/21 Unknown History aspirin 81 mg tablet 81 mg PO DAILY heart health 09/13/21 Unknown History Lactobacillus acidophilus 10 10,000 mmu cells PO DAILY 03/22/22 Unknown History billion cell capsule (Probiotic) ferrous sulfate 325 mg (65 mg 325 mg PO DAILY 03/22/22 Unknown History iron) tablet primidone 50 mg tablet 50 mg PO QHS TREMORS 03/22/22 Unknown History valacyclovir 1 gram tablet 1,000 mg PO DAILY 03/22/22 Unknown History albuterol sulfate 90 mcg/actuation 2 inh inhalation Q4H PRN shortness 11/28/23 Unknown History aerosol inhaler of breath or wheezing metolazone 5 mg tablet 2.5 mg PO DAILY 11/28/23 Unknown History sertraline 100 mg tablet 200 mg PO DAILY 11/28/23 Unknown History pantoprazole 40 mg tablet,delayed 40 mg PO DAILY #30 tabs 12/02/23 Unknown Rx release Allergy/AdvReac Type Severity Reaction Status Date / Time Iodinated Contrast Media Allergy Shortness Verified 12/18/23 12:46 (Iodinated Contrast Media - of breath IV Dye) labetalol AdvReac Intermediate hypotension Verified 12/18/23 12:46 metformin AdvReac Diarrhea Verified 12/18/23 12:46 Surgical History Hx of hernia repair History of cholecystectomy History of colonoscopy History of hernia repair History of partial colectomy S/P paola-rectal abscess repair, follow-up exam Social History Smoking Status: Former smoker ROS ROS ED Constitutional Constitutional ED: Denies chills, fever(s), subjective or sweats Eyes Eyes: Denies blurry vision, change in vision or diplopia ENT ENT ED: Reports other Details: And HPI narrative ; Denies ear pain, rhinorrhea or sore throat Cardiovascular Cardiovascular: Denies chest pain, orthopnea, palpitations, paroxysmal nocturnal dyspnea or racing heartbeat Respiratory/Chest Respiratory/Chest: Denies cough, dyspnea, dyspnea on exertion, orthopnea or paroxysmal nocturnal dyspnea Gastrointestinal Gastrointestinal: Denies abdominal pain, melena or vomiting Genitourinary Genitourinary ED: Denies dysuria, hematuria or urinary frequency Musculoskeletal Musculoskeletal: Denies arthralgias, back pain or myalgias Integumentary Reports Abrasions Neurologic Neurologic: Reports headache(s); Denies paresthesias or weakness Psychiatric Psychiatric: Denies anxiety or depression Endocrine Endocrinology: Denies cold intolerance or heat intolerance Hematologic/Lymphatic Hematologic/Lymphatic: Reports systems reviewed and no addt'l complaints, except as documented EXAM Physical Exam Const Vital Signs: 12/18/23 12:46 12/18/23 12:46 12/18/23 13:01 Temperature 98 F Temperature Source Temporal Pulse Rate 71 78 61 Pulse Rate [Lying] Pulse Rate [Sitting (for 1 minute prior to obtaining)] Pulse Rate [Standing (for 1 minute prior to obtaining)] Respiratory Rate 14 14 Respiratory Effort Blood Pressure 90/46 L 84/45 L 97/57 L Blood Pressure [Lying] Blood Pressure [Sitting (for 1 minute prior to obtaining)] Blood Pressure Mean 60 58 70 Blood Pressure Mean [Lying] Blood Pressure Mean [Sitting (for 1 minute prior to obtaining)] Pulse Ox 96 98 Oxygen Delivery Method Room Air Room Air 12/18/23 13:04 12/18/23 13:30 12/18/23 13:35 Temperature Temperature Source Pulse Rate 65 Pulse Rate [Lying] 64 Pulse Rate [Sitting (for 1 minute prior to obtaining)] 67 Pulse Rate [Standing (for 1 minute prior to obtaining)] 119 H Respiratory Rate 20 H Respiratory Effort Normal Non-Labored Blood Pressure 107/55 L Blood Pressure [Lying] 94/56 L Blood Pressure [Sitting (for 1 minute prior to obtaining)] 90/53 L Blood Pressure Mean 72 Blood Pressure Mean [Lying] 68 Blood Pressure Mean [Sitting (for 1 minute prior to obtaining)] 65 Pulse Ox Oxygen Delivery Method 12/18/23 14:30 Temperature Temperature Source Pulse Rate 70 Pulse Rate [Lying] Pulse Rate [Sitting (for 1 minute prior to obtaining)] Pulse Rate [Standing (for 1 minute prior to obtaining)] Respiratory Rate 18 Respiratory Effort Blood Pressure 120/63 Blood Pressure [Lying] Blood Pressure [Sitting (for 1 minute prior to obtaining)] Blood Pressure Mean 82 Blood Pressure Mean [Lying] Blood Pressure Mean [Sitting (for 1 minute prior to obtaining)] Pulse Ox Oxygen Delivery Method Positive well nourished and well developed General Appearance ED: well developed, NAD and pallor; Negative for cyanotic or diaphoretic HEENT Reports moist mucous membranes HEENT Narrative: Abrasions noted proximity of the left brow. There is no step-off with palpation of the orbital rim. There is no anesthesia the infraorbital nerve. There is no evidence of entrapment and patient denies diplopia. Ears normal. TMs normal. Posterior pharynx is normal. trauma and tenderness Eyes PERRL and EOMs intact bilaterally General Eye ED: Negative for pale conjunctiva or scleral icterus Neck no lymphadenopathy, supple and no JVD Chest Wall inspection of chest normal and palpation of chest normal Resp normal respiratory effort and clear to auscultation bilaterally Cardio regular rhythm, S1 normal heart sound, S2 normal heart sound and no murmurs Rate: bradycardia GI normal to inspection, nondistended, normoactive bowel sounds, non-tender, non- distended and no masses; Negative for hepatosplenomegaly GI Narrative: Stool is brown. Prostate is normal. There is no fissures or fistulas or hemorrhoids noted. Back/Spine no CVA tenderness Thoracic Spine / Upper Back: Negative for thoracic spinal tenderness Lumbar Spine / Lower Back: Negative for lumbar spinal tenderness Extremity General Extremety ED: Yes edema; Negative for tenderness General Extremity: edema Neuro oriented x3, CN's II-XII intact bilaterally and no sensory deficits noted Sensorium / Orientation: alert Psych mental status grossly normal Skin no rashes or lesions noted and No no wounds General Skin Exam: pallor; Negative for elasticity normal or jaundice MDM MDM MDM Narrative Medical decision making narrative: Need to evaluate for GI bleed versus dysrhythmia versus vasovagal episode. Orthostatic vitals were ordered. Orthostatic vitals are markedly abnormal. Patient did receive a fluid bolus of 500 initially. Second fluid bolus was ordered. Will obtain blood work to assess renal function, electrolytes, BUN/creatinine ratio and H&H. EKG to assess for cardiac ischemia and any significant dysrhythmia. Lab Data Attestation: I reviewed the patient's lab results. Lab results narrative: White count is normal. Patient is H&H is higher than prior. MCV is elevated, which it has been in the past. BUN and creatinine are elevated 26 and 1.42.This is an elevation from prior dated December 01. BUN/creatinine at that time were 8 and 0.95. Labs: Laboratory Results - last 24 hr 12/18/23 13:05 WBC 7.4 RBC 3.50 L Hgb 12.5 L Hct 37.3 L MCV 106.6 H MCH 35.7 H MCHC 33.5 RDW Std Deviation 49.9 H RDW Coeff of Angel 12.7 Plt Count 294 MPV 9.0 Immature Gran % (Auto) 0.400 Neut % (Auto) 46.3 L Lymph % (Auto) 37.9 [place]annin % (Auto) 8.0 Eos % (Auto) 6.5 H Baso % (Auto) 0.9 Absolute Neuts (auto) 3.4 Absolute Lymphs (auto) 2.81 Nucleated RBC % 0 Sodium 136 Potassium 4.0 Chloride 101 Carbon Dioxide 26.0 Anion Gap 9 BUN 26 H Creatinine 1.42 H Est GFR (MDRD) Af Amer 60 Est GFR (MDRD) Non-Af 50 L BUN/Creatinine Ratio 18.3 Glucose 68 L Calcium 8.3 L Total Bilirubin 0.30 AST 17 ALT 22 Alkaline Phosphatase 78 Total Protein 6.6 Albumin 3.2 Globulin 3.4 Albumin/Globulin Ratio 0.9 Radiography Chest X-Ray - ED: 1 View and Read by ED Physician (KUB reveals NG to be near the EG junction. Nurse was instructed to advance this. Gas pattern is unremarkable. This was independently reviewed and interpreted by me at 1131.) Diagnostic Testing: Clinical Impression(s) from Imaging Studies KUB X-Ray 12/18/23 13:18 IMPRESSION: Nasogastric tube with the tip in the gastroesophageal junction and should be advanced. Nonobstructive gas pattern. Electronically Signed: Kunal Hummel MD at 14:22 EDT , Brain CT 12/18/23 13:19 IMPRESSION: 1. No acute intracranial process. 2. Right posterior parietal encephalomalacia unchanged. 3. Chronic involutional changes of the brain. Electronically Signed: Kunal Hummel MD at 14:28 EDT , EKG Initial EKG: Attestation: I personally reviewed and interpreted this EKG as follows: Interpretation: Sinus Bradycardia (Rate is 57. Patient has low voltage. Parables 196 ms. Cures duration 88 ms. QT duration 452 ms. [place] is normal.) Management Discussion w/another healthcare provider: Hospitalist (Hospitalist made aware of patient's past history, reason for presentation and reason for admission.) Treatment and Re-Evaluation :: IV fluids, NG was placed. The film was independent reviewed interpreted by me prior to radiology read. The NG was inserted an additional 5 to 10 cm. Discharge Plan Dx/Rx/DC Orders Clinical Impression: Acute hypotension, Syncope and collapse, Occult blood in stools, Closed head injury Disposition Disposition: Acute Care Hospital [facility]
--- NOTE | 2023-12-18 15:49 | HP.PCM.HOS_ITS ---
HPI - General General Date of Admission: 12/18/23 Date of Service: 12/18/23 Chief Complaint: Syncope HPI Narrative LEONOR MIJARES, is a 88 M who presented to the emergency department at [facility] on 12/18/2023 after a bout of syncope at which time he hit his head. He lives alone so this was an unwitnessed event but he stated he fell to the left side and hit his head, left hand and left shoulder. At the time of my evaluation he is complaining of some mild left shoulder pain and left mild left head pain. He has a small abrasion but no marked laceration on the left side of his head. He states has been eating and drinking well however his daughter is unsure that this is true. He denies any blood in his stool, has not had any nausea or vomiting or hematemesis, and states that his stools have not been darker than typical. He had a recent admission here at the end of last month for GI bleed at which time an EGD revealed a one nonbleeding linear gastric ulcer as well as 3 nonbleeding cratered duodenal ulcers in the duodenal bulb and grade C esophagitis. Colonoscopy showed nonbleeding internal hemorrhoids and diverticulosis in the rectosigmoid colon, sigmoid colon, descending colon and a end-to-side ileocolonic anastomosis which had ulceration with few ulcers noted at the anastomosis which were biopsied. EGD biopsies showed duodenal mucosa with ulceration and acute inflammation, terminal ileum biopsies showed the same and biopsies from the anastomosis showed mild architectural distortion and nonspecific chronic inflammation changes. He was noted to be hypotensive on arrival and there was concern that he may be having significant bleeding so an NG was placed however he is having clear drainage from his NG tube so this will be removed prior to admission. His daughter would like him evaluated for placement prior to discharge. Vital signs at the time of admission showed temperature of 98, heart rate 78, respiratory rate 14, blood pressure was 84/45, and pulse ox was 98% on room air. He responded well to IV fluids and by the time of admission at the time of my evaluation his blood pressure is 120/63. His CBC does appear to be hemoconcentrated. His hemoglobin on 12/02/2023 was 10.9 and today it was 12.5. Otherwise, CBC was unremarkable. Chemistry panel showed normal electrolytes however his BUN was 26 and his serum creatinine was 1.42 with a baseline serum creatinine of 0.9-1.1. Additionally, his glucose was 68 at the time of arrival. Liver functions are unremarkable. His bilirubin is normal. Stool guaiac was done in the emergency department was positive for occult blood. Chest x-ray was unremarkable for any acute findings. CT of the brain was unremarkable for any acute findings but did show chronic involutional changes and right posterior parietal encephalomalacia unchanged from previous. EKG showed sinus bradycardia with a heart rate of 57, normal intervals, normal axis and no ST-T wave changes concerning for acute ischemia. [facility] Medical History Diabetes Acute blood loss anemia Acute lower GI bleeding Macrocytic anemia Wears dentures Wears glasses Cancer Insulin dependent diabetes mellitus Back pain Parkinson's disease Leg cramps History of edema History of irregular heartbeat History of echocardiogram History of stress test Chest pain Chronic diarrhea Depression Diabetes GI bleed Former smoker Sleep apnea Hypertension Stroke/cerebrovascular accident Personal history of colon cancer Psoriasis Anxiety C. difficile diarrhea Prostate cancer GERD (gastroesophageal reflux disease) High cholesterol Tobacco abuse History of GI bleed Diabetic neuropathy HLD (hyperlipidemia) Diverticulosis of colon without diverticulitis Type II diabetes mellitus Benign hypertension Home Medications ?Medication ?Instructions ?Recorded ?Last Taken ?Type gabapentin 300 mg capsule 300 mg PO QHS nerve pain 10/05/13 05/14/18 History insulin glargine 100 unit/mL (3 32 unit subcut QHS diabetes 05/15/18 05/14/18 History mL) subcutaneous pen (Lantus Solostar U-100 Insulin) insulin lispro 100 unit/mL 14 unit subcut TID 05/15/18 05/15/18 History subcutaneous pen (Humalog KwikPen (U-100) Insulin) lisinopril 5 mg tablet 5 mg PO DAILY 09/12/21 Unknown History simvastatin 20 mg tablet 20 mg PO QHS cholesterol 09/12/21 Unknown History aspirin 81 mg tablet 81 mg PO DAILY heart health 09/13/21 Unknown History Lactobacillus acidophilus 10 10,000 mmu cells PO DAILY 03/22/22 Unknown History billion cell capsule (Probiotic) ferrous sulfate 325 mg (65 mg 325 mg PO DAILY 03/22/22 Unknown History iron) tablet primidone 50 mg tablet 50 mg PO QHS TREMORS 03/22/22 Unknown History valacyclovir 1 gram tablet 1,000 mg PO DAILY 03/22/22 Unknown History albuterol sulfate 90 mcg/actuation 2 inh inhalation Q4H PRN shortness 11/28/23 Unknown History aerosol inhaler of breath or wheezing metolazone 5 mg tablet 2.5 mg PO DAILY 11/28/23 Unknown History sertraline 100 mg tablet 200 mg PO DAILY 11/28/23 Unknown History pantoprazole 40 mg tablet,delayed 40 mg PO DAILY #30 tabs 12/02/23 Unknown Rx release Allergy/AdvReac Type Severity Reaction Status Date / Time Iodinated Contrast Media Allergy Shortness Verified 12/18/23 12:46 (Iodinated Contrast Media - of breath IV Dye) labetalol AdvReac Intermediate hypotension Verified 12/18/23 12:46 metformin AdvReac Diarrhea Verified 12/18/23 12:46 Surgical History Hx of hernia repair History of cholecystectomy History of colonoscopy History of hernia repair History of partial colectomy S/P paola-rectal abscess repair, follow-up exam Social History (Updated 12/18/23 @ 17:[address] Caterina Mehta DO) household members: none housing: house Smoking Status: Former smoker alcohol intake: never substance use type: does not use ROS Constitutional Constitutional: Reports fatigue and weakness; Denies anorexia, change in weight, chills, fever(s), malaise, night sweats or other Eyes Eyes: Denies blurry vision, change in eye color, change in vision, discharge from eye(s), double vision, erythema, eye pain, loss of vision or other ENT HEENT: Reports abnormal hearing and hearing loss; Denies dysphagia, ear pain, epistaxis, headache(s), nasal congestion, nasal discharge, post nasal drip, sinus pressure, sore throat or other Cardiovascular Cardiovascular: Denies chest pain, claudication, dyspnea on exertion, edema, lightheadedness, orthopnea, palpitations, paroxysmal nocturnal dyspnea, rapid heart rate, syncope or other Respiratory/Chest Respiratory/Chest: Denies cough, dyspnea, excessive phlegm production, hemoptysis, productive cough, shortness of breath at rest, shortness of breath with exertion, wheezing or other Gastrointestinal Gastrointestinal: Denies abdominal pain, coffee ground emesis, constipation, diarrhea, dyspepsia, hematemesis, hematochezia, loose stools, melena, nausea, vomiting or other Genitourinary Genitourinary: Denies burning urination, difficulty urinating, dysuria, hematuria, nocturia, urinary frequency, urinary hesitancy, urinary incontinence, urinary urgency or other Musculoskeletal Musculoskeletal: Denies arthralgias, back pain, joint pain, joint stiffness, joint swelling, myalgias, neck pain or other Neurologic Neurologic: Reports syncope; Denies abnormal gait, abnormal speech, confusion, disequilibrium, dizziness, focal weakness, headache(s), numbness, paresthesias, seizure-like activity, seizures, tingling, tremor(s) or other Psychiatric Psychiatric: Denies anxiety, depression, homicidal ideation, suicidal ideation or other Endocrine Endocrinology: Denies change in body appearance, cold intolerance, excessive sweating, heat intolerance, polydipsia, polyuria or other Hematologic/Lymphatic Hematologic/Lymphatic: Denies anemia, easy bleeding, easy bruising, lymphadenopathy or other Allergic/Immunologic Allergic/Immunologic: Denies rhinitis, hives, eczemia, asthma or other Vital Signs Vital Signs Vital Signs: 12/18/23 12:46 12/18/23 12:46 12/18/23 13:01 Temperature 98 F Temperature Source Temporal Pulse Rate 71 78 61 Pulse Rate [Lying] Pulse Rate [Sitting (for 1 minute prior to obtaining)] Pulse Rate [Standing (for 1 minute prior to obtaining)] Respiratory Rate 14 14 Respiratory Effort Blood Pressure 90/46 L 84/45 L 97/57 L Blood Pressure [Lying] Blood Pressure [Sitting (for 1 minute prior to obtaining)] Blood Pressure Mean 60 58 70 Blood Pressure Mean [Lying] Blood Pressure Mean [Sitting (for 1 minute prior to obtaining)] Pulse Ox 96 98 Oxygen Delivery Method Room Air Room Air 12/18/23 13:04 12/18/23 13:30 12/18/23 13:35 Temperature Temperature Source Pulse Rate 65 Pulse Rate [Lying] 64 Pulse Rate [Sitting (for 1 minute prior to obtaining)] 67 Pulse Rate [Standing (for 1 minute prior to obtaining)] 119 H Respiratory Rate 20 H Respiratory Effort Normal Non-Labored Blood Pressure 107/55 L Blood Pressure [Lying] 94/56 L Blood Pressure [Sitting (for 1 minute prior to obtaining)] 90/53 L Blood Pressure Mean 72 Blood Pressure Mean [Lying] 68 Blood Pressure Mean [Sitting (for 1 minute prior to obtaining)] 65 Pulse Ox Oxygen Delivery Method 12/18/23 14:30 Temperature Temperature Source Pulse Rate 70 Pulse Rate [Lying] Pulse Rate [Sitting (for 1 minute prior to obtaining)] Pulse Rate [Standing (for 1 minute prior to obtaining)] Respiratory Rate 18 Respiratory Effort Blood Pressure 120/63 Blood Pressure [Lying] Blood Pressure [Sitting (for 1 minute prior to obtaining)] Blood Pressure Mean 82 Blood Pressure Mean [Lying] Blood Pressure Mean [Sitting (for 1 minute prior to obtaining)] Pulse Ox Oxygen Delivery Method Physical Exam Const alert, oriented x3, no apparent distress and well nourished Constitutional Narrative: Elderly, white male, sitting up in bed, overweight, interacts appropriately, daughter at bedside, answers questions General Appearance: cooperative HEENT normocephalic and moist oral mucous membranes; Negative for head/scalp atraumatic or hearing grossly normal bilaterally HEENT Narrative: Abrasion on left side of frontal/temporal region with no significant bleeding, no ecchymosis as of yet, Mallampati is 3, dentures in place, no thrush, moderate hearing loss Eyes PERRL, EOMs intact bilaterally and conjunctivae normal Eyes Narrative: No scleral icterus Neck no lymphadenopathy and supple Neck Narrative: Neck is short and thick, trachea is midline, no thrush Resp normal respiratory effort, no retractions, no use of accessory muscles and clear to auscultation bilaterally Resp Narrative: Diffusely diminished but clear Auscultation: Negative for rales, rhonchi or wheezes Cardio regular rate, regular rhythm, S1 normal heart sound, S2 normal heart sound, no murmurs, no rub, no gallops and no clicks GI normal to inspection, nondistended, normoactive bowel sounds, soft to palpation and non-tender Extremity no clubbing, cyanosis or edema Extremity Narrative: Pedal pulses are 2+, left shoulder pain but no mobility issues Skin no jaundice, no petechiae and no mottling Skin Narrative: Mild tenting of skin with turgor exam, abrasion left side of the frontotemporal region of head Neuro oriented x3, moves all extremities and no focal motor deficits Neuro Narrative: Generalized weakness noted with proximal musculature more involved than distal Speech: speech normal Psych affect normal Psych Narrative: Interacts appropriately, eye contact is good Results Lab / Micro Data 12/18/23 13:05 12/18/23 13:05 Labs: Laboratory Results - last 24 hr 12/18/23 13:05: WBC 7.4, RBC 3.50 L, Hgb 12.5 L, Hct 37.3 L, MCV 106.6 H, MCH 35.7 H, MCHC 33.5, RDW Std Deviation 49.9 H, RDW Coeff of Angel 12.7, Plt Count 294, MPV 9.0, Immature Gran % (Auto) 0.400, Neut % (Auto) 46.3 L, Lymph % (Auto) 37.9, [place] % (Auto) 8.0, Eos % (Auto) 6.5 H, Baso % (Auto) 0.9, Absolute Neuts (auto) 3.4, Absolute Lymphs (auto) 2.81, Nucleated RBC % 0, Sodium 136, Potassium 4.0, Chloride 101, Carbon Dioxide 26.0, Anion Gap 9, BUN 26 H, C reatinine 1.42 H, Est GFR (MDRD) Af Amer 60, Est GFR (MDRD) Non-Af 50 L, BUN/Creatinine Ratio 18.3, Glucose 68 L, Calcium 8.3 L, Total Bilirubin 0.30, AST 17, ALT 22, Alkaline Phosphatase 78, Total Protein 6.6, Albumin 3.2, Globulin 3.4, Albumin/Globulin Ratio 0.9 Micro: Microbiology 12/18/23 13:05 Stool Stool Occult Blood (DARIA) - Final Occult Blood Positive Imaging Radiology Impression KUB X-Ray 12/18/23 13:18 IMPRESSION: Nasogastric tube with the tip in the gastroesophageal junction and should be advanced. Nonobstructive gas pattern. Electronically Signed: Kunal Hummel MD at 14:22 EDT , Brain CT 12/18/23 13:19 IMPRESSION: 1. No acute intracranial process. 2. Right posterior parietal encephalomalacia unchanged. 3. Chronic involutional changes of the brain. Electronically Signed: Kunal Hummel MD at 14:28 EDT , Assessment & Plan Assessment/Plan (1) Syncope and collapse: (2) Occult blood in stools: (3) Closed head injury: (4) Acute hypotension: (5) Anemia: (6) HIREN (acute kidney injury): PLAN: Syncope/acute hypotension -Patient appears markedly dehydrated at the time of presentation and blood pressure is responding well to IV fluids -Will give 1 more liter of IV fluids on the medical floor at a decreased rate and then reevaluate -Cycle hemoglobin due to previous history and positive guaiac stool -Hold home antihypertensives -Repeat orthostatic vitals in a.m. -I do not think we need to pursue an echocardiogram at this time given his marked dehydration at the time of presentation however if his orthostasis does not improve this may need to be considered -Patient had echocardiogram about 1 year ago that showed EF of 55 to 60% with no significant valvular abnormality HIREN -Serum creatinine at baseline is 0.9-1.1 -Serum creatinine on presentation was 1.42 -Hold home antihypertensives -Hold home metolazone -IV fluids as noted above -Avoid nephrotoxins as able -Repeat lab in a.m. Anemia with occult positive stools -Patient with no obvious signs of GI bleeding however stools were occult positive -EGD 12/01/23 revealed a one nonbleeding linear gastric ulcer as well as 3 nonbleeding cratered duodenal ulcers in the duodenal bulb and grade C esophagitis -Colonoscopy on the same date showed nonbleeding internal hemorrhoids and diverticulosis in the rectosigmoid colon, sigmoid colon, descending colon and a end-to-side ileocolonic anastomosis which had ulceration with few ulcers noted at the anastomosis which were biopsied -Cycle hemoglobin every 6 and transfuse for precipitous drop or hemoglobin less than 7 -Start Protonix bolus and drip -Clear liquid diet with n.p.o. after midnight -Continue home iron supplementation -GI consult-Dr. Jarvis notified DM-2 -Blood sugar was 68 on arrival -Decrease basal insulin from 32 units to 17 units at at bedtime -Hold home prandial insulin -SSI as ordered -Clear liquid diet for now and n.p.o. after midnight for possible scope tomorrow with guaiac positive stool Hypertension -Patient hypotensive on arrival and antihypertensives on hold for now History of Parkinson's disease with debility -PT/OT consultation -Continue home primidone History of C. difficile colitis -No acute issues GERD -PPI as ordered above -Hold home oral PPI History of stroke -Aspirin on hold due to the above but reinitiate when appropriate Diabetic neuropathy -Continue home gabapentin Hyperlipidemia -Continue home statin DVT prophylaxis -SCDs -Chemoprophylaxis contraindicated currently due to guaiac positive stools and concern for GI bleeding CODE STATUS -DNR CCA with no intubation per discussion the emergency department (7) Debility: Charges/Coding Visit Charges Inpatient E&M: 16434 Init Hosp L3
--- NOTE | 2023-12-18 16:45 | ED.RN ---
Dr. Mehta verbal order to remove NG, NG pulled w/o difficulties
[2023-12-18] MEDS: Lactated Ringers 1,000 ML 100 ML IV (17:27)
[2023-12-18 17:32] LABS: Hematocrit 35.6 % (40-54); Hemoglobin 11.8 g/dL (13.0-16.5)
[2023-12-18] MEDS: Pantoprazole Sodium 80 MG in 0.9% Normal Saline (50mL Bag) 15 ML 420 MG IV BOLUS (17:40)
[2023-12-18] MEDS: Pantoprazole Sodium 80 MG in 0.9% Normal Saline (100mL Bag) 80 ML 10 MG CONT INF (17:41)
[2023-12-18 18:09] LABS: Bedside Glucose 76 mg/dL (74-106)
[2023-12-18 18:09] LABS: Bedside Glucose 57 mg/dL (74-106)
--- NOTE | 2023-12-18 18:52 | EX.PCM.CON.G ---
HPI Consult Data Date of Consult: 12/18/23 HPI Narrative Reason for Consultation: Syncope HPI Narrative: LEONOR MIJARES, is a 88 M who presents to the emergency department at [facility] on 12/18/2023 after a bout of syncope at which time he hit his head. He had a recent admission here at the end of last month for GI bleed at which time an EGD revealed a one nonbleeding linear gastric ulcer as well as 3 nonbleeding cratered duodenal ulcers in the duodenal bulb and grade C esophagitis. Colonoscopy showed nonbleeding internal hemorrhoids and diverticulosis in the rectosigmoid colon, sigmoid colon, descending colon and a end-to-side ileocolonic anastomosis which had ulceration with few ulcers noted at the anastomosis which were biopsied. EGD biopsies showed duodenal mucosa with ulceration and acute inflammation, terminal ileum biopsies showed the same and biopsies from the anastomosis showed mild architectural distortion and nonspecific chronic inflammation changes. He was noted to be hypotensive on arrival and there was concern that he may be having significant bleeding so an NG was placed however he is having clear drainage from his NG tube so this will be removed prior to admission. [facility] Medical History Diabetes Acute blood loss anemia Acute lower GI bleeding Macrocytic anemia Wears dentures Wears glasses Cancer Insulin dependent diabetes mellitus Back pain Parkinson's disease Leg cramps History of edema History of irregular heartbeat History of echocardiogram History of stress test Chest pain Chronic diarrhea Depression Diabetes GI bleed Former smoker Sleep apnea Hypertension Stroke/cerebrovascular accident Personal history of colon cancer Psoriasis Anxiety C. difficile diarrhea Prostate cancer GERD (gastroesophageal reflux disease) High cholesterol Tobacco abuse History of GI bleed Diabetic neuropathy HLD (hyperlipidemia) Diverticulosis of colon without diverticulitis Type II diabetes mellitus Benign hypertension Home Medications ?Medication ?Instructions ?Recorded ?Last Taken ?Type gabapentin 300 mg capsule 300 mg PO QHS nerve pain /07/1605/14/18 History insulin glargine 100 unit/mL (3 32 unit subcut QHS diabetes 05/15/18 05/14/18 History mL) subcutaneous pen (Lantus Solostar U-100 Insulin) insulin lispro 100 unit/mL 14 unit subcut TID 05/15/18 05/15/18 History subcutaneous pen (Humalog KwikPen (U-100) Insulin) lisinopril 5 mg tablet 5 mg PO DAILY 09/12/21 Unknown History simvastatin 20 mg tablet 20 mg PO QHS cholesterol 09/12/21 Unknown History aspirin 81 mg tablet 81 mg PO DAILY heart health 09/13/21 Unknown History Lactobacillus acidophilus 10 10,000 mmu cells PO DAILY 03/22/22 Unknown History billion cell capsule (Probiotic) ferrous sulfate 325 mg (65 mg 325 mg PO DAILY 03/22/22 Unknown History iron) tablet primidone 50 mg tablet 50 mg PO QHS TREMORS 03/22/22 Unknown History valacyclovir 1 gram tablet 1,000 mg PO DAILY 03/22/22 Unknown History albuterol sulfate 90 mcg/actuation 2 inh inhalation Q4H PRN shortness 11/28/23 Unknown History aerosol inhaler of breath or wheezing metolazone 5 mg tablet 2.5 mg PO DAILY 11/28/23 Unknown History sertraline 100 mg tablet 200 mg PO DAILY 11/28/23 Unknown History pantoprazole 40 mg tablet,delayed 40 mg PO DAILY #30 tabs 12/02/23 Unknown Rx release Allergy/AdvReac Type Severity Reaction Status Date / Time Iodinated Contrast Media Allergy Shortness Verified 12/18/23 12:46 (Iodinated Contrast Media - of breath IV Dye) labetalol AdvReac Intermediate hypotension Verified 12/18/23 12:46 metformin AdvReac Diarrhea Verified 12/18/23 12:46 Surgical History Hx of hernia repair History of cholecystectomy History of colonoscopy History of hernia repair History of partial colectomy S/P paola-rectal abscess repair, follow-up exam Social History (Updated 12/18/23 @ 17:[address] Caterina Mehta DO) household members: none housing: house Smoking Status: Former smoker alcohol intake: never substance use type: does not use ROS Constitutional Constitutional: Reports fatigue and weakness; Denies anorexia, change in weight, chills, fever(s), malaise, night sweats or other Eyes Eyes: Denies blurry vision, change in eye color, change in vision, discharge from eye(s), double vision, erythema, eye pain, loss of vision or other ENT HEENT: Reports abnormal hearing and hearing loss; Denies dysphagia, ear pain, epistaxis, headache(s), nasal congestion, nasal discharge, post nasal drip, sinus pressure, sore throat or other Cardiovascular Cardiovascular: Denies chest pain, claudication, dyspnea on exertion, edema, lightheadedness, orthopnea, palpitations, paroxysmal nocturnal dyspnea, rapid heart rate, syncope or other Respiratory/Chest Respiratory/Chest: Denies cough, dyspnea, excessive phlegm production, hemoptysis, productive cough, shortness of breath at rest, shortness of breath with exertion, wheezing or other Gastrointestinal Gastrointestinal: Denies abdominal pain, coffee ground emesis, constipation, diarrhea, dyspepsia, hematemesis, hematochezia, loose stools, melena, nausea, vomiting or other Genitourinary Genitourinary: Denies burning urination, difficulty urinating, dysuria, hematuria, nocturia, urinary frequency, urinary hesitancy, urinary incontinence, urinary urgency or other Musculoskeletal Musculoskeletal: Denies arthralgias, back pain, joint pain, joint stiffness, joint swelling, myalgias, neck pain or other Neurologic Neurologic: Reports syncope; Denies abnormal gait, abnormal speech, confusion, disequilibrium, dizziness, focal weakness, headache(s), numbness, paresthesias, seizure-like activity, seizures, tingling, tremor(s) or other Psychiatric Psychiatric: Denies anxiety, depression, homicidal ideation, suicidal ideation or other Endocrine Endocrinology: Denies change in body appearance, cold intolerance, excessive sweating, heat intolerance, polydipsia, polyuria or other Hematologic/Lymphatic Hematologic/Lymphatic: Denies anemia, easy bleeding, easy bruising, lymphadenopathy or other Allergic/Immunologic Allergic/Immunologic: Denies rhinitis, hives, eczemia, asthma or other Physical Exam Const alert, oriented x3, no apparent distress, average body habitus and well nourished General Appearance: cooperative, comfortable and well developed HEENT normocephalic, head/scalp atraumatic, hearing grossly normal bilaterally, nasal mucous membranes and turbinates normal, moist oral mucous membranes and oropharynx normal Mouth: oral and palatal mucosa normal Eyes PERRL, EOMs intact bilaterally and conjunctivae normal Neck full ROM, no lymphadenopathy and supple Lymph Lymphatic: no lymphadenopathy noted and no lymphedema noted Chest inspection of chest normal Resp normal respiratory effort, normal air movement, no use of accessory muscles and clear to auscultation bilaterally Cardio regular rate, regular rhythm, S1 normal heart sound, S2 normal heart sound, no murmurs and peripheral pulses 2+ throughout GI normal to inspection, nondistended, normoactive bowel sounds, soft to palpation, non-tender and non-distended Back/Spine normal ROM Extremity normal to inspection, full ROM, normal capillary refill, no clubbing, cyanosis or edema, no calf tenderness and no pedal edema General Extremity: no tenderness to palpation of joints or extremities Skin no rashes or lesions noted General Skin Exam: no breakdown and turgor normal Neuro oriented x3, CN's II-XII intact bilaterally, moves all extremities, no focal motor deficits, no sensory deficits noted and deep tendon reflexes 2+ bilaterally Sensorium / Orientation: awake Speech: speech normal Motor Exam: strength 5/5 throughout and general weakness Psych mental status grossly normal, thought process normal and cooperative Appearance: appropriate Lab / Micro Data 12/18/23 17:24 12/18/23 13:05 Labs: Laboratory Results - last 24 hr 12/18/23 13:05: WBC 7.4, RBC 3.50 L, Hgb 12.5 L, Hct 37.3 L, MCV 106.6 H, MCH 35.7 H, MCHC 33.5, RDW Std Deviation 49.9 H, RDW Coeff of Angel 12.7, Plt Count 294, MPV 9.0, Immature Gran % (Auto) 0.400, Neut % (Auto) 46.3 L, Lymph % (Auto) 37.9, Morgan % (Auto) 8.0, Eos % (Auto) 6.5 H, Baso % (Auto) 0.9, Absolute Neuts (auto) 3.4, Absolute Lymphs (auto) 2.81, Nucleated RBC % 0, Sodium 136, Potassium 4.0, Chloride 101, Carbon Dioxide 26.0, Anion Gap 9, BUN 26 H, Creatinine 1.42 H, Est GFR (MDRD) Af Amer 60, Est GFR (MDRD) Non-Af 50 L, BUN/Creatinine Ratio 18.3, Glucose 68 L, Calcium 8.3 L, Total Bilirubin 0.30, AST 17, ALT 22, Alkaline Phosphatase 78, Total Protein 6.6, Albumin 3.2, Globulin 3.4, Albumin/Globulin Ratio 0.9 12/18/23 17:24: Hgb 11.8 L, Hct 35.6 L 12/18/23 17:31: POC Glucose 57 L 12/18/23 17:49: POC Glucose 76 Micro: Microbiology 12/18/23 13:05 Stool Stool Occult Blood (DARIA) - Final Occult Blood Positive Imaging Radiology Impression KUB X-Ray 12/18/23 13:18 IMPRESSION: Nasogastric tube with the tip in the gastroesophageal junction and should be advanced. Nonobstructive gas pattern. Electronically Signed: Kunal Hummel MD at 14:22 EDT , Brain CT 12/18/23 13:19 IMPRESSION: 1. No acute intracranial process. 2. Right posterior parietal encephalomalacia unchanged. 3. Chronic involutional changes of the brain. Electronically Signed: Kunal Hummel MD at 14:28 EDT , Assessment & Plan Assessment/Plan (1) Syncope and collapse: (2) Occult blood in stools: (3) Closed head injury: (4) Acute hypotension: (5) Anemia: (6) HIREN (acute kidney injury): PLAN: 88-year-old gentleman with multiple comorbidities recently discharged from the hospital after acute GI blood loss anemia presents with syncope. Syncope -Possibly secondary to patient's medicine. His blood sugar was not determined to be low. He is much more alert at this time. His stools were guaiac positive. -Agree with cycling hemoglobin due to previous history and positive guaiac stool -Patient had echocardiogram about 1 year ago that showed EF of 55 to 60% with no significant valvular abnormality Anemia with occult positive stools -Patient with no obvious signs of GI bleeding however stools were occult positive -EGD 12/01/23 revealed a one nonbleeding linear gastric ulcer as well as 3 nonbleeding cratered duodenal ulcers in the duodenal bulb and grade C esophagitis -Colonoscopy on the same date showed nonbleeding internal hemorrhoids and diverticulosis in the rectosigmoid colon, sigmoid colon, descending colon and a end-to-side ileocolonic anastomosis which had ulceration with few ulcers noted at the anastomosis which were biopsied -He did have some ulcerations around his anastomosis and he does have a history of ulcers likely secondary to NSAIDs. He would benefit from repeat upper endoscopy to make sure it is not the etiology of his syncope. (7) Debility: Charges/Coding Visit Charges Inpatient E&M: 47465 Init Hosp L3
[2023-12-18] MEDS: Primidone 50 MG Tablet PO (20:23)
[2023-12-18] MEDS: Atorvastatin Calcium 10 MG Tablet PO (20:23)
[2023-12-18] MEDS: Gabapentin 300 MG Capsule PO (20:23)
[2023-12-18 21:26] LABS: Bedside Glucose 219 mg/dL (74-106)
[2023-12-18 23:15] LABS: Hematocrit 33.7 % (40-54); Hemoglobin 11.3 g/dL (13.0-16.5)
[2023-12-19] VITALS (10 sets, daily range): BP systolic 87–134; BP diastolic 55–71; PULSE 16–104; RESP 16; TEMP 36.2–36.6; O2SAT 93–98; BMI 29.0
[2023-12-19] MEDS: Acetaminophen 325 MG Tablet 650 MG PO (02:54)
[2023-12-19] MEDS: Pantoprazole Sodium 80 MG in 0.9% Normal Saline (100mL Bag) 80 ML 10 MG CONT INF ×2 (02:55→14:59)
[2023-12-19 04:44] LABS: Absolute Lymphocyte Count 2.42 X10^3/uL (0.83-4.51); Absolute Neutrophil Count 4.8 X10^3/uL (2.0-7.7); Basophil# 0.08 X10^3/uL; Basophil% 0.9 % (0-1); Eosinophil# 0.41 X10^3/uL; Eosinophils% 4.9 % (0-5); Hematocrit 34.8 % (40-54); Hemoglobin 11.9 g/dL (13.0-16.5); Lymphocyte # 2.42 X10^3/ul (0.83-4.51); Lymphocyte % 28.6 % (19-41); Mean Corp Hgb Conc 34.2 g/dL (32-36); Mean Corpuscular Volume 105.1 fL (80-94); Monocyte% 8.3 % (0-10); NRBC Flagged by Analyzer 0 % (0-5); Neutrophil # 4.81 X10^3/uL (2.7-7.7); Neutrophil % 56.9 % (47-70); Platelet Count 279 K/mm3 (150-450); RBC Distribution Width CV 12.8 % (11.6-14.6); RBC Distribution Width SD 49.6 fl (35.1-43.9); Red Blood Count 3.31 M/mm3 (4.6-6.2); White Blood Count 8.5 K/mm3 (4.4-11.0)
[2023-12-19 05:13] LABS: AST(SGOT) 16 U/L (15-37); Alanine Aminotransfer ALT/SGPT 16 U/L (16-61); Albumin, Serum 2.9 g/dL (3.2-5.0); Alkaline Phosphatase 67 U/L (45-117); Anion Gap 6 (5-15); BUN 19 mg/dL (7-18); BUN/Creat Ratio 17.6 RATIO (10-20); Chloride 103 mmol/L (98-107); Creatinine, Serum 1.08 mg/dL (0.70-1.30); EST Glomerular Filtration Rate 69 mL/min (>60); Est Glom Filt Rate - Afr Amer 83 mL/min (>60); Globulin 2.9 g/dL (2.2-4.2); Glucose 95 mg/dL (74-106); Magnesium 1.4 mg/dL (1.6-2.6); Phosphorus 2.7 mg/dL (2.5-4.9); Potassium 4.2 mmol/L (3.5-5.1); Protein, Total 5.8 g/dL (6.4-8.2); Sodium Level 136 mmol/L (136-145)
[2023-12-19 06:34] LABS: Bedside Glucose 87 mg/dL (74-106)
--- NOTE | 2023-12-19 10:00 | CASEMGMT ---
Addendum entered by Yvonne Garcia 12/19/23 16:07: Patient walked with OT around the unit with no device. Patient to discharge home today with resumption of CCN. ALICIA GEORGE spoke with daughter and updated regarding plan. Daughter agreeable to patient to discharge home with resumption of CCN. Daughter had no further questions or concerns. Original Note: ALICIA GEORGE chart review: Patient was admitted 11/27-12/01 for lower GI bleed. ALICIA GEORGE assessment from 12/02/23. Patient was ambulating independently with therapy 240ft and no therapy recommended at discharge. Patient was discharged to home with resumption of CCN, family support, and follow-up plans in place. Patient returned to [facility] ED aftr syncopal episode. Patient had positive occult stool. Per H&P, daughter is wanting patient evaluated for possible placement at discharge. ALICIA GEORGE in to patient's room. RN ARIEL discussed readmission and discharge needs. Patient states that he was taking medications as prescribed. Patient states that he has follow up with PCP scheduled. Patient states that [facility] has been following with patient since last discharge. Patient getting ready to go to EGD. Therapy pending, will monitor progress and recommendations. CM will continue to follow this patient and plan for a safe discharge.
--- NOTE | 2023-12-19 10:49 | PRE.ANES_ITS ---
ASA Classification* ASA Classification ASA Classification: 3 Assessment & Plan Anesthesia* Anesthesia Assessment Anesthesia Assessment: Discussed sedation and/or anesthesia options, risks, benefits, and alternatives with patient/parents/legal guardian/POA. Questions invited. The patient/parents/legal guardian/POA seems to understand and agrees to proceed with anesthesia plan. Reviewed the physical assessment, medical history, allergy history and patient home medications list prior to surgery/procedure/anesthetic and documented any changes. Performed airway and anesthesia risk assessments. Anesthesia Type Anesthesia Type: MAC Anesthesia Focused Assessment* Temperature: 97.9 F Pulse Rate: 63 Blood Pressure: 134/71 Respiratory Rate: 16 Pulse Ox: 98 Airway Assessment Mouth opens: >3 cm Mallampati Score: II Focused Labs Anesthesia Preop lab: CBC WBC 8.5 K/mm3 (4.4-11.0) 12/19/23 04:32 RBC 3.31 M/mm3 (4.6-6.2) L 12/19/23 04:32 Hgb 11.9 g/dL (13.0-16.5) L 12/19/23 04:32 Hct 34.8 % (40-54) L 12/19/23 04:32 Plt Count 279 K/mm3 (150-450) 12/19/23 04:32 CHEMISTRY Potassium 4.2 mmol/L (3.5-5.1) 12/19/23 04:32 Sodium 136 mmol/L (136-145) 12/19/23 04:32 Magnesium 1.4 mg/dL (1.6-2.6) L 12/19/23 04:32 Phosphorus 2.7 mg/dL (2.5-4.9) 12/19/23 04:32 BUN 19 mg/dL (7-18) H 12/19/23 04:32 Creatinine 1.08 mg/dL (0.70-1.30) 12/19/23 04:32 Glucose 95 mg/dL (74-106) 12/19/23 04:32 POC Glucose 87 mg/dL (74-106) 12/19/23 06:17 COAG PT 15.7 SECONDS (11.7-14.9) H 12/01/23 04:05 Pre-Assessment Diagnosis/Proposed Procedure Planned Operative Procedure(s): EGD Anesthesia History 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 When Was Last Pacemaker Check QUESTION #4 FULL TEXT: You/Your Family Experience fever (hyperthermia) with Anesthesia Last Oral Intake Last Oral intake: Last Oral Intake NPO since Meds taken in AM with sips of water? Meds patient instructed to take am of surgery PONV PONV - grinding wheel inspector: PONV - grinding wheel inspector Female HX of Motion Sickness HX of N/V After Surgery Non-Smoker Duration of Surgery greater than 60 minutes Number of Risk Factors PONV Score Height & Weight Height & Weight: Anesthesia: Height & Weight Height 5 ft 9 in 12/19/23 09:59 Weight: 89.1 kg 12/19/23 09:59 Body Mass Index (BMI) 29.0 12/19/23 03:50 Respiratory Assessment Respiratory Assessment - grinding wheel inspector: Respiratory Tract Infection Hx - grinding wheel inspector Hx Respiratory Tract Infection No 11/30/23 20:35 STOP Sleep Apnea STOP Sleep Apnea - grinding wheel inspector: STOP Sleep Apnea - grinding wheel inspector Hx Hypertension Yes 12/18/23 16:52 Hx Sleep Apnea No 12/18/23 16:52 CPAP No 12/01/23 17:00 BIPAP No 01/05/23 23:26 Do you snore loudly (louder Yes 12/18/23 16:52 than talking or can be heard Do you often feel tired/ No 12/18/23 16:52 fatigued/ sleepy during daytime? Has anyone observed you stop No 12/18/23 16:52 breathing during sleep? STOP Results Positive 12/18/23 16:52 QUESTION #5 FULL TEXT : Do you snore loudly (louder than talking or can be heard through closed doors)? 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 Specify any problems Hx of Preganancy in last 3 N/A 12/18/23 16:52 Months Nurse Filling Out Transfusion MMORRISON 12/18/23 16:52 & Questions: Date: 12/18/23 12/18/23 16:52 Time: 17:04 12/18/23 16:52 Patient unable to answer at this time (ie. confused, unrespo /Reproduction History /Reproductive History - grinding wheel inspector: /Reproductive Hx- grinding wheel inspector Hx Now Gestational Age (in weeks): EDC: Hx Hx Para Hx Section SAB No 11/30/23 20:35 Active Medications Active Medications: Current Medications Generic Name Dose Route Start Last Admin Trade Name Freq PRN Reason Stop Dose Admin Acetaminophen 650 mg 12/18/23 16:50 12/19/23 02:54 Acetaminophen 325 Mg Tablet PO 650 mg Q6H PRN PRN Administration Pain 1-10 Or Fever>100.7 Acyclovir 400 mg 12/19/23 10:00 Acyclovir 200 Mg Capsule PO BID ODALIS Albuterol Sulfate 2.5 mg 12/18/23 17:06 Albuterol 2.5 Mg/3 Ml Vial.Neb. INHALATION Q4H PRN shortness of breath or wheezing Atorvastatin Calcium 10 mg 12/18/23 22:00 12/18/23 20:23 Atorvastatin Calcium 10 Mg Tablet PO 10 mg QHS ODALIS Administration Ferrous Sulfate 325 mg 12/19/23 08:00 Ferrous Sulfate 325 Mg Tablet PO DAILYCM ODALIS Gabapentin 300 mg 12/18/23 22:00 12/18/23 20:23 Gabapentin 300 Mg Capsule PO 300 mg QHS ODALIS Administration Glucagon 1 mg 12/18/23 16:50 Glucagon 1 Mg/Ml Syringe IM X1 PRN HYPOGLYCEMIA Protocol Pantoprazole Sodium 80 mg/ 100 mls @ 10 mls/hr 12/18/23 16:50 12/19/23 02:55 Sodium Chloride CONT INF 12/21/23 16:51 10 mls/hr Q10H ODALIS Administration Dextrose 250 mls @ 0 mls/hr 12/18/23 16:50 Dextrose 10%-Water IV .Q0M PRN HYPOGLYCEMIA Protocol As Directed Sodium Chloride 250 mls @ 15 mls/hr 12/18/23 17:42 IV .[id number] PRN Additional IVPB Infusion Sodium Chloride 250 mls @ 15 mls/hr 12/18/23 17:42 IV .[id number] PRN Saline Flush Sodium Chloride 1,000 mls @ 15 mls/hr 12/19/23 10:35 IV .Q48H [facility] Insulin Glargine 17 unit 12/18/23 22:00 12/18/23 20:23 Insulin Glargine-Yfgn 100 Unit/Ml Pen SC Not Given QHS [facility] Insulin Human Lispro 0 unit 12/18/23 16:50 12/19/23 06:25 Insulin Lispro 100 Unit/Ml Insuln.Pen SC Not Given TIDAC [facility] Protocol Ondansetron HCl 4 mg 12/18/23 16:50 Ondansetron 4 Mg/2 Ml Vial IV Q8H PRN PRN NAUSEA/VOMITING Pantoprazole Sodium 40 mg 12/22/23 10:00 Pantoprazole Sodium 40 Mg Tablet PO BID ODALIS Primidone 50 mg 12/18/23 22:00 12/18/23 20:23 Primidone 50 Mg Tablet PO 50 mg QHS ODALIS Administration Senna/Docusate Sodium 2 tablet 12/18/23 16:50 Senna/Docusate Sodium 1 Tablet PO BID PRN PRN Constipation Sertraline HCl 200 mg 12/19/23 10:00 Sertraline 100 Mg Tablet PO DAILY ODALIS Sodium Chloride 10 - 40 ml 12/18/23 17:42 0.9% Saline Lock 10 Ml Syringe IV UD PRN SALINE FLUSH PFSH Medical History Diabetes Acute blood loss anemia Acute lower GI bleeding Macrocytic anemia Wears dentures Wears glasses Cancer Insulin dependent diabetes mellitus Back pain Parkinson's disease Leg cramps History of edema History of irregular heartbeat History of echocardiogram History of stress test Chest pain Chronic diarrhea Depression Diabetes GI bleed Former smoker Sleep apnea Hypertension Stroke/cerebrovascular accident Personal history of colon cancer Psoriasis Anxiety C. difficile diarrhea Prostate cancer GERD (gastroesophageal reflux disease) High cholesterol Tobacco abuse History of GI bleed Diabetic neuropathy HLD (hyperlipidemia) Diverticulosis of colon without diverticulitis Type II diabetes mellitus Benign hypertension Home Medications ?Medication ?Instructions ?Recorded ?Last Taken ?Type gabapentin 300 mg capsule 300 mg PO QHS nerve pain 10/05/13 05/14/18 History insulin glargine 100 unit/mL (3 32 unit subcut QHS diabetes 05/15/18 05/14/18 History mL) subcutaneous pen (Lantus Solostar U-100 Insulin) insulin lispro 100 unit/mL 14 unit subcut TID 05/15/18 05/15/18 History subcutaneous pen (Humalog KwikPen (U-100) Insulin) lisinopril 5 mg tablet 5 mg PO DAILY 09/12/21 Unknown History simvastatin 20 mg tablet 20 mg PO QHS cholesterol 09/12/21 Unknown History aspirin 81 mg tablet 81 mg PO DAILY heart health 09/13/21 Unknown History Lactobacillus acidophilus 10 10,000 mmu cells PO DAILY 03/22/22 Unknown History billion cell capsule (Probiotic) ferrous sulfate 325 mg (65 mg 325 mg PO DAILY 03/22/22 Unknown History iron) tablet primidone 50 mg tablet 50 mg PO QHS TREMORS 03/22/22 Unknown History valacyclovir 1 gram tablet 1,000 mg PO DAILY 03/22/22 Unknown History albuterol sulfate 90 mcg/actuation 2 inh inhalation Q4H PRN shortness 11/28/23 Unknown History aerosol inhaler of breath or wheezing metolazone 5 mg tablet 2.5 mg PO DAILY 11/28/23 Unknown History sertraline 100 mg tablet 200 mg PO DAILY 11/28/23 Unknown History pantoprazole 40 mg tablet,delayed 40 mg PO DAILY #30 tabs 12/02/23 Unknown Rx release Allergy/AdvReac Type Severity Reaction Status Date / Time Iodinated Contrast Media Allergy Shortness Verified 12/18/23 12:46 (Iodinated Contrast Media - of breath IV Dye) labetalol AdvReac Intermediate hypotension Verified 12/18/23 12:46 metformin AdvReac Diarrhea Verified 12/18/23 12:46 Surgical History Hx of hernia repair History of cholecystectomy History of colonoscopy History of hernia repair History of partial colectomy S/P paola-rectal abscess repair, follow-up exam Social History household members: none housing: house Smoking Status: Former smoker alcohol intake: never substance use type: does not use Review of Systems (Anesthesia) ROS Narrative System reviewed and no additional complaints, except as documented.
--- NOTE | 2023-12-19 11:30 | EGD_PTH ---
PATIENT: LEONOR MIJARES LOC: [facility] U#:[id number] AGE/SX: 88/M ROOM: [facility] RE12/18/[address]: Dr. Sebastian Chahal DO : 1935 BED: 1 DIS: 12/19/2023 SPEC #: [id number] RECD: 12/19/23 13:25 STATUS: ANA NATHAN #: [id number] LIZ: 12/19/23 11:[address]: Abebe Jarvis DEPT: SURGICAL PATHOLOGY RECD BY: Mckenna Mendez ENTERED: 12/19/23 13:48 SP TYPE: EGD BIOPSY OT DR: MD Dr. Caterina Foley DO Dr. Mark Tereletsky, DO Tissues: A - Gastric mucous membrane B - Duodenum, NOS Procedures: Surgery Specimen Level IV Comments: @ Ordering doctor for SUIV edited from to @ janny BRITT at 12/19/23 1408 @ Submitting doctor edited from to @ janny BRITT at 12/19/23 1408 HEADER OPERATION: EGD with biopsy PRE-OP DIAGNOSIS: Occult blood in stool, anemia TISSUE SUBMITTED: A- Gastric ulcer biopsy, B- Duodenal ulcer biopsy MICROSCOPIC DIAGNOSIS A. Gastric ulcer, biopsy: Mild gastritis. See microscopic description and comment.B. Duodenal ulcer, biopsy: Fragments of duodenal mucosa with focal mild acute and chronic inflammation. SJ/mr 12/22/2023 COMMENT A. The results of immunohistochemistry for Helicobacter pylori will be reported separately ([id number]). MICROSCOPIC DESCRIPTION Slides are reviewed. A. The specimen shows fragments of gastric mucosa with chronic inflammatory cell infiltrates in the lamina propria consisting of lymphocytes and plasma cells, consistent with mild chronic gastritis. GROSS DESCRIPTION A. Received in fixative is one container labeled with the patient's name and designated Gastric ulcer biopsy. The specimen consists of two irregular fragments of light silvestre soft tissue that in aggregate measure 0.8 x 0.4 x 0.1 cm. The specimen is totally submitted in one cassette. B. Received in fixative is one container labeled with the patient's name and designated Duodenal ulcer biopsy. The specimen consists of two irregular fragments of light silvestre soft tissue that in aggregate measure 0.8 x 0.4 x 0.1 cm. The specimen is totally submitted in one cassette. SJ/mr 12/19/2023 TC:3 CPT:04468l2
--- NOTE | 2023-12-19 11:30 | IMM_PTH ---
PATIENT: LEONOR MIJARES LOC: [facility] U#:[id number] AGE/SX: 88/M ROOM: [facility] RE12/18/[address]: Dr. Sebastian Chahal DO : 1935 BED: 1 DIS: 12/19/2023 SPEC #: [id number] RECD: 12/19/23 13:45 STATUS: SOUGena REQ #: [id number] LIZ: 12/19/23 11:[address]: Abebe Jarvis DEPT: IMMUNOHISTOCHEMISTRY RECD BY: Wilfrido Vargas ENTERED: 12/19/23 13:45 SP TYPE: IMMUNO OTHR DR: MD Dr. Caterina Foley DO Dr. Mark Tereletsky, DO Tissues: A - Gastric mucous membrane Procedures: H Pylori (initial) Comments: @ Ordering doctor for H.PYLORI edited from to @ by BALWINDER at 12/19/23 1345 @ Submitting doctor edited from to @ by BALWINDER at 12/19/23 1345 PHYSICIAN & INSTITUTION [place] [id number] SPECIMEN INFORMATION: Tissue Source: A- Gastric ulcer biopsy Clinical Info: Occult blood in stool, anemia Specimen Number: [id number] CPT code: 56074 METHODOLOGY: Deparaffinized sections of prefer/formalin-fixed tissue or PAP/DQ stained slides are incubated with monoclonal/polyclonal antibodies/oligonucleotide probes. Localization is made via biotin free immunoperoxidase method. Appropriate controls are performed and reacted as expected. Results on target cell population are indicated in the following table: RESULTS: ANTIBODY / CLONE RESULT Block A H Pylori (polyclonal) negative These tests were developed and their performance characteristics determined by [facility]. They may not have been cleared or approved by the U.S. Food and Drug Administration. The FDA has determined that such clearance or approval is not necessary. The above immunohistochemical/dualISH markers are ordered and reviewed by the Pathologist. INTERPRETATION: A. Gastric ulcer, biopsy: Negative for Helicobacter pylori organisms. RADHA/ 12/22/2023
--- NOTE | 2023-12-19 11:46 | OP.CCLET_ITS ---
12/19/2023 Pradeep Franklin Re : Upper GI endoscopy procedure for Bebeto Staples Dear Rigoberto This procedure was performed on Tuesday, December 19, 2023. My impressions and recommendations are as follows: Impressions : - Normal esophagus. - Non-bleeding gastric ulcer. Biopsied. - Non-bleeding duodenal ulcers with no stigmata of bleeding. Biopsied. Recommendations : - Return patient to [facility] for ongoing care. - Resume regular diet. - Continue present medications. - Await pathology results. My findings are described in the full procedure note, which is enclosed. If I can be of further assistance, please feel free to contact me at . Sincerely, Abebe Jarvis DO 12/19/2023 11:45:24 AM This report has been signed electronically.
--- NOTE | 2023-12-19 11:46 | OP.EGD_ITS ---
Patient Name: Bebeto Staples Procedure Date: 12/19/2023 10:58 AM Date of : 1935 Age: 88 Procedure: Upper GI endoscopy Indications: Acute post hemorrhagic anemia, Recent gastrointestinal bleeding Providers: Abebe Jarvis DO Medicines: Monitored Anesthesia Care Patient Profile: This is an 88 year old male. Refer to note in patient chart for documentation of history and physical. Patient has symptoms of acute dyspepsia, acute nausea and acute vomiting. Complications: No immediate complications. Procedure: Pre-Anesthesia Assessment: - Prior to the procedure, a History and Physical was performed, and patient medications and allergies were reviewed. The patient is competent. The risks and benefits of the procedure and the sedation options and risks were discussed with the patient. All questions were answered and informed consent was obtained. Patient identification and proposed procedure were verified by the physician in the pre-procedure area. Mental Status Examination: alert and oriented. Airway Examination: normal oropharyngeal airway and neck mobility. Respiratory Examination: clear to auscultation. CV Examination: normal. Prophylactic Antibiotics: The patient does not require prophylactic antibiotics. Prior Anticoagulants: The patient has taken no anticoagulant or antiplatelet agents. ASA Grade Assessment: III - A patient with severe systemic disease. After reviewing the risks and benefits, the patient was deemed in satisfactory condition to undergo the procedure. The anesthesia plan was to use monitored anesthesia care (MAC). Immediately prior to administration of medications, the patient was re-assessed for adequacy to receive sedatives. The heart rate, respiratory rate, oxygen saturations, blood pressure, adequacy of pulmonary ventilation, and response to care were monitored throughout the procedure. The physical status of the patient was re-assessed after the procedure. After obtaining informed consent, the endoscope was passed under direct vision. Throughout the procedure, the patient's blood pressure, pulse, and oxygen saturations were monitored continuously. The gastroscope was introduced through the mouth, and advanced to the second part of duodenum. The upper GI endoscopy was accomplished without difficulty. The patient tolerated the procedure well. Scope In: 11:36:55 AM Scope Out: 11:41:23 AM Total Procedure Duration Time 0 hours 4 minutes 28 seconds Findings: The examined esophagus was normal. One non-bleeding cratered gastric ulcer was found in the gastric body. The lesion was 6 mm in largest dimension. Biopsies were taken with a cold forceps for histology. Verification of patient identification for the specimen was done. Estimated blood loss was minimal. Biopsies were taken with a cold forceps for Helicobacter pylori testing. Verification of patient identification for the specimen was done. Estimated blood loss was minimal. Three non-bleeding cratered duodenal ulcers with no stigmata of bleeding were found in the duodenal bulb. The largest lesion was 7 mm in largest dimension. Biopsies were taken with a cold forceps for histology. Verification of patient identification for the specimen was done. Estimated blood loss was minimal. Impression: - Normal esophagus. - Non-bleeding gastric ulcer. Biopsied. - Non-bleeding duodenal ulcers with no stigmata of bleeding. Biopsied. Recommendation: - Return patient to hospital [facility] for ongoing care. - Resume regular diet. - Continue present medications. - Await pathology results. Procedure Code(s): --- Professional --- 33940, Esophagogastroduodenoscopy, flexible, transoral; with biopsy, single or multiple CPT copyright 2021 [employer]. All rights reserved. The codes documented in this report are preliminary and upon clerical specialist review may be revised to meet current compliance requirements. Abebe Jarvis DO 12/19/2023 11:45:24 AM This report has been signed electronically. Number of Addenda: 0 Note Initiated On: 12/19/2023 10:58 AM
--- NOTE | 2023-12-19 11:49 | PCM.POST.ANE ---
Anesthesia: Postop Eval I Current Vital Signs Temperature: 97.6 F Pulse Rate: 16 Blood Pressure: 95/55 Respiratory Rate: 16 Pulse Ox: 97 Oxygen Delivery Method: Room Air Assessment Airway patent: Yes Spontaneous unlabored respirations: Yes Mental status: Awake and Calm nausea: No Vomiting: No Anesthesia Complication: No Fluid Hydration Crystalloid volume administer (ml): 400 Total IV fluid infused: 400 Progress Note Anesthesia document: Postop Eval 1 completed: Yes
--- NOTE | 2023-12-19 12:49 | PCM.POSTANE2 ---
Anesthesia Postop Eval I Sum Postop Eval Completion status Anesthesia document: Postop Eval 1 completed: Yes Anesthesia Postop Eval I Summary Anesthesia Postop Eval I Summary: Anesthesia Postop Eval I: Assessment Summary Airway patent Yes 12/19/23 11:50 [email or web address] Spontaneous unlabored Yes 12/19/23 11:50 [email or web address] respirations Mental status Awake,Calm 12/19/23 11:50 [email or web address] nausea No 12/19/23 11:50 [email or web address] Vomiting No 12/19/23 11:50 [email or web address] Anesthesia Postop Eval I: Fluid Summary Crystalloid volume administer 400 12/19/23 11:50 [email or web address] (ml) Colloids volume administered ( ml) Blood Product volume administered (ml) Total IV fluid infused 400 12/19/23 11:50 [email or web address] Anesthesia Postop Eval I: Summary Notes Anesthesia Complication No 12/19/23 11:50 [email or web address] Anesthesia Complication Comment: Post-operative progress note Anesthesia: Postop Eval II Evaluation Mental status: Awake Pain Level: 0 nausea: No Vomiting: No
[2023-12-19] MEDS: Ferrous Sulfate 325 MG Tablet PO (13:12)
[2023-12-19] MEDS: Acyclovir 200 MG Capsule 400 MG PO (13:13)
[2023-12-19] MEDS: Sertraline 100 MG Tablet 200 MG PO (13:13)
[2023-12-19 13:26] LABS: Hematocrit 37.8 % (40-54); Hemoglobin 12.4 g/dL (13.0-16.5)
[2023-12-19 15:18] LABS: Bedside Glucose 116 mg/dL (74-106)
--- NOTE | 2023-12-19 16:15 | DCINST_ITS ---
Discharge Instructions Diet Discharge Diet: No restrictions Activity Discharge Activity: Return to Normal Activity Weight Bearing Status: Full weight bearing Follow Up Care Test Results: Test results from this visit will be discussed in further detail at your follow- up appointment, if applicable. Discharge Plan Admission Admit Date/Time: 12/18/23 15:40 Primary Reason for Your Visit: Syncope, hypotension, gastric ulcer, duodenal ulcers Attending Provider: Sebastian Chahal Primary Care Provider: Pradeep Franklin Consulting Providers: Caterina Mehta Discharge Orders/Prescriptions Prescriptions: New pantoprazole 40 mg Tablet,Delayed Release (Dr/Ec) 40 mg PO BID Qty: 60 0RF Continued gabapentin 300 MG capsule 300 mg PO QHS insulin lispro [Humalog KwikPen Insulin] 100/ML insulin pen 14 unit subcut TID Patient Comments: 14 UNITS WITH BREAKFAST, 16 UNITS WITH LUNCH AND DINNER PLUS SLIDING SCALE Rx Instructions: sliding scale insulin glargine [Lantus Solostar U-100 Insulin] 100/ML insulin pen 32 unit subcut QHS simvastatin 20 mg tablet 20 mg PO QHS lisinopril 5 mg tablet 5 mg PO DAILY aspirin 81 mg Tablet 81 mg PO DAILY primidone 50 mg tablet 50 mg PO QHS Patient Comments: TAKE 1 DAILY AT BEDTIME valacyclovir 1 gram tablet 1,000 mg PO DAILY Probiotic 10 billion cell Capsule 10,000 mmu cells PO DAILY ferrous sulfate 325 mg (65 mg iron) tablet 325 mg PO DAILY albuterol sulfate 90 mcg/actuation HFA aerosol inhaler 2 inh inhalation Q4H PRN (Reason: shortness of breath or wheezing) sertraline 100 mg tablet 200 mg PO DAILY Discontinued metolazone 5 mg tablet 2.5 mg PO DAILY pantoprazole 40 mg tablet,delayed release (DR/EC) 40 mg PO DAILY Qty: 30 2RF Referrals / Follow Up: Pradeep Franklin MD [Primary Care Provider] - Disposition Disposition (needs filled in before D/C Order can be placed): Home, Self Care
--- NOTE | 2023-12-19 16:27 | PCM.DC.SUM ---
Providers Date of Admission: 12/18/23 Date of Discharge: 12/19/23 Primary Care Physician: Dr. Pradeep Franklin MD Consultations 12/18/23 16:50 Consult: Gastroenterology Routine Consulting Provider: Jose Ramon Gastroenterology Reason for Consult: GI bleed EMERGENT Consult: No MD Notified: Yes Date Notified: 12/18/23 Time Notified: 15:43 Method of Notification: Text Reason For Visit: SYNCOPE/GIB Diagnosis Discharge Diagnosis (1) Syncope and collapse: Status: Acute Code(s): R55 - Syncope and collapse (2) Occult blood in stools: Status: Acute Code(s): R19.5 - Other fecal abnormalities (3) Closed head injury: Status: Acute Code(s): S09.90XA - Unspecified injury of head, initial encounter (4) Acute hypotension: Status: Acute Code(s): I95.9 - Hypotension, unspecified (5) Anemia: Status: Acute Code(s): D64.9 - Anemia, unspecified (6) HIREN (acute kidney injury): Status: Acute Code(s): N17.9 - Acute kidney failure, unspecified (7) Debility: Status: Acute Code(s): R53.81 - Other malaise Plan 1. Syncope secondary to orthostatic hypotension from volume loss due to home prescribed diuretics #2 dehydration secondary to use of home prescribed diuretics #3 gastric ulcer #4 mild anemia with Hemoccult positive stools-probably secondary to gastric ulcer, duodenal ulcers #5 duodenal ulcers-nonbleeding Acute kidney injury was ruled out Medications at Discharge Home Medications gabapentin 300 mg capsule 300 mg PO QHS nerve pain 10/05/13 insulin glargine 100 unit/mL (3 mL) subcutaneous pen (Lantus Solostar U-100 Insulin) 32 unit subcut QHS diabetes 05/15/18 insulin lispro 100 unit/mL subcutaneous pen (Humalog KwikPen (U-100) Insulin) 14 unit subcut TID diabetes 05/15/18 lisinopril 5 mg tablet 5 mg PO DAILY blood pressure 09/12/21 simvastatin 20 mg tablet 20 mg PO QHS cholesterol 09/12/21 aspirin 81 mg tablet 81 mg PO DAILY heart health 09/13/21 Lactobacillus acidophilus 10 billion cell capsule (Probiotic) 10,000 mmu cells PO DAILY supplement 03/22/22 ferrous sulfate 325 mg (65 mg iron) tablet 325 mg PO DAILY supplement 03/22/22 primidone 50 mg tablet 50 mg PO QHS TREMORS 03/22/22 valacyclovir 1 gram tablet 1,000 mg PO DAILY viral infection 03/22/22 albuterol sulfate 90 mcg/actuation aerosol inhaler 2 inh inhalation Q4H PRN shortness of breath or wheezing 11/28/23 sertraline 100 mg tablet 200 mg PO DAILY mental health 11/28/23 pantoprazole 40 mg tablet,delayed release 40 mg PO BID #60 tabs 12/19/23 Hospital Course Operations None Procedures EGD Summary of Care Provided Minutes Spent on Discharge: 32 Hospital Course: This 88-year-old white male was seen in the emergency room at [facility] after he had a syncopal episode at home. Workup in the emergency room revealed the patient to be mildly anemic, his blood pressure was low at 84/45, x-rays were obtained which showed no evidence of any fractures or dislocation. CT of the brain was unremarkable for acute findings. EKG showed a sinus bradycardia with a rate of 57 and no acute ischemic changes. Chemistry profile showed an elevated creatinine and BUN-I did not believe this signified acute kidney injury. Patient was admitted to PCU, given IV fluids, and seen in consultation by gastroenterology, he underwent an EGD which showed nonbleeding gastric ulcer. Patient was seen by PT and OT, he was noted to ambulate without assistance. Patient's creatinine improved during his hospital stay. His rising creatinine and BUN was felt to be secondary to his use of metolazone at home and the patient was taken off this medication. On 12/19/2023, patient was seen and examined: On examination he appeared in good health and spirits. Vital signs as documented. Skin warm and dry and without overt rashes. Neck without JVD, neck was supple, trachea midline, thyroid was normal. Lungs clear bilaterally, normal air movement was noted. Heart exam notable for regular rhythm, normal sounds and absence of murmurs, rubs or gallops. Abdomen unremarkable and without evidence of organomegaly, masses, or abdominal aortic enlargement. Bowel sounds are present, abdomen is not distended. Extremities nonedematous, no cyanosis was noted, no clubbing was noted. Neuro: Cranial nerves II through XII are grossly intact, no focal motor deficits were noted, sensation to light touch and pinprick intact, motor exam 5/5 throughout. Psych: Patient is alert and oriented x3, he does not appear anxious or depressed, he does not appear agitated. Patient appeared stable for discharge home on 12/19/2023. Weight / BMI Weight Weight: 89.1 kg Body Mass Index (BMI) 29.0 ABG / Lab / Microbiology Data 12/19/23 13:16 12/19/23 04:32 Laboratory: Laboratory Results - last 24 hr 12/18/23 17:24: Hgb 11.8 L, Hct 35.6 L 12/18/23 17:31: POC Glucose 57 L 12/18/23 17:49: POC Glucose 76 12/18/23 20:21: POC Glucose 219 H 12/18/23 23:00: Hgb 11.3 L, Hct 33.7 L 12/19/23 04:32: WBC 8.5, RBC 3.31 L, Hgb 11.9 L, Hct 34.8 L, MCV 105.1 H, MCH 36.0 H, MCHC 34.2, RDW Std Deviation 49.6 H, RDW Coeff of Angel 12.8, Plt Count 279, MPV 9.0, Immature Gran % (Auto) 0.400, Neut % (Auto) 56.9, Lymph % (Auto) 28.6, [place] % (Auto) 8.3, Eos % (Auto) 4.9, Baso % (Auto) 0.9, Absolute Neuts (auto) 4.8, Absolute Lymphs (auto) 2.42, Nucleated RBC % 0, Sodium 136, Potassium 4.2, Chloride 103, Carbon Dioxide 27.0, Anion Gap 6, BUN 19 H, Creatinine 1.08, Estim Creat Clear Calc 52.20, Est GFR (MDRD) Af Amer 83, Est GFR (MDRD) Non-Af 69, BUN/Creatinine Ratio 17.6, Glucose 95, Calcium 8.0 L, Phosphorus 2.7, Magnesium 1.4 L, Total Bilirubin 0.40, AST 16, ALT 16, Alkaline Phosphatase 67, Total Protein 5.8 L, Albumin 2.9 L, Globulin 2.9, Albumin/Globulin Ratio 1.0 12/19/23 06:17: POC Glucose 87 12/19/23 13:08: POC Glucose 116 H 12/19/23 13:16: Hgb 12.4 L, Hct 37.8 L Microbiology: Microbiology 12/18/23 13:05 Stool Stool Occult Blood (DARIA) - Final Occult Blood Positive D/C Instructions Discharge Diet: No restrictions Weight Bearing Status: Full weight bearing Meaningful Use Info Meaningful Use Meaningful Use Diagnoses (Choose all that apply): None applicable Ischemic Stroke Statin Dosing Therapy Reference: STATIN DOSE THERAPY REFERENCE: * Patients > 75 years receive moderate or high dose statin therapy. * Patients 75 years or YOUNGER should receive HIGH intensity statin dose unless contraindicated. You will be required to document reason for non-treatment if statin daily dose does not meet guidelines. HIGH DOSE STATIN THERAPY DAILY Atorvastatin > than or = to 40 mg Rosuvastatin > than or = to 20 mg Amlodipine + Atorvastatin > than or = to 2.5/40 mg Ezetimibe + Simvastatin 10/80 mg Simvastatin 80mg Discharge Plan Admission Admit Date/Time: 12/18/23 15:40 Primary Reason for Your Visit: Syncope, hypotension, gastric ulcer, duodenal ulcers Attending Provider: Sebastian Chahal Primary Care Provider: Pradeep Franklin Consulting Providers: Caterina Mehta Discharge Orders/Prescriptions Prescriptions: New pantoprazole 40 mg Tablet,Delayed Release (Dr/Ec) 40 mg PO BID Qty: 60 0RF Continued gabapentin 300 MG capsule 300 mg PO QHS insulin lispro [Humalog KwikPen Insulin] 100/ML insulin pen 14 unit subcut TID Patient Comments: 14 UNITS WITH BREAKFAST, 16 UNITS WITH LUNCH AND DINNER PLUS SLIDING SCALE Rx Instructions: sliding scale insulin glargine [Lantus Solostar U-100 Insulin] 100/ML insulin pen 32 unit subcut QHS simvastatin 20 mg tablet 20 mg PO QHS lisinopril 5 mg tablet 5 mg PO DAILY aspirin 81 mg Tablet 81 mg PO DAILY primidone 50 mg tablet 50 mg PO QHS Patient Comments: TAKE 1 DAILY AT BEDTIME valacyclovir 1 gram tablet 1,000 mg PO DAILY Probiotic 10 billion cell Capsule 10,000 mmu cells PO DAILY ferrous sulfate 325 mg (65 mg iron) tablet 325 mg PO DAILY albuterol sulfate 90 mcg/actuation HFA aerosol inhaler 2 inh inhalation Q4H PRN (Reason: shortness of breath or wheezing) sertraline 100 mg tablet 200 mg PO DAILY Discontinued metolazone 5 mg tablet 2.5 mg PO DAILY pantoprazole 40 mg tablet,delayed release (DR/EC) 40 mg PO DAILY Qty: 30 2RF Referrals / Follow Up: PodlogarBernie NP, EDITOR INDEX-C [Non-Staff] - 12/23/23 12:20 pm Disposition Disposition (needs filled in before D/C Order can be placed): Home, Self Care Charges/Coding Visit Charges Inpatient E&M: 41504 Disch Hosp >30min
== END 2023-12-19 17:51 | disposition home or self-care (01) | DRG 640 ==
LOC: ED 14:52 → PCU 17:12
PROVIDERS: Internal Medicine Gastroenterology; Admitting Provider Internal Medicine; Emergency Provider Emergency Medicine; PCP Family Medicine; Visit Provider Internal Medicine
PROC: 0DJ08ZZ Inspection of Upper Intestinal Tract, Via Natural or Artificial Opening Endoscopic (ICD-10-PCS; CPT 43235; principal; 2023-12-19 11:25)
DX: E86.0 Dehydration (principal); K29.51 Unspecified chronic gastritis with bleeding; E11.40 Type 2 diabetes mellitus with diabetic neuropathy, unspecified; G20.A1 Parkinson's disease without dyskinesia, without mention of fluctuations; I10 Essential (primary) hypertension; K26.9 Duodenal ulcer, unspecified as acute or chronic, without hemorrhage or perforation; I95.1 Orthostatic hypotension; E78.00 Pure hypercholesterolemia, unspecified; Z79.4 Long term (current) use of insulin; K21.9 Gastro-esophageal reflux disease without esophagitis; R19.5 Other fecal abnormalities; K25.9 Gastric ulcer, unspecified as acute or chronic, without hemorrhage or perforation; Z66 Do not resuscitate; Z98.0 Intestinal bypass and anastomosis status; Z90.49 Acquired absence of other specified parts of digestive tract; Z79.82 Long term (current) use of aspirin; Z79.899 Other long term (current) drug therapy; Z85.038 Personal history of other malignant neoplasm of large intestine; Z86.73 Personal history of transient ischemic attack (TIA), and cerebral infarction without residual deficits; Z87.891 Personal history of nicotine dependence
CPT/HCPCS: 36415; 70450; 74018; 80053; 82274; 82962; 83735; 84100; 85014; 85018; 85025; 88305; 88342; 93005; 94668; 97166; 97802; 99285; J7030; J7120; A4216; J2405; J3490

== ENCOUNTER 2024-04-10 17:21 | Inpatient (IN) | payer MEDICARE, SELFPAY ==
[2024-04-10] VITALS (7 sets, daily range): BP systolic 100–138; BP diastolic 67–81; PULSE 73–96; RESP 16–20; TEMP 36.7–37; O2SAT 88–98; BMI 26.9; BMI 27.5
--- NOTE | 2024-04-10 17:44 | EKG12_ITS ---
Test Reason : GENERAL Blood Pressure : */* mmHG Vent. Rate : 88 BPM Atrial Rate : 88 BPM P-R Int : 174 ms QRS Dur : 84 ms QT Int : 430 ms P-R-T Axes : 33 -43 47 degrees QTcB Int : 520 ms Sinus rhythm with Premature atrial complexes Left axis deviation Low voltage QRS Cannot rule out Anterior infarct , age undetermined Prolonged QT Abnormal ECG Confirmed by Abimael Vila ([id number]), marketing editor ZAIRE BOWLES ([id number]) on 04/12/2024 6:56:41 AM Referred By: Confirmed By: Abimael Vila
--- NOTE | 2024-04-10 17:46 | CT_ITS ---
INDICATION: Pain EXAMINATION: CT ABDOMEN AND PELVIS WITHOUT CONTRAST - CT Abdomen And Pelvis W/O Contrast Injection TECHNIQUE: Helically acquired images were obtained of the abdomen and pelvis without oral or IV contrast. A radiation dose optimization technique was used for this scan. IV Contrast dosage and agent: None. Oral contrast: None. RADIATION DOSAGE (If Supplied By Facility): CTDIvol = ( 12.27 ) mGy, DLP = ( 625.37 ) mGycm COMPARISON: No pertinent previous examinations for comparison.. Correlation is made to plain film of the abdomen on 12/18/2023. FINDINGS: LOWER CHEST: 1. Moderate to extensive pleural and interstitial thickening at the lung bases. Areas of alveolar consolidation are present at the RIGHT base. 2. No cardiomegaly or pericardial effusion. 3. Moderate vascular calcifications are present. LIVER: The liver has normal configuration and density given the limitation of noncontrast exam.. No focal mass. GALLBLADDER AND BILIARY TREE: The gallbladder is not visualized, and is likely surgically absent. No ductal dilatation. Bowel segments are present in the gallbladder fossa. PANCREAS: No focal cystic or solid mass. SPLEEN: Normal size without focal cystic or solid mass. ADRENAL GLANDS: No nodules. KIDNEYS AND URETERS: Normal renal size and position. Scattered nonobstructing renal calcifications bilaterally. No ureteral stones. No obstructive uropathy. PERITONEUM: No ascites or free air. No other fluid collection. BOWEL: Large small bowel loops have normal configuration, anastomotic sutures are present in bowel segments in the RIGHT upper quadrant. Scattered diverticula are present without evidence diverticulitis. No stomach or bowel distension. No focal inflammatory change. LYMPH NODES: No enlarged mesenteric or retroperitoneal lymph nodes. VESSELS: Diffuse vascular calcifications throughout the aorta and iliac vessels, maximal dimension of the aorta estimated at 2.8 x 2.6 cm out. No rhoda aneurysmal dilatation. No perinephric fluid collections or masses. URINARY BLADDER: Unremarkable. REPRODUCTIVE ORGANS: There is mild prominence of the prostate measuring 5.9 x 4.1 x 4.7 cm. ABDOMINAL WALL: There is a fat-containing LEFT inguinal hernia. No bowel involvement. Previous midline incision is noted which is healed without evidence of hernia or dehiscence BONES: Multilevel lumbar spondylosis, no evidence of fractures. Prominent Schmorl''s node along the inferior endplate of L2. CT/Abdomen/Pelvis without Cont IMPRESSION: 1. No masses bowel obstruction abscess free fluid or free air. Anastomotic sutures are present in the RIGHT upper quadrant. 2. Diverticulosis without evidence of diverticulitis. The appendix is not positively identified however no evidence of appendicitis. 3. Multiple renal calcifications without evidence of obstructive uropathy. 4. Status post cholecystectomy without ductal dilatation. 5. Chronic appearing pleural and interstitial thickening at both lung bases with areas of airspace consolidation at the RIGHT base. 6. Diffuse lumbar spondylosis, no acute bony changes. 7. Fat-containing LEFT inguinal hernia. No bowel involvement Electronically Signed: Jose Ramon Oneal MD at 19:13 EST ,
--- NOTE | 2024-04-10 17:47 | EX.ED.DYSGE1 ---
HPI <LIZBETH Sigala - Last Filed: 04/10/24 19:46> History of Present Illness Chief Complaint: Abd Pain Narrative Narrative: Patient is an 89-year-old male with history of COPD, hypertension hyperlipidemia, diabetes, anxiety, depression who presents to the emerged department for 1 week of generalized malaise, not feeling well. Patient states he has not really been taking his medication for the last 7 to 10 days. Patient states that he has some abdominal bloating and pain, he had decreased bowel movements, decreased passing of gas. Patient states he does have history of alcohol and tobacco use however has not had many of these things in several years. Patient states he just feels generalized weakness and is here for evaluation. [facility] <LIZBETH Sigala - Last Filed: 04/10/24 19:46> [facility] Medical History Diabetes Acute blood loss anemia Acute lower GI bleeding Macrocytic anemia Wears dentures Wears glasses Cancer Insulin dependent diabetes mellitus Back pain Parkinson's disease Leg cramps History of edema History of irregular heartbeat History of echocardiogram History of stress test Chest pain Chronic diarrhea Depression Diabetes GI bleed Former smoker Sleep apnea Hypertension Stroke/cerebrovascular accident Personal history of colon cancer Psoriasis Anxiety C. difficile diarrhea Prostate cancer GERD (gastroesophageal reflux disease) High cholesterol Tobacco abuse History of GI bleed Diabetic neuropathy HLD (hyperlipidemia) Diverticulosis of colon without diverticulitis Type II diabetes mellitus Benign hypertension Home Medications ?Medication ?Instructions ?Recorded ?Last Taken ?Type gabapentin 300 mg capsule 300 mg PO QHS nerve pain 10/05/13 03/29/24 History insulin glargine 100 unit/mL (3 32 unit subcut QHS diabetes 05/15/18 05/14/18 History mL) subcutaneous pen (Lantus Solostar U-100 Insulin) insulin lispro 100 unit/mL 14 unit subcut TID diabetes 05/15/18 05/15/18 History subcutaneous pen (Humalog KwikPen (U-100) Insulin) lisinopril 5 mg tablet 5 mg PO DAILY blood pressure 09/12/21 03/29/24 History simvastatin 20 mg tablet 20 mg PO QHS cholesterol 09/12/21 03/29/24 History aspirin 81 mg tablet 81 mg PO DAILY heart health 09/13/21 03/29/24 History Lactobacillus acidophilus 10 10,000 mmu cells PO DAILY 03/22/22 03/29/24 History billion cell capsule (Probiotic) supplement ferrous sulfate 325 mg (65 mg 325 mg PO DAILY supplement 03/22/22 03/29/24 History iron) tablet primidone 50 mg tablet 50 mg PO QHS TREMORS 03/22/22 03/29/24 History valacyclovir 1 gram tablet 1,000 mg PO DAILY viral infection 03/22/22 03/29/24 History sertraline 100 mg tablet 200 mg PO DAILY mental health 11/28/23 03/29/24 History pantoprazole 40 mg tablet,delayed 40 mg PO BID #60 tabs 12/19/23 03/29/24 Rx release Allergy/AdvReac Type Severity Reaction Status Date / Time Iodinated Contrast Media Allergy Shortness Verified 12/18/23 12:46 (Iodinated Contrast Media - of breath IV Dye) labetalol AdvReac Intermediate hypotension Verified 12/18/23 12:46 metformin AdvReac Diarrhea Verified 12/18/23 12:46 Surgical History Hx of hernia repair History of cholecystectomy History of colonoscopy History of hernia repair History of partial colectomy S/P paola-rectal abscess repair, follow-up exam Social History household members: none housing: house Smoking Status: Former smoker alcohol intake: never substance use type: does not use ROS <LIZBETH Sigala - Last Filed: 04/10/24 19:46> ROS ED ROS Narrative Constitutional: Negative for fever, chills, weight loss. Positive for weakness Eyes: Negative for vision loss, vision change, double vision ENT: Negative for any sore throat, ear pain, congestion Cardiovascular: Negative for any chest pain, tightness, palpitations Respiratory: Negative for any cough, sputum production, hemoptysis, dyspnea, dyspnea on exertion, orthopnea Gastrointestinal: Negative for any vomiting, diarrhea, constipation, blood in stool, blood in vomit. Positive for abdominal pain, nausea : Negative for any urinary frequency, dysuria, retention, blood in urine Muscle skeletal: Negative for any neck pain, back pain Neurological: Negative for any headache, syncope, dizziness Skin: Negative for any rashes, itching, abrasions, lacerations Psychiatric: Negative for any depression, anxiety, stress, suicidal ideation, homicidal ideation Hematologic: Negative for any excessive bruising, easy bleeding EXAM <LIZBETH Sigala - Last Filed: 04/10/24 19:46> Physical Exam Narrative Exam Narrative: Vital signs reviewed. HEET: Head normocephalic atraumatic, TMs clear bilaterally. Posterior pharynx is clear, dry mucous membranes. Nares clear bilaterally. Neck: Supple with no lymphadenopathy or tenderness. No signs of meningismus. Cardiac: Regular rate and rhythm no murmurs gallops or rubs, equal peripheral pulses bilaterally. Respiratory: Lungs clear to auscultation bilaterally. No chest tenderness. Abdomen: Soft. No abdominal bruit or pulsatile masses. No hepatosplenomegaly. Tenderness to the upper abdomen, mid abdomen. Slightly distended, patient does have hernia however this is soft. Easily reducible. Hypoactive bowel sounds. Extremities: No peripheral edema, no signs of gross trauma or deformity. Active full range of motion of all extremities. Neuro: Cranial nerves II through XII intact, no focal neurological deficits. Skin: Clean dry and intact with no rash, purpura, petechiae, vesicles or pustules. Backs/flank: No CVA tenderness, no midline spinal tenderness, no deformity. Psych: Normal mood and affect. No SI, HI or acute psychosis. Const Vital Signs: 04/10/24 17:21 04/10/24 19:05 04/10/24 19:10 Temperature 98.6 F Temperature Source Oral Pulse Rate 78 Respiratory Rate 16 Blood Pressure 100/81 H Blood Pressure Mean 87 Pulse Ox 98 88 96 Oxygen Delivery Method Room Air Room Air Nasal Cannula Oxygen Flow Rate (L/min) 2 04/10/24 19:45 04/10/24 19:46 Temperature 98.1 F 98.1 F Temperature Source Oral Pulse Rate 96 94 Respiratory Rate 20 H 20 H Blood Pressure 138/71 H 138/71 H Blood Pressure Mean 93 93 Pulse Ox 96 96 Oxygen Delivery Method Nasal Cannula Oxygen Flow Rate (L/min) 2 Positive unkempt General Appearance ED: unkempt Psych Appearance: unkempt <Dr. Major Ely DO - Last Filed: 04/11/24 01:28> Physical Exam Const Vital Signs: 04/10/24 17:21 04/10/24 19:05 04/10/24 19:10 Temperature 98.6 F Temperature Source Oral Pulse Rate 78 Respiratory Rate 16 Blood Pressure 100/81 H Blood Pressure Mean 87 Pulse Ox 98 88 96 Oxygen Delivery Method Room Air Room Air Nasal Cannula Oxygen Flow Rate (L/min) 2 04/10/24 19:45 04/10/24 19:46 Temperature 98.1 F 98.1 F Temperature Source Oral Pulse Rate 96 94 Respiratory Rate 20 H 20 H Blood Pressure 138/71 H 138/71 H Blood Pressure Mean 93 93 Pulse Ox 96 96 Oxygen Delivery Method Nasal Cannula Oxygen Flow Rate (L/min) 2 [facility] <LIZBETH Sigala - Last Filed: 04/10/24 19:46> [facility] Lab Data Labs: Laboratory Results - last 24 hr 04/10/24 04/10/24 17:55 19:03 WBC 5.6 RBC 4.19 L Hgb 13.8 Hct 40.7 MCV 97.1 H MCH 32.9 H MCHC 33.9 RDW Std Deviation 46.6 H RDW Coeff of Angel 13.1 Plt Count 234 MPV 10.4 Immature Gran % (Auto) 0.700 Neut % (Auto) 67.5 Lymph % (Auto) 20.9 [place] % (Auto) 8.6 Eos % (Auto) 1.4 Baso % (Auto) 0.9 Absolute Neuts (auto) 3.8 Absolute Lymphs (auto) 1.17 Nucleated RBC % 0 Sodium 129 L Potassium 3.2 L Chloride 90 L Carbon Dioxide 28.0 Anion Gap 11 BUN 21 H Creatinine 1.59 H Estim Creat Clear Calc 31.50 Est GFR (MDRD) Af Amer 53 L Est GFR (MDRD) Non-Af 44 L BUN/Creatinine Ratio 13.2 Glucose 411 H Hemoglobin A1c 9.7 H Lactic Acid 2.0 Calcium 6.2 L* Ionized Calcium 0.87 L Total Bilirubin 1.30 H AST 77 H ALT 39 Alkaline Phosphatase 473 H Troponin I High Sens 15 Total Protein 7.3 Albumin 2.7 L Globulin 4.6 H Albumin/Globulin Ratio 0.6 L Lipase 15 Folate 9.20 TSH 1.200 Radiography Diagnostic Testing: Clinical Impression(s) from Imaging Studies Abdomen/Pelvis CT 04/10/24 17:46 IMPRESSION: 1. No masses bowel obstruction abscess free fluid or free air. Anastomotic sutures are present in the RIGHT upper quadrant. 2. Diverticulosis without evidence of diverticulitis. The appendix is not positively identified however no evidence of appendicitis. 3. Multiple renal calcifications without evidence of obstructive uropathy. 4. Status post cholecystectomy without ductal dilatation. 5. Chronic appearing pleural and interstitial thickening at both lung bases with areas of airspace consolidation at the RIGHT base. 6. Diffuse lumbar spondylosis, no acute bony changes. 7. Fat-containing LEFT inguinal hernia. No bowel involvement Electronically Signed: Jose Ramon Oneal MD at 19:13 EST , Chest X-Ray 04/10/24 18:35 IMPRESSION: 1. Worsening bilateral diffuse interstitial infiltrate greater on LEFT than RIGHT. 2. No evidence congestive failure. Electronically Signed: Jose Ramon Oneal MD at 19:28 EST , EKG EKG shows a sinus rhythm with PACs, rate of 88 bpm: Attestation: I personally reviewed and interpreted this EKG as follows: Interpretation: Sinus Rhythm Comments: Sinus rhythm with PACs. Rate of 88 bpm, ID interval 174 ms, QRS duration 84 ms, no acute ST elevation, no acute infarct noted. Treatment and Re-Evaluation :: Differential diagnosis includes however is not limited to: Hyperglycemia, dehydration, electrode abnormality, HIREN, bowel obstruction, abdominal mass, viral-like syndrome, gastroenteritis Patient appears generally well, vital signs are stable, patient is nontoxic-appearing. Presenting to the emergency department complaints of abdominal pain, generalized weakness. Patient received a full cardiac workup including EKG, troponin. Chest x-ray two-view as well as abdominal pelvis CT without contrast secondary to allergy. Patient received IV fluids, IV Zofran. Lab values such as CBC CMP lipase and lactic will be ordered. All radiologic examinations were read, reviewed by the emergency department attending. From these reads, a plan of care will be put in place. Patient's chest x-ray shows worsening bilateral diffuse interstitial infiltrate greater on the left than the right. No evidence of congestive heart failure. Patient CT scan of the abdomen pelvis shows no masses bowel obstruction abscess or free fluid or air. Diverticulosis without diverticulitis. No evidence of appendicitis. Chronic appearing pleural and interstitial thickening at both lung bases with areas of airspace consolidation at the right base. Patient's laboratory values show a normal CBC, patient's chemistries show a sodium 129, potassium 3.2, creatinine is 1.59, GFR 53 calcium is 6.2 AST 77, alkaline phosphatase of 473 glucose 411. Lipase is negative. At this time, patient is currently waiting for the COVID-19 influenza as well as RSV swab. Patient was hypoxic at 88 on room air, patient will need to be admitted to the hospital. I will reach out to the hospitalist. Patient's COVID-19 influenza RSV was negative. Patient will be started on IV antibiotics, Rocephin, Zithromax. Patient will need to be admitted to hospital for hypoxia, hyperglycemia, community-acquired pneumonia. <Dr. Major Ely, DO - Last Filed: 04/11/24 01:28> MDM MDM Narrative Medical decision making narrative: Supervisory Physician Note Patient was seen and examined with the Advanced Practice Provider. Nursing notes and vital signs have been reviewed. Pertinent old records have been reviewed. I agree with the essential elements of the CLAUDY's history, physical exam, assessment, and plan. The differential diagnosis and management options were discussed with the CLAUDY. I participated in determining and agree with the management, procedures, final impression and disposition as documented. See changes noted by me. Please see addendum or separate note for any additional details. 89-year-old male presents for evaluation of general malaise. Symptoms include abdominal pain and bloating, decreased bowel movements, generalized weakness. Denies any fever, chills, shortness of breath, chest pain, nausea, vomiting, dysuria. Has a history of multiple surgeries. Denies any sick contacts. Gen: A&O x3, NAD Head: Normocephalic, atraumatic Eyes: No sclera icterus, conjunctiva clear ENT: Moist mucous membranes Neck: Trachea midline, No JVD CV: RRR, no murmurs, no peripheral edema Resp: Lungs CTA BL, no w/r/c GI: Abd soft, distended, mildly tender to palpation diffusely, no r/r/g, reducible nontender hernia Musc: Moves all extremities, no deformity Skin: Warm, dry Neuro: Alert, oriented, grossly intact, sensation intact Psych: Cooperative, appropriate mood and affect NS bolus, Zofran ordered for symptoms. Laboratory and imaging workup ordered. CBC without leukocytosis or anemia. BMP with hyponatremia, hypokalemia, hypocalcemia, HIREN versus renal insufficiency, hyperglycemia. Lactic acid elevated. Lipase unremarkable. UA negative for UTI. CT abdomen pelvis without any acute intra-abdominal pathology. CT abdomen pelvis as well as chest x-ray shows findings for pneumonia. Patient now hypoxic requiring oxygen. Patient will warrant admission. Rocephin and azithromycin ordered for suspected acuity acquired pneumonia. COVID-19, RSV, influenza negative. Patient admitted to the hospitalist service. Impression: 1. Community-acquired pneumonia 2. Acute hypoxia requiring oxygen secondary to #1 3. Abdominal pain 4. Generalized weakness 5. Dehydration with HIREN versus renal insufficiency 6. Hyperglycemia in known diabetic 7. Hypokalemia 9. Hypocalcemia Lab Data Labs: Laboratory Results - last 24 hr 04/10/24 04/10/24 17:55 19:03 WBC 5.6 RBC 4.19 L Hgb 13.8 Hct 40.7 MCV 97.1 H MCH 32.9 H MCHC 33.9 RDW Std Deviation 46.6 H RDW Coeff of Angel 13.1 Plt Count 234 MPV 10.4 Immature Gran % (Auto) 0.700 Neut % (Auto) 67.5 Lymph % (Auto) 20.9 [place] % (Auto) 8.6 Eos % (Auto) 1.4 Baso % (Auto) 0.9 Absolute Neuts (auto) 3.8 Absolute Lymphs (auto) 1.17 Nucleated RBC % 0 Sodium 129 L Potassium 3.2 L Chloride 90 L Carbon Dioxide 28.0 Anion Gap 11 BUN 21 H Creatinine 1.59 H Estim Creat Clear Calc 31.50 Est GFR (MDRD) Af Amer 53 L Est GFR (MDRD) Non-Af 44 L BUN/Creatinine Ratio 13.2 Glucose 411 H Hemoglobin A1c 9.7 H Lactic Acid 2.0 Calcium 6.2 L* Ionized Calcium 0.87 L Total Bilirubin 1.30 H AST 77 H ALT 39 Alkaline Phosphatase 473 H Troponin I High Sens 15 Total Protein 7.3 Albumin 2.7 L Globulin 4.6 H Albumin/Globulin Ratio 0.6 L Lipase 15 Folate 9.20 TSH 1.200 Radiography Diagnostic Testing: Clinical Impression(s) from Imaging Studies Abdomen/Pelvis CT 04/10/24 17:46 IMPRESSION: 1. No masses bowel obstruction abscess free fluid or free air. Anastomotic sutures are present in the RIGHT upper quadrant. 2. Diverticulosis without evidence of diverticulitis. The appendix is not positively identified however no evidence of appendicitis. 3. Multiple renal calcifications without evidence of obstructive uropathy. 4. Status post cholecystectomy without ductal dilatation. 5. Chronic appearing pleural and interstitial thickening at both lung bases with areas of airspace consolidation at the RIGHT base. 6. Diffuse lumbar spondylosis, no acute bony changes. 7. Fat-containing LEFT inguinal hernia. No bowel involvement Electronically Signed: Jose Ramon Oneal MD at 19:13 EST , Chest X-Ray 04/10/24 18:35 IMPRESSION: 1. Worsening bilateral diffuse interstitial infiltrate greater on LEFT than RIGHT. 2. No evidence congestive failure. Electronically Signed: Jose Ramon Oneal MD at 19:28 EST , Discharge Plan Dx/Rx/DC Orders Clinical Impression: Community acquired pneumonia, Hypoxia, Acute hyperglycemia, Acute hypernatremia Disposition Disposition: Acute Care Hospital [facility] Discharge Date/Time: 04/10/24 20:18
[2024-04-10 18:10] LABS: Absolute Lymphocyte Count 1.17 X10^3/uL (0.83-4.51); Absolute Neutrophil Count 3.8 X10^3/uL (2.0-7.7); Basophil# 0.05 X10^3/uL; Basophil% 0.9 % (0-1); Eosinophil# 0.08 X10^3/uL; Eosinophils% 1.4 % (0-5); Hematocrit 40.7 % (40-54); Hemoglobin 13.8 g/dL (13.0-16.5); Lymphocyte # 1.17 X10^3/ul (0.83-4.51); Lymphocyte % 20.9 % (19-41); Mean Corp Hgb Conc 33.9 g/dL (32-36); Mean Corpuscular Hgb 32.9 pg (27.0-32.0); Mean Corpuscular Volume 97.1 fL (80-94); Mean Platelet Vol. 10.4 fl (6.2-12.0); Monocyte# 0.48 X10^3/uL; Monocyte% 8.6 % (0-10); NRBC Flagged by Analyzer 0 % (0-5); Neutrophil # 3.78 X10^3/uL (2.7-7.7); Neutrophil % 67.5 % (47-70); Platelet Count 234 K/mm3 (150-450); RBC Distribution Width CV 13.1 % (11.6-14.6); RBC Distribution Width SD 46.6 fl (35.1-43.9); Red Blood Count 4.19 M/mm3 (4.6-6.2); White Blood Count 5.6 K/mm3 (4.4-11.0)
[2024-04-10] MEDS: 0.9% Normal Saline (1000mL) 1,000 ML 999 ML IV (18:21)
[2024-04-10] MEDS: Ondansetron 4 MG/2 ML Vial IV (18:21)
--- NOTE | 2024-04-10 18:34 | ED.RN ---
CRITICALS CALLED. AND NOTIFIED CA 6.2 LACTATE 2.0
[2024-04-10 18:35] LABS: ALB/GLOB Ratio 0.6 RATIO (0.9-2.4); AST(SGOT) 77 U/L (15-37); Alanine Aminotransfer ALT/SGPT 39 U/L (16-61); Albumin, Serum 2.7 g/dL (3.2-5.0); Alkaline Phosphatase 473 U/L (45-117); Anion Gap 11 (5-15); BUN 21 mg/dL (7-18); BUN/Creat Ratio 13.2 RATIO (10-20); Calcium,Total 6.2 mg/dL (8.5-10.1); Chloride 90 mmol/L (98-107); Creatinine, Serum 1.59 mg/dL (0.70-1.30); EST Glomerular Filtration Rate 44 mL/min (>60); Est Glom Filt Rate - Afr Amer 53 mL/min (>60); Globulin 4.6 g/dL (2.2-4.2); Glucose 411 mg/dL (74-106); Lipase 15 U/L (13-75); Potassium 3.2 mmol/L (3.5-5.1); Protein, Total 7.3 g/dL (6.4-8.2); Sodium Level 129 mmol/L (136-145); Troponin-I HS 15 pg/mL (3.0-78.0)
--- NOTE | 2024-04-10 18:35 | RAD_ITS ---
INDICATION: cough EXAMINATION/TECHNIQUE: X-RAY - XR Chest 2 Views COMPARISON: 01/05/2023 FINDINGS: LIFE-SUPPORT AND LINES: 1. None HEART AND VESSELS: The cardiac silhouette, pulmonary vasculature have normal appearance. No evidence of congestive failure. LUNGS AND PLEURAL SPACES: Diffuse interstitial infiltrate lung bases greater on the LEFT than RIGHT with mild worsening. Remaining lung zones are clear. No pulmonary mass is noted. MEDIASTINUM AND HILAR REGIONS: No masses adenopathy noted. No areas of calcification. Visualized upper airway is normal in position. BONY ELEMENTS: No acute bony changes noted. RAD/Chest PA and Lateral IMPRESSION: 1. Worsening bilateral diffuse interstitial infiltrate greater on LEFT than RIGHT. 2. No evidence congestive failure. Electronically Signed: Jose Ramon Oneal MD at 19:28 EST ,
[2024-04-10 19:08] LABS: Ionized Calcium 0.87 mmol/L (1.09-1.30)
[2024-04-10] MEDS: Insulin Lispro 100 UNIT/ML INSULN.PEN 10 UNIT SC (19:20)
[2024-04-10 19:24] LABS: Ionized Calcium Order 0.87
--- NOTE | 2024-04-10 19:50 | HP.PCM.HOS_ITS ---
[facility] - General General Date of Admission: 04/10/24 Date of Service: 04/10/24 Chief Complaint: Abdominal Pain and Malaise. HPI Narrative LEONOR STAPLES, is a 89 M with a past medical history of essential hypertension; on lisinopril, hyperlipidemia; on simvastatin, overweight; with BMI of 27.5 this admission, DM-2; of unknown control on insulin glargine 32 U sq. HS and insulin lispro 14 units sq TID AC, diabetic neuropathy; on gabapentin, former history of tobacco abuse; with subsequent COPD, history of CVA, history of Parkinson's disease, history of lower GI bleed, JUAN on ferrous sulfate, chronic diarrhea; with history of C. difficile colitis, history of shingles; on valacyclovir, history of psoriasis, history of essential tremor; on primidone, history of leg cramps, history of perirectal abscess repair, history of partial colectomy (2020), history of cholecystectomy, history of hernia; s/p repair, history of depression with anxiety; on sertraline, listed allergy to IV contrast dye (SOB), listed allergy to metformin (diarrhea), listed allergy to labetalol (hypotension), GERD; on pantoprazole BID and OA; with chronic back pain and chronic debility with chronic debility who presents to [facility] ER complaining of abdominal pain and malaise. Mr. Staples reports his symptoms began approximately 1 week prior to admission with a gradual-onset of abdominal pain that was generalized, cramping, moderate and associated with bloating and decreased bowel movements along with decreased flatus. He admits he has not been taking his medications for the past ~7-10 days due to his worsening symptoms. He denies recent alcohol or tobacco abuse and states he has not used them for several years. He also admits to generalized weakness but he denies associated fever, chills, nausea, vomiting, chest pain or headache. In the ER he was noted to have a CT scan of the abdomen and pelvis that was remarkable for chronic appearing pleural interstitial thickening at both bases with areas of airspace consolidation at the Right base consistent with suspected Pneumonia complicated by laboratory evidence of severe hypocalcemia of 6.2 mg/dL with confirmatory low ionized calcium of 0.87 mmol/L in addition to hyponatremia of 129 mmol/L, hypokalemia of 3.2 mmol/L and suspected mild HIREN with elevated serum creatinine of 1.59 mg/dL and BUN of 21 mg/dL (up from his baseline of 1.08 mg/dL and 19 mg/dL last admission) compounded by clinical evidence of generalized weakness with ambulatory dysfunction and he was then admitted to the PCU for ongoing care for stay that is expected to extend beyond 2 midnights. [facility] [place] Medical History Diabetes Acute blood loss anemia Acute lower GI bleeding Macrocytic anemia Wears dentures Wears glasses Cancer Insulin dependent diabetes mellitus Back pain Parkinson's disease Leg cramps History of edema History of irregular heartbeat History of echocardiogram History of stress test Chest pain Chronic diarrhea Depression Diabetes GI bleed Former smoker Sleep apnea Hypertension Stroke/cerebrovascular accident Personal history of colon cancer Psoriasis Anxiety C. difficile diarrhea Prostate cancer GERD (gastroesophageal reflux disease) High cholesterol Tobacco abuse History of GI bleed Diabetic neuropathy HLD (hyperlipidemia) Diverticulosis of colon without diverticulitis Type II diabetes mellitus Benign hypertension Home Medications ?Medication ?Instructions ?Recorded ?Last Taken ?Type gabapentin 300 mg capsule 300 mg PO QHS nerve pain 10/05/13 03/29/24 History insulin glargine 100 unit/mL (3 32 unit subcut QHS diabetes 05/15/18 05/14/18 History mL) subcutaneous pen (Lantus Solostar U-100 Insulin) insulin lispro 100 unit/mL 14 unit subcut TID diabetes 05/15/18 05/15/18 History subcutaneous pen (Humalog KwikPen (U-100) Insulin) lisinopril 5 mg tablet 5 mg PO DAILY blood pressure 09/12/21 03/29/24 History simvastatin 20 mg tablet 20 mg PO QHS cholesterol 09/12/21 03/29/24 History aspirin 81 mg tablet 81 mg PO DAILY heart health 09/13/21 03/29/24 History Lactobacillus acidophilus 10 10,000 mmu cells PO DAILY 03/22/22 03/29/24 History billion cell capsule (Probiotic) supplement ferrous sulfate 325 mg (65 mg 325 mg PO DAILY supplement 03/22/22 03/29/24 History iron) tablet primidone 50 mg tablet 50 mg PO QHS TREMORS 03/22/22 03/29/24 History valacyclovir 1 gram tablet 1,000 mg PO DAILY viral infection 03/22/22 03/29/24 History sertraline 100 mg tablet 200 mg PO DAILY mental health 11/28/23 03/29/24 History pantoprazole 40 mg tablet,delayed 40 mg PO BID #60 tabs 12/19/23 03/29/24 Rx release Allergy/AdvReac Type Severity Reaction Status Date / Time Iodinated Contrast Media Allergy Shortness Verified 12/18/23 12:46 (Iodinated Contrast Media - of breath IV Dye) labetalol AdvReac Intermediate hypotension Verified 12/18/23 12:46 metformin AdvReac Diarrhea Verified 12/18/23 12:46 Surgical History Hx of hernia repair History of cholecystectomy History of colonoscopy History of hernia repair History of partial colectomy S/P paola-rectal abscess repair, follow-up exam Social History household members: none housing: house Smoking Status: Former smoker alcohol intake: never substance use type: does not use ROS ROS Narrative Review of Systems: Constitutional: Patient denies fever or chills. Eyes: Patient denies blurry vision or discharge from eyes. ENT: Patient denies runny nose, sore throat or ear pain. Resp: Patient denies shortness of breath or cough. CV: Patient denies chest pain, palpitations or heart racing. GI: Patient admits to generalized abdominal pain with bloating and decreased flatus with constipation as per HPI. : Patient denies dysuria or hematuria. MSK: Patient denies arthralgias or myalgias. Skin: Patient denies rash, abscess or jaundice. Psych: Patient denies symptoms of uncontrolled depression or anxiety. Neuro: Patient denies headache, paresthesias or focal neurologic deficits. Allergy: Patient denies lip swelling, tongue swelling or urticaria. Hematology: Patient denies easy bleeding or easy bruisability. Endocrinology: Patient denies polyuria, polydipsia or polyphagia. 14 point review of systems otherwise negative except for positives noted above in HPI. Vital Signs Vital Signs Vital Signs: 04/10/24 17:21 04/10/24 19:05 04/10/24 19:10 Temperature 98.6 F Temperature Source Oral Pulse Rate 78 Respiratory Rate 16 Blood Pressure 100/81 H Blood Pressure Mean 87 Pulse Ox 98 88 96 Oxygen Delivery Method Room Air Room Air Nasal Cannula Oxygen Flow Rate (L/min) 2 04/10/24 19:45 04/10/24 19:46 Temperature 98.1 F 98.1 F Temperature Source Oral Pulse Rate 96 94 Respiratory Rate 20 H 20 H Blood Pressure 138/71 H 138/71 H Blood Pressure Mean 93 93 Pulse Ox 96 96 Oxygen Delivery Method Nasal Cannula Oxygen Flow Rate (L/min) 2 Weight Weight: 182 lb Body Mass Index (BMI) 26.9 Physical Exam Const alert, oriented x3, no apparent distress and average body habitus General Appearance: cooperative HEENT normocephalic, head/scalp atraumatic and hearing grossly normal bilaterally HEENT Narrative: Mucous membranes dry. Eyes PERRL and EOMs intact bilaterally Neck no lymphadenopathy and supple Resp normal respiratory effort, no retractions, no use of accessory muscles and clear to auscultation bilaterally Cardio regular rate and regular rhythm GI GI Narrative: Abdomen is slightly distended with generalized mild TTP and hypoactive bowel sounds. Auscultation: hypoactive bowel sounds Extremity normal to inspection, full ROM and no clubbing, cyanosis or edema Skin Skin Narrative: Patient has no evidence of rash, abscess or jaundice. Neuro oriented x3, CN's II-XII intact bilaterally, moves all extremities and no focal motor deficits Sensorium / Orientation: awake, alert, oriented to person, oriented to place and oriented to time Speech: speech normal Psych affect normal Results Medical Records Data Attestation: I reviewed the patient's medical records Lab / Micro Data Attestation: I reviewed the patient's lab results. 04/10/24 17:55 04/10/24 17:55 Labs: Laboratory Results - last 24 hr 04/10/24 17:55: WBC 5.6, RBC 4.19 L, Hgb 13.8, Hct 40.7, MCV 97.1 H, MCH 32.9 H, MCHC 33.9, RDW Std Deviation 46.6 H, RDW Coeff of Angel 13.1, Plt Count 234, MPV 10.4, Immature Gran % (Auto) 0.700, Neut % (Auto) 67.5, Lymph % (Auto) 20.9, [place] % (Auto) 8.6, Eos % (Auto) 1.4, Baso % (Auto) 0.9, Absolute Neuts (auto) 3.8, Absolute Lymphs (auto) 1.17, Nucleated RBC % 0, Sodium 129 L, Potassium 3.2 L, Chloride 90 L, Carbon Dioxide 28.0, Anion Gap 11, BUN 21 H, Creatinine 1.59 H , Estim Creat Clear Calc 31.50, Est GFR (MDRD) Af Amer 53 L, Est GFR (MDRD) Non- Af 44 L, BUN/Creatinine Ratio 13.2, Glucose 411 H, Lactic Acid 2.0, Calcium 6.2 L*, Total Bilirubin 1.30 H, AST 77 H, ALT 39, Alkaline Phosphatase 473 H, Troponin I High Sens 15, Total Protein 7.3, Albumin 2.7 L, Globulin 4.6 H, A lbumin/Globulin Ratio 0.6 L, Lipase 15 04/10/24 19:03: Ionized Calcium 0.87 L Micro: Microbiology 04/10/24 18:19 Mucosa - Nose SARS-CoV-2, Influenza & RSV (PCR) - Final Imaging Radiology Impression Abdomen/Pelvis CT 04/10/24 17:46 IMPRESSION: 1. No masses bowel obstruction abscess free fluid or free air. Anastomotic sutures are present in the RIGHT upper quadrant. 2. Diverticulosis without evidence of diverticulitis. The appendix is not positively identified however no evidence of appendicitis. 3. Multiple renal calcifications without evidence of obstructive uropathy. 4. Status post cholecystectomy without ductal dilatation. 5. Chronic appearing pleural and interstitial thickening at both lung bases with areas of airspace consolidation at the RIGHT base. 6. Diffuse lumbar spondylosis, no acute bony changes. 7. Fat-containing LEFT inguinal hernia. No bowel involvement Electronically Signed: Jose Ramon Onael MD at 19:13 EST , Chest X-Ray 04/10/24 18:35 IMPRESSION: 1. Worsening bilateral diffuse interstitial infiltrate greater on LEFT than RIGHT. 2. No evidence congestive failure. Electronically Signed: Jose Ramon Oneal MD at 19:28 EST , Assessment & Plan Assessment/Plan (1) Community acquired pneumonia: QUALIFIERS: Laterality: right Lung location: lower lobe of lung Qualified Code(s): J18.9 - Pneumonia, unspecified organism (2) Respiratory insufficiency: (3) Abdominal pain: QUALIFIERS: Abdominal location: generalized Qualified Code(s): R 10.84 - Generalized abdominal pain (4) Decreased appetite: (5) Hypocalcemia: (6) Hyponatremia: (7) Hypokalemia: (8) HIREN (acute kidney injury): (9) Generalized weakness: (10) Ambulatory dysfunction: (11) Overweight (BMI 25.0-29.9): PLAN: Plan 1. CT this admission positive for airspace consolidation at the Right base consistent with suspected Pneumonia with generalized Abdominal Pain and Decreased Appetite - Admit to PCU. Continue empiric IV Rocephin and IV Azithromycin and await culture and sensitivity data. Check urinary antigens to Streptococcus pneumonia and Legionella. Give Tylenol prn for [id number] (level 1-5/10) pain or fever. Give [place] prn for severe (level 6-10/10) pain. 2. Severe hypocalcemia of 6.2 mg/dL with confirmatory low ionized calcium of 0.87 mmol/L complicating #1 - Give supplemental IV calcium gluconate and then recheck level in the AM. Check vitamin d level. 3. Hyponatremia of 129 mmol/L, Hypokalemia of 3.2 mmol/L and suspected mild HIREN with elevated serum creatinine of 1.59 mg/dL and BUN of 21 mg/dL (up from his baseline of 1.08 mg/dL and 19 mg/dL last admission) compounding #1 & #2 - Give NS IVF and supplemental KCl and then recheck CMP in AM to ensure improvement. 4. Generalized Weakness and Ambulatory Dysfunction in the setting of previous CVA, Parkinson's disease and OA; with chronic back pain and chronic debility with chronic debility attributing to #1 - #3 - PT/OT and Case Management to consult and treat on-rounds in the AM for further recommendations with help appreciated in advance. 5. Overweight; with BMI of 27.5 this admission complicating #1 - #4 - Weight loss recommended. Check TSH for this and in light of #4. This complicates his case and may hamper recovery. 6. DM-2; of unknown control on insulin glargine 32 U sq. HS and insulin lispro 14 units sq TID AC and diabetic neuropathy; on gabapentin - ADA diet. Cut long- acting and short acting insulin regimen by ~70% to minimize risk of hypoglycemia. Check FSBS q. AC/HS plus SSI. Check HgbA1c to objectively assess quality of diabetic control. 7. Essential hypertension; on lisinopril - Continue home regimen plus give prn IV Hydralazine for systolic blood pressure > 160 mmHg. 8. Hyperlipidemia; on simvastatin - Hold statin in case of potential myotoxicity contributing to #4. 9. Former history of tobacco abuse; with subsequent COPD - Stable with no evidence of acute flare. 10. History of lower GI bleed - Noted with no active signs of recurrence. 11. JUAN on ferrous sulfate - Maintain ferrous sulfate as previous. 12. Chronic diarrhea; with history of C. difficile colitis - Noted with patient started on probiotic to help restore normal geeta. We will be careful to watch for signs of diarrhea. 13. History of shingles; on valacyclovir - Continue valacyclovir as before. 14. History of psoriasis - Noted with no signs of acute flare. 15. History of essential tremor; on primidone - Maintain current treatment. 16. History of leg cramps - Noted. 17. History of perirectal abscess repair - Noted. 18. History of partial colectomy (2020) - Noted. 19. History of cholecystectomy - Noted. 20. History of hernia; s/p repair - Noted. 21. History of depression with anxiety; on sertraline - Continue sertraline as previous. 22. Listed allergy to IV contrast dye (SOB) - Noted. 23. Listed allergy to metformin (diarrhea) - Noted. 24. Listed allergy to labetalol (hypotension) - Noted. 25. GERD; on pantoprazole BID - Maintain current treatment. 26. DVT prophylaxis - Give Lovenox 30 mg sq daily. Total time: Approximately (but not less than) 75 minutes. Charges/Coding Visit Charges Inpatient E&M: 67486 Init Hosp L3
[2024-04-10] MEDS: Ceftriaxone 1 GM/50 ML BAG IV (20:02)
[2024-04-10 20:29] LABS: Hemoglobin A1c 9.7 % (3.8-5.6)
[2024-04-10] MEDS: Azithromycin 500 MG in Dextrose 5%-Water (250mL Bag) 250 ML 250 MG IV (20:44)
[2024-04-10] MEDS: Primidone 50 MG Tablet PO (21:17)
[2024-04-10] MEDS: Pantoprazole Sodium 40 MG Tablet PO (21:17)
[2024-04-10] MEDS: Cholecalciferol (Vit D3) 125 MCG CAPSULE (5,000 UNITS) PO (21:17)
[2024-04-10] MEDS: Gabapentin 300 MG Capsule PO (21:17)
[2024-04-10] MEDS: Zinc Sulfate 50 mg zinc (220 mg) ORAL capsule PO (21:17)
[2024-04-10] MEDS: Insulin Glargine-YFGN 100 UNIT/ML Pen 20 UNIT SC (21:18)
[2024-04-10] MEDS: Insulin Lispro 100 UNIT/ML INSULN.PEN SC (21:23)
[2024-04-10 22:06] LABS: Reflex Lactate? Y
[2024-04-10 22:21] LABS: Bedside Glucose 271 mg/dL (74-106)
[2024-04-10] MEDS: Calcium Gluconate 1 GM/10 ML Vial 2 GM IVP (22:55)
[2024-04-10] MEDS: Potassium Chloride Oral Tablet 20 MEQ 60 MEQ PO (22:55)
[2024-04-10] MEDS: 0.9% Saline Lock 10 ML Syringe IV (22:56)
[2024-04-10 23:25] LABS: Lactic Acid 2.4 mmol/L (0.4-1.9)
[2024-04-10 23:29] LABS: Mucous, Urine 0 SEEN /hpf (<or=2+); Red Blood Cells-Urine 0 SEEN /hpf (0-5); Squamous Epithelial Cells - UA 0 SEEN /hpf (0-5); White Blood Cells 0 SEEN /hpf (0-5)
[2024-04-10 23:56] LABS: Color, Urine Yellow (Yellow); Glucose, Dipstick 1000 mg/dl (Normal); Ketone-Dipstick Negative (Negative); Leukocyte Esterase-Dipstick Negative /ul (Negative); Nitrite-Dipstick Negative (Negative); Occult Blood-Urine 10 /ul (Negative); Protein-Dipstick 30 mg/dl (Negative); Specific Gravity, Urine 1.015 (1.002-1.030); Urine Bilirubin Dipstick Negative (Negative); Urine Clarity Clear (Clear); Urine Urobilinogen 4 mg/dl (Normal)
[2024-04-11 00:26] LABS: Bacteria 1+ /hpf (None Seen)
[2024-04-11 01:14] LABS: Vitamin B12 438 pg/mL (211-911)
[2024-04-11 03:09] VITALS: BP 150/54; PULSE 71; RESP 18; TEMP 37.7; O2SAT 96
[2024-04-11 05:35] VITALS: BP 150/54; PULSE 71; RESP 18; TEMP 37.7; O2SAT 96
--- NOTE | 2024-04-11 06:37 | RAD_ITS ---
STUDY: X-RAY CHEST REASON FOR EXAM: Male, 89 years old. PNA. TECHNIQUE: PA and lateral views of the chest. COMPARISON: 04/10/2024 FINDINGS: No change in the alveolar opacities in both lung bases consistent with bibasilar atelectasis or pneumonia. There is no demonstrated pleural abnormality. There is moderate cardiac enlargement. Normal mediastinum and mackenzie. Normal visualized pulmonary arteries. Normal visualized aortic arch and descending thoracic aorta. Normal visualized thoracic spine. Normal visualized ribs, clavicles, and shoulders. There is no demonstrated abnormality of the visualized soft tissue structures of the upper abdomen. RAD/Chest PA and Lateral IMPRESSION: No change in bibasilar atelectasis or pneumonia. Electronically Signed: Jose Ramon Reddy MD at 9:01 EST ,
[2024-04-11] MEDS: Ascorbic Acid 500 MG Tablet 1000 MG PO ×2 (08:18→17:15)
[2024-04-11] MEDS: Ferrous Sulfate 325 MG Tablet PO (08:18)
[2024-04-11] MEDS: Insulin Lispro 100 UNIT/ML INSULN.PEN 8 UNIT SC ×3 (08:19→17:14)
[2024-04-11] MEDS: Aspirin 81 MG TAB.CHEW PO (08:19)
[2024-04-11 08:24] LABS: Bedside Glucose 145 mg/dL (74-106)
[2024-04-11] MEDS: Sertraline 100 MG Tablet 200 MG PO (08:33)
[2024-04-11] MEDS: Enoxaparin 30 MG/0.3 ML Syringe SC (08:33)
[2024-04-11] MEDS: Acyclovir 200 MG Capsule 400 MG PO ×2 (08:33→21:26)
[2024-04-11] MEDS: Cholecalciferol (Vit D3) 125 MCG CAPSULE (5,000 UNITS) PO (08:33)
[2024-04-11] MEDS: Zinc Sulfate 50 mg zinc (220 mg) ORAL capsule PO (08:33)
[2024-04-11] MEDS: Pantoprazole Sodium 40 MG Tablet PO ×2 (08:34→21:26)
[2024-04-11] MEDS: Lactobacillis Acidophilus 1 CAP PO (08:34)
[2024-04-11] MEDS: Lisinopril 5 MG Tablet PO (08:34)
[2024-04-11] MEDS: FLU VACCINE **HIGH DOSE** TV 24-25 180 MCG/0.5 ML SYRINGE IM (08:44)
[2024-04-11 08:53] LABS: Hematocrit 37.3 % (40-54); Hemoglobin 12.7 g/dL (13.0-16.5); Mean Corpuscular Hgb 33.5 pg (27.0-32.0); Mean Corpuscular Volume 98.4 fL (80-94); Mean Platelet Vol. 10.3 fl (6.2-12.0); Platelet Count 223 K/mm3 (150-450); RBC Distribution Width SD 46.9 fl (35.1-43.9); Red Blood Count 3.79 M/mm3 (4.6-6.2); White Blood Count 6.6 K/mm3 (4.4-11.0)
[2024-04-11 09:00] VITALS: BP 139/69; PULSE 74; RESP 16; TEMP 37.2; O2SAT 94
[2024-04-11 09:47] LABS: ALB/GLOB Ratio 0.6 RATIO (0.9-2.4); AST(SGOT) 63 U/L (15-37); Alanine Aminotransfer ALT/SGPT 38 U/L (16-61); Albumin, Serum 2.4 g/dL (3.2-5.0); Alkaline Phosphatase 414 U/L (45-117); Anion Gap 10 (5-15); BUN 19 mg/dL (7-18); BUN/Creat Ratio 14.6 RATIO (10-20); Calcium,Total 6.4 mg/dL (8.5-10.1); Chloride 96 mmol/L (98-107); EST Glomerular Filtration Rate 55 mL/min (>60); Est Glom Filt Rate - Afr Amer 67 mL/min (>60); Estimated Creatinine Clearance 38.52 ml/min; Glucose 161 mg/dL (74-106); Potassium 3.9 mmol/L (3.5-5.1); Protein, Total 6.4 g/dL (6.4-8.2); Sodium Level 133 mmol/L (136-145)
[2024-04-11 09:54] VITALS: O2SAT 94
[2024-04-11 10:28] LABS: Magnesium 0.6 mg/dL (1.6-2.6); Phosphorus 3.1 mg/dL (2.5-4.9)
--- NOTE | 2024-04-11 12:08 | PN.HOSP_ITS ---
Reason for Visit Reason for Visit: Diagnoses Overweight (04/10/24) Hypocalcemia (04/10/24) Hypo-osmolality and hyponatremia (04/10/24) Hypokalemia (04/10/24) Pneumonia, unspecified organism (04/10/24) Acute kidney failure, unspecified (04/10/24) Other abnormalities of breathing (04/10/24) Generalized abdominal pain (04/10/24) Unspecified abdominal pain (04/10/24) Difficulty in walking, not elsewhere classified (04/10/24) Weakness (04/10/24) Anorexia (04/10/24) Subjective Subjective Saw patient at bedside this morning. Patient was laying back comfortably in bed and in no acute distress. He was fatigued appearing but was alert and appeared to be answering my questions appropriately. However of note, he was not able to tell me why he initially came to the hospital. Did not express to me that he was feeling much weaker than his baseline. Denied any pneumonia type symptoms currently. Denied any abdominal pain or discomfort. Denied any fevers or chills. No other acute concerns at this time. Objective Data Objective Data Vital Signs: Vital Signs Temp Pulse Resp BP Pulse Ox O2 Del Method O2 Flow Rate 98.9 F 74 16 139/69 H 94 Room Air 2 04/11/24 09:00 04/11/24 09:00 04/11/24 09:00 04/11/24 09:00 04/11/24 09:54 04/11/24 09:54 04/11/24 05:35 Oxygen Flow Rate (L/min) 2 Oxygen Delivery Method Room Air Weight: 84.5 kg Body Mass Index (BMI) 27.5 Intake & Output: Intake and Output for Last 24 Hours 04/09/24 04/10/24 04/11/24 23:59 23:59 23:59 Intake Total 1305 / 1305 360 / 360 Balance 1305 / 1305 360 / 360 Lab / Micro Data 04/11/24 08:43 04/11/24 08:43 Labs: Laboratory Results - last 24 hr 04/10/24 17:55: WBC 5.6, RBC 4.19 L, Hgb 13.8, Hct 40.7, MCV 97.1 H, MCH 32.9 H, MCHC 33.9, RDW Std Deviation 46.6 H, RDW Coeff of Angel 13.1, Plt Count 234, MPV 10.4, Immature Gran % (Auto) 0.700, Neut % (Auto) 67.5, Lymph % (Auto) 20.9, [place] % (Auto) 8.6, Eos % (Auto) 1.4, Baso % (Auto) 0.9, Absolute Neuts (auto) 3.8, Absolute Lymphs (auto) 1.17, Nucleated RBC % 0, Sodium 129 L, Potassium 3.2 L, Chloride 90 L, Carbon Dioxide 28.0, Anion Gap 11, BUN 21 H, Creatinine 1.59 H , Estim Creat Clear Calc 31.50, Est GFR (MDRD) Af Amer 53 L, Est GFR (MDRD) Non- Af 44 L, BUN/Creatinine Ratio 13.2, Glucose 411 H, Hemoglobin A1c 9.7 H, Lactic Acid 2.0, Calcium 6.2 L*, Total Bilirubin 1.30 H, AST 77 H, ALT 39, Alkaline Phosphatase 473 H, Troponin I High Sens 15, Total Protein 7.3, Albumin 2.7 L, G lobulin 4.6 H, Albumin/Globulin Ratio 0.6 L, Lipase 15, Folate 9.20, TSH 1.200 04/10/24 19:03: Ionized Calcium 0.87 L 04/10/24 21:16: POC Glucose 271 H 04/10/24 22:32: Lactic Acid 2.4 H*, Vitamin B12 438 04/10/24 23:10: Urine Color Yellow, Urine Clarity Clear, Urine pH 6.0, Ur Specific [place] 1.015, Urine Protein 30 H, Urine Glucose (UA) 1000 H, Urine Ketones Negative, Urine Occult Blood 10 H, Urine Nitrite Negative, Urine Bilirubin Negative, Urine Urobilinogen 4 H, Ur Leukocyte Esterase Negative, Urine RBC 0 SEEN, Urine WBC 0 SEEN, Ur Squamous Epith Cells 0 SEEN, Urine Bacteria 1+, Urine Mucus 0 SEEN 04/11/24 08:06: POC Glucose 145 H 04/11/24 08:43: WBC 6.6, RBC 3.79 L, Hgb 12.7 L, Hct 37.3 L, MCV 98.4 H, MCH 33.5 H, MCHC 34.0, RDW Std Deviation 46.9 H, RDW Coeff of Angel 13.0, Plt Count 223, MPV 10.3, Sodium 133 L, Potassium 3.9, Chloride 96 L, Carbon Dioxide 27.0, Anion Gap 10, BUN 19 H, Creatinine 1.30, Estim Creat Clear Calc 38.52, Est GFR (MDRD) Af Amer 67, Est GFR (MDRD) Non-Af 55 L, BUN/Creatinine Ratio 14.6, G lucose 161 H, Calcium 6.4 L*, Phosphorus 3.1, Magnesium 0.6 L*, Total Bilirubin 1.10 H, AST 63 H, ALT 38, Alkaline Phosphatase 414 H, Total Protein 6.4, Albumin 2.4 L, Globulin 4.0, Albumin/Globulin Ratio 0.6 L Micro: Microbiology 04/10/24 23:05 Mucosa - Nasopharyngeal Respiratory Panel (PCR) - Final 04/10/24 23:10 Urine, Clean Catch Streptococcus pneumoniae Antigen (M - Final 04/10/24 23:10 Urine, Clean Catch Legionella Antigen - Final 04/10/24 18:19 Mucosa - Nose SARS-CoV-2, Influenza & RSV (PCR) - Final Radiography Diagnostic Testing: Radiology Impression Abdomen/Pelvis CT 04/10/24 17:46 IMPRESSION: 1. No masses bowel obstruction abscess free fluid or free air. Anastomotic sutures are present in the RIGHT upper quadrant. 2. Diverticulosis without evidence of diverticulitis. The appendix is not positively identified however no evidence of appendicitis. 3. Multiple renal calcifications without evidence of obstructive uropathy. 4. Status post cholecystectomy without ductal dilatation. 5. Chronic appearing pleural and interstitial thickening at both lung bases with areas of airspace consolidation at the RIGHT base. 6. Diffuse lumbar spondylosis, no acute bony changes. 7. Fat-containing LEFT inguinal hernia. No bowel involvement Electronically Signed: Jose Ramon Oneal MD at 19:13 EST , Chest X-Ray 04/10/24 18:35 IMPRESSION: 1. Worsening bilateral diffuse interstitial infiltrate greater on LEFT than RIGHT. 2. No evidence congestive failure. Electronically Signed: Jose Ramon Oneal MD at 19:28 EST , Physical Exam Const alert, no apparent distress and average body habitus Constitutional Narrative: Elderly male, mildly fatigued appearing, otherwise laying back comfortably in bed, in no acute distress. General Appearance: cooperative and comfortable HEENT normocephalic, head/scalp atraumatic, hearing grossly normal bilaterally, nasal mucous membranes and turbinates normal and moist oral mucous membranes Eyes PERRL, EOMs intact bilaterally and conjunctivae normal Neck full ROM Chest inspection of chest normal Resp normal respiratory effort, normal air movement, no use of accessory muscles and clear to auscultation bilaterally Cardio regular rate, regular rhythm, no murmurs and peripheral pulses 2+ throughout GI normal to inspection, nondistended, normoactive bowel sounds, soft to palpation, non-tender and non-distended Back/Spine normal ROM Extremity normal to inspection, full ROM and no pedal edema Skin no rashes or lesions noted Psych mental status grossly normal Psych Narrative: Flat affect. Assessment & Plan Assessment/Plan (1) Generalized weakness: (2) Hypocalcemia: (3) Hyponatremia: (4) Community acquired pneumonia: QUALIFIERS: Laterality: right Lung location: lower lobe of lung Qualified Code(s): J18.9 - Pneumonia, unspecified organism PLAN: Plan Patient is an 89-year-old male who presented [facility] ED on 04/10/2024 with worsening generalized weakness. 1. Generalized weakness with concern for adult failure to thrive ? PT/OT/case management consulted. Patient reportedly lives at home alone and told admitting provider he had not been taking home medications for 7 to 10 days. Significant electrolyte abnormalities noted on admission along with dehydration concerning for recent poor p.o. intake. On discussion with patient he does not seem to have good insight into his condition, have some concern for underlying cognitive impairment. Further treatment as below. Appreciate therapy recommendations. 2. Concern for community-acquired pneumonia ? Chest x-ray on admit showed worsening bilateral diffuse interstitial infiltrates greater on left than right, no evidence of heart failure. CT abdomen pelvis notably showed moderate to extensive pleural and interstitial thickening at the lung bases with areas of alveolar consolidation present at right base. Patient requiring 2 L nasal cannula on admit to maintain saturations in the low to mid 90s. Has otherwise been afebrile, hemodynamically stable and has no URI or pneumonia symptoms noted. Infectious workup negative to this point. Will continue treatment with IV antibiotics but suspect these may be more chronic lung changes for the patient. Wean supplemental oxygen as able. 3. Hyponatremia, improving ? Sodium 129 on admit. Suspect due to dehydration as chloride was low as well. Improving with IV fluids, most recent sodium 133 on 04/11. Continue to monitor daily BMP. 4. New onset hypocalcemia ? Calcium 6.2 on admit, ionized calcium low at 0.87. Albumin mildly low at 2.7, corrected calcium still low at 7.2. Calcium was 7.6 or higher on labs in November and December and no prior history of hypocalcemia on review of remote labs. Unclear etiology at this time. PTH and vitamin D levels pending. Patient with no symptoms of hypercalcemia, no need for treatment at this time. Continue to monitor daily. 5. Severe hypomagnesemia ? Magnesium 0.6 on admit. Will replete aggressively. 6. HIREN, improving ? Creatinine 1.59 on admit, baseline around 1.0. Presumed prerenal from dehydration. Improving with IV fluids, continue to monitor daily BMP and urine output. Chronic medical conditions: ? Type 2 diabetes mellitus with hyperglycemia and diabetic neuropathy: Blood glucose 411 on admit. A1c 9.7%. Last A1c was 10.1% back in January 2023. Treating with reduced doses from home of Lantus 20 units at night and Humalog 8 units with meals plus sliding scale insulin as needed for now, adjust as needed. Continue home gabapentin. ? Hypertension: Holding home lisinopril, restart as able. ? Depression with anxiety: Continue home sertraline. ? History of upper GI bleed with GERD: Continue home PPI twice daily. ? Essential tremor: Continue home primidone. ? Hyperlipidemia: Continue home statin. ? Mild iron deficiency anemia: Hemoglobin stable at baseline 12-13. Continue home iron supplement. DVT prophylaxis: Lovenox CODE STATUS: DNR CCA, DNI Expected disposition: TBD Total clinical time spent by myself addressing the patient's medical issues, reviewing all the data, and collaborating with patient's care team: 50 minutes. Charges/Coding Visit Charges Inpatient E&M: 19020 [facility] Hosp L3
[2024-04-11 12:44] LABS: Bedside Glucose 134 mg/dL (74-106)
[2024-04-11] MEDS: 0.9% Saline Lock 10 ML Syringe IV (13:18)
[2024-04-11] MEDS: Magnesium Sulfate 4gm/100mL 4 GM/100 ML IV.SOLN. IV (13:19)
[2024-04-11] MEDS: Acetaminophen 325 MG Tablet 650 MG PO ×2 (14:51→20:09)
[2024-04-11 15:00] VITALS: BP 116/60; PULSE 66; RESP 16; TEMP 36.8; O2SAT 94
[2024-04-11 17:30] LABS: Bedside Glucose 131 mg/dL (74-106)
[2024-04-11 21:00] VITALS: BP 109/54; PULSE 82; RESP 18; TEMP 36.9; O2SAT 94
[2024-04-11] MEDS: Azithromycin 500 MG in Dextrose 5%-Water (250mL Bag) 250 ML 250 MG IV (21:23)
[2024-04-11] MEDS: Gabapentin 300 MG Capsule PO (21:26)
[2024-04-11] MEDS: Primidone 50 MG Tablet PO (21:26)
[2024-04-11] MEDS: Insulin Glargine-YFGN 100 UNIT/ML Pen 20 UNIT SC (21:27)
[2024-04-11] MEDS: Insulin Lispro 100 UNIT/ML INSULN.PEN SC (21:28)
[2024-04-11] MEDS: Ceftriaxone 1 GM/50 ML BAG IV (22:30)
[2024-04-11 23:13] LABS: Bedside Glucose 183 mg/dL (74-106)
[2024-04-12] MEDS: HYDROcodone Bitartrate/Apap 5/325 Tablet PO (02:17)
[2024-04-12 02:55] VITALS: O2SAT 85
[2024-04-12 03:00] VITALS: BP 130/58; PULSE 72; RESP 18; TEMP 36.8; O2SAT 94
[2024-04-12 04:26] LABS: ALB/GLOB Ratio 0.6 RATIO (0.9-2.4); AST(SGOT) 78 U/L (15-37); Alanine Aminotransfer ALT/SGPT 38 U/L (16-61); Albumin, Serum 2.2 g/dL (3.2-5.0); Alkaline Phosphatase 412 U/L (45-117); Anion Gap 8 (5-15); BUN 20 mg/dL (7-18); BUN/Creat Ratio 14.5 RATIO (10-20); Chloride 93 mmol/L (98-107); Creatinine, Serum 1.38 mg/dL (0.70-1.30); EST Glomerular Filtration Rate 52 mL/min (>60); Est Glom Filt Rate - Afr Amer 62 mL/min (>60); Estimated Creatinine Clearance 36.29 ml/min; Globulin 3.9 g/dL (2.2-4.2); Glucose 211 mg/dL (74-106); Magnesium 1.3 mg/dL (1.6-2.6); Potassium 3.4 mmol/L (3.5-5.1); Protein, Total 6.1 g/dL (6.4-8.2); Sodium Level 127 mmol/L (136-145)
[2024-04-12] MEDS: Potassium Chloride Oral Tablet 20 MEQ 60 MEQ PO (04:59)
[2024-04-12] MEDS: Calcium Gluconate IV 2 GM in 0.9% Normal Saline (100mL Bag) 100 ML IV (04:59)
[2024-04-12] MEDS: Magnesium Sulfate 2 GM in Dextrose 5%-Water (100mL Bag) 100 ML IV (05:16)
[2024-04-12 07:41] VITALS: O2SAT 95
[2024-04-12] MEDS: Insulin Lispro 100 UNIT/ML INSULN.PEN 8 UNIT SC ×3 (08:56→16:43)
[2024-04-12] MEDS: Insulin Lispro 100 UNIT/ML INSULN.PEN SC ×3 (08:57→16:44)
[2024-04-12] MEDS: Aspirin 81 MG TAB.CHEW PO (08:57)
[2024-04-12] MEDS: Ferrous Sulfate 325 MG Tablet PO (08:58)
[2024-04-12] MEDS: Ascorbic Acid 500 MG Tablet 1000 MG PO ×2 (08:58→16:44)
[2024-04-12] MEDS: Lactobacillis Acidophilus 1 CAP PO (08:58)
[2024-04-12] MEDS: Pantoprazole Sodium 40 MG Tablet PO ×2 (08:58→21:37)
[2024-04-12] MEDS: Enoxaparin 30 MG/0.3 ML Syringe SC (08:58)
[2024-04-12] MEDS: Acyclovir 200 MG Capsule 400 MG PO ×2 (08:59→21:37)
[2024-04-12] MEDS: Sertraline 100 MG Tablet 200 MG PO (08:59)
[2024-04-12] MEDS: Cholecalciferol (Vit D3) 125 MCG CAPSULE (5,000 UNITS) PO (08:59)
[2024-04-12 09:05] VITALS: BP 148/76; PULSE 82; RESP 16; TEMP 36.9; O2SAT 93
--- NOTE | 2024-04-12 09:31 | PN.HOSP_ITS ---
Reason for Visit Reason for Visit: Diagnoses Overweight (04/10/24) Hypocalcemia (04/10/24) Hypo-osmolality and hyponatremia (04/10/24) Hypokalemia (04/10/24) Pneumonia, unspecified organism (04/10/24) Acute kidney failure, unspecified (04/10/24) Other abnormalities of breathing (04/10/24) Generalized abdominal pain (04/10/24) Unspecified abdominal pain (04/10/24) Difficulty in walking, not elsewhere classified (04/10/24) Weakness (04/10/24) Anorexia (04/10/24) Subjective Subjective Feeling well. Objective Data Objective Data Vital Signs: Vital Signs Temp Pulse Resp BP Pulse Ox O2 Del Method O2 Flow Rate 36.9 C 82 16 148/76 H 93 Nasal Cannula 2 04/12/24 09:05 04/12/24 09:05 04/12/24 09:05 04/12/24 09:05 04/12/24 09:05 04/12/24 09:05 04/12/24 09:05 Oxygen Flow Rate (L/min) 2 Oxygen Delivery Method Nasal Cannula Weight: 84.5 kg Body Mass Index (BMI) 27.5 Intake & Output: Intake and Output for Last 24 Hours 04/10/24 04/11/24 04/12/24 23:59 23:59 23:59 Intake Total 1305 / 1305 765 / 765 224 / 224 Balance 1305 / 1305 765 / 765 224 / 224 Lab / Micro Data 04/11/24 08:43 04/12/24 03:39 Labs: Laboratory Results - last 24 hr 04/11/24 08:43: Sodium 133 L, Potassium 3.9, Chloride 96 L, Carbon Dioxide 27.0, Anion Gap 10, BUN 19 H, Creatinine 1.30, Estim Creat Clear Calc 38.52, Est GFR (MDRD) Af Amer 67, Est GFR (MDRD) Non-Af 55 L, BUN/Creatinine Ratio 14.6, G lucose 161 H, Calcium 6.4 L*, Phosphorus 3.1, Magnesium 0.6 L*, Total Bilirubin 1.10 H, AST 63 H, ALT 38, Alkaline Phosphatase 414 H, Total Protein 6.4, Albumin 2.4 L, Globulin 4.0, Albumin/Globulin Ratio 0.6 L, PTH Intact 112.0 H 04/11/24 12:25: POC Glucose 134 H 04/11/24 17:12: POC Glucose 131 H 04/11/24 21:25: POC Glucose 183 H 04/12/24 03:39: Sodium 127 L, Potassium 3.4 L, Chloride 93 L, Carbon Dioxide 26.0, Anion Gap 8, BUN 20 H, Creatinine 1.38 H, Estim Creat Clear Calc 36.29, Est GFR (MDRD) Af Amer 62, Est GFR (MDRD) Non-Af 52 L, BUN/Creatinine Ratio 14.5, Glucose 211 H, Calcium 6.0 L*, Magnesium 1.3 L, Total Bilirubin 1.10 H, A ST 78 H, ALT 38, Alkaline Phosphatase 412 H, Total Protein 6.1 L, Albumin 2.2 L, Globulin 3.9, Albumin/Globulin Ratio 0.6 L Micro: Microbiology 04/10/24 23:00 Sputum, Expectorated/Coughed Gram Stain - Final 04/10/24 23:05 Mucosa - Nasopharyngeal Respiratory Panel (PCR) - Final 04/10/24 23:10 Urine, Clean Catch Streptococcus pneumoniae Antigen (M - Final 04/10/24 23:10 Urine, Clean Catch Legionella Antigen - Final 04/10/24 18:19 Mucosa - Nose SARS-CoV-2, Influenza & RSV (PCR) - Final Radiography Diagnostic Testing: Radiology Impression Chest X-Ray 04/11/24 06:37 IMPRESSION: No change in bibasilar atelectasis or pneumonia. Electronically Signed: Jose Ramon Reddy MD at 9:01 EST , Physical Exam Const alert and no apparent distress HEENT head/scalp atraumatic and moist oral mucous membranes Resp normal respiratory effort, no retractions and no use of accessory muscles Resp Narrative: coarse BS bilaterally. Cardio regular rate, regular rhythm, S1 normal heart sound and S2 normal heart sound GI normal to inspection, nondistended, normoactive bowel sounds, soft to palpation, non-tender and non-distended Extremity normal to inspection and full ROM Neuro Sensorium / Orientation: awake and alert Psych affect normal Assessment & Plan Assessment/Plan (1) Generalized weakness: (2) Hypocalcemia: (3) Hyponatremia: (4) Community acquired pneumonia: QUALIFIERS: Laterality: right Lung location: lower lobe of lung Qualified Code(s): J18.9 - Pneumonia, unspecified organism PLAN: Plan Generalized weakness with concern for adult failure to thrive * PT/OT/case management consulted. Patient reportedly lives at home alone and told admitting provider he had not been taking home medications for 7 to 10 days. Significant electrolyte abnormalities noted on admission along with dehydration concerning for recent poor p.o. intake. On discussion with patient he does not seem to have good insight into his condition, have some concern for underlying cognitive impairment. Further treatment as below. Appreciate therapy recommendations. Suspected pneumococcal pneumonia * Strep, legionella antigens negative. Sputum culture so far negative. * Concerning for PNA on CXR * Abx with CTX and azithromycin Hyponatremia * ongoing * check cortisol. TSH 1.2 * If cortisol WNL and still with low sodium will check SIADH work up. Hypocalcemia, hypomagnesemia * ongoing * replace HIREN, improving * Creatinine 1.59 on admit, baseline around 1.0. Presumed prerenal from dehydration. Improving with IV fluids, continue to monitor daily BMP and urine output. Chronic medical conditions: * Type 2 diabetes mellitus with hyperglycemia and diabetic neuropathy: Blood glucose 411 on admit. A1c 9.7%. Last A1c was 10.1% back in January 2023. Treating with reduced doses from home of Lantus 20 units at night and Humalog 8 units with meals plus sliding scale insulin as needed for now, adjust as needed. Continue home gabapentin. * Hypertension: Holding home lisinopril, restart as able. * Depression with anxiety: Continue home sertraline. * History of upper GI bleed with GERD: Continue home PPI twice daily. * Essential tremor: Continue home primidone. * Hyperlipidemia: Continue home statin. * Mild iron deficiency anemia: Hemoglobin stable at baseline 12-13. Continue home iron supplement. DVT prophylaxis: Lovenox CODE STATUS: DNR CCA, DNI Expected disposition: home with [facility] in 1-2 days. Charges/Coding Visit Charges Inpatient E&M: 36129 Subs Hosp L2
--- NOTE | 2024-04-12 10:10 | CASEMGMT ---
Addendum entered by Ofelia Headley 04/12/24 16:40: Strata: 3 Addendum entered by Ofelia Headley 04/12/24 13:54: Pt also has a lift chair, nebulizer, and pulse ox. He does not have home O2. Discussed possible need of O2 @ dc. He states he has had this before from [employer]. He states if he qualifies for home O2, he would prefer not to use [employer] again. Original Note: ALICIA GEORGE assessment: ALICIA GEORGE to room to meet with patient for initial transition planning/care coordination assessment. ALICIA GEORGE introduced self and role at [facility]. Patient lying in bed, alert and oriented. [place]. Patient willing to participate in assessment and is able to answer all questions appropriately. Care providers, pharmacy, and demographics verified. PCP: Dr Franklin Specialists: none Preferred Pharmacy: Would like to use [facility] @ discharge. Otherwise goes to [facility] in [place] for short-term ill and uses mail-order for long-term. Insurance: [employer] Prescription Benefit: yes LNOK: 6 adult children (4 sons, 2 daughters) One daughter is Viki. One son is Last Living Arrangements: Patient lives alone in a single story home with 3 steps and railing to enter the home. Patient states he is independent at home. Patient rents apartment in home and neighbor helps with medical lab scientist. Pt gets his own groceries. Daughters takes care of his bills. Very supportive family. Transportation: self, daughter DME: Patient states he has a cane and walker, but does not use them. He has a functioning glucometer with sufficient supplies. He states he has all insulin, needles, and pills needed. He had not taken his medications @ home d/t he did not feel well, stating, I just couldn't do it. I wasn't feeling well enough. HHC/SNF: No previous HHC or SNF. He denies need for home health at this time or therapy at this time. He states he has an exercise machine @ home that he would like to start using. CCN: Pt is active w/CCN, stating the nurse comes out every Friday and the college student comes on Wednesdays. He would like to continue w/CCN, stating this has been very helpful. Patient wishes to discharge home and denies having concerns w/going home alone. Patient states he has no further needs or concerns at this time. CM to follow for discharge planning needs that may arise. Plan: Patient to discharge home with family support and discharge plans in place. PT/OT evals pending. Mirella RENDONN RN CM
[2024-04-12] MEDS: Acetaminophen 325 MG Tablet 650 MG PO ×2 (10:41→21:36)
[2024-04-12 12:29] LABS: Bedside Glucose 199 mg/dL (74-106)
[2024-04-12 12:29] LABS: Bedside Glucose 249 mg/dL (74-106)
[2024-04-12 15:09] VITALS: BP 120/63; PULSE 69; RESP 16; TEMP 36.8; O2SAT 93
[2024-04-12 18:12] LABS: Bedside Glucose 209 mg/dL (74-106)
[2024-04-12] MEDS: Ceftriaxone 1 GM/50 ML BAG IV (21:34)
[2024-04-12] MEDS: 0.9% Saline Lock 10 ML Syringe IV (21:36)
[2024-04-12] MEDS: Gabapentin 300 MG Capsule PO (21:36)
[2024-04-12] MEDS: Primidone 50 MG Tablet PO (21:38)
[2024-04-12] MEDS: Insulin Glargine-YFGN 100 UNIT/ML Pen 20 UNIT SC (21:42)
[2024-04-12] MEDS: Azithromycin 500 MG in Dextrose 5%-Water (250mL Bag) 250 ML 250 MG IV (22:09)
[2024-04-12 22:51] LABS: Bedside Glucose 134 mg/dL (74-106)
[2024-04-13 04:03] VITALS: BP 147/79; PULSE 68; RESP 16; TEMP 37.3; O2SAT 96
[2024-04-13 07:14] LABS: Absolute Lymphocyte Count 1.23 X10^3/uL (0.83-4.51); Absolute Neutrophil Count 3.4 X10^3/uL (2.0-7.7); Basophil# 0.04 X10^3/uL; Basophil% 0.7 % (0-1); Eosinophil# 0.38 X10^3/uL; Eosinophils% 6.7 % (0-5); Hematocrit 35.1 % (40-54); Hemoglobin 11.8 g/dL (13.0-16.5); Lymphocyte # 1.23 X10^3/ul (0.83-4.51); Lymphocyte % 21.7 % (19-41); Mean Corp Hgb Conc 33.6 g/dL (32-36); Mean Platelet Vol. 10.2 fl (6.2-12.0); Monocyte# 0.58 X10^3/uL; Monocyte% 10.2 % (0-10); NRBC Flagged by Analyzer 0 % (0-5); Neutrophil % 60.2 % (47-70); Platelet Count 195 K/mm3 (150-450); RBC Distribution Width CV 13.1 % (11.6-14.6); RBC Distribution Width SD 47.1 fl (35.1-43.9); Red Blood Count 3.58 M/mm3 (4.6-6.2); White Blood Count 5.7 K/mm3 (4.4-11.0)
[2024-04-13 07:42] VITALS: O2SAT 96
[2024-04-13 07:42] LABS: Anion Gap 7 (5-15); BUN 15 mg/dL (7-18); BUN/Creat Ratio 12.2 RATIO (10-20); Calcium,Total 6.8 mg/dL (8.5-10.1); Chloride 93 mmol/L (98-107); Creatinine, Serum 1.23 mg/dL (0.70-1.30); EST Glomerular Filtration Rate 59 mL/min (>60); Est Glom Filt Rate - Afr Amer 71 mL/min (>60); Estimated Creatinine Clearance 40.71 ml/min; Glucose 210 mg/dL (74-106); Potassium 4.1 mmol/L (3.5-5.1); Sodium Level 128 mmol/L (136-145)
[2024-04-13 08:21] LABS: Bedside Glucose 206 mg/dL (74-106)
[2024-04-13] MEDS: Insulin Lispro 100 UNIT/ML INSULN.PEN SC ×2 (08:54→22:28)
[2024-04-13] MEDS: Insulin Lispro 100 UNIT/ML INSULN.PEN 8 UNIT SC ×3 (08:55→18:14)
--- NOTE | 2024-04-13 08:55 | PN.HOSP_ITS ---
Reason for Visit Reason for Visit: Diagnoses Overweight (04/10/24) Hypocalcemia (04/10/24) Hypo-osmolality and hyponatremia (04/10/24) Hypokalemia (04/10/24) Pneumonia, unspecified organism (04/10/24) Acute kidney failure, unspecified (04/10/24) Other abnormalities of breathing (04/10/24) Generalized abdominal pain (04/10/24) Unspecified abdominal pain (04/10/24) Difficulty in walking, not elsewhere classified (04/10/24) Weakness (04/10/24) Anorexia (04/10/24) Subjective Subjective Feeling well. No events overnight. Objective Data Objective Data Vital Signs: Vital Signs Temp Pulse Resp BP Pulse Ox O2 Del Method O2 Flow Rate 37.3 C 68 16 147/79 H 96 Non-Rebreather @ 15L/min and High Flow 2 04/13/24 04:03 04/13/24 04:03 04/13/24 04:03 04/13/24 04:03 04/13/24 07:42 04/13/24 07:54 04/13/24 07:42 Oxygen Flow Rate (L/min) 2 Oxygen Delivery Method Non-Rebreather @ 15L/min Weight: 84.5 kg Body Mass Index (BMI) 27.5 Intake & Output: Intake and Output for Last 24 Hours 04/11/24 04/12/24 04/13/24 23:59 23:59 23:59 Intake Total 765 / 765 829 / 829 Balance 765 / 765 829 / 829 Lab / Micro Data 04/13/24 06:56 04/13/24 06:56 Labs: Laboratory Results - last 24 hr 04/12/24 08:54: POC Glucose 199 H 04/12/24 12:04: POC Glucose 249 H 04/12/24 16:42: POC Glucose 209 H 04/12/24 21:40: POC Glucose 134 H 04/13/24 06:56: WBC 5.7, RBC 3.58 L, Hgb 11.8 L, Hct 35.1 L, MCV 98.0 H, MCH 33.0 H, MCHC 33.6, RDW Std Deviation 47.1 H, RDW Coeff of Angel 13.1, Plt Count 195, MPV 10.2, Immature Gran % (Auto) 0.500, Neut % (Auto) 60.2, Lymph % (Auto) 21.7, [place] % (Auto) 10.2 H, Eos % (Auto) 6.7 H, Baso % (Auto) 0.7, Absolute Neuts (auto) 3.4, Absolute Lymphs (auto) 1.23, Nucleated RBC % 0, Sodium 128 L, Potassium 4.1, Chloride 93 L, Carbon Dioxide 28.0, Anion Gap 7, BUN 15, Creatinine 1.23, Estim Creat Clear Calc 40.71, Est GFR (MDRD) Af Amer 71, Est GFR (MDRD) Non-Af 59 L, BUN/Creatinine Ratio 12.2, Glucose 210 H, Calcium 6.8 L, Phosphorus 2.0 L, Magnesium 1.0 L, Cortisol 15.20 04/13/24 08:03: POC Glucose 206 H Micro: Microbiology 04/10/24 23:00 Sputum, Expectorated/Coughed Gram Stain - Final 04/10/24 23:00 Sputum, Expectorated/Coughed Respiratory Culture - Final 04/10/24 23:05 Mucosa - Nasopharyngeal Respiratory Panel (PCR) - Final 04/10/24 23:10 Urine, Clean Catch Streptococcus pneumoniae Antigen (M - Final 04/10/24 23:10 Urine, Clean Catch Legionella Antigen - Final 04/10/24 18:19 Mucosa - Nose SARS-CoV-2, Influenza & RSV (PCR) - Final Radiography Diagnostic Testing: Radiology Impression Chest X-Ray 04/11/24 06:37 IMPRESSION: No change in bibasilar atelectasis or pneumonia. Electronically Signed: Jose Ramon Reddy MD at 9:01 EST , Physical Exam Const alert and no apparent distress HEENT head/scalp atraumatic and moist oral mucous membranes Resp normal respiratory effort and no retractions Resp Narrative: coarse breath sounds bilaterally. Cardio regular rate, regular rhythm, S1 normal heart sound and S2 normal heart sound GI normal to inspection, nondistended, normoactive bowel sounds, soft to palpation, non-tender and non-distended Extremity normal to inspection and full ROM Neuro oriented x3 and CN's II-XII intact bilaterally Assessment & Plan Assessment/Plan (1) Generalized weakness: (2) Hypocalcemia: (3) Hyponatremia: (4) Community acquired pneumonia: QUALIFIERS: Laterality: right Lung location: lower lobe of lung Qualified Code(s): J18.9 - Pneumonia, unspecified organism PLAN: Plan Generalized weakness with concern for adult failure to thrive * PT/OT/case management consulted. Patient reportedly lives at home alone and told admitting provider he had not been taking home medications for 7 to 10 days. Significant electrolyte abnormalities noted on admission along with dehydration concerning for recent poor p.o. intake. On discussion with patient he does not seem to have good insight into his condition, have some concern for underlying cognitive impairment. Further treatment as below. Appreciate therapy recommendations. Suspected pneumococcal pneumonia * Strep, legionella antigens negative. Sputum culture so far negative. * Concerning for PNA on CXR * Abx with CTX and azithromycin Hyponatremia * ongoing * cortisol 15.2. TSH 1.2 * Findings cw SIADH. Fluid restrict. Hypocalcemia, hypomagnesemia * ongoing * replace HIREN, improving * Creatinine 1.59 on admit, baseline around 1.0. Presumed prerenal from dehydration. Improving with IV fluids, continue to monitor daily BMP and urine output. Chronic medical conditions: * Type 2 diabetes mellitus with hyperglycemia and diabetic neuropathy: Blood glucose 411 on admit. A1c 9.7%. Last A1c was 10.1% back in January 2023. Treating with reduced doses from home of Lantus 20 units at night and Humalog 8 units with meals plus sliding scale insulin as needed for now, adjust as needed. Continue home gabapentin. * Hypertension: Holding home lisinopril, restart as able. * Depression with anxiety: Continue home sertraline. * History of upper GI bleed with GERD: Continue home PPI twice daily. * Essential tremor: Continue home primidone. * Hyperlipidemia: Continue home statin. * Mild iron deficiency anemia: Hemoglobin stable at baseline 12-13. Continue home iron supplement. DVT prophylaxis: Lovenox CODE STATUS: DNR CCA, DNI Expected disposition: home with [facility] in 1-2 days. Charges/Coding Visit Charges Inpatient E&M: 35898 Subs Hosp L2
[2024-04-13] MEDS: Pantoprazole Sodium 40 MG Tablet PO ×2 (08:57→22:31)
[2024-04-13] MEDS: Sertraline 100 MG Tablet 200 MG PO (08:57)
[2024-04-13] MEDS: Ascorbic Acid 500 MG Tablet 1000 MG PO ×2 (08:57→16:16)
[2024-04-13] MEDS: Aspirin 81 MG TAB.CHEW PO (08:57)
[2024-04-13] MEDS: Acyclovir 200 MG Capsule 400 MG PO ×2 (08:57→22:30)
[2024-04-13] MEDS: Lactobacillis Acidophilus 1 CAP PO (08:57)
[2024-04-13] MEDS: Ferrous Sulfate 325 MG Tablet PO (08:57)
[2024-04-13] MEDS: Cholecalciferol (Vit D3) 125 MCG CAPSULE (5,000 UNITS) PO (08:58)
[2024-04-13] MEDS: Enoxaparin 40 MG/0.4 ML Syringe SC (08:58)
[2024-04-13 09:58] LABS: Osmolality, Serum 284 mOsm/KG (280-301)
[2024-04-13 10:00] VITALS: BP 137/69; PULSE 84; RESP 18; TEMP 37.7; O2SAT 92
[2024-04-13 12:00] LABS: Bedside Glucose 104 mg/dL (74-106)
[2024-04-13 12:53] LABS: Osmolality, Urine 332 mOsm/KG
[2024-04-13 12:56] LABS: Urine Sodium 82 mmol/L (Not Establ.)
[2024-04-13] MEDS: Magnesium Sulfate 4gm/100mL 4 GM/100 ML IV.SOLN. IV (14:25)
[2024-04-13] MEDS: Na Biphos/Potassium Phosphate PACKET 1 PACKET PO ×2 (14:28→22:31)
[2024-04-13 14:35] VITALS: O2SAT 95
[2024-04-13 16:00] VITALS: BP 136/73; PULSE 77; RESP 18; TEMP 36.7; O2SAT 96
[2024-04-13 17:06] LABS: Bedside Glucose 77 mg/dL (74-106)
[2024-04-13 22:10] VITALS: BP 149/102; PULSE 83; RESP 18; TEMP 36.9; O2SAT 94
[2024-04-13] MEDS: Ceftriaxone 1 GM/50 ML BAG IV (22:13)
[2024-04-13] MEDS: Gabapentin 300 MG Capsule PO (22:18)
[2024-04-13] MEDS: Insulin Glargine-YFGN 100 UNIT/ML Pen 20 UNIT SC (22:29)
[2024-04-13] MEDS: Primidone 50 MG Tablet PO (22:35)
[2024-04-13] MEDS: Azithromycin 500 MG in Dextrose 5%-Water (250mL Bag) 250 ML 250 MG IV (22:55)
[2024-04-13 23:06] LABS: Bedside Glucose 194 mg/dL (74-106)
[2024-04-14 03:33] VITALS: BP 143/72; PULSE 77; RESP 18; TEMP 37.4; O2SAT 94
[2024-04-14] MEDS: Na Biphos/Potassium Phosphate PACKET 1 PACKET PO ×4 (05:21→20:52)
--- NOTE | 2024-04-14 07:44 | PN.HOSP_ITS ---
Reason for Visit Reason for Visit: Diagnoses Overweight (04/10/24) Hypocalcemia (04/10/24) Hypo-osmolality and hyponatremia (04/10/24) Hypokalemia (04/10/24) Pneumonia, unspecified organism (04/10/24) Acute kidney failure, unspecified (04/10/24) Other abnormalities of breathing (04/10/24) Generalized abdominal pain (04/10/24) Unspecified abdominal pain (04/10/24) Difficulty in walking, not elsewhere classified (04/10/24) Weakness (04/10/24) Anorexia (04/10/24) Subjective Subjective Feels well. No new events. Objective Data Objective Data Vital Signs: Vital Signs Temp Pulse Resp BP Pulse Ox O2 Del Method O2 Flow Rate 37.4 C H 77 18 143/72 H 94 Nasal Cannula 2 04/14/24 03:33 04/14/24 03:33 04/14/24 03:33 04/14/24 03:33 04/14/24 03:33 04/14/24 03:33 04/14/24 03:33 Oxygen Flow Rate (L/min) 2 Oxygen Delivery Method Nasal Cannula Weight: 84.5 kg Body Mass Index (BMI) 27.5 Intake & Output: Intake and Output for Last 24 Hours 04/12/24 04/13/24 04/14/24 23:59 23:59 23:59 Intake Total 829 / 829 885 / 885 Balance 829 / 829 885 / 885 Lab / Micro Data 04/13/24 06:56 04/14/24 06:44 Labs: Laboratory Results - last 24 hr 04/13/24 06:56: Serum Osmolality 284, Cortisol 15.20 04/13/24 08:03: POC Glucose 206 H 04/13/24 11:07: POC Glucose 104 04/13/24 11:28: Urine Osmolality 332, Ur Random Sodium 82 04/13/24 16:15: POC Glucose 77 04/13/24 22:28: POC Glucose 194 H Micro: Microbiology 04/10/24 23:00 Sputum, Expectorated/Coughed Gram Stain - Final 04/10/24 23:00 Sputum, Expectorated/Coughed Respiratory Culture - Final 04/10/24 23:05 Mucosa - Nasopharyngeal Respiratory Panel (PCR) - Final 04/10/24 23:10 Urine, Clean Catch Streptococcus pneumoniae Antigen (M - Final 04/10/24 23:10 Urine, Clean Catch Legionella Antigen - Final 04/10/24 18:19 Mucosa - Nose SARS-CoV-2, Influenza & RSV (PCR) - Final Physical Exam Const alert and no apparent distress HEENT head/scalp atraumatic and moist oral mucous membranes Resp normal respiratory effort and no retractions Resp Narrative: coarse breath sounds bilaterally. Cardio regular rate, regular rhythm, S1 normal heart sound and S2 normal heart sound GI normal to inspection, nondistended, normoactive bowel sounds, soft to palpation, non-tender and non-distended Neuro Sensorium / Orientation: awake and alert Assessment & Plan Assessment/Plan (1) Generalized weakness: (2) Hypocalcemia: (3) Hyponatremia: (4) Community acquired pneumonia: QUALIFIERS: Laterality: right Lung location: lower lobe of lung Qualified Code(s): J18.9 - Pneumonia, unspecified organism PLAN: Plan Generalized weakness with concern for adult failure to thrive * PT/OT/case management consulted. Patient reportedly lives at home alone and told admitting provider he had not been taking home medications for 7 to 10 days. Significant electrolyte abnormalities noted on admission along with dehydration concerning for recent poor p.o. intake. On discussion with patient he does not seem to have good insight into his condition, have some concern for underlying cognitive impairment. Further treatment as below. Appreciate therapy recommendations. Suspected pneumococcal pneumonia * Strep, legionella antigens negative. Sputum culture so far negative. * Concerning for PNA on CXR * Abx with CTX and azithromycin Hyponatremia * ongoing * cortisol 15.2. TSH 1.2 * Findings cw SIADH. Fluid restrict. * add salt tabs Hypophosphatemia, hypomagnesemia * ongoing * replace HIREN, improving * Creatinine 1.59 on admit, baseline around 1.0. Presumed prerenal from dehydration. Improving with IV fluids, continue to monitor daily BMP and urine output. Chronic medical conditions: * Type 2 diabetes mellitus with hyperglycemia and diabetic neuropathy: Blood glucose 411 on admit. A1c 9.7%. Last A1c was 10.1% back in January 2023. Treating with reduced doses from home of Lantus 20 units at night and Humalog 8 units with meals plus sliding scale insulin as needed for now, adjust as needed. Continue home gabapentin. * Hypertension: Holding home lisinopril, restart as able. * Depression with anxiety: Continue home sertraline. * History of upper GI bleed with GERD: Continue home PPI twice daily. * Essential tremor: Continue home primidone. * Hyperlipidemia: Continue home statin. * Mild iron deficiency anemia: Hemoglobin stable at baseline 12-13. Continue home iron supplement. DVT prophylaxis: Lovenox CODE STATUS: DNR CCA, DNI Expected disposition: home with [facility] in 1-2 days. Charges/Coding Visit Charges Inpatient E&M: 36332 Subs Hosp L2
[2024-04-14 08:09] LABS: Anion Gap 9 (5-15); BUN 11 mg/dL (7-18); BUN/Creat Ratio 9.6 RATIO (10-20); Chloride 90 mmol/L (98-107); Creatinine, Serum 1.14 mg/dL (0.70-1.30); EST Glomerular Filtration Rate 64 mL/min (>60); Est Glom Filt Rate - Afr Amer 78 mL/min (>60); Estimated Creatinine Clearance 43.93 ml/min; Glucose 151 mg/dL (74-106); Magnesium 1.3 mg/dL (1.6-2.6); Potassium 4.1 mmol/L (3.5-5.1); Sodium Level 125 mmol/L (136-145)
[2024-04-14 08:10] LABS: Phosphorus 2.1 mg/dL (2.5-4.9)
[2024-04-14] MEDS: Insulin Lispro 100 UNIT/ML INSULN.PEN 8 UNIT SC ×2 (08:45→12:52)
[2024-04-14] MEDS: Insulin Lispro 100 UNIT/ML INSULN.PEN SC ×2 (08:45→20:53)
[2024-04-14] MEDS: Lactobacillis Acidophilus 1 CAP PO (08:46)
[2024-04-14] MEDS: Pantoprazole Sodium 40 MG Tablet PO ×2 (08:46→20:51)
[2024-04-14] MEDS: Sertraline 100 MG Tablet 200 MG PO (08:46)
[2024-04-14] MEDS: Aspirin 81 MG TAB.CHEW PO (08:46)
[2024-04-14] MEDS: Ascorbic Acid 500 MG Tablet 1000 MG PO ×2 (08:46→18:22)
[2024-04-14] MEDS: Enoxaparin 40 MG/0.4 ML Syringe SC (08:47)
[2024-04-14] MEDS: Ferrous Sulfate 325 MG Tablet PO (08:47)
[2024-04-14] MEDS: Cholecalciferol (Vit D3) 125 MCG CAPSULE (5,000 UNITS) PO (08:48)
[2024-04-14] MEDS: Acyclovir 200 MG Capsule 400 MG PO ×2 (08:48→20:52)
[2024-04-14 09:35] VITALS: BP 122/78; PULSE 78; RESP 16; TEMP 36.1; O2SAT 94
[2024-04-14 09:38] LABS: Bedside Glucose 173 mg/dL (74-106)
[2024-04-14] MEDS: Magnesium Sulfate 4gm/100mL 4 GM/100 ML IV.SOLN. IV (12:04)
[2024-04-14 12:33] LABS: Bedside Glucose 118 mg/dL (74-106)
[2024-04-14 15:35] VITALS: BP 135/73; PULSE 70; RESP 16; TEMP 36.9; O2SAT 95
[2024-04-14 17:12] LABS: Bedside Glucose 83 mg/dL (74-106)
[2024-04-14 20:20] VITALS: O2SAT 96
[2024-04-14] MEDS: Gabapentin 300 MG Capsule PO (20:51)
[2024-04-14] MEDS: Azithromycin 500 MG in Dextrose 5%-Water (250mL Bag) 250 ML 250 MG IV (20:51)
[2024-04-14] MEDS: Primidone 50 MG Tablet PO (20:52)
[2024-04-14] MEDS: Sodium Chloride 1 GM Tablet PO (20:52)
[2024-04-14] MEDS: Insulin Glargine-YFGN 100 UNIT/ML Pen 20 UNIT SC (20:54)
[2024-04-14 21:00] VITALS: BP 141/79; PULSE 77; RESP 18; TEMP 36.7; O2SAT 96
[2024-04-14 21:23] LABS: Bedside Glucose 208 mg/dL (74-106)
[2024-04-15] MEDS: Ceftriaxone 1 GM/50 ML BAG IV ×2 (00:25→21:12)
[2024-04-15 03:00] VITALS: BP 128/91; PULSE 80; RESP 18; TEMP 36.6; O2SAT 95
[2024-04-15 06:11] LABS: Anion Gap 6 (5-15); BUN 12 mg/dL (7-18); BUN/Creat Ratio 9.8 RATIO (10-20); Calcium,Total 7.1 mg/dL (8.5-10.1); Chloride 90 mmol/L (98-107); Creatinine, Serum 1.22 mg/dL (0.70-1.30); EST Glomerular Filtration Rate 59 mL/min (>60); Est Glom Filt Rate - Afr Amer 72 mL/min (>60); Estimated Creatinine Clearance 41.05 ml/min; Glucose 150 mg/dL (74-106); Magnesium 1.6 mg/dL (1.6-2.6); Phosphorus 2.4 mg/dL (2.5-4.9); Potassium 4.2 mmol/L (3.5-5.1); Sodium Level 124 mmol/L (136-145)
[2024-04-15 07:45] VITALS: O2SAT 96
[2024-04-15] MEDS: Cholecalciferol (Vit D3) 125 MCG CAPSULE (5,000 UNITS) PO (08:25)
[2024-04-15] MEDS: Acyclovir 200 MG Capsule 400 MG PO ×2 (08:25→21:13)
[2024-04-15] MEDS: Enoxaparin 40 MG/0.4 ML Syringe SC (08:25)
[2024-04-15] MEDS: Insulin Lispro 100 UNIT/ML INSULN.PEN 8 UNIT SC ×2 (08:26→11:48)
[2024-04-15] MEDS: Ferrous Sulfate 325 MG Tablet PO (08:26)
[2024-04-15] MEDS: Pantoprazole Sodium 40 MG Tablet PO ×2 (08:26→21:13)
[2024-04-15] MEDS: Sertraline 100 MG Tablet 200 MG PO (08:26)
[2024-04-15] MEDS: Sodium Chloride 1 GM Tablet PO ×2 (08:26→21:13)
[2024-04-15] MEDS: Ascorbic Acid 500 MG Tablet 1000 MG PO ×2 (08:26→17:21)
[2024-04-15] MEDS: Aspirin 81 MG TAB.CHEW PO (08:26)
[2024-04-15] MEDS: Insulin Lispro 100 UNIT/ML INSULN.PEN SC ×3 (08:27→21:11)
[2024-04-15] MEDS: Lactobacillis Acidophilus 1 CAP PO (08:32)
--- NOTE | 2024-04-15 08:45 | PN.HOSP_ITS ---
Reason for Visit Reason for Visit: Diagnoses Overweight (04/10/24) Hypocalcemia (04/10/24) Hypo-osmolality and hyponatremia (04/10/24) Hypokalemia (04/10/24) Pneumonia, unspecified organism (04/10/24) Acute kidney failure, unspecified (04/10/24) Other abnormalities of breathing (04/10/24) Generalized abdominal pain (04/10/24) Unspecified abdominal pain (04/10/24) Difficulty in walking, not elsewhere classified (04/10/24) Weakness (04/10/24) Anorexia (04/10/24) Subjective Subjective Feeling well. No new events. Objective Data Objective Data Vital Signs: Vital Signs Temp Pulse Resp BP Pulse Ox O2 Del Method O2 Flow Rate 36.6 C 80 18 128/91 H 96 Nasal Cannula 2 04/15/24 03:00 04/15/24 03:00 04/15/24 03:00 04/15/24 03:00 04/15/24 07:45 04/15/24 08:33 04/15/24 08:33 Oxygen Flow Rate (L/min) 2 Oxygen Delivery Method Nasal Cannula Weight: 84.5 kg Body Mass Index (BMI) 27.5 Intake & Output: Intake and Output for Last 24 Hours 04/13/24 04/14/24 04/15/24 23:59 23:59 23:59 Intake Total 885 / 885 835 / 1135 350 / 350 Balance 885 / 885 835 / 1135 350 / 350 Lab / Micro Data 04/13/24 06:56 04/15/24 10:55 Labs: Laboratory Results - last 24 hr 04/14/24 08:43: POC Glucose 173 H 04/14/24 12:15: POC Glucose 118 H 04/14/24 16:54: POC Glucose 83 04/14/24 20:46: POC Glucose 208 H 04/15/24 05:37: Sodium 124 L, Potassium 4.2, Chloride 90 L, Carbon Dioxide 29.0, Anion Gap 6, BUN 12, Creatinine 1.22, Estim Creat Clear Calc 41.05, Est GFR (MDRD) Af Amer 72, Est GFR (MDRD) Non-Af 59 L, BUN/Creatinine Ratio 9.8 L, G lucose 150 H, Calcium 7.1 L, Phosphorus 2.4 L, Magnesium 1.6 Micro: Microbiology 04/10/24 23:00 Sputum, Expectorated/Coughed Gram Stain - Final 04/10/24 23:00 Sputum, Expectorated/Coughed Respiratory Culture - Final 04/10/24 23:05 Mucosa - Nasopharyngeal Respiratory Panel (PCR) - Final 04/10/24 23:10 Urine, Clean Catch Streptococcus pneumoniae Antigen (M - Final 04/10/24 23:10 Urine, Clean Catch Legionella Antigen - Final 04/10/24 18:19 Mucosa - Nose SARS-CoV-2, Influenza & RSV (PCR) - Final Physical Exam Const alert and no apparent distress HEENT head/scalp atraumatic and moist oral mucous membranes Resp normal respiratory effort, no retractions, no use of accessory muscles and clear to auscultation bilaterally Cardio regular rate, regular rhythm, S1 normal heart sound and S2 normal heart sound GI normal to inspection, nondistended, normoactive bowel sounds, soft to palpation, non-tender and non-distended Assessment & Plan Assessment/Plan (1) Generalized weakness: (2) Hypocalcemia: (3) Hyponatremia: (4) Community acquired pneumonia: QUALIFIERS: Laterality: right Lung location: lower lobe of lung Qualified Code(s): J18.9 - Pneumonia, unspecified organism PLAN: Plan Generalized weakness with concern for adult failure to thrive * PT/OT/case management consulted. Patient reportedly lives at home alone and told admitting provider he had not been taking home medications for 7 to 10 days. Significant electrolyte abnormalities noted on admission along with dehydration concerning for recent poor p.o. intake. On discussion with patient he does not seem to have good insight into his condition, have some concern for underlying cognitive impairment. Further treatment as below. Appreciate therapy recommendations. Suspected pneumococcal pneumonia * Strep, legionella antigens negative. Sputum culture so far negative. * Concerning for PNA on CXR * Abx with CTX and azithromycin Hyponatremia * slightly improved * cortisol 15.2. TSH 1.2 * Findings cw SIADH. Fluid restrict. * continue salt tabs Hypophosphatemia, hypomagnesemia * improving. * replace HIREN, improving * Creatinine 1.59 on admit, baseline around 1.0. Presumed prerenal from dehydration. Improving with IV fluids, continue to monitor daily BMP and urine output. Chronic medical conditions: * Type 2 diabetes mellitus with hyperglycemia and diabetic neuropathy: Blood glucose 411 on admit. A1c 9.7%. Last A1c was 10.1% back in January 2023. Treating with reduced doses from home of Lantus 20 units at night and Humalog 8 units with meals plus sliding scale insulin as needed for now, adjust as needed. Continue home gabapentin. * Hypertension: Holding home lisinopril, restart as able. * Depression with anxiety: Continue home sertraline. * History of upper GI bleed with GERD: Continue home PPI twice daily. * Essential tremor: Continue home primidone. * Hyperlipidemia: Continue home statin. * Mild iron deficiency anemia: Hemoglobin stable at baseline 12-13. Continue home iron supplement. DVT prophylaxis: Lovenox CODE STATUS: DNR CCA, DNI Expected disposition: home with [facility] Charges/Coding Visit Charges Inpatient E&M: 80853 Subs Hosp L2
[2024-04-15 09:00] VITALS: BP 122/68; PULSE 66; RESP 17; TEMP 36.6; O2SAT 95
--- NOTE | 2024-04-15 09:06 | CON.PCM.RE_ITS ---
Assessment & Plan Assessment/Plan (1) Acute renal failure: PLAN: prerenal azotemia, creatinine improved from 1.59 on admission to 1.22 with iv hydration. Baseline creatinine 1.08. (2) Hyponatremia: PLAN: sodium 124 to 126 today. Normal sodium in December 2023 suspect SIADH from pulmonary process, CAP. Continue to monitor with fluid restriction. (3) Community acquired pneumonia: QUALIFIERS: Laterality: right Lung location: lower lobe of lung Qualified Code(s): J18.9 - Pneumonia, unspecified organism PLAN: antibx per primary service. resp panel unremarkable (4) Generalized weakness: PLAN: PT/OT (5) COPD (chronic obstructive pulmonary disease): PLAN: hx tobacco use HPI Consult Data Date of Consult: 04/15/24 HPI Narrative Reason for Consultation: hyponatremia, HIREN HPI Narrative: LEONOR MIJARES, is a 89 M who presents to [facility] on 04/10/24 for generalized weakness, malaise, HIREN, hyponatremia, hypocalcemia. Creatinine 1.59 improved to 1.22 with iv hydration. Baseline creatinine 1.08 12/19/23. Sodium 124 today with urine sodium 82, osmolarity 332 Cortisol 15, TSH 1.2. Sodium 136 in December 2023. He complained of abdominal pain that was generalized, cramping, bloating and decreased bowel movement with constipation. He denies associated fever, chills, nausea, vomiting, chest pain In the ER he was noted to have a CT scan of the abdomen and pelvis that was remarkable for chronic pleural interstitial thickening at both bases with areas of airspace consolidation on the right base consistent with suspected Pneumonia. He denied cough, sore throat, dyspnea. He has sinus drainage. He has history of hypertension, DM 2 with neuropathy, nephropathy, CVA, Parkinson's disease, tremor, GI bleed, chronic diarrhea with history of cdiff colitis, shingles. psoriasis, depression, anxiety, GERD, chronic back pain with debility. He denied falling at home. He is feeling better since admission. Appetite improved. He lives alone but has his children and neighbor check in on him. [facility] Medical History Diabetes Acute blood loss anemia Acute lower GI bleeding Macrocytic anemia Wears dentures Wears glasses Cancer Insulin dependent diabetes mellitus Back pain Parkinson's disease Leg cramps History of edema History of irregular heartbeat History of echocardiogram History of stress test Chest pain Chronic diarrhea Depression Diabetes GI bleed Former smoker Sleep apnea Hypertension Stroke/cerebrovascular accident Personal history of colon cancer Psoriasis Anxiety C. difficile diarrhea Prostate cancer GERD (gastroesophageal reflux disease) High cholesterol Tobacco abuse History of GI bleed Diabetic neuropathy HLD (hyperlipidemia) Diverticulosis of colon without diverticulitis Type II diabetes mellitus Benign hypertension Home Medications ?Medication ?Instructions ?Recorded ?Last Taken ?Type gabapentin 300 mg capsule 300 mg PO QHS nerve pain 10/05/13 03/29/24 History insulin glargine 100 unit/mL (3 32 unit subcut QHS diabetes 05/15/18 05/14/18 History mL) subcutaneous pen (Lantus Solostar U-100 Insulin) insulin lispro 100 unit/mL 14 unit subcut TID diabetes 05/15/18 05/15/18 History subcutaneous pen (Humalog KwikPen (U-100) Insulin) lisinopril 5 mg tablet 5 mg PO DAILY blood pressure 09/12/21 03/29/24 History simvastatin 20 mg tablet 20 mg PO QHS cholesterol 09/12/21 03/29/24 History aspirin 81 mg tablet 81 mg PO DAILY heart health 09/13/21 03/29/24 History Lactobacillus acidophilus 10 10,000 mmu cells PO DAILY 03/22/22 03/29/24 History billion cell capsule (Probiotic) supplement ferrous sulfate 325 mg (65 mg 325 mg PO DAILY supplement 03/22/22 03/29/24 History iron) tablet primidone 50 mg tablet 50 mg PO QHS TREMORS 03/22/22 03/29/24 History valacyclovir 1 gram tablet 1,000 mg PO DAILY viral infection 03/22/22 03/29/24 History sertraline 100 mg tablet 200 mg PO DAILY mental health 11/28/23 03/29/24 History pantoprazole 40 mg tablet,delayed 40 mg PO BID #60 tabs 12/19/23 03/29/24 Rx release Allergy/AdvReac Type Severity Reaction Status Date / Time Iodinated Contrast Media Allergy Shortness Verified 12/18/23 12:46 (Iodinated Contrast Media - of breath IV Dye) labetalol AdvReac Intermediate hypotension Verified 12/18/23 12:46 metformin AdvReac Diarrhea Verified 12/18/23 12:46 Surgical History Hx of hernia repair History of cholecystectomy History of colonoscopy History of hernia repair History of partial colectomy S/P paola-rectal abscess repair, follow-up exam Social History household members: none housing: house Smoking Status: Former smoker alcohol intake: never substance use type: does not use Physical Exam Const alert and oriented x3 Constitutional Narrative: gen weakness General Appearance: frail HEENT normocephalic Resp no use of accessory muscles and clear to auscultation bilaterally Cardio regular rate GI non-tender and non-distended Auscultation: normoactive bowel sounds Palpation: soft Extremity no clubbing, cyanosis or edema Neuro moves all extremities Psych cooperative Lab / Micro Data 04/13/24 06:56 04/15/24 10:55 Labs: Laboratory Results - last 24 hr 04/14/24 08:43: POC Glucose 173 H 04/14/24 12:15: POC Glucose 118 H 04/14/24 16:54: POC Glucose 83 04/14/24 20:46: POC Glucose 208 H 04/15/24 05:37: Sodium 124 L, Potassium 4.2, Chloride 90 L, Carbon Dioxide 29.0, Anion Gap 6, BUN 12, Creatinine 1.22, Estim Creat Clear Calc 41.05, Est GFR (MDRD) Af Amer 72, Est GFR (MDRD) Non-Af 59 L, BUN/Creatinine Ratio 9.8 L, G lucose 150 H, Calcium 7.1 L, Phosphorus 2.4 L, Magnesium 1.6
[2024-04-15 10:38] LABS: Bedside Glucose 227 mg/dL (74-106)
[2024-04-15 11:37] LABS: Anion Gap 8 (5-15); BUN 12 mg/dL (7-18); BUN/Creat Ratio 9.2 RATIO (10-20); Calcium,Total 7.4 mg/dL (8.5-10.1); Chloride 91 mmol/L (98-107); EST Glomerular Filtration Rate 55 mL/min (>60); Est Glom Filt Rate - Afr Amer 67 mL/min (>60); Estimated Creatinine Clearance 38.52 ml/min; Glucose 165 mg/dL (74-106); Potassium 3.9 mmol/L (3.5-5.1); Sodium Level 126 mmol/L (136-145)
[2024-04-15] MEDS: Magnesium Sulfate 2 GM in Dextrose 5%-Water (100mL Bag) 100 ML IV (11:39)
[2024-04-15] MEDS: Na Biphos/Potassium Phosphate PACKET 1 PACKET PO (11:45)
[2024-04-15 12:08] LABS: Vitamin D 1,25-Dihydroxy 37.1 pg/mL (24.8-81.5)
[2024-04-15 12:18] LABS: Bedside Glucose 152 mg/dL (74-106)
[2024-04-15 15:00] VITALS: BP 135/68; PULSE 73; RESP 17; TEMP 36.6; O2SAT 96
[2024-04-15 15:45] VITALS: O2SAT 86
--- NOTE | 2024-04-15 16:04 | CASEMGMT ---
It was noted that patient's daughter does not want patient to go home at discharge. Physician spoke with patient and he is agreeable to going to a SNF. SW went to talk with patient, but he was on the phone. SW called patient's daughter Viki and left her a voice mail letting her know patient is open to going to a SNF. SW will leave a list of facilities in the room that take patient's insurance. SW will check back tomorrow. SW wrote on the SNF list to giulia the top 3-4 preferences. SW provided patient with a list of?residential facility providers including quality and resource use data and consistent with patient?s preferred geographic region, medical needs, and insurance network were provided from the [facility] Guide.? GEOVANNY then received a call from patient's daughter Viki. GEOVANNY explained above information. Pilar PEDERSEN
[2024-04-15 18:45] LABS: Bedside Glucose 91 mg/dL (74-106)
[2024-04-15 20:58] VITALS: BP 146/61; PULSE 74; RESP 16; TEMP 36.9; O2SAT 95
[2024-04-15] MEDS: Insulin Glargine-YFGN 100 UNIT/ML Pen 20 UNIT SC (21:11)
[2024-04-15] MEDS: 0.9% Saline Lock 10 ML Syringe IV (21:13)
[2024-04-15] MEDS: Primidone 50 MG Tablet PO (21:13)
[2024-04-15] MEDS: Gabapentin 300 MG Capsule PO (21:13)
[2024-04-15] MEDS: Azithromycin 500 MG in Dextrose 5%-Water (250mL Bag) 250 ML 250 MG IV (23:00)
[2024-04-15 23:30] LABS: Bedside Glucose 162 mg/dL (74-106)
[2024-04-16] VITALS (8 sets, daily range): BP systolic 136–153; BP diastolic 73–91; PULSE 63–88; RESP 16–20; TEMP 36.2–36.9; O2SAT 85–98
[2024-04-16 06:46] LABS: Anion Gap 8 (5-15); BUN 12 mg/dL (7-18); BUN/Creat Ratio 10.8 RATIO (10-20); Calcium,Total 7.5 mg/dL (8.5-10.1); Chloride 90 mmol/L (98-107); Creatinine, Serum 1.11 mg/dL (0.70-1.30); EST Glomerular Filtration Rate 66 mL/min (>60); Est Glom Filt Rate - Afr Amer 80 mL/min (>60); Estimated Creatinine Clearance 45.12 ml/min; Glucose 156 mg/dL (74-106); Potassium 4.2 mmol/L (3.5-5.1); Sodium Level 124 mmol/L (136-145)
--- NOTE | 2024-04-16 07:58 | PCM.PN.HOSP ---
Reason for Visit Reason for Visit: Diagnoses Overweight (04/10/24) Hypocalcemia (04/10/24) Hypo-osmolality and hyponatremia (04/10/24) Hypokalemia (04/10/24) Pneumonia, unspecified organism (04/10/24) Acute kidney failure, unspecified (04/10/24) Other abnormalities of breathing (04/10/24) Generalized abdominal pain (04/10/24) Unspecified abdominal pain (04/10/24) Difficulty in walking, not elsewhere classified (04/10/24) Weakness (04/10/24) Anorexia (04/10/24) Subjective Subjective No new events. Objective Data Objective Data Vital Signs: Vital Signs Temp Pulse Resp BP Pulse Ox O2 Del Method O2 Flow Rate 36.9 C 75 16 150/73 H 95 Nasal Cannula 2 04/16/24 03:30 04/16/24 03:30 04/16/24 03:30 04/16/24 03:30 04/16/24 03:30 04/16/24 03:30 04/16/24 03:30 Oxygen Flow Rate (L/min) 2 Oxygen Delivery Method Nasal Cannula Weight: 84.5 kg Body Mass Index (BMI) 27.5 Intake & Output: Intake and Output for Last 24 Hours 04/14/24 04/15/24 04/16/24 23:59 23:59 23:59 Intake Total 835 / 1135 864 / 864 255 / 255 Balance 835 / 1135 864 / 864 255 / 255 Lab / Micro Data 04/13/24 06:56 04/16/24 06:06 Labs: Laboratory Results - last 24 hr 04/10/24 22:32: Vit D 1,25-Dihydroxy 37.1 04/15/24 08:18: POC Glucose 227 H 04/15/24 10:55: Sodium 126 L, Potassium 3.9, Chloride 91 L, Carbon Dioxide 27.0, Anion Gap 8, BUN 12, Creatinine 1.30, Estim Creat Clear Calc 38.52, Est GFR (MDRD) Af Amer 67, Est GFR (MDRD) Non-Af 55 L, BUN/Creatinine Ratio 9.2 L, Glucose 165 H, Calcium 7.4 L 04/15/24 11:47: POC Glucose 152 H 04/15/24 17:18: POC Glucose 91 04/15/24 21:09: POC Glucose 162 H 04/16/24 06:06: Sodium 124 L, Potassium 4.2, Chloride 90 L, Carbon Dioxide 26.0, Anion Gap 8, BUN 12, Creatinine 1.11, Estim Creat Clear Calc 45.12, Est GFR (MDRD) Af Amer 80, Est GFR (MDRD) Non-Af 66, BUN/Creatinine Ratio 10.8, Glucose 156 H, Calcium 7.5 L Micro: Microbiology 04/10/24 23:00 Sputum, Expectorated/Coughed Gram Stain - Final 04/10/24 23:00 Sputum, Expectorated/Coughed Respiratory Culture - Final 04/10/24 23:05 Mucosa - Nasopharyngeal Respiratory Panel (PCR) - Final 04/10/24 23:10 Urine, Clean Catch Streptococcus pneumoniae Antigen (M - Final 04/10/24 23:10 Urine, Clean Catch Legionella Antigen - Final 04/10/24 18:19 Mucosa - Nose SARS-CoV-2, Influenza & RSV (PCR) - Final Physical Exam Const alert and no apparent distress HEENT head/scalp atraumatic and moist oral mucous membranes Resp normal respiratory effort, no retractions, no use of accessory muscles and clear to auscultation bilaterally Cardio regular rate, regular rhythm, S1 normal heart sound and S2 normal heart sound GI normal to inspection, nondistended, normoactive bowel sounds, soft to palpation, non-tender and non-distended Neuro Sensorium / Orientation: awake and alert Assessment & Plan Assessment/Plan (1) Generalized weakness: (2) Hypocalcemia: (3) Hyponatremia: (4) Community acquired pneumonia: QUALIFIERS: Laterality: right Lung location: lower lobe of lung Qualified Code(s): J18.9 - Pneumonia, unspecified organism PLAN: Plan Generalized weakness with concern for adult failure to thrive PT/OT/case management consulted. Patient reportedly lives at home alone and told admitting provider he had not been taking home medications for 7 to 10 days. Significant electrolyte abnormalities noted on admission along with dehydration concerning for recent poor p.o. intake. On discussion with patient he does not seem to have good insight into his condition, have some concern for underlying cognitive impairment. Further treatment as below. Pt has reluctantly agreed to go to SNF. Process ongoing for placement. Suspected pneumococcal pneumonia Strep, legionella antigens negative. Sputum culture so far negative. Concerning for PNA on CXR Abx with CTX and azithromycin through 04/17 Hyponatremia ongoing cortisol 15.2. TSH 1.2 Findings cw SIADH. Fluid restrict. continue salt tabs continue to monitor. Hypophosphatemia, hypomagnesemia improving. replace HIREN, improving Creatinine 1.59 on admit, baseline around 1.0. Presumed prerenal from dehydration. Improving with IV fluids, continue to monitor daily BMP and urine output. Chronic medical conditions: Type 2 diabetes mellitus with hyperglycemia and diabetic neuropathy: Blood glucose 411 on admit. A1c 9.7%. Last A1c was 10.1% back in January 2023. Treating with reduced doses from home of Lantus 20 units at night and Humalog 8 units with meals plus sliding scale insulin as needed for now, adjust as needed. Continue home gabapentin. Hypertension: Holding home lisinopril, restart as able. Depression with anxiety: Continue home sertraline. History of upper GI bleed with GERD: Continue home PPI twice daily. Essential tremor: Continue home primidone. Hyperlipidemia: Continue home statin. Mild iron deficiency anemia: Hemoglobin stable at baseline 12-13. Continue home iron supplement. DVT prophylaxis: Lovenox CODE STATUS: DNR CCA, DNI Expected disposition: pt now reluctantly agreeing to SNF. Charges/Coding Visit Charges Inpatient E&M: 30692 Subs Hosp L2
--- NOTE | 2024-04-16 08:45 | CASEMGMT ---
GEOVANNY had the list of correction facilities on GEOVANNY's desk. The 4 choices were: [facility], [facility] ([facility]), [facility], and [facility]. GEOVANNY asked Ilene to send a referral to [place]. Pilar PEDERSEN
--- NOTE | 2024-04-16 08:53 | CASEMGMT ---
Addendum entered by Ilene Antunez 04/16/24 11:58: [facility] has accepted and will submit for precert. Ilene Antunez DC Planning Asst. Original Note: Discharge Planning Referral sent via [facility] to [facility]. Ilene Antunez DC Planning Asst.
[2024-04-16] MEDS: Sertraline 100 MG Tablet 200 MG PO (09:36)
[2024-04-16] MEDS: Sodium Chloride 1 GM Tablet PO ×2 (09:36→20:24)
[2024-04-16] MEDS: Ferrous Sulfate 325 MG Tablet PO (09:36)
[2024-04-16] MEDS: Pantoprazole Sodium 40 MG Tablet PO ×2 (09:36→20:25)
[2024-04-16] MEDS: Lactobacillis Acidophilus 1 CAP PO (09:36)
[2024-04-16] MEDS: Ascorbic Acid 500 MG Tablet 1000 MG PO (09:36)
[2024-04-16] MEDS: Aspirin 81 MG TAB.CHEW PO (09:36)
[2024-04-16] MEDS: Acyclovir 200 MG Capsule 400 MG PO ×2 (09:36→20:24)
[2024-04-16] MEDS: Enoxaparin 40 MG/0.4 ML Syringe SC (09:36)
[2024-04-16] MEDS: Cholecalciferol (Vit D3) 125 MCG CAPSULE (5,000 UNITS) PO (09:37)
[2024-04-16] MEDS: Insulin Lispro 100 UNIT/ML INSULN.PEN SC ×2 (09:39→12:54)
[2024-04-16] MEDS: Insulin Lispro 100 UNIT/ML INSULN.PEN 8 UNIT SC ×2 (09:39→12:54)
[2024-04-16] MEDS: 0.9% Saline Lock 10 ML Syringe IV (09:48)
[2024-04-16 10:01] LABS: Bedside Glucose 150 mg/dL (74-106)
--- NOTE | 2024-04-16 11:41 | CASEMGMT ---
[facility] is able to take patient, however it will be a semi private room. SW went to patient's room. Introduced self and role at [facility]. SW attempted to explain to patient that [facility] can take him, but it would be a semi private and would that be okay? However, patient started arguing with SW from the beginning, saying other people are making those decisions for him and he wants to go look at the facility first. Patient also said he wants to know if his insurance will cover it. SW tried to explain that he won't be able to go check the facility out first, but his family could. GEOVANNY explained the pre-cert process. At that time therapy came into the room. SW stepped out. RN had just gotten off the phone with patient's daughter Viki. Viki said patient had called her earlier and was upset and wants to go home. Per RN Viki said family is okay with patient going home. GEOVANNY then talked to PT who just saw patient and they do not feel patient is safe for home. GEOVANNY called patient's daughter Viki and left her a voice mail requesting a return call regarding d/c plan for patient. Pilar PEDERSEN
[2024-04-16 12:07] LABS: Bedside Glucose 197 mg/dL (74-106)
--- NOTE | 2024-04-16 12:32 | CASEMGMT ---
GEOVANNY received a call from Viki. Viki said she and her brother talked with patient and he is agreeable to going somewhere. GEOVANNY let Viki know that [facility] has accepted him and will work on insurance authorization. GEOVANNY also let her know GEOVANNY can call patient's insurance and find out SNF coverage then let him know. Viki thanked GEOVANNY. Ilene asked [facility] to go ahead and start pre-cert. Pilar PEDERSEN
--- NOTE | 2024-04-16 12:35 | CASEMGMT ---
GEOVANNY received another call from Viki. Viki was crying and upset. Viki stated patient called her and yelled at her. He said he is going home and told her to stop running his life. Viki said she is done with him. GEOVANNY mentioned that we could possibly set up home health. GEOVANNY will talk with him to see what he has to say. GEOVANNY went to patient's room, but therapy was in with patient. GEOVANNY will check back again. Pilar Emmanuel [employer] [facility]
--- NOTE | 2024-04-16 12:56 | CASEMGMT ---
SW went to patient's room. SW asked patient what he has decided to do. Patient asked if his insurance will cover it. GEOVANNY told patient SW called his insurance and they will pay for days 1-20 at 100%. After that there will be a $150 per day co-pay. Patient asked about [facility]. He said he wanted to know a little bit about it. SW told patient about location and what they offer. Patient said that is probably what he should do and he agreed to go. Patient then told GEOVANNY he got into a fight with his daughter. He asked SW to call his daughter and let her know this information. Pilar Emmanuel SIGN SHOP SUPERVISOR NUVIA
--- NOTE | 2024-04-16 15:30 | TREXTCAR_ITS ---
Diet Diet Order/Speech Therapy: 04/11/24 10:54 Diet: Carbohydrate Controlled Dietary Modifications:: Cardiac / Heart Healthy Fluid restriction:: 1500 mL Routine Orders/Code Status Routine Lab Work: BMP (every friday) Code Status: DNRCC-A (no intubation) DC O2, CPAP, BIPAP needs RN Home O2 Qualification: Home O2 Qualification: Is the patient on home oxygen No 04/16/24 12:35 Home O2 Qualification: AT REST 1- Pulse Ox at rest 88 04/16/24 12:35 2- Pulse Ox at rest 93 04/16/24 12:35 2- Oxygen Flow Rate at rest 2 04/16/24 12:35 Home O2 Qualification: WITH AMBULATION 1- Pulse Ox with ambulation 86 04/16/24 12:35 1- Oxygen Flow Rate with 2 04/16/24 12:35 ambulation 2- Pulse Ox with ambulation 85 04/16/24 12:35 2- Oxygen Flow Rate with 4 04/16/24 12:35 ambulation 3- Pulse Ox with ambulation 90 04/16/24 12:35 3- Oxygen Flow Rate with 6 04/16/24 12:35 ambulation Additional Home O2 Discharge instructions: Yes Type of respiratory needs?: Oxygen Oxygen frequency: Continuous Continuous oxygen liters per minute: 2 Therapies Weight Bearing: Full weight bearing Physical Therapy: Eval and Treat Occupational Therapy: Eval and Treat Problem/Diagnosis (1) Generalized weakness: Status: Acute Code(s): R53.1 - Weakness (2) Hypocalcemia: Status: Acute Code(s): E83.51 - Hypocalcemia (3) Hyponatremia: Status: Acute Code(s): E87.1 - Hypo-osmolality and hyponatremia (4) Community acquired pneumonia: Status: Acute Code(s): J18.9 - Pneumonia, unspecified organism Plan Generalized weakness with concern for adult failure to thrive * PT/OT/case management consulted. Patient reportedly lives at home alone and told admitting provider he had not been taking home medications for 7 to 10 days. Significant electrolyte abnormalities noted on admission along with dehydration concerning for recent poor p.o. intake. On discussion with patient he does not seem to have good insight into his condition, have some concern for underlying cognitive impairment. Further treatment as below. * Pt has reluctantly agreed to go to SNF. Process ongoing for placement. Suspected pneumococcal pneumonia * Strep, legionella antigens negative. Sputum culture so far negative. * Concerning for PNA on CXR * Abx with CTX and azithromycin through 04/17 Hyponatremia * ongoing * cortisol 15.2. TSH 1.2 * Findings cw SIADH. Fluid restrict. * continue salt tabs * continue to monitor. Hypophosphatemia, hypomagnesemia * improving. * replace HIREN, improving * Creatinine 1.59 on admit, baseline around 1.0. Presumed prerenal from dehydration. Improving with IV fluids, continue to monitor daily BMP and urine output. Chronic medical conditions: * Type 2 diabetes mellitus with hyperglycemia and diabetic neuropathy: Blood glucose 411 on admit. A1c 9.7%. Last A1c was 10.1% back in January 2023. Treating with reduced doses from home of Lantus 20 units at night and Humalog 8 units with meals plus sliding scale insulin as needed for now, adjust as needed. Continue home gabapentin. * Hypertension: Holding home lisinopril, restart as able. * Depression with anxiety: Continue home sertraline. * History of upper GI bleed with GERD: Continue home PPI twice daily. * Essential tremor: Continue home primidone. * Hyperlipidemia: Continue home statin. * Mild iron deficiency anemia: Hemoglobin stable at baseline 04-16. Continue home iron supplement. DVT prophylaxis: Lovenox CODE STATUS: DNR CCA, DNI Expected disposition: pt now reluctantly agreeing to SNF. Allergies/Procedures Done in Hospital Allergies Iodinated Contrast Media (Iodinated Contrast Media - IV Dye) Allergy (Verified 12/18/23 12:46) Shortness of breath labetalol Adverse Reaction (Intermediate, Verified 12/18/23 12:46) hypotension metformin Adverse Reaction (Verified 12/18/23 12:46) Diarrhea Procedures: None Type of Care/Length of Stay Estimated LOS: Convalescent Care Less Than 30 days Type of Care Needed: Skilled Rehab Potential: Fair Prognosis: Fair Additional Orders/Day of Discharge Day of Discharge: 04/16/24 Dietary and Speech Recommendations Dietitian Recommendations/Changes: Will change diet to CHO Control Cardiac to manage medical conditions. Continue fluid restriction per MD. Discharge Plan Admission Admit Date/Time: 04/10/24 19:53 Primary Reason for Your Visit: pneumonia Attending Provider: José Luis Walsh Primary Care Provider: Pradeep Franklin Consulting Providers: Sherman Engel; Sebastian Chahal; Lewis Philip; Lesli Mehta Discharge Orders/Prescriptions Prescriptions: New insulin glargine-yfgn 100 unit/mL (3 mL) Insulin Pen 20 unit subcut QHS Qty: 0 0RF insulin lispro [Humalog KwikPen Insulin] 100 unit/mL Insulin Pen 8 unit subcut TIDAC Qty: 0 0RF sodium chloride 1,000 mg Tablet,Soluble 1,000 mg PO BID Qty: 0 0RF Deep Sea Nasal 0.65 % Aerosol,[place] 2 spray NASAL BID PRN PRN (Reason: NASAL DRYNESS) Qty: 0 0RF cephalexin 500 mg capsule 500 mg PO Q12H Qty: 4 0RF Continued gabapentin 300 MG capsule 300 mg PO QHS simvastatin 20 mg tablet 20 mg PO QHS aspirin 81 mg Tablet 81 mg PO DAILY primidone 50 mg tablet 50 mg PO QHS Patient Comments: TAKE 1 DAILY AT BEDTIME valacyclovir 1 gram tablet 1,000 mg PO DAILY Probiotic 10 billion cell Capsule 10,000 mmu cells PO DAILY ferrous sulfate 325 mg (65 mg iron) tablet 325 mg PO DAILY sertraline 100 mg tablet 200 mg PO DAILY pantoprazole 40 mg Tablet,Delayed Release (Dr/Ec) 40 mg PO BID Qty: 60 0RF Discontinued insulin lispro [Humalog KwikPen Insulin] 100/ML insulin pen 14 unit subcut TID Patient Comments: 14 UNITS WITH BREAKFAST, 16 UNITS WITH LUNCH AND DINNER PLUS SLIDING SCALE Rx Instructions: sliding scale insulin glargine [Lantus Solostar U-100 Insulin] 100/ML insulin pen 32 unit subcut QHS lisinopril 5 mg tablet 5 mg PO DAILY Referrals / Follow Up: Pradeep Franklin MD [Primary Care Provider] - Within 2 Weeks Disposition Disposition (needs filled in before D/C Order can be placed): [facility] (4) Community acquired pneumonia Qualifiers: Laterality: right Lung location: lower lobe of lung Qualified Code(s): J18.9 - Pneumonia, unspecified organism
--- NOTE | 2024-04-16 15:37 | DS.PCM_ITS ---
Providers Date of Admission: 04/10/24 Primary Care Physician: Dr. Pradeep Franklin MD Consultations 04/15/24 06:43 Consult: Nephrology Routine Consulting Provider: Lesli Mehta Reason for Consult: low sodium EMERGENT Consult: No MD Notified: Yes Date Notified: 04/15/24 Time Notified: 07:48 Method of Notification: Text Reason For Visit: PNEMONIA AND ABDOMINAL PAIN W/DECREASED APPETITE Diagnosis Discharge Diagnosis (1) Generalized weakness: Status: Acute Code(s): R53.1 - Weakness (2) Hypocalcemia: Status: Acute Code(s): E83.51 - Hypocalcemia (3) Hyponatremia: Status: Acute Code(s): E87.1 - Hypo-osmolality and hyponatremia (4) Community acquired pneumonia: Status: Acute Code(s): J18.9 - Pneumonia, unspecified organism Qualifiers: Laterality: right Lung location: lower lobe of lung Qualified Code(s): J18.9 - Pneumonia, unspecified organism Plan Generalized weakness with concern for adult failure to thrive * PT/OT/case management consulted. Patient reportedly lives at home alone and told admitting provider he had not been taking home medications for 7 to 10 days. Significant electrolyte abnormalities noted on admission along with dehydration concerning for recent poor p.o. intake. On discussion with patient he does not seem to have good insight into his condition, have some concern for underlying cognitive impairment. Further treatment as below. * Pt has reluctantly agreed to go to SNF. Process ongoing for placement. Suspected pneumococcal pneumonia * Strep, legionella antigens negative. Sputum culture so far negative. * Concerning for PNA on CXR * Abx with CTX and azithromycin. Change cephalexin for 2 more days. Hyponatremia 2/2 SIADH. * cortisol 15.2. TSH 1.2 * Findings cw SIADH. Fluid restrict. * continue salt tabs * continue to monitor. * If ongoing, consider nephrology follow up. Hypophosphatemia, hypomagnesemia * improving. * replace HIREN, improving * Creatinine 1.59 on admit, baseline around 1.0. Presumed prerenal from dehydration. Improving with IV fluids, continue to monitor daily BMP and urine output. Chronic medical conditions: * Type 2 diabetes mellitus with hyperglycemia and diabetic neuropathy: Blood glucose 411 on admit. A1c 9.7%. Last A1c was 10.1% back in January 2023. Treating with reduced doses from home of Lantus 20 units at night and Humalog 8 units with meals plus sliding scale insulin as needed for now, adjust as needed. Continue home gabapentin. * Hypertension: Holding home lisinopril, restart as able. * Depression with anxiety: Continue home sertraline. * History of upper GI bleed with GERD: Continue home PPI twice daily. * Essential tremor: Continue home primidone. * Hyperlipidemia: Continue home statin. * Mild iron deficiency anemia: Hemoglobin stable at baseline 04-16. Continue home iron supplement. DVT prophylaxis: Lovenox CODE STATUS: DNR CCA, DNI Expected disposition: pt now reluctantly agreeing to SNF. Medications at Discharge Home Medications gabapentin 300 mg capsule 300 mg PO QHS nerve pain 10/05/13 simvastatin 20 mg tablet 20 mg PO QHS cholesterol 09/12/21 aspirin 81 mg tablet 81 mg PO DAILY heart health 09/13/21 Lactobacillus acidophilus 10 billion cell capsule (Probiotic) 10,000 mmu cells PO DAILY supplement 03/22/22 ferrous sulfate 325 mg (65 mg iron) tablet 325 mg PO DAILY supplement 03/22/22 primidone 50 mg tablet 50 mg PO QHS TREMORS 03/22/22 valacyclovir 1 gram tablet 1,000 mg PO DAILY viral infection 03/22/22 sertraline 100 mg tablet 200 mg PO DAILY mental health 11/28/23 pantoprazole 40 mg tablet,delayed release 40 mg PO BID #60 tabs 12/19/23 cephalexin 500 mg capsule 500 mg PO Q12H #4 caps 04/16/24 insulin glargine-yfgn 100 unit/mL (3 mL) subcutaneous pen 20 unit (0.2 mL) subcut QHS #0 mL 04/16/24 insulin lispro 100 unit/mL subcutaneous pen (Humalog KwikPen (U-100) Insulin) 8 unit (0.08 mL) subcut TIDAC #0 mL 04/16/24 sodium chloride 0.65 % nasal spray aerosol (Deep Sea Nasal) 2 spray NASAL BID PRN PRN NASAL DRYNESS #0 mL 04/16/24 sodium chloride 1,000 mg soluble tablet 1,000 mg PO BID #0 tabs 04/16/24 Hospital Course Summary of Care Provided Minutes Spent on Discharge: 35 Weight / BMI Weight Weight: 84.5 kg Body Mass Index (BMI) 27.5 ABG / Lab / Microbiology Data 04/13/24 06:56 04/16/24 06:06 Laboratory: Laboratory Results - last 24 hr 04/15/24 17:18: POC Glucose 91 04/15/24 21:09: POC Glucose 162 H 04/16/24 06:06: Sodium 124 L, Potassium 4.2, Chloride 90 L, Carbon Dioxide 26.0, Anion Gap 8, BUN 12, Creatinine 1.11, Estim Creat Clear Calc 45.12, Est GFR (MDRD) Af Amer 80, Est GFR (MDRD) Non-Af 66, BUN/Creatinine Ratio 10.8, Glucose 156 H, Calcium 7.5 L 04/16/24 09:31: POC Glucose 150 H 04/16/24 11:43: POC Glucose 197 H Microbiology: Microbiology 04/10/24 23:00 Sputum, Expectorated/Coughed Gram Stain - Final 04/10/24 23:00 Sputum, Expectorated/Coughed Respiratory Culture - Final 04/10/24 23:05 Mucosa - Nasopharyngeal Respiratory Panel (PCR) - Final 04/10/24 23:10 Urine, Clean Catch Streptococcus pneumoniae Antigen (M - Final 04/10/24 23:10 Urine, Clean Catch Legionella Antigen - Final 04/10/24 18:19 Mucosa - Nose SARS-CoV-2, Influenza & RSV (PCR) - Final D/C Instructions DC O2, CPAP, BIPAP Needs RN Home O2 Qualification: Home O2 Qualification: Is the patient on home oxygen No 04/16/24 12:35 Home O2 Qualification: AT REST 1- Pulse Ox at rest 88 04/16/24 12:35 2- Pulse Ox at rest 93 04/16/24 12:35 2- Oxygen Flow Rate at rest 2 04/16/24 12:35 Home O2 Qualification: WITH AMBULATION 1- Pulse Ox with ambulation 86 04/16/24 12:35 1- Oxygen Flow Rate with 2 04/16/24 12:35 ambulation 2- Pulse Ox with ambulation 85 04/16/24 12:35 2- Oxygen Flow Rate with 4 04/16/24 12:35 ambulation 3- Pulse Ox with ambulation 90 04/16/24 12:35 3- Oxygen Flow Rate with 6 04/16/24 12:35 ambulation Home Oxygen Instructions: Home O2 discharge Instructions Type of respiratory needs? Oxygen 04/16/24 15:36 DC Oxygen Instruction Oxygen frequency Continuous 04/16/24 15:36 Continuous oxygen liters per 2 04/16/24 15:36 minute Additional Home O2 Discharge instructions: Yes Type of respiratory needs?: Oxygen Oxygen frequency: Continuous Continuous oxygen liters per minute: 3 DC home with Oxygen: Yes Home O2 MD Review: I have reviewed the oxygen testing, and the patient qualifies for home oxygen equipment and portability. The patient is mobile in the home and the community. Meaningful Use Info Meaningful Use Meaningful Use Diagnoses (Choose all that apply): None applicable Ischemic Stroke Statin Dosing Therapy Reference: STATIN DOSE THERAPY REFERENCE: * Patients > 75 years receive moderate or high dose statin therapy. * Patients 75 years or YOUNGER should receive HIGH intensity statin dose unless contraindicated. You will be required to document reason for non-treatment if statin daily dose does not meet guidelines. HIGH DOSE STATIN THERAPY DAILY Atorvastatin > than or = to 40 mg Rosuvastatin > than or = to 20 mg Amlodipine + Atorvastatin > than or = to 2.5/40 mg Ezetimibe + Simvastatin 10/80 mg Simvastatin 80mg Discharge Plan Admission Admit Date/Time: 04/10/24 19:53 Primary Reason for Your Visit: pneumonia Attending Provider: José Luis Walsh Primary Care Provider: Pradeep Franklin Consulting Providers: Sherman Engel; Sebastian Chahal; Lewis Philip; Lesli Mehta Discharge Orders/Prescriptions Prescriptions: New insulin glargine-yfgn 100 unit/mL (3 mL) Insulin Pen 20 unit subcut QHS Qty: 0 0RF insulin lispro [Humalog KwikPen Insulin] 100 unit/mL Insulin Pen 8 unit subcut TIDAC Qty: 0 0RF sodium chloride 1,000 mg Tablet,Soluble 1,000 mg PO BID Qty: 0 0RF Deep Sea Nasal 0.65 % Aerosol,[place] 2 spray NASAL BID PRN PRN (Reason: NASAL DRYNESS) Qty: 0 0RF cephalexin 500 mg capsule 500 mg PO Q12H Qty: 4 0RF Continued gabapentin 300 MG capsule 300 mg PO QHS simvastatin 20 mg tablet 20 mg PO QHS aspirin 81 mg Tablet 81 mg PO DAILY primidone 50 mg tablet 50 mg PO QHS Patient Comments: TAKE 1 DAILY AT BEDTIME valacyclovir 1 gram tablet 1,000 mg PO DAILY Probiotic 10 billion cell Capsule 10,000 mmu cells PO DAILY ferrous sulfate 325 mg (65 mg iron) tablet 325 mg PO DAILY sertraline 100 mg tablet 200 mg PO DAILY pantoprazole 40 mg Tablet,Delayed Release (Dr/Ec) 40 mg PO BID Qty: 60 0RF Discontinued insulin lispro [Humalog KwikPen Insulin] 100/ML insulin pen 14 unit subcut TID Patient Comments: 14 UNITS WITH BREAKFAST, 16 UNITS WITH LUNCH AND DINNER PLUS SLIDING SCALE Rx Instructions: sliding scale insulin glargine [Lantus Solostar U-100 Insulin] 100/ML insulin pen 32 unit subcut QHS lisinopril 5 mg tablet 5 mg PO DAILY Referrals / Follow Up: Pradeep Franklin MD [Primary Care Provider] - Within 2 Weeks Disposition Disposition (needs filled in before D/C Order can be placed): [facility] Charges/Coding Visit Charges Inpatient E&M: 47093 Disch Hosp >30min
--- NOTE | 2024-04-16 16:14 | CASEMGMT ---
Discharge Planning Discharge orders, signed med list, and transport time sent to [facility]. Physicians will transport patient by wheelchair at 7:30p. Nursing, SW, and patients daughter (Viki) updated. Nursing to update when pt wakes up. Ilene Antunez DC Planning Asst.
--- NOTE | 2024-04-16 16:32 | CASEMGMT ---
Addendum entered by Pilar Emmanuel 04/16/24 16:39: GEOVANNY told patient's daughter Viki that the wheelchair ride to [facility] will not be covered by insurance so patient will get a bill. Viki said she will take care of it and thanked GEOVANNY. Pilar PEDERSEN Original Note: GEOVANNY called patient's insurance and obtained insurance authorization. Auth number [id number]. Good for 10 days with review due 04-26. Reviews should be faxed to Cecilia at [phone] and phone [phone]. GEOVANNY called Esme at [facility] and let her know. GEOVANNY notified physician. GEOVANNY completed a PASRR in [employer] system. GEOVANNY called patient's daughter Viki and told her the good news. Viki was happy to hear patient was agreeable to [facility]. GEOVANNY told her patient can wear clothes so someone will need to get him clothes at [facility]. Someone will call her with transport time. Pilar PEDERSEN
--- NOTE | 2024-04-16 16:37 | CASEMGMT ---
SW notified RN of draft roller picker time and RN stated she will tell patient. Patient was sleeping when SW went in to tell him. Plan: d/c to [facility] under skilled level of care on a PASRR. Physicians will transport patient via wheelchair van. Pilar Emmanuel OPERATIONS LABEL CLERKBlake PEDERSEN
[2024-04-16 17:34] LABS: Bedside Glucose 66 mg/dL (74-106)
[2024-04-16 17:34] LABS: Bedside Glucose 102 mg/dL (74-106)
--- NOTE | 2024-04-16 18:56 | NURSING ---
Report called to CAITY Conway RN at this time.
[2024-04-16] MEDS: Primidone 50 MG Tablet PO (20:25)
[2024-04-17 02:57] LABS: Bedside Glucose 125 mg/dL (74-106)
== END 2024-04-16 22:08 | disposition skilled nursing facility (03) | DRG 640 ==
LOC: ED 19:46 → PCU 20:06
PROVIDERS: Hospitalist; Nurse Practitioner; Admitting Provider Internal Medicine; Emergency Provider Surgery; PCP Family Medicine
DX: R62.7 Adult failure to thrive (principal); J13 Pneumonia due to Streptococcus pneumoniae; E22.2 Syndrome of inappropriate secretion of antidiuretic hormone; J44.0 Chronic obstructive pulmonary disease with (acute) lower respiratory infection; N17.9 Acute kidney failure, unspecified; E83.51 Hypocalcemia; Z66 Do not resuscitate; G20.A1 Parkinson's disease without dyskinesia, without mention of fluctuations; E83.39 Other disorders of phosphorus metabolism; E86.0 Dehydration; E11.40 Type 2 diabetes mellitus with diabetic neuropathy, unspecified; D50.9 Iron deficiency anemia, unspecified; I10 Essential (primary) hypertension; E11.65 Type 2 diabetes mellitus with hyperglycemia; E78.00 Pure hypercholesterolemia, unspecified; Z79.4 Long term (current) use of insulin; G25.0 Essential tremor; F41.8 Other specified anxiety disorders; K21.9 Gastro-esophageal reflux disease without esophagitis; M19.90 Unspecified osteoarthritis, unspecified site; M54.9 Dorsalgia, unspecified; L40.9 Psoriasis, unspecified; E87.6 Hypokalemia; K52.9 Noninfective gastroenteritis and colitis, unspecified; E66.3 Overweight; R53.81 Other malaise; G89.29 Other chronic pain; I49.1 Atrial premature depolarization; R10.84 Generalized abdominal pain; R09.02 Hypoxemia; Z68.27 Body mass index [BMI] 27.0-27.9, adult; Z88.8 Allergy status to other drugs, medicaments and biological substances; Z87.891 Personal history of nicotine dependence; Z87.19 Personal history of other diseases of the digestive system; Z86.19 Personal history of other infectious and parasitic diseases; Z90.49 Acquired absence of other specified parts of digestive tract; Z86.73 Personal history of transient ischemic attack (TIA), and cerebral infarction without residual deficits; Z85.46 Personal history of malignant neoplasm of prostate; Z85.038 Personal history of other malignant neoplasm of large intestine; Z79.82 Long term (current) use of aspirin; Z98.890 Other specified postprocedural states; Z91.041 Radiographic dye allergy status; Z79.899 Other long term (current) drug therapy; Z23 Encounter for immunization
CPT/HCPCS: 36415; 71046; 74176; 80048; 80053; 81001; 82330; 82533; 82607; 82652; 82746; 82962; 83036; 83605; 83690; 83735; 83930; 83935; 83970; 84100; 84300; 84443; 84484; 85025; 85027; 87070; 87205; 87449; 87631; 87633; 90662; 93005; 97110; 97116; 97162; 97166; 97530; 97802; 97803; 99283; J7030; J7040; A4216; J0612; J2405

== ENCOUNTER → 2024-07-01 | Outpatient (CLI) | payer MEDICARE, SELFPAY ==
[2024-07-01 14:59] LABS: Absolute Lymphocyte Count 1.39 X10^3/uL (0.83-4.51); Absolute Neutrophil Count 4.5 X10^3/uL (2.0-7.7); Basophil# 0.07 X10^3/uL; Eosinophil# 0.19 X10^3/uL; Eosinophils% 2.8 % (0-5); Hematocrit 37.3 % (40-54); Hemoglobin 12.8 g/dL (13.0-16.5); Lymphocyte # 1.39 X10^3/ul (0.83-4.51); Lymphocyte % 20.5 % (19-41); Mean Corp Hgb Conc 34.3 g/dL (32-36); Mean Corpuscular Hgb 36.8 pg (27.0-32.0); Mean Corpuscular Volume 107.2 fL (80-94); Mean Platelet Vol. 9.6 fl (6.2-12.0); Monocyte# 0.63 X10^3/uL; Monocyte% 9.3 % (0-10); NRBC Flagged by Analyzer 0 % (0-5); Neutrophil # 4.45 X10^3/uL (2.7-7.7); Neutrophil % 65.8 % (47-70); Platelet Count 366 K/mm3 (150-450); RBC Distribution Width CV 15.6 % (11.6-14.6); RBC Distribution Width SD 62.1 fl (35.1-43.9); Red Blood Count 3.48 M/mm3 (4.6-6.2); White Blood Count 6.8 K/mm3 (4.4-11.0)
[2024-07-01 15:45] LABS: Hemoglobin A1c 7.2 % (<=5.6)
[2024-07-01 16:05] LABS: ALB/GLOB Ratio 0.8 RATIO (0.9-2.4); AST(SGOT) 31 U/L (<=37); Alanine Aminotransfer ALT/SGPT 15 U/L (<=46); Albumin, Serum 3.1 g/dL (3.4-4.8); Alkaline Phosphatase 397 U/L (40-129); Anion Gap 10 (5-15); BUN 11 mg/dL (4-19); BUN/Creat Ratio 8.1 RATIO (10-20); Calcium 8.8 mg/dL (7.6-11.0); Carbon Dioxide 25.5 mmol/L (22.0-29.0); Chloride 93 mmol/L (96-108); Creatinine, Serum 1.3 mg/dL (0.8-1.3); EST Glomerular Filtration Rate 51 (>60); Ferritin 334 ng/mL (37-417); Glucose 369 mg/dL (70-99); Iron 84 ug/dL (65-175); Iron Binding Capacity,Unsat 99 ug/dL (228-428); Potassium 4.5 mmol/L (3.3-5.1); Protein, Total 7.1 g/dL (5.9-8.4); Sodium Level 128 mmol/L (133-145); Total Bilirubin 0.88 mg/dL (0.00-1.30); Vitamin D,25 Hydroxy 11.2 ng/mL (30-100)
[2024-07-01 18:55] LABS: Iron Binding Capacity,Total 183 ug/dL (250-450); PERCENT IRON SATURATION 45.9 % (15.0-55.0)
[2024-07-01 19:10] LABS: Cholesterol 120 mg/dL (<=200); High Density Lipoprotein 30 mg/dL; Low Density Lipoprotein Calc. 71 mg/dL; Triglycerides 97 mg/dL; Very Low Density Lipoprotein 19 mg/dL (5-40); cholesterol:hdl ratio screen 4.07
== END | disposition home or self-care (01) ==
LOC: MTLAB 12:55
PROVIDERS: PCP Family Medicine; Referring Provider Family Medicine; Visit Provider Family Medicine
DX: E11.22 Type 2 diabetes mellitus with diabetic chronic kidney disease (principal); N18.30 Chronic kidney disease, stage 3 unspecified; G25.0 Essential tremor
CPT/HCPCS: 36415; 80053; 80061; 82306; 82728; 83036; 83540; 83550; 84443; 85025

== ENCOUNTER → 2024-08-05 | Outpatient (CLI) | payer MEDICARE, SELFPAY | END | disposition home or self-care (01) | LOC: LABSPEC 12:30 | PROVIDERS: PCP Family Medicine; Visit Provider Physician Assistant Surgical | DX: R31.9 Hematuria, unspecified (principal) | CPT/HCPCS: 87086; 87088 ==

== ENCOUNTER → 2024-10-14 | Outpatient (CLI) | payer MEDICARE, SELFPAY ==
[2024-10-14 18:18] LABS: FOLATES,SERUM (FOLIC ACID) 3.96 ng/mL (4.60-34.80); Vitamin B12 439 pg/mL (180-914)
[2024-10-19 13:08] LABS: Vitamin D 1,25-Dihydroxy 73.6 pg/mL (24.8-81.5)
== END | disposition home or self-care (01) ==
LOC: MFPLAB 14:48
PROVIDERS: PCP Family Medicine; Referring Provider Family Medicine; Visit Provider Family Medicine
DX: E11.3299 Type 2 diabetes mellitus with mild nonproliferative diabetic retinopathy without macular edema, unspecified eye (principal); E55.9 Vitamin D deficiency, unspecified
CPT/HCPCS: 36415; 82607; 82652; 82746; 83036

== ENCOUNTER 2025-01-11 19:47 | Emergency (ER) | payer MEDICARE, SELFPAY ==
[2025-01-11] VITALS (8 sets, daily range): BP systolic 129–157; BP diastolic 66–99; PULSE 65–96; RESP 16–21; TEMP 36.3–36.7; O2SAT 95–97; BMI 23.7
--- NOTE | 2025-01-11 20:29 | CT_ITS ---
PROCEDURE: CT CHEST, ABD, PELVIS WO CONT 01/11/2025 REASON FOR EXAM: CHEST AND ABD PAIN, HX OF CANCER TECHNIQUE: Chest, abdomen and pelvis CT without intravenous contrast. Coronal and Sagittal reconstruction series were provided. One or more dose reduction techniques were used (e.g., Automated exposure control, adjustment of the mA and/or kV according to patient size, use of iterative reconstruction technique. RADIATION DOSE SUMMARY: CTDlvol: 22 mGy DLP: 1081 mGycm COMPARISON: 04/10/2024 without contrast FINDINGS: Inspection of the chest demonstrates centrilobular emphysema bilaterally. There is no rhoda consolidation, pulmonary edema, fibrosis or significant pleural fluid. Inspection of the chest demonstrates normal axilla. No mediastinal adenopathy. No thoracic aortic aneurysm. Moderate coronary artery calcification. No pericardial fluid. Normal chest wall. Noncontrast images of the liver are unremarkable. The gallbladder appears to be surgically absent. Normal noncontrast of the spleen and pancreas. No hydronephrosis. Vascular calcification in both kidneys. No perinephric soft tissue stranding. Slight ectasia of the infrarenal abdominal aorta measuring 2.8 cm. There is no bowel obstruction or free air. There is no free-fluid. No sclerotic or lytic lesions are seen in the osseous structures. No thoracic compression deformity. Normal sternum. CT/CT Chest, Abd, Pelvis WO Cont IMPRESSION: No neoplastic findings Reading Location: [facility]
[2025-01-11 20:50] LABS: Hematocrit 38.8 % (40-54); Hemoglobin 13.4 g/dL (13.0-16.5); Immature Granulocytes Count 0.030 X10^3/uL (0.0-0.0); Mean Corp Hgb Conc 34.5 g/dL (32-36); Mean Corpuscular Volume 103.7 fL (80-94); Mean Platelet Vol. 10.3 fl (6.2-12.0); NRBC Flagged by Analyzer 0 % (0-5); Platelet Count 292 K/mm3 (150-450); RBC Distribution Width CV 12.3 % (11.6-14.6); RBC Distribution Width SD 47.1 fl (35.1-43.9); Red Blood Count 3.74 M/mm3 (4.6-6.2); White Blood Count 8.8 K/mm3 (4.4-11.0)
[2025-01-11 21:40] LABS: Troponin T High Sensitivity 18 ng/L (<=22)
[2025-01-11 21:42] LABS: Pro- Brain NATRIURETIC PEPTIDE 1185 pg/mL (<=1800)
[2025-01-11 22:01] LABS: AST(SGOT) 25 U/L (<=37); Alanine Aminotransfer ALT/SGPT 14 U/L (<=46); Albumin, Serum 4.0 g/dL (3.4-4.8); Alkaline Phosphatase 92 U/L (40-129); Anion Gap 15 (5-15); BUN 11 mg/dL (4-19); BUN/Creat Ratio 7.3 RATIO (10-20); Calcium,Total 9.3 mg/dL (7.6-11.0); Carbon Dioxide 23.9 mmol/L (21.0-32.0); Chloride 97 mmol/L (98-108); Estimated Creatinine Clearance 34.07 ml/min (50-250); Globulin 3.3 g/dL (2.2-4.2); Glucose 240 mg/dL (70-99); Potassium 3.8 mmol/L (3.3-5.1)
[2025-01-11 22:37] LABS: Troponin T High Sens 2 HR 20 ng/L (<=22)
--- NOTE | 2025-01-11 23:16 | ED.VIS.CHEST ---
HPI History of Present Illness Chief Complaint: Chest Pain Informant: patient and family Narrative Narrative: Patient is an 89-year-old male with history of prostate cancer, colon cancer, insulin-dependent diabetes, chronic diarrhea, hypertension, stroke, anxiety, diabetic neuropathy, hyperlipidemia and COPD presenting with left-sided chest pain. Patient states for the past few weeks he has had pain that radiates from his left chest down to his left abdomen and back and forth. Seems to be worse when he leans forward and better when he lays back or stretches out. He also knows that he has been having a knot in between his shoulder blades it feels better when it is rubbed. He has not take anything for the pain. He notes for this time he also stopped taking all of his medications. He denies any new difficulty breathing. Denies any swelling of his legs. [place] any nausea or vomiting. Denies any black or blood in his stool. Denies any changes bowel movements. Currently denies any abdominal pain. His sons brought him in today. Patient is coming from home. No other complaints or concerns at this time [facility] Medical History COPD (chronic obstructive pulmonary disease) Overweight (BMI 25.0-29.9) Debility Occult blood in stools Syncope and collapse Anemia Diabetes Acute blood loss anemia Acute lower GI bleeding Macrocytic anemia Wears dentures Wears glasses Cancer Insulin dependent diabetes mellitus Back pain Parkinson's disease Leg cramps History of edema History of irregular heartbeat History of echocardiogram History of stress test Chest pain Chronic diarrhea Depression Diabetes GI bleed Former smoker Sleep apnea Hypertension Stroke/cerebrovascular accident Personal history of colon cancer Psoriasis Anxiety C. difficile diarrhea Prostate cancer GERD (gastroesophageal reflux disease) High cholesterol Tobacco abuse History of GI bleed Diabetic neuropathy HLD (hyperlipidemia) Diverticulosis of colon without diverticulitis Type II diabetes mellitus Benign hypertension Home Medications ?Medication ?Instructions ?Recorded ?Last Taken ?Type gabapentin 300 mg capsule 300 mg PO QHS nerve pain 10/05/13 03/29/24 History simvastatin 20 mg tablet 20 mg PO QHS cholesterol 09/12/21 03/29/24 History aspirin 81 mg tablet 81 mg PO DAILY heart health 09/13/21 03/29/24 History Lactobacillus acidophilus 10 10,000 mmu cells PO DAILY 03/22/22 03/29/24 History billion cell capsule (Probiotic) supplement ferrous sulfate 325 mg (65 mg 325 mg PO DAILY supplement 03/22/22 03/29/24 History iron) tablet primidone 50 mg tablet 50 mg PO QHS TREMORS 03/22/22 03/29/24 History valacyclovir 1 gram tablet 1,000 mg PO DAILY viral infection 03/22/22 03/29/24 History sertraline 100 mg tablet 200 mg PO DAILY mental health 11/28/23 03/29/24 History pantoprazole 40 mg tablet,delayed 40 mg PO BID #60 tabs 12/19/23 03/29/24 Rx release cephalexin 500 mg capsule 500 mg PO Q12H #4 caps 04/16/24 Unknown Rx insulin glargine-yfgn 100 unit/mL 20 unit (0.2 mL) subcut QHS #0 mL 04/16/24 Unknown Rx (3 mL) subcutaneous pen insulin lispro 100 unit/mL 8 unit (0.08 mL) subcut TIDAC #0 mL 04/16/24 Unknown Rx subcutaneous pen (Humalog KwikPen (U-100) Insulin) sodium chloride 0.65 % nasal spray 2 spray NASAL BID PRN PRN NASAL 04/16/24 Unknown Rx aerosol (Deep Sea Nasal) DRYNESS #0 mL sodium chloride 1,000 mg soluble 1,000 mg PO BID #0 tabs 04/16/24 Unknown Rx tablet Allergy/AdvReac Type Severity Reaction Status Date / Time Iodinated Contrast Media Allergy Shortness Verified 01/11/25 19:50 (Iodinated Contrast Media - of breath IV Dye) labetalol AdvReac Intermediate hypotension Verified 01/11/25 19:50 metformin AdvReac Diarrhea Verified 01/11/25 19:50 Surgical History Hx of hernia repair History of cholecystectomy History of colonoscopy History of hernia repair History of partial colectomy S/P paola-rectal abscess repair, follow-up exam Social History household members: none housing: house Smoking Status: Former smoker alcohol intake: never substance use type: does not use ROS ROS ED Constitutional Constitutional ED: Reports other Details: Generalized weakness ; Denies chills or fever(s) Cardiovascular Cardiovascular: Reports as per HPI and chest pain; Denies palpitations Respiratory/Chest Respiratory/Chest: Denies cough, dyspnea or sputum Gastrointestinal Gastrointestinal: Reports abdominal pain; Denies diarrhea, melena, nausea or vomiting Musculoskeletal Musculoskeletal: Reports back pain; Denies arthralgias or myalgias Integumentary Denies rash Neurologic Neurologic: Denies headache(s) or paresthesias Psychiatric Psychiatric: Reports anxiety Hematologic/Lymphatic Hematologic/Lymphatic: Denies easy bleeding or easy bruising EXAM Physical Exam Const Vital Signs: 01/11/25 19:48 01/11/25 20:03 01/11/25 20:05 Temperature 98.1 F Temperature Source Oral Pulse Rate 82 Respiratory Rate 18 Respiratory Effort Normal Non-Labored Blood Pressure 157/71 H 139/77 H Blood Pressure Mean 99 97 Pulse Ox 95 Oxygen Delivery Method Room Air 01/11/25 20:15 01/11/25 20:30 01/11/25 20:46 Temperature Temperature Source Pulse Rate 81 80 96 Respiratory Rate 20 H 21 H 19 H Respiratory Effort Blood Pressure 136/74 H 133/99 H 131/77 H Blood Pressure Mean 91 110 95 Pulse Ox 97 96 95 Oxygen Delivery Method 01/11/25 21:00 01/11/25 22:00 Temperature Temperature Source Pulse Rate 65 72 Respiratory Rate 20 H 16 Respiratory Effort Blood Pressure 144/70 H 135/73 H Blood Pressure Mean 92 93 Pulse Ox 96 96 Oxygen Delivery Method Positive well nourished and well developed General Appearance ED: well developed and NAD; Negative for pallor HEENT Reports moist mucous membranes normocephalic and atraumatic Neck supple and no JVD Chest Wall inspection of chest normal and palpation of chest normal Resp normal respiratory effort and clear to auscultation bilaterally Cardio regular rate, regular rhythm and no murmurs GI normal to inspection, nondistended, normoactive bowel sounds, soft to palpation and non-tender Palpation: Negative for mass Back/Spine no CVA tenderness Back/Spine Narrative: Mild thoracic paraspinal tenderness approximate level of T7-9. No midline spinal tenderness Extremity normal to inspection General Extremety ED: Negative for edema General Extremity: Negative for edema Neuro oriented x3 Sensorium / Orientation: awake and alert Motor Exam: general weakness Psych mental status grossly normal Skin no rashes or lesions noted and no wounds General Skin Exam: Negative for jaundice or pallor Heart Score History: Slightly/Non-Suspicious ECG: Normal Age: >/= 65 years Risk Factors: >/= 3 Risk Factors or History of CAD Troponin: </= Normal Limit Score: 4 MDM MDM MDM Narrative Medical decision making narrative: Patient is evaluated for couple weeks of pain in the that radiates from his chest down to his left upper quadrant. It is positional in nature. He also mentions that he has not been taking any of his regular medications. Patient has normal vital signs. Appears nontoxic no acute distress.. Does not sound consistent with ACS I suspect is more musculoskeletal. He has equal pulses in all 4 extremities and has a normal neurovascular exam. Low suspicion for aortic dissection especially as his symptoms been going on for weeks now. Given his age and comorbidities also considered new neoplasm (has a history of colon and prostate cancer) as well as infection. CT of the chest abdomen pelvis is obtained for further evaluation of this. Lab work including CBC, CMP, delta high-sensitivity troponin, BNP is obtained. Workup largely unremarkable. He has a minimal elevation of his creatinine of 1.47 but is near his baseline. Do not think patient requires admission for diuresis or fluid management. CT of the chest abdomen pelvis does not show any acute abnormalities to explain his pain. Patient is given aspirin for pain control in the emergency. Will be discharged home and encouraged to resume taking his daily medications. His son is at the bedside who states that the patient's [id number] will go over make sure his pill dispenser's are filled up appropriately. Patient is comfortable being discharged home. Remains hemodynamically stable in the emergency room. He has not complained of any acute shortness of breath, is not tachycardic, tachypneic or hypoxic and does not have reported pain. I do not think he needs workup for pulmonary emboli at this time. Lab Data Attestation: I reviewed the patient's lab results. Labs: Laboratory Results - last 24 hr 01/11/25 01/11/25 19:58 22:05 WBC 8.8 RBC 3.74 L Hgb 13.4 Hct 38.8 L MCV 103.7 H MCH 35.8 H MCHC 34.5 RDW Std Deviation 47.1 H RDW Coeff of Angel 12.3 Plt Count 292 MPV 10.3 Immature Gran % (Auto) 0.300 Neut % (Auto) 70.1 H Lymph % (Auto) 20.8 [place] % (Auto) 6.7 Eos % (Auto) 1.5 Baso % (Auto) 0.6 Absolute Neuts (auto) 6.1 Absolute Lymphs (auto) 1.82 Nucleated RBC % 0 Sodium 136 Potassium 3.8 Chloride 97 L Carbon Dioxide 23.9 Anion Gap 15 BUN 11 Creatinine 1.47 H Estim Creat Clear Calc 34.07 L Est GFR (MDRD) Non-Af 45 L BUN/Creatinine Ratio 7.3 L Glucose 240 H Calcium 9.3 Total Bilirubin 0.55 AST 25 ALT 14 Alkaline Phosphatase 92 Troponin T High Sens 18 Troponin T Hi Sens 2 Hr 20 NT pro BNP II 1185 Total Protein 7.3 Albumin 4.0 Globulin 3.3 Albumin/Globulin Ratio 1.2 Radiography Diagnostic Testing: Clinical Impression(s) from Imaging Studies Chest/Abdomen/Pelvis CT 01/11/25 20:29 IMPRESSION: No neoplastic findings Reading Location: [facility] Rhythm Strip Rhythm Strip: Sinus Rhythm Rate: 77 Ectopy: None EKG Initial EKG: Attestation: I personally reviewed and interpreted this EKG as follows: Interpretation: Sinus Rhythm Comments: Normal sinus rhythm rate of 77 bpm Left axis deviation Normal intervals Low voltage QRS Prior EKG tracings: available for review Prior: Unchanged Discharge Plan Triage Chief Complaint: Chest Pain ED Provider: Estephanie Viera Dx/Rx/DC Orders Clinical Impression: Chest pain Instructions: ED Chest Pain, Uncertain Cause Prescriptions: No Action gabapentin 300 MG capsule 300 mg PO QHS simvastatin 20 mg tablet 20 mg PO QHS aspirin 81 mg Tablet 81 mg PO DAILY primidone 50 mg tablet 50 mg PO QHS Patient Comments: TAKE 1 DAILY AT BEDTIME valacyclovir 1 gram tablet 1,000 mg PO DAILY Probiotic 10 billion cell Capsule 10,000 mmu cells PO DAILY ferrous sulfate 325 mg (65 mg iron) tablet 325 mg PO DAILY sertraline 100 mg tablet 200 mg PO DAILY insulin glargine-yfgn 100 unit/mL (3 mL) Insulin Pen 20 unit subcut QHS Qty: 0 0RF insulin lispro [Humalog KwikPen Insulin] 100 unit/mL Insulin Pen 8 unit subcut TIDAC Qty: 0 0RF sodium chloride 1,000 mg Tablet,Soluble 1,000 mg PO BID Qty: 0 0RF Deep Sea Nasal 0.65 % Aerosol,[place] 2 spray NASAL BID PRN PRN (Reason: NASAL DRYNESS) Qty: 0 0RF cephalexin 500 mg capsule 500 mg PO Q12H Qty: 4 0RF pantoprazole 40 mg Tablet,Delayed Release (Dr/Ec) 40 mg PO BID Qty: 60 0RF Primary Care Provider: Casandra Moya Referrals: Casandra Moya MD [Primary Care Provider] - Activity Restrictions/Additional Instructions: Please take Tylenol regularly for pain at home. Please resume taking your regular medications including her insulin. Your workup today was largely at your baseline and reassuring. The cause of your pain is not clear. Print Language: Azeri Disposition Disposition: Home, Self Care
== END 2025-01-11 23:31 | disposition home or self-care (01) ==
PROVIDERS: Emergency Provider Emergency Medicine; PCP Family Medicine; Visit Provider Emergency Medicine
DX: R07.89 Other chest pain (principal); J44.9 Chronic obstructive pulmonary disease, unspecified; E11.40 Type 2 diabetes mellitus with diabetic neuropathy, unspecified; I10 Essential (primary) hypertension; Z87.891 Personal history of nicotine dependence; F41.9 Anxiety disorder, unspecified; E78.00 Pure hypercholesterolemia, unspecified; Z86.73 Personal history of transient ischemic attack (TIA), and cerebral infarction without residual deficits
CPT/HCPCS: 71250; 74176; 80053; 83880; 84484; 85025; 93005; 99284; A4216